=== PATIENT | female | born 1950 | race Caucasian/White ===

== ENCOUNTER → 2022-11-11 13:49 | Outpatient (BNVA) | payer MEDICARE, SELFPAY | PROVIDERS: PCP Internal Medicine; Visit Provider Neurological Surgery | DX: M54.9 Dorsalgia, unspecified (principal); Z98.1 Arthrodesis status; Z98.890 Other specified postprocedural states | CPT/HCPCS: 99202 ==

== ENCOUNTER 2023-03-09 13:20 | Outpatient (AMB) | payer MEDICARE, BC, SELFPAY ==
--- NOTE | 2023-03-09 13:52 | HO.SPINEOV ---
Intake Intake Visit Reasons: MRI follow up Intake Note: Mrs. Trang Heller is here today to discuss the results of her MRI done @ [facility]/brought disc. Engine Maintenance Mechanic Required: No Assessment & Plan Assessment & Plan (1) T12 compression fracture: Code(s): S22.080A - Wedge compression fracture of T11-T12 vertebra, initial encounter for closed fracture Qualifiers: Encounter type: subsequent encounter Fracture healing: with nonunion Qualified Code(s): S22.080K - Wedge compression fracture of T11-T12 vertebra, subsequent encounter for fracture with nonunion Plan: Dear colleague, On 03/09/2023, I saw for return visit Loree Heller. She continues to suffer from severe mid lumbar back pain that is aggravated with standing and walking. The pain started after an injury several months ago. An MRI of the lumbar spine was performed on 02/06/2023 at [facility], which shows a new T12 compression fracture with hyperintensity on the T2 stir images. A standing x-ray today shows a mild kyphotic deformity due to the T12 compression fracture. We discussed treatment options. The pain started after fall and therefore is most likely caused by the T12 fracture. The pain remains severe and therefore I offered a T12 kyphoplasty. I discussed the procedure and expected postoperative course. 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 She scheduled for May 04. I spent 25 minutes in this consult for preparation, ordering tests and discussing plan of care. 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
== END 2023-03-09 14:55 | disposition home or self-care (01) ==
PROVIDERS: PCP Internal Medicine; Visit Provider Neurological Surgery
DX: S22.080K Wedge compression fracture of T11-T12 vertebra, subsequent encounter for fracture with nonunion (principal)
CPT/HCPCS: 99214

== ENCOUNTER 2023-03-09 13:20 | Outpatient (REF) | payer MEDICARE, SELFPAY | END 2023-03-09 13:21 | disposition home or self-care (01) | LOC: HO.HOSX 13:20 | PROVIDERS: PCP Internal Medicine; Visit Provider Neurological Surgery | DX: S22.080K Wedge compression fracture of T11-T12 vertebra, subsequent encounter for fracture with nonunion (principal) | CPT/HCPCS: 72070; 72100; 99212 ==

== ENCOUNTER 2023-04-20 09:09 | Day surgery (SDC) | payer MEDICARE, BC, SELFPAY ==
[2023-03-30 12:23] VITALS: BP 153/69; PULSE 69; RESP 16; O2SAT 97; BMI 32.0
--- NOTE | 2023-03-30 12:56 | HO.ANESPROP2 ---
Documented by User: Martha Jane NP 04/19/23 11:59 HPI - Anesthesia Eval Consult details Narrative: 72yo F for T12 Kyphoplasty, 04/20/23 Allergy to midazolam - HIVES Sensitive gag reflex Pulmo optimized No recent illness No CP. Mild ARORA is baseline from asthma. Very limited activity d/t back pain Xopenex for rescue inhaler uses most days *Multiple Med Allergies* PMFSH Active Problems Active Problems: All Active Problems (Updated 03/30/23 @ 12:23 by Alexia Bruce RN) T12 compression fracture (Acute) Back pain with history of spinal surgery (Acute) Past Medical History Medical History Cough Hyponatremia GERD (gastroesophageal reflux disease) Back pain Asthma Elevated cholesterol HTN (hypertension) Family History Family history of problems with anesthesia: No Surgical History Surgical History Hx of colonoscopy Hx laparoscopic cholecystectomy Previous back surgery Hx of bilateral cataract extraction Hx of hammer toe correction History of bunionectomy of both great toes History of Problems with Anesthesia: No Social History Social History Are you a primary nurse care manager to a significant other at home: No Do you presently have visiting nurse or other home services: No Patient Tobacco Use Status: Former Tobacco user Quit Date: 1972 Tobacco use type: Cigarette Use of substances other than those prescribed or required for medical reasons: No Substance Use Type Other:: CBD lotion PRN Have you been hit, kicked, punched, or otherwise hurt by someone within the past year? If so, by whom?: No Are you DNR?: No Advance Directives: No Advance Directives Information Provided: Yes Advance Directives on File: No Recently lost weight without trying: No Eating poorly because of decreased appetite: No Nutrition Risks: No Nutritional Risk Patient : No Poor oral hygiene: No Meds Allergies Allergy/AdvReac Type Severity Reaction Status Date / Time amlodipine Allergy Severe Swelling Verified 03/30/23 12:06 codeine Allergy Severe Abdominal Verified 03/30/23 12:06 Pain hydralazine Allergy Severe Swelling Verified 03/30/23 12:06 hydrocodone [From Vicodin] Allergy Severe Abdominal Verified 03/30/23 12:06 Pain lisinopril Allergy Severe Hives Verified 03/30/23 12:06 midazolam Allergy Severe Hives Verified 03/30/23 12:06 morphine Allergy Severe Abdominal Verified 03/30/23 12:06 Pain Home Medications Medication Instructions Recorded Confirmed Last Taken Type acetaminophen 500 mg tablet 1,000 mg PO Q6H PRN Pain 03/30/23 03/30/23 Unknown History atorvastatin 20 mg tablet (Lipitor) 20 mg PO BEDTIME 03/30/23 03/30/23 Unknown History budesonide 180 mcg/actuation 2 inh inhalation BID 03/30/23 04/20/23 04/20/23 History breath activated powder inhaler carvedilol 25 mg tablet (Coreg) 25 mg PO BID 03/30/23 03/30/23 04/20/23 History famotidine 40 mg tablet (Pepcid) 40 mg PO BID 03/30/23 03/30/23 Unknown History levalbuterol tartrate 45 2 puff inhalation Q4-6H PRN 03/30/23 03/30/23 04/20/23 History mcg/actuation aerosol inhaler Shortness Of Breath Or Wheezing (Xopenex HFA) losartan 100 mg tablet 100 mg PO DAILY 03/30/23 03/30/23 Unknown History mometasone-formoterol HFA 200 2 puff inhalation BID 03/30/23 03/30/23 04/20/23 History mcg-5 mcg/actuation aerosol inhaler (Dulera) naproxen sodium 220 mg capsule 440 mg PO BID PRN Pain 03/30/23 03/30/23 Unknown History zafirlukast 20 mg tablet 20 mg PO BID 03/30/23 03/30/23 Unknown History Exam Exam Date and Time: March 30, 2023 1256 Height,Weight and Vital Signs: Height 5 ft 2 in Weight 79.4 kg Last Vital Signs Pulse 69 03/30/23 12:23 Resp 16 03/30/23 12:23 BP 153/69 H 03/30/23 12:23 Pulse Ox 97 03/30/23 12:23 O2 Del Method Room Air 03/30/23 12:23 Pertinent Lab Results Pertinent Lab Results: 12/2022 CMP - slight low Na (132) and slight high K (5.4), otherwise nml. CBC nml Narrative Narrative: EKG 12/2022 NSR with horizontal axis. No significant ST or T wave abnormalities Airway Mallampati Class: III TM Dist: >3cm Neck ROM: Full Loose/Missing/Broken Teeth: No (Multiple crowns, implants x 2) Heart: RRR Lungs: CTAB Assessment and Plan Assessment Anesthesia Assessment: Anesthesia Plan Discussed and PAT Visit Final Anesthetic Review Family History of Problems with Anesthesia: No History of Problems with Anesthesia: No Documented by User: Raghu Gutierrez MD 04/20/23 11:47 PMFSH Past Medical History Medical History Cough Hyponatremia GERD (gastroesophageal reflux disease) Back pain Asthma Elevated cholesterol HTN (hypertension) Surgical History Surgical History Hx of colonoscopy Hx laparoscopic cholecystectomy Previous back surgery Hx of bilateral cataract extraction Hx of hammer toe correction History of bunionectomy of both great toes Social History Social History Are you a primary nurse care manager to a significant other at home: No Do you presently have visiting nurse or other home services: No Patient Tobacco Use Status: Former Tobacco user Quit Date: 1972 Tobacco use type: Cigarette Use of substances other than those prescribed or required for medical reasons: No Substance Use Type Other:: CBD lotion PRN Have you been hit, kicked, punched, or otherwise hurt by someone within the past year? If so, by whom?: No Are you DNR?: No Advance Directives: No Advance Directives Information Provided: Yes Advance Directives on File: No Recently lost weight without trying: No Eating poorly because of decreased appetite: No Nutrition Risks: No Nutritional Risk Patient : No Poor oral hygiene: No Meds Allergies Allergy/AdvReac Type Severity Reaction Status Date / Time amlodipine Allergy Severe Swelling Verified 03/30/23 12:06 codeine Allergy Severe Abdominal Verified 03/30/23 12:06 Pain hydralazine Allergy Severe Swelling Verified 03/30/23 12:06 hydrocodone [From Vicodin] Allergy Severe Abdominal Verified 03/30/23 12:06 Pain lisinopril Allergy Severe Hives Verified 03/30/23 12:06 midazolam Allergy Severe Hives Verified 03/30/23 12:06 morphine Allergy Severe Abdominal Verified 03/30/23 12:06 Pain Home Medications Medication Instructions Recorded Confirmed Last Taken Type acetaminophen 500 mg tablet 1,000 mg PO Q6H PRN Pain 03/30/23 03/30/23 Unknown History atorvastatin 20 mg tablet (Lipitor) 20 mg PO BEDTIME 03/30/23 03/30/23 Unknown History budesonide 180 mcg/actuation 2 inh inhalation BID 03/30/23 04/20/23 04/20/23 History breath activated powder inhaler carvedilol 25 mg tablet (Coreg) 25 mg PO BID 03/30/23 03/30/23 04/20/23 History famotidine 40 mg tablet (Pepcid) 40 mg PO BID 03/30/23 03/30/23 Unknown History levalbuterol tartrate 45 2 puff inhalation Q4-6H PRN 03/30/23 03/30/23 04/20/23 History mcg/actuation aerosol inhaler Shortness Of Breath Or Wheezing (Xopenex HFA) losartan 100 mg tablet 100 mg PO DAILY 03/30/23 03/30/23 Unknown History mometasone-formoterol HFA 200 2 puff inhalation BID 03/30/23 03/30/23 04/20/23 History mcg-5 mcg/actuation aerosol inhaler (Dulera) naproxen sodium 220 mg capsule 440 mg PO BID PRN Pain 03/30/23 03/30/23 Unknown History zafirlukast 20 mg tablet 20 mg PO BID 03/30/23 03/30/23 Unknown History Assessment and Plan Final Anesthetic Review NPO: Yes ASA Class: III Final Preanesthetic Review: No Changes in Pt Med Stat, Meds/Allgs Chart Reviewed, Consent Obtained/Reviewed and Anes Risks/Benef Reviewed Patient Risk: Intermediate Procedure Risk: Low Anesthetic Plan Anesthetic Plan: GA Disposition: Standard PACU
[2023-04-20] VITALS (15 sets, daily range): BP systolic 147–182; BP diastolic 61–74; PULSE 68–74; RESP 14–18; TEMP 36.4–36.6; O2SAT 94–100
--- NOTE | ~2023-04-20 | FL_ITS ---
EXAMINATION: XR FLUOROSCOPY WITH IMAGES CLINICAL INFORMATION: T12 kyphoplasty. COMPARISON: Previous thoracic and lumbar spine x-ray March TECHNIQUE: Fluoroscopy Supervised By: Dr. Donato Wynn. Fluoroscopy Time: 0.9 minute. Cumulative Dose: 32.3 mGy. DAP: 3.7624 Gycm2. Images: 2. FINDINGS: Images demonstrate new cement in the T12 vertebral body. T12 vertebral body compression fracture otherwise unchanged from March 2023. Catheter or probe in the proximal stomach. FL/FL guidance in OR IMPRESSION: Fluoroscopy guidance for kyphoplasty
--- NOTE | 2023-04-20 07:04 | MHC.SHP ---
Pre-Procedural Eval Section A Date of Service: 04/20/23 Section B Chief Complaint: Wedge compression fracture of T11-T12 vertebra, Allergies: Allergies Allergy/AdvReac Type Severity Reaction Status Date / Time amlodipine Allergy Severe Swelling Verified 03/30/23 12:06 codeine Allergy Severe Abdominal Verified 03/30/23 12:06 Pain hydralazine Allergy Severe Swelling Verified 03/30/23 12:06 hydrocodone [From Vicodin] Allergy Severe Abdominal Verified 03/30/23 12:06 Pain lisinopril Allergy Severe Hives Verified 03/30/23 12:06 midazolam Allergy Severe Hives Verified 03/30/23 12:06 morphine Allergy Severe Abdominal Verified 03/30/23 12:06 Pain Review of Systems Sugical H&P ROS: Negative: Constitution, Cardiovascular, Respiratory, Neurological, Psychiatric, Hem-Onc, Allergic/Immunologic, Gastrointestinal, Genitourinary, Musculoskeletal, Integumentary, Endocrine and Eyes/Ears/Nose/Throat Exam Surgical H&P Exam: Not Evaluated: HEENT, Not Evaluated: Heart, Not Evaluated: Lungs, Not Evaluated: Extremities, Not Evaluated: Abdomen, Not Evaluated: Skin and Not Evaluated: Neurological Plan Diagnosis/Plan: Unchanged I have reviewed the history and physical and performed a pertinent physical examination on my patient. No changes have occurred unless specified. Plan remains the same, T12 kyphoplasty. Time Spent With Patient Time: Total time managing care of this patient today __10__ minutes.
[2023-04-20] MEDS: methocarbamoL 750 MG TABLET PO (09:35)
[2023-04-20] MEDS: Gabapentin 300 MG CAPSULE PO (09:36)
[2023-04-20] MEDS: Lactated Ringers 1,000 ML 100 ML IVCONT (10:06)
[2023-04-20] MEDS: Acetaminophen 1,000 MG/100 ML PIGGYBACK 400 MG IV (11:53)
--- NOTE | 2023-04-20 13:29 | P.DS_ITS ---
DS: Providers Provider Date of Service: 04/20/23 Primary care physician: Hodan Brewster MD DS: Summary Time Attestation Discharge coordination time: Less than 30 minutes Quality: Safe Use of Opioids Does Pt have an Active Cancer Diagnosis on the Problem List?: No Quality: Stroke Does the patient have a stroke diagnosis?: No Physical Exam Vital Signs: Vital Signs: Last Vital Signs Temp 97.8 F 04/20/23 09:47 Pulse 72 04/20/23 09:47 Resp 18 04/20/23 09:47 BP 151/66 H 04/20/23 09:47 Pulse Ox 96 04/20/23 09:47 O2 Del Method Room Air 04/20/23 09:47 BMI result Body Mass Index 32.0 Discharge Plan Discharge Patient Disposition: Home, Self-Care Referrals: Hodan Brewster MD [Primary Care Provider] - 1 Week Discharge Medications: New oxycodone 5 mg tablet 5 mg PO Q8H PRN (Reason: severe pain (scale score 7-10)) Qty: 21 0RF Rx Instructions: Partial Fill upon patient request. Continued carvedilol [Coreg] 25 mg Tablet 25 mg PO BID Rx Instructions: must administer with a meal/food atorvastatin [Lipitor] 20 mg Tablet 20 mg PO BEDTIME famotidine [Pepcid] 40 mg Tablet 40 mg PO BID zafirlukast 20 mg Tablet 20 mg PO BID Rx Instructions: must be taken on empty stomach, at least 1 hr before or 2 hrs after a m eal/food losartan 100 mg Tablet 100 mg PO DAILY levalbuterol tartrate [Xopenex HFA] 45 mcg/actuation Hfa Aerosol Inhaler 2 puff INHALATION Q4-6H PRN (Reason: Shortness Of Breath Or Wheezing) budesonide 180 mcg/actuation Aerosol Powdr Breath Activated 2 inh INHALATION BID Dulera 200-5 mcg/actuation Hfa Aerosol Inhaler 2 puff INHALATION BID acetaminophen 500 mg Tablet 1,000 mg PO Q6H PRN (Reason: Pain) naproxen sodium 220 mg Capsule 440 mg PO BID PRN (Reason: Pain) Discharge Orders: Discharge Order (Routine); Ordered 04/20/23 Ordered By: Chandan Elizabeth Diet: Advance to usual diet Activity on Discharge: As tolerated Activity Restrictions/Additional Instructions: After your spinal surgery we ask you to observe the following restrictions/guidelines: Activity: It is normal to feel some discomfort as you increase your activity, but that will improve with time. We ask you avoid heavy lifting or acitivities that cause pain. As a general rule, 8lbs is a safe limit for lifting right after surgery. Walk as much as you feel comfortable but not to exhaustion. You will feel extra tired the first few days after surgery. Stay well hydrated. It is OK to walk up and down stairs You may return to driving when you are off narcotics (such as vicodin, oxycodone, dilaudid, etc), and you are back to normal functional capacity. If you have any concerns please check with office before driving. Return to work is specific to each patient and each surgery, so please speak with your doctor/PA at first follow up. Please bring paperwork such as FMLA at that time if you need it filled out. Medications: We will give you a short supply of narcotics after surgery (usually one weeks worth). If you need more please call the office but do not use more than prescribed. You will need to give our office 48 hours notice if you need narcotics refilled and we do not fill narcotics on weekends or evenings. If you are on a narcotic, it is a good idea to take a stool softener such as colace or senna to avoid constipation If you take blood thinner such as aspirin, Plavix, Coumadin, Effient, Eliquis etc for conditions such as Afib, DVT, Pulmonary embolus, coronary disease, stents etc please speak with your surgeon about specific details as to when you can resume these medications. You can resume NSAIDs on post op day 1 (eg: Motrin, Naproxen, etc). Follow up: Please call the office, , after surgery to arrange a 3 week follow up for wound check. Wound Care: You may remove your dressing on the first day after surgery. You may leave open to air. Please do not remove the steri strips underneath. they will fall off on their own in one week. IT IS NORMAL FOR THE WOUND TO OOZE OR BE BLOODY FOR A FEW DAYS AFTER SURGERY. IF THIS HAPPENS JUST PLACE NEW DRESSING OVER IT TO AVOID STAINING CLOTHES. You may shower on post op day # 1 We ask that you do not let the water soak the wound. If it does get wet, just towel dry lightly. Please do not scrub your incision or place any type of chemical/ointment on the wound. No tub baths, pools or jacuzzis for one month. If you have any leaking or redness from your wound, or fevers, please call the office.
--- NOTE | 2023-04-20 13:36 | W.PM.OPN ---
Operative Note Operative Note Date of Service: 04/20/23 Narrative: Preop diagnosis: T12 compression fracture Postop diagnosis: Same Procedure: T12 kyphoplasty Surgeon: Donato Wynn MD Assist: None Description of procedure: 73-year-old female suffered from acute back pain. An MRI shows a T12 compression fracture. She was offered a kyphoplasty. The procedure complications were explained. She was consented. She was brought to the operating room and endotracheally intubated. She was turned in a prone position on the Eh spine table. Two C arms were installed for fluoroscopy. Prepping and draping were done followed by time-out. A stab incision was made lateral from the T12 pedicle after which a Jamshidi needle was inserted and advanced transpedicular into the vertebral body. This was done bilaterally. A drill was advanced towards the posterior 1/3 of the vertebral body through the canula bilaterally. Accordingly, dilating balloons were inserted bilaterally and inflated under AP and lateral fluoroscopic guidance. The balloons were deflated and the cavities were filled with cement under fluoroscopic guidance. No extra vertebral leakage occurred . The Jamshidineedles were removed. The stab incisions were approximated with Dermabond. All sponge needle counts were correct. Patient was extubated and transported in stable to recovery room. Anesthesia: General Estimated blood loss: Minimal Specimen: None Or time: 20 minutes Deposition: Discharged home
[2023-04-20] MEDS: fentaNYL citrate/PF 100 MCG/2 ML VIAL 50 MCG IVPUSH (13:55)
--- NOTE | 2023-04-20 15:00 | PM.DS ---
DS: Providers Provider Date of Service: 04/20/23 Primary care physician: Hodan Brewster MD DS: Summary Time Attestation Discharge coordination time: Less than 30 minutes Quality: Safe Use of Opioids Does Pt have an Active Cancer Diagnosis on the Problem List?: No Quality: Stroke Does the patient have a stroke diagnosis?: No Physical Exam Vital Signs: Vital Signs: Last Vital Signs Temp 97.8 F 04/20/23 13:40 Pulse 70 04/20/23 14:55 Resp 16 04/20/23 14:55 BP 153/69 H 04/20/23 14:55 Pulse Ox 100 04/20/23 14:55 O2 Del Method Room Air 04/20/23 14:55 O2 Flow Rate 2 04/20/23 14:25 BMI result Body Mass Index 32.0 Discharge Plan Discharge Patient Disposition: Home, Self-Care Referrals: Hodan Brewster MD [Primary Care Provider] - 1 Week Discharge Medications: New hydromorphone [Dilaudid] 2 mg tablet 2 mg PO Q6H Qty: 10 0RF Rx Instructions: Partial Fill upon patient request. Continued carvedilol [Coreg] 25 mg Tablet 25 mg PO BID Rx Instructions: must administer with a meal/food atorvastatin [Lipitor] 20 mg Tablet 20 mg PO BEDTIME famotidine [Pepcid] 40 mg Tablet 40 mg PO BID zafirlukast 20 mg Tablet 20 mg PO BID Rx Instructions: must be taken on empty stomach, at least 1 hr before or 2 hrs after a meal/food losartan 100 mg Tablet 100 mg PO DAILY levalbuterol tartrate [Xopenex HFA] 45 mcg/actuation Hfa Aerosol Inhaler 2 puff INHALATION Q4-6H PRN (Reason: Shortness Of Breath Or Wheezing) budesonide 180 mcg/actuation Aerosol Powdr Breath Activated 2 inh INHALATION BID Dulera 200-5 mcg/actuation Hfa Aerosol Inhaler 2 puff INHALATION BID acetaminophen 500 mg Tablet 1,000 mg PO Q6H PRN (Reason: Pain) naproxen sodium 220 mg Capsule 440 mg PO BID PRN (Reason: Pain) Discharge Orders: Discharge Order (Routine); Ordered 04/20/23 Ordered By: Chandan Elizabeth Diet: Advance to usual diet Activity on Discharge: As tolerated Activity Restrictions/Additional Instructions: After your spinal surgery we ask you to observe the following restrictions/guidelines: Activity: It is normal to feel some discomfort as you increase your activity, but that will improve with time. We ask you avoid heavy lifting or acitivities that cause pain. As a general rule, 8lbs is a safe limit for lifting right after surgery. Walk as much as you feel comfortable but not to exhaustion. You will feel extra tired the first few days after surgery. Stay well hydrated. It is OK to walk up and down stairs You may return to driving when you are off narcotics (such as vicodin, oxycodone, dilaudid, etc), and you are back to normal functional capacity. If you have any concerns please check with office before driving. Return to work is specific to each patient and each surgery, so please speak with your doctor/PA at first follow up. Please bring paperwork such as FMLA at that time if you need it filled out. Medications: We will give you a short supply of narcotics after surgery (usually one weeks worth). If you need more please call the office but do not use more than prescribed. You will need to give our office 48 hours notice if you need narcotics refilled and we do not fill narcotics on weekends or evenings. If you are on a narcotic, it is a good idea to take a stool softener such as colace or senna to avoid constipation If you take blood thinner such as aspirin, Plavix, Coumadin, Effient, Eliquis etc for conditions such as Afib, DVT, Pulmonary embolus, coronary disease, stents etc please speak with your surgeon about specific details as to when you can resume these medications. You can resume NSAIDs on post op day 1 (eg: Motrin, Naproxen, etc). Follow up: Please call the office, , after surgery to arrange a 3 week follow up for wound check. Wound Care: You may remove your dressing on the first day after surgery. You may leave open to air. Please do not remove the steri strips underneath. they will fall off on their own in one week. IT IS NORMAL FOR THE WOUND TO OOZE OR BE BLOODY FOR A FEW DAYS AFTER SURGERY. IF THIS HAPPENS JUST PLACE NEW DRESSING OVER IT TO AVOID STAINING CLOTHES. You may shower on post op day # 1 We ask that you do not let the water soak the wound. If it does get wet, just towel dry lightly. Please do not scrub your incision or place any type of chemical/ointment on the wound. No tub baths, pools or jacuzzis for one month. If you have any leaking or redness from your wound, or fevers, please call the office.
[2023-04-20] MEDS: HYDROmorphone HCl 0.5 MG/0.5 ML SYRINGE 0.25 MG IVPUSH (15:31)
== END 2023-04-20 16:15 | disposition home or self-care (01) ==
PROVIDERS: PCP Internal Medicine; Visit Provider Neurological Surgery
PROC: (CPT 22513; principal; 2023-04-20 11:10)
DX: S22.080A Wedge compression fracture of T11-T12 vertebra, initial encounter for closed fracture (principal); M54.50 Low back pain, unspecified; Z87.828 Personal history of other (healed) physical injury and trauma; Y99.8 Other external cause status; Z98.890 Other specified postprocedural states
CPT/HCPCS: 22513; C1713; J0131; J0690; J1170; J2371; J2405; J2704; J3010; Q9967

== ENCOUNTER 2023-05-11 15:28 | Outpatient (AMB) | payer MEDICARE, BC, SELFPAY ==
--- NOTE | 2023-05-11 15:30 | HO.SPINEOV ---
Intake Intake Visit Reasons: 1st post op Intake Note: Mrs. Blackburn is here today for her 1st post-op visit. 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: No Allergies amlodipine Allergy (Severe, Verified 03/30/23 12:06) Swelling codeine Allergy (Severe, Verified 03/30/23 12:06) Abdominal Pain hydralazine Allergy (Severe, Verified 03/30/23 12:06) Swelling hydrocodone [From Vicodin] Allergy (Severe, Verified 03/30/23 12:06) Abdominal Pain lisinopril Allergy (Severe, Verified 03/30/23 12:06) Hives midazolam Allergy (Severe, Verified 03/30/23 12:06) Hives morphine Allergy (Severe, Verified 03/30/23 12:06) Abdominal Pain Assessment & Plan Assessment & Plan (1) S/P spinal surgery: Code(s): Z98.890 - Other specified postprocedural states Plan Procedure: T12 Kyphoplasty Loree comes in today for her 1st postoperative visit. She reports that she feels ?the same as I did prior to surgery. She reports she has an extensive history of surgery in her low back including [address] Saab and other previous surgery by Dr. Wynn. She was enquiring about what the next surgical steps would be for further surgeries. I discussed that she is only 2-3 weeks out from her recent T12 surgery, and would need to make a follow-up appointment with Dr. Cristina to discuss the next surgical options that he may have for her to pursue. She was advised that she is still likely experiencing quite a deal of inflammation from her surgery and should give herself additional time to heal before considering an alternate source for her pain. No neurological deficits. Patient is able to ambulate well, rises from a seated position without difficulty. Surgical sites closed, well healed, with no signs of drainage. The patient requested to follow-up with Dr. Wynn in 2-3 weeks to discuss the next steps for surgery as she states they had previously discussed other interventions that he would pursue after her kyphoplasty. Of note her MRI was completed at [facility]. The patient reports that we have her MRI disc. Chandan Wynn MD,PhD [facility] Coding Level of Care Code Global (63526) Diagnoses S/P spinal surgery Z98.890
== END 2023-05-11 15:57 | disposition home or self-care (01) ==
PROVIDERS: PCP Internal Medicine; Visit Provider Physician Assistant
DX: Z98.890 Other specified postprocedural states (principal)
CPT/HCPCS: 99024

== ENCOUNTER → 2023-05-11 15:28 | Outpatient (BNVA) | payer MEDICARE, BC, SELFPAY | PROVIDERS: PCP Internal Medicine; Visit Provider Physician Assistant | DX: Z98.890 Other specified postprocedural states (principal) | CPT/HCPCS: 99212 ==

== ENCOUNTER 2023-05-26 15:18 | Outpatient (AMB) | payer MEDICARE, BC, SELFPAY ==
--- NOTE | 2023-05-26 15:50 | A.SPINEOV_ITS ---
Intake Intake Visit Reasons: discuss other surgery options Allergies amlodipine Allergy (Severe, Verified 03/30/23 12:06) Swelling codeine Allergy (Severe, Verified 03/30/23 12:06) Abdominal Pain hydralazine Allergy (Severe, Verified 03/30/23 12:06) Swelling hydrocodone [From Vicodin] Allergy (Severe, Verified 03/30/23 12:06) Abdominal Pain lisinopril Allergy (Severe, Verified 03/30/23 12:06) Hives midazolam Allergy (Severe, Verified 03/30/23 12:06) Hives morphine Allergy (Severe, Verified 03/30/23 12:06) Abdominal Pain Assessment & Plan Assessment & Plan (1) SI (sacroiliac) joint dysfunction: Code(s): M53.3 - Sacrococcygeal disorders, not elsewhere classified (2) S/P spinal surgery: Code(s): Z98.890 - Other specified postprocedural states (3) T12 compression fracture: Code(s): S22.080A - Wedge compression fracture of T11-T12 vertebra, initial encounter for closed fracture Qualifiers: Encounter type: subsequent encounter Fracture healing: with nonunion Qualified Code(s): S22.080K - Wedge compression fracture of T11-T12 vertebra, subsequent encounter for fracture with nonunion Plan Dear colleague,: On 05/26/2023, I saw for follow-up visit Loree Heller. She is already complex patient that is suffering from pain in the SI joint region on the right side that can cross over towards the left side with the pain in the upper lumbar region. The pain in the upper lumbar region increase after a fall. We established an MRI that was an acute T12 fracture for which underwent a kyphoplasty. She states that the procedure did not alleviate her symptoms. She can not walk or stand and notices a more flexed position. When she goes in and out of a car she was to lift her leg to prevent pain. She can only lay on her left side. She underwent trigger point injections on the right side I gave her relief. These were not SI joint injections. I obtained x-rays of the T12 area today which shows T12 kyphoplasty with stable deformity. Clinically, the patient could be suffering from an SI joint pain. Differential diagnosis is pain from other sources not responding to surgery, failed back syndrome, L5-S1 degenerative disc disease. I would like to refer to Dr. Ramirez for a right SI joint injection. She will return to my clinic to discuss further options depending on the response to the injection. I spent 45 minutes in his consult to review imaging and discussing plan of care. Donato Wynn MD, PhD Spine Fellowship Trained Neurosurgeon Director, [facility] Orders: Orders XR lumbar spine 2-3V Today S22.080A - Wedge compression fracture of T11-T12 vertebra, initial encounter for closed fracture XR thoracic spine 2V Today S22.080A - Wedge compression fracture of T11-T12 vertebra, initial encounter for closed fracture Referrals Physiatry Referral M53.3 - Sacrococcygeal disorders, not elsewhere classified Coding Level of Care Code Est Pt Level 4 (68797) Diagnoses SI (sacroiliac) joint dysfunction M53.3 S/P spinal surgery Z98.890 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
== END 2023-05-26 15:55 | disposition home or self-care (01) ==
PROVIDERS: PCP Internal Medicine; Visit Provider Neurological Surgery
DX: M53.3 Sacrococcygeal disorders, not elsewhere classified (principal); Z98.890 Other specified postprocedural states; S22.080K Wedge compression fracture of T11-T12 vertebra, subsequent encounter for fracture with nonunion
CPT/HCPCS: 99214

== ENCOUNTER 2023-05-26 15:18 | Outpatient (REF) | payer MEDICARE, BC, SELFPAY ==
--- NOTE | ~2023-05-26 | XR_ITS ---
EXAMINATION: XR THORACIC SPINE XR LUMBAR SPINE CLINICAL INFORMATION: Wedge compression fracture of T11 and T12 vertebrae. COMPARISON: 03/09/2023 TECHNIQUE: 2 views lumbosacral spine, 2 views thoracic spine. FINDINGS: Since the prior exam, the patient has undergone vertebroplasty with cement now seen in the T12 vertebral body. Mild compression fracture of the posterior aspect of the superior endplate of L1 is again seen and unchanged. No new acute fractures are seen. Again noted is posterior fixation with pedicular screws from L3 through L5 sparing the right side of L3. No acute fractures or bony destructive lesions are seen. Moderate degenerative change seen at L1-L2 and L5-S1, unchanged from prior. Surgical clips present in the gallbladder fossa. XR/XR lumbar spine 2-3V IMPRESSION: Interval vertebroplasty of T12. No other interval change. No new fractures are seen. Other findings as described above.
--- NOTE | ~2023-05-26 | XR_ITS ---
EXAMINATION: XR THORACIC SPINE XR LUMBAR SPINE CLINICAL INFORMATION: Wedge compression fracture of T11 and T12 vertebrae. COMPARISON: 03/09/2023 TECHNIQUE: 2 views lumbosacral spine, 2 views thoracic spine. FINDINGS: Since the prior exam, the patient has undergone vertebroplasty with cement now seen in the T12 vertebral body. Mild compression fracture of the posterior aspect of the superior endplate of L1 is again seen and unchanged. No new acute fractures are seen. Again noted is posterior fixation with pedicular screws from L3 through L5 sparing the right side of L3. No acute fractures or bony destructive lesions are seen. Moderate degenerative change seen at L1-L2 and L5-S1, unchanged from prior. Surgical clips present in the gallbladder fossa. XR/XR thoracic spine 2V IMPRESSION: Interval vertebroplasty of T12. No other interval change. No new fractures are seen. Other findings as described above.
== END 2023-05-26 15:19 | disposition home or self-care (01) ==
LOC: HO.HOSX 15:18
PROVIDERS: PCP Internal Medicine; Visit Provider Neurological Surgery
DX: S22.080A Wedge compression fracture of T11-T12 vertebra, initial encounter for closed fracture (principal); M53.3 Sacrococcygeal disorders, not elsewhere classified; Z98.890 Other specified postprocedural states
CPT/HCPCS: 72070; 72100; 99212

== ENCOUNTER 2023-07-15 14:14 | Outpatient (AMB) | payer MEDICARE, BC, SELFPAY ==
--- NOTE | 2023-07-15 14:47 | HO.SPINEOV ---
Intake Intake Visit Reasons: discuss surgery Intake Note: Mrs. Trang Heller is here today to discuss surgical options. Respiratory Care Technician Required: No Allergies amlodipine Allergy (Severe, Verified 03/30/23 12:06) Swelling codeine Allergy (Severe, Verified 03/30/23 12:06) Abdominal Pain hydralazine Allergy (Severe, Verified 03/30/23 12:06) Swelling hydrocodone [From Vicodin] Allergy (Severe, Verified 03/30/23 12:06) Abdominal Pain lisinopril Allergy (Severe, Verified 03/30/23 12:06) Hives midazolam Allergy (Severe, Verified 03/30/23 12:06) Hives morphine Allergy (Severe, Verified 03/30/23 12:06) Abdominal Pain Assessment & Plan Assessment & Plan (1) Back pain with history of spinal surgery: Code(s): M54.9 - Dorsalgia, unspecified; Z98.890 - Other specified postprocedural states (2) SI (sacroiliac) joint dysfunction: Code(s): M53.3 - Sacrococcygeal disorders, not elsewhere classified Plan Mrs Heller is back today to follow-up after her SI joint injection. She also underwent a caudal block by Dr. Ramirez as well. Unfortunately nothing helped her low back pain. She is very frustrated with her lack of progress since the fall last year an increase in the chronic pain that she was been having around her lower lumbar region. I went back and reviewed with her again exactly where the pain is located and it is very low in the lumbar spine almost to the sacral junction. It is slightly worse on the right than on the left but it is encompassing both sides. It does not radiate down her legs. She knows what nerve pain feels like and does not feel any of that. On my exam, she has full strength, she has negative provocative testing of SI joint with compression and negative UNIQUE testing. Her story seems to fit best with some kind of postural dynamic within the spine itself as she can be completely symptom-free when she has in a recumbent position in a chair but his soon as she gets a vertical in a chair or stands for more than a few minutes she has to sit back down her lay back down. She lives on [facility] which keeps her same throughout the day as it keeps the intensity level of the pain manageable. I think we should look again at the potential for adjacent segment disease. I can see on the standing x-rays done by Dr. Wynn that there is a slight lateral listhesis to the left of L2 on L3 which seems worse than the x-ray from last January. And there is also significant degenerative disc disease at L5-S1. I will order a noncontrast CT of the lumbar spine, and MRI of the lumbar spine to assess any changes since the last imaging. I would like to see her bone quality, and that is the reason for the CT scan. She would like these done at [facility]. We will see her back once they are completed. Total amount of time spent in this visit was 20 minutes in discussion of symptoms, x-ray imaging results and subsequent plan of care Omer Wynn MD,PhD [facility] Orders: Orders MR lumbar spine wo con Today M54.9 - Dorsalgia, unspecified, Z98.890 - Other specified postprocedural states CT lumbar spine wo IV con Today M54.9 - Dorsalgia, unspecified, Z98.890 - Other specified postprocedural states Coding Level of Care Code Est Pt Level 3 (33261) Diagnoses Back pain with history of spinal surgery M54.9; Z98.890 SI (sacroiliac) joint dysfunction M53.3
== END 2023-07-15 15:27 | disposition home or self-care (01) ==
PROVIDERS: PCP Internal Medicine; Visit Provider Physician Assistant
DX: M54.9 Dorsalgia, unspecified (principal); Z98.890 Other specified postprocedural states; M53.3 Sacrococcygeal disorders, not elsewhere classified
CPT/HCPCS: 99213

== ENCOUNTER → 2023-07-15 14:14 | Outpatient (BNVA) | payer MEDICARE, BC, SELFPAY | PROVIDERS: PCP Internal Medicine; Visit Provider Physician Assistant | DX: M54.9 Dorsalgia, unspecified (principal); M53.3 Sacrococcygeal disorders, not elsewhere classified; Z98.890 Other specified postprocedural states | CPT/HCPCS: 99212 ==

== ENCOUNTER → 2023-08-10 13:44 | Outpatient (BNVA) | payer MEDICARE, BC, SELFPAY | PROVIDERS: PCP Internal Medicine; Visit Provider Physician Assistant ==

== ENCOUNTER 2023-08-11 14:28 | Outpatient (AMB) | payer MEDICARE, BC, SELFPAY ==
--- NOTE | 2023-08-11 14:31 | A.SPINEOV_ITS ---
Intake Intake Visit Reasons: CT & MRI fu/ Intake Note: Ms. Costello is here today for f/u on CT & MRI. Colliery Clerk Required: No Allergies amlodipine Allergy (Severe, Verified 03/30/23 12:06) Swelling codeine Allergy (Severe, Verified 03/30/23 12:06) Abdominal Pain hydralazine Allergy (Severe, Verified 03/30/23 12:06) Swelling hydrocodone [From Vicodin] Allergy (Severe, Verified 03/30/23 12:06) Abdominal Pain lisinopril Allergy (Severe, Verified 03/30/23 12:06) Hives midazolam Allergy (Severe, Verified 03/30/23 12:06) Hives morphine Allergy (Severe, Verified 03/30/23 12:06) Abdominal Pain Assessment & Plan Assessment & Plan (1) Back pain with history of spinal surgery: Code(s): M54.9 - Dorsalgia, unspecified; Z98.890 - Other specified postprocedural states Plan Dear colleague, On 08/11/2023, I saw for follow-up Loree Heller for ongoing right-sided back pain. Initially this was associated with pain in the right groin area. The pain is debilitating and interferes with daily activities and ADLs. We are trying to find a cause of these symptoms. Differential diagnosis is adjacent degenerative disc disease, SI joint pathology or L5-S1 degenerative disc disease. She had an SI joint injection done but I do not think this was very successful. Most likely her symptoms are coming from adjacent degenerative disc disease with right L2 foraminal stenosis. Unfortunately, there is also stenosis at the L1 foramen. The foraminal stenosis is clearly visible on CT and MRI scan that was recently obtained. An extensive discussion with the patient and her about surgical intervention. My preference would be to get a right L2 nerve block to see if we can localize it to the L2-3 region. This would reduce the amount of surgery needed. I explained to her that if we incorporate the L1- L2 region that this would put tremendous stress on the previous T12 compression fracture increasing the risk of further fracture and deformity at this level. If we include the L1-L2 level we have to extend the fusion towards the lower thoracic level. I will refer to for the right L2 nerve block and we will see her after for further plan. I spent 40 minutes in his consult reviewing imaging and discussing plan of care. Thank you for letting me take care of this complex spine patient. Donato Wynn MD, PhD Spine Fellowship Trained Neurosurgeon Director, [facility] Orders: Referrals Physiatry Referral M54.9 - Dorsalgia, unspecified, Z98.890 - Other specified postprocedural states Coding Level of Care Code Est Pt Level 5 (60065) Diagnoses Back pain with history of spinal surgery M54.9; Z98.890
== END 2023-08-11 15:21 | disposition home or self-care (01) ==
PROVIDERS: PCP Internal Medicine; Visit Provider Neurological Surgery
DX: M54.9 Dorsalgia, unspecified (principal); Z98.890 Other specified postprocedural states
CPT/HCPCS: 99215

== ENCOUNTER → 2023-08-11 14:28 | Outpatient (BNVA) | payer MEDICARE, BC, SELFPAY | PROVIDERS: PCP Internal Medicine; Visit Provider Neurological Surgery | DX: M54.9 Dorsalgia, unspecified (principal); Z98.890 Other specified postprocedural states | CPT/HCPCS: 99212 ==

== ENCOUNTER 2023-12-06 10:10 | Outpatient (AMB) | payer MEDICARE, BC, SELFPAY ==
--- NOTE | 2023-12-06 10:23 | MHC.OFFVIS ---
Vital Signs 12/06/23 10:25 Height 5 ft 2 in Weight 165 lb BMI 30.2 BP 118/60 Blood Pressure Location Lt brachial Position Sitting Pulse 84 Pulse Source Pulse Oximeter Pulse Oximetry (%) 96 Oxygen Delivery Method Room Air Intake Visit Reasons: asthma Draw Frame Tender Required: No Allergies amlodipine Allergy (Severe, Verified 12/06/23 10:27) Swelling codeine Allergy (Severe, Verified 12/06/23 10:27) Abdominal Pain hydralazine Allergy (Severe, Verified 12/06/23 10:27) Swelling hydrocodone [From Vicodin] Allergy (Severe, Verified 12/06/23 10:27) Abdominal Pain lisinopril Allergy (Severe, Verified 12/06/23 10:27) Hives midazolam Allergy (Severe, Verified 12/06/23 10:27) Hives morphine Allergy (Severe, Verified 12/06/23 10:27) Abdominal Pain HPI Comments Details: The patient is here for pulmonary evaluation. The patient is a 73 year woman with a known history of asthma followed closely by Pulmonary in the [facility]. Now her pediatric physiatrist is retiring and she is looking for placement. Currently she is recovering after being diagnosed with pneumonia. She was developing worsening shortness of breath and she was evaluated at an urgent care. They she had a chest x-ray she was diagnosed with pneumonia she was told to follow-up elsewhere. She was given a course of doxycycline. I do not believe she was given prednisone. Her breathing has been improving although her voice is still hoarse. She continues Dulera for her maintenance inhaler and she is also taking Pulmicort. For maintenance she does use Xopenex. The patient does not have a nebulizer. She has been fully vaccinated specially for pneumonia. The patient understands that they increase inhaled cortical steroids can increase the risk of infection. Therefore be reasonable to try a simplify her respiratory maintenance regimen. I do believe that she will respond well to Breztri. Will go ahead and send to the pharmacy that be replacing both maintenance inhalers. In addition to the she is scheduled to have surgery for her back at [facility] sometime mid January. She is wondering if she is going to be strong enough to have surgery. Right now her respiratory exam is reassuring. I do have a copy of her old x-ray on going to have him get a repeat x-ray sometime next week. She is also going to undergo blood work. Will be able to assess to see if there is any persistent findings. The patient is no better or if she is developing worsening disease she may have to consider postponing her surgery. [facility] Medical History (Updated 12/06/23 @ 21:54 by Salo Kiser MD) Dyspnea Pneumonia Cough Hyponatremia GERD (gastroesophageal reflux disease) Back pain Asthma Elevated cholesterol HTN (hypertension) Surgical History (Updated 05/11/23 @ 15:53 by DIVYA Majano) Hx of colonoscopy Hx laparoscopic cholecystectomy Previous back surgery Hx of bilateral cataract extraction Hx of hammer toe correction History of bunionectomy of both great toes Social History Are you a primary hearing care practitioner to a significant other at home: No Do you presently have visiting nurse or other home services: No Comment: COUNTS CORRECT Patient Tobacco Use Status: Former Tobacco user Tobacco use type: Cigarette Review of Systems Const Denies fever(s) ENT Reports change in voice Card Denies chest pain and Reports dyspnea on exertion Resp Reports dyspnea on exertion and Denies wheezing GI Reports no additional complaints Musc Reports back pain and Reports myalgias Skin/Breast Denies rash Neuro Reports paresthesias Aller/Immun Denies wheezing Physical Exam Vital Signs: Last Vital Signs Pulse 84 12/06/23 10:25 BP 118/60 12/06/23 10:25 Pulse Ox 96 12/06/23 10:25 Oxygen Delivery Method Room Air 12/06/23 10:25 BMI result Body Mass Index 30.2 Const General: comfortable HEENT Head: Yes normocephalic Neck Neck: Yes supple Chest Chest palpation & inspection: normal inspection of the chest Resp Effort & Inspection: normal respiratory effort Auscultation: diminished lung sounds Cardio Heart sounds: S1 normal heart sound present and S2 normal heart sound present GI Palpation (GI): Soft to palpation Skin General skin exam: no rashes or lesions noted Extrem General: Yes no clubbing, cyanosis or edema Assessment & Plan Assessment & Plan (1) Pneumonia: Code(s): J18.9 - Pneumonia, unspecified organism Category: Medical Qualifiers: Pneumonia type: due to unspecified organism Laterality: unspecified laterality Lung location: unspecified part of lung Qualified Code(s): J18.9 - Pneumonia, unspecified organism (2) Asthma: Code(s): J45.909 - Unspecified asthma, uncomplicated Category: Medical Qualifiers: Asthma severity: moderate Asthma persistence: persistent Asthma complication type: uncomplicated Qualified Code(s): J45.40 - Moderate persistent asthma, uncomplicated (3) Dyspnea: Code(s): R06.00 - Dyspnea, unspecified Category: Medical Qualifiers: Dyspnea type: dyspnea on exertion Qualified Code(s): R06.09 - Other forms of dyspnea (4) Back pain with history of spinal surgery: Code(s): M54.9 - Dorsalgia, unspecified; Z98.890 - Other specified postprocedural states Category: Medical Plan stop Dulera and Pulmicort start Breztri BID HELEN as needed (xopenex) Bloodwork CXR F/U 2-3 months Orders: Orders Immunoglobulins,IgG IgA IgM Today J18.9 - Pneumonia, unspecified organism, J45.909 - Unspecified asthma, uncomplicated Complete Blood Count Auto Diff Today J18.9 - Pneumonia, unspecified organism, J45.909 - Unspecified asthma, uncomplicated XR chest 2V Today J18.9 - Pneumonia, unspecified organism, J45.909 - Unspecified asthma, uncomplicated Immunoglobulin E Today J18.9 - Pneumonia, unspecified organism, J45.909 - Unspecified asthma, uncomplicated Basic Metabolic Panel Today J18.9 - Pneumonia, unspecified organism, J45.909 - Unspecified asthma, uncomplicated Erythrocyte Sedimentation Rate Today J18.9 - Pneumonia, unspecified organism, J45.909 - Unspecified asthma, uncomplicated Medications: New zfisnzeeov-yxyhnluz-nlfsglccar 160-9-4.8 mcg/actuation (Breztri Aerosphere) 2 inhalations inhalation BID 10.7 grams 6RF 30 days Discontinued hydromorphone (Dilaudid) Partial Fill upon patient request. Discontinued Reason: Patient no longer taking 2 mg PO Q6H 10 tabs 0RF pain Coding Level of Care Code New Pt Level 4 (15696) Diagnoses Pneumonia due to infectious organism, unspecified laterality, unspecified part of lung J18.9 Pneumonia type: due to unspecified organism Laterality: unspecified laterality Lung location: unspecified part of lung Moderate persistent asthma without complication J45.40 Asthma severity: moderate Asthma persistence: persistent Asthma complication type: uncomplicated Dyspnea on exertion R06.09 Dyspnea type: dyspnea on exertion Back pain with history of spinal surgery M54.9; Z98.890 Time Spent (min) 40
[2023-12-06 10:25] VITALS: BP 118/60; PULSE 84; O2SAT 96; BMI 30.2
== END 2023-12-06 11:02 | disposition home or self-care (01) ==
PROVIDERS: PCP Internal Medicine; Visit Provider Hospitalist
DX: J18.9 Pneumonia, unspecified organism (principal); J45.40 Moderate persistent asthma, uncomplicated; R06.09 Other forms of dyspnea; M54.9 Dorsalgia, unspecified; Z98.890 Other specified postprocedural states
CPT/HCPCS: 99204

== ENCOUNTER → 2023-12-06 10:10 | Outpatient (BNVA) | payer MEDICARE, BC, SELFPAY | PROVIDERS: PCP Internal Medicine; Visit Provider Hospitalist | DX: J18.9 Pneumonia, unspecified organism (principal); J45.40 Moderate persistent asthma, uncomplicated; R06.09 Other forms of dyspnea; M54.9 Dorsalgia, unspecified; Z98.890 Other specified postprocedural states | CPT/HCPCS: 99202 ==

== ENCOUNTER 2023-12-20 10:27 | Outpatient (REF) | payer MEDICARE, BC, SELFPAY ==
--- NOTE | ~2023-12-20 | XR_ITS ---
EXAMINATION: XR CHEST CLINICAL INFORMATION: Pneumonia. Patient states pneumonia a month ago and just getting a doctor follow-up. COMPAR[facility] 05/26/2023. TECHNIQUE: 2 views of the chest were obtained. FINDINGS: Surgical clips right upper quadrant. Lumbar thoracic spine minimally included in the [id number]-whtj. Redemonstration of vertebroplasty cement at T12. Multilevel degenerative changes in the thoracic spine. Redemonstration of mild compression fracture along posterior aspect of superior endplate of L1. Lung volumes are low. Heart size within normal limits. There is no gross pneumothorax. Bilateral, predominantly bibasilar patchy opacities redemonstrated. No gross pleural effusion. XR/XR chest 2V IMPRESSION: 1. Bilateral, predominantly bibasilar patchy opacities redemonstrated, compatible with given history of pneumonia. 2. Redemonstration mild compression fracture along posterior aspect of superior endplate of L1.
[2023-12-20 10:47] LABS: MANUAL DIFF FLAG NO
[2023-12-20 11:41] LABS: Basophils Absolute Auto 0.1 X10*3/uL (0.0-0.2); Eosinophils Absolute Auto 0.3 X10*3/uL (0.0-0.4); Eosinophils Percent Auto 5.1 % (0-4); Hematocrit 30.2 % (37.0-47.0); Hemoglobin 10.2 g/dl (12.0-16.0); Imm Gran Abs Auto 0.02 X10*3/uL (0.00-0.03); Imm Gran Pct Auto 0.4 % (0.0-0.4); Lymphocytes Absolute Auto 0.9 X10*3/uL (1.2-4.9); Mean Corpuscular HGB Conc 33.8 g/dl (31.0-35.0); Mean Corpuscular Hemoglobin 31.8 pg (27.0-33.0); Mean Corpuscular Volume 94.1 fL (80.0-98.0); Mean Platelet Volume 8.5 fL (9.4-12.3); Monocytes Absolute Auto 0.6 X10*3/uL (0.1-1.2); Monocytes Percent Auto 11.2 % (2-11); Neutrophils Absolute Auto 3.1 x10*3/uL (2.0-8.3); Neutrophils Percent Auto 63.3 % (45-73); Platelet Count 287 X10*3/uL (160-400); Red Blood Count 3.21 X10*6/uL (4.20-5.50); Red Cell Distribution Width 13.5 % (11.0-16.0); White Blood Count 4.9 X10*3/uL (4.8-10.8)
[2023-12-20 12:17] LABS: Erythrocyte Sedimentation Rate 20 MM/HR (0-20)
[2023-12-20 12:19] LABS: Anion Gap 13 (12-20); Blood Urea Nitrogen 14 mg/dL (9-16); Calcium 10.3 mg/dL (8.4-10.2); Carbon Dioxide 25 mmol/L (22-29); Chloride 102 mmol/L (96-108); Estimated Glomerular Filt Rate > 60; Glucose Random 112 mg/dL (60-115); Potassium 4.3 mmol/L (3.3-5.1); Sodium 136 mmol/L (135-145)
[2023-12-21 09:52] LABS: IgA 58 mg/dL (70-320); IgG 501 mg/dL (600-1540); IgM 79 mg/dL (50-300)
[2023-12-21 13:34] LABS: Immunoglobulin E 27 kU/L (<OR=114)
== END 2023-12-20 10:28 | disposition home or self-care (01) ==
LOC: HO.LAB 10:27
PROVIDERS: PCP Internal Medicine; Visit Provider Hospitalist
DX: J18.9 Pneumonia, unspecified organism (principal); J45.909 Unspecified asthma, uncomplicated
CPT/HCPCS: 36415; 71046; 80048; 82784; 82785; 85025; 85652

== ENCOUNTER 2024-01-11 12:50 | Outpatient (REF) | payer MEDICARE, BC, SELFPAY ==
--- NOTE | ~2024-01-11 | CT_ITS ---
EXAMINATION: CT CHEST WITHOUT CONTRAST CLINICAL INFORMATION: Pneumonia, unspecified organism. COMPARISON: Chest x-ray dated 12/20/2023. TECHNIQUE: Multidetector volumetric CT imaging of the chest was obtained noncontrast. Sagittal and coronal reformations were obtained. This CT examination was performed using dose optimization techniques as appropriate, variously including the following: *Automated exposure control *Adjustment of mA and/or kV according to patient size (this includes techniques or standardized protocols for targeted exams where dose is matched to indication/reason for exam; i.e. extremities or head) *Use of iterative reconstruction technique DLP: 157 mGy-cm. FINDINGS: LUNGS: Moderate centrilobular emphysema. In the lung apices bilaterally, there are posterior pleural-based peribronchovascular masslike irregular parenchymal consolidation seen with surrounding retractile change and volume loss. Multiple surrounding tiny irregular nodular densities and patchy groundglass opacities are seen. Internal air bronchograms are noted. In the clinical setting provided, these findings are certainly consistent with multifocal pneumonia. There is in addition, patchy predominantly linear opacity seen in the right middle lobe and lingula and in both lower lobes, presumably representing scattered inflammatory changes and atelectasis/scarring. There are multiple scattered solid noncalcified pulmonary nodules seen, some examples of which include the following: -A 6 mm solid noncalcified nodule In the anterior basal right lower lobe (series 5, image 291). -A 4 mm solid noncalcified nodule in the lingula (series 5, image 279). Based on the right major fissure, several small nodules are seen, measuring up to 6 mm in size, consistent with perifissural lymph nodes. There is a 5 mm solid noncalcified pleural-based nodule in the lateral right lower lobe (series 5, image 215), also consistent with a pleural-based lymph node. No effusion or pneumothorax. There is a variant noted in the trachea at the thoracic inlet level. Central airways otherwise unremarkable in patent. LYMPHOVASCULAR STRUCTURES: Aortic and heart size normal. Trace pericardial fluid is seen, likely physiologic. Mild atherosclerotic calcifications of the great vessels and aorta noted. There are multiple calcified mediastinal and bilateral hilar lymph nodes, consistent with prior granulomatous disease. No suspicious mediastinal, hilar or axillary adenopathy. CORONARY ARTERY CALCIFICATION: None visualized on this study. THYROID GLAND: Unremarkable to the extent included. UPPER ABDOMEN: Postcholecystectomy andres are seen in the gallbladder fossa. There is a 0.6 cm low-attenuation mass in hepatic segment 2 (series 3, image 51), possibly volume averaging of fat in the fissure for ligamentum teres versus a tiny cyst. No suspicious liver mass noted. There is fullness at the GE junction, consistent with a small hiatal hernia. A few scattered colonic diverticula are partially included. Rounded structure at the pancreatic tail/splenic hilar region most likely represents the accessory splenule. Included portions of the solid organs in the upper abdomen otherwise unremarkable. BONES: Diffuse osteopenia. Compression deformity with vertebroplasty changes at the T12 level again seen. There is a mild convex right thoracolumbar scoliosis. No suspicious focal findings. CT/CT chest wo IV con IMPRESSION: 1. Moderate emphysema with bilateral upper lobe peribronchovascular irregular masslike consolidation with surrounding retractile change and volume loss. Findings are consistent with multifocal pneumonia. 2. Multiple additional scattered bilateral solid noncalcified pulmonary nodules are seen, measuring up to 6 mm in size, possibly inflammatory. Short interval follow-up CT scan of the chest post treatment in 1-3 months is recommended for reevaluation.. 3. Calcified mediastinal and bilateral hilar lymph nodes, consistent with prior granulomatous disease. 4. Small hiatal hernia. 5. Status post cholecystectomy. 6. Osteopenia with compression deformity and vertebroplasty changes at T12. 7. Small benign 0.6 cm low-attenuation mass in hepatic segment 2, possibly volume averaging of fat in the fissure for ligamentum teres versus a tiny cyst.
== END 2024-01-11 12:51 | disposition home or self-care (01) ==
LOC: HO.CT 12:50
PROVIDERS: PCP Internal Medicine; Visit Provider Hospitalist
DX: J18.9 Pneumonia, unspecified organism (principal); R93.89 Abnormal findings on diagnostic imaging of other specified body structures
CPT/HCPCS: 71250

== ENCOUNTER 2024-01-14 09:17 | Outpatient (AMB) | payer MEDICARE, BC, SELFPAY ==
--- NOTE | 2024-01-14 09:28 | A.OFFVIS_ITS ---
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 Allergies amlodipine Allergy (Severe, Verified 01/14/24 09:32) Swelling codeine Allergy (Severe, Verified 01/14/24 09:32) Abdominal Pain hydralazine Allergy (Severe, Verified 01/14/24 09:32) Swelling hydrocodone [From Vicodin] Allergy (Severe, Verified 01/14/24 09:32) Abdominal Pain lisinopril Allergy (Severe, Verified 01/14/24 09:32) Hives midazolam Allergy (Severe, Verified 01/14/24 09:32) Hives morphine Allergy (Severe, Verified 01/14/24 09:32) Abdominal Pain HPI Comments Details: The patient is a 73 year woman with a known history of asthma followed closely by Pulmonary in the [facility]. 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 Currently she is recovering after being diagnosed with pneumonia. She was developing worsening shortness of breath and she was evaluated at an urgent care. They she had a chest x-ray she was diagnosed with pneumonia she was told to follow-up elsewhere. She was given a course of doxycycline. I do not believe she was given prednisone. Her breathing has been improving although her voice is still hoarse. She continues Dulera for her maintenance inhaler and she is also taking Pulmicort. For maintenance she does use Xopenex. The patient does not have a nebulizer. She has been fully vaccinated specially for pneumonia. The patient understands that they increase inhaled cortical steroids can increase the risk of infection. Therefore be reasonable to try a simplify her respiratory maintenance regimen. I do believe that she will respond well to Breztri. Will go ahead and send to the pharmacy that be replacing both maintenance inhalers. In addition to the she is scheduled to have surgery for her back at [facility] sometime mid January. She is wondering if she is going to be strong enough to have surgery. Right now her respiratory exam is reassuring. I do have a copy of her old x-ray on going to have him get a repeat x-ray sometime next week. She is also going to undergo blood work. Will be able to assess to see if there is any persistent findings. The patient is no better or if she is developing worsening disease she may have to consider postponing her surgery. 01/14/2024 the patient is here for pulmonary follow-up visit. Overall the patient has been doing well from a respiratory status. She still having significant back pain. Denies any cough or shortness of breath or chest pain. She did complete a course of antibiotics and had a repeat chest x-ray 12/20/2023. I did personally reviewed the x-ray and compared to her previous x-ray demonstrating interval improvement of the right-sided pneumonia. Still though she has not residual changes there. Therefore, after give another course of antibiotics which is taking right now Augmentin and I did request a CT scan of the chest to better address the areas specially since she is going to need back surgery. I did review the CT scan with the patient. The appears that the CT scan demon strates some chronic changes including some nodular densities some calcified lymph nodes and some areas of inflammation and scarring. This area appears to be chronic. She has been seen previously by Pulmonary in the past in her states. She was told about some areas of scarring. As far as exposures he was exposed to both silica and also asbestos working a lot for about 3 years. 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 At this point it appears that the airspace disease that pneumonia that she had been treated for and is currently being treated for seems to be improving. Therefore based on the fact that she is feeling well from respiratory status and the infection is improved I do believe that she is able to proceed with elective and semi elective surgeries including her back surgery. I also did review the blood work with the patient. She seems to have a low IgG of 500. Will go ahead and repeat the IgG subclasses and also request titers for her pneumococcal vaccine to make sure she is having a good response to vaccines. If she is not then we can consider further diagnostic and therapeutic interventions. At this moment though she is able to proceed with surgery. The patient does have minimal risk for perioperative pulmonary complications which includes atelectasis pneumonia and hypoxia. [facility] Medical History (Updated 01/16/24 @ 22:18 by Salo Kiser MD) Hypogammaglobulinemia ILD (interstitial lung disease) Pulmonary nodules Abnormal chest x-ray Dyspnea Pneumonia Cough Hyponatremia GERD (gastroesophageal reflux disease) Back pain Asthma Elevated cholesterol HTN (hypertension) Surgical History (Updated 05/11/23 @ 15:53 by DIVYA Majano) Hx of colonoscopy Hx laparoscopic cholecystectomy Previous back surgery Hx of bilateral cataract extraction Hx of hammer toe correction History of bunionectomy of both great toes Social History Are you a primary professional healthcare representative to a significant other at home: No Do you presently have visiting nurse or other home services: No Comment: COUNTS CORRECT Patient Tobacco Use Status: Former Tobacco user Tobacco use type: Cigarette Review of Systems Const Denies fever(s) ENT Reports change in voice Card Denies chest pain and Reports dyspnea on exertion Resp Reports dyspnea on exertion and Denies wheezing GI Reports no additional complaints Musc Reports back pain and Reports myalgias Skin/Breast Denies rash Neuro Reports paresthesias Aller/Immun Denies wheezing Physical Exam Vital Signs: Last Vital Signs Pulse 78 01/14/24 09:31 Pulse Ox 94 01/14/24 09:31 Oxygen Delivery Method Room Air 01/14/24 09:31 BMI result Body Mass Index 31.1 Const General: comfortable HEENT Head: Yes normocephalic Neck Neck: Yes supple Chest Chest palpation & inspection: normal inspection of the chest Resp Effort & Inspection: normal respiratory effort Auscultation: no rales, no rhonchi, no wheezes and diminished lung sounds Cardio Heart sounds: S1 normal heart sound present and S2 normal heart sound present GI Palpation (GI): Soft to palpation Skin General skin exam: no rashes or lesions noted Extrem General: Yes no clubbing, cyanosis or edema Results Reviewed Results Reviewed: [address] [address] [address] Scan Report Signed Patient: Loree Heller MR#: [id number] : 1950 Acct:[id number] Age/Sex: 73 / F ADM Date: 01/11/24 Loc: HO.CT Attending Dr: Salo Kiser MD Ordering Physician: Salo Kiser MD Date of Service: 01/11/24 Procedure(s): CT chest wo IV con Accession Number(s): [id number] cc: Salo Kiser MD; KERA SANCHEZ MD~ EXAMINATION: CT CHEST WITHOUT CONTRAST CLINICAL INFORMATION: Pneumonia, unspecified organism. COMPARISON: Chest x-ray dated 12/20/2023. TECHNIQUE: Multidetector volumetric CT imaging of the chest was obtained noncontrast. Sagittal and coronal reformations were obtained. This CT examination was performed using dose optimization techniques as appropriate, variously including the following: *Automated exposure control *Adjustment of mA and/or kV according to patient size (this includes techniques or standardized protocols for targeted exams where dose is matched to indication/reason for exam; i.e. extremities or head) *Use of iterative reconstruction technique DLP: 157 mGy-cm. FINDINGS: LUNGS: Moderate centrilobular emphysema. In the lung apices bilaterally, there are posterior pleural-based peribronchovascular masslike irregular parenchymal consolidation seen with surrounding retractile change and volume loss. Multiple surrounding tiny irregular nodular densities and patchy groundglass opacities are seen. Internal air bronchograms are noted. In the clinical setting provided, these findings are certainly consistent with multifocal pneumonia. There is in addition, patchy predominantly linear opacity seen in the right middle lobe and lingula and in both lower lobes, presumably representing scattered inflammatory changes and atelectasis/scarring. There are multiple scattered solid noncalcified pulmonary nodules seen, some examples of which include the following: -A 6 mm solid noncalcified nodule In the anterior basal right lower lobe (series 5, image 291). -A 4 mm solid noncalcified nodule in the lingula (series 5, image 279). Based on the right major fissure, several small nodules are seen, measuring up to 6 mm in size, consistent with perifissural lymph nodes. There is a 5 mm solid noncalcified pleural-based nodule in the lateral right lower lobe (series 5, image 215), also consistent with a pleural-based lymph node. No effusion or pneumothorax. There is a variant noted in the trachea at the thoracic inlet level. Central airways otherwise unremarkable in patent. LYMPHOVASCULAR STRUCTURES: Aortic and heart size normal. Trace pericardial fluid is seen, likely physiologic. Mild atherosclerotic calcifications of the great vessels and aorta noted. There are multiple calcified mediastinal and bilateral hilar lymph nodes, consistent with prior granulomatous disease. No suspicious mediastinal, hilar or axillary adenopathy. CORONARY ARTERY CALCIFICATION: None visualized on this study. THYROID GLAND: Unremarkable to the extent included. UPPER ABDOMEN: Postcholecystectomy andres are seen in the gallbladder fossa. There is a 0.6 cm low-attenuation mass in hepatic segment 2 (series 3, image 51), possibly volume averaging of fat in the fissure for ligamentum teres versus a tiny cyst. No suspicious liver mass noted. There is fullness at the GE junction, consistent with a small hiatal hernia. A few scattered colonic diverticula are partially included. Rounded structure at the pancreatic tail/splenic hilar region most likely represents the accessory splenule. Included portions of the solid organs in the upper abdomen otherwise unremarkable. BONES: Diffuse osteopenia. Compression deformity with vertebroplasty changes at the T12 level again seen. There is a mild convex right thoracolumbar scoliosis. No suspicious focal findings. CT/CT chest wo IV con IMPRESSION: 1. Moderate emphysema with bilateral upper lobe peribronchovascular irregular masslike consolidation with surrounding retractile change and volume loss. Findings are consistent with multifocal pneumonia. 2. Multiple additional scattered bilateral solid noncalcified pulmonary nodules are seen, measuring up to 6 mm in size, possibly inflammatory. Short interval follow-up CT scan of the chest post treatment in 1-3 months is recommended for reevaluation.. 3. Calcified mediastinal and bilateral hilar lymph nodes, consistent with prior granulomatous disease. 4. Small hiatal hernia. 5. Status post cholecystectomy. 6. Osteopenia with compression deformity and vertebroplasty changes at T12. 7. Small benign 0.6 cm low-attenuation mass in hepatic segment 2, possibly volume averaging of fat in the fissure for ligamentum teres versus a tiny cyst. Dictated By: Yamilex Ferrari MD Signed By: <Electronically signed by Yamilex Ferrari MD in OV> 01/11/24 1501 DD/ 1322 TD/TT: Quantitative Analyst: PATTIE Assessment & Plan Assessment & Plan (1) Pre-op chest exam: Code(s): Z01.811 - Encounter for preprocedural respiratory examination Category: Medical (2) Pneumonia: Comment: better, completing second course of abx Code(s): J18.9 - Pneumonia, unspecified organism Category: Medical Qualifiers: Laterality: unspecified laterality Lung location: unspecified part of lung Pneumonia type: due to unspecified organism Qualified Code(s): J18.9 - Pneumonia, unspecified organism (3) Asthma: Code(s): J45.909 - Unspecified asthma, uncomplicated Category: Medical Qualifiers: Asthma severity: moderate Asthma persistence: persistent Asthma complication type: uncomplicated Qualified Code(s): J45.40 - Moderate persistent asthma, uncomplicated (4) Dyspnea: Code(s): R06.00 - Dyspnea, unspecified Category: Medical Qualifiers: Dyspnea type: dyspnea on exertion Qualified Code(s): R06.09 - Other forms of dyspnea (5) Back pain with history of spinal surgery: Code(s): M54.9 - Dorsalgia, unspecified; Z98.890 - Other specified postprocedural states Category: Medical (6) Pulmonary nodules: Code(s): R91.8 - Other nonspecific abnormal finding of lung field Category: Medical (7) ILD (interstitial lung disease): Comment: May have a component of sarcoid versus pneumoconiosis. Has had exposure to silicosis, but in a lab. Still has some egg shell calcifiactions. Code(s): J84.9 - Interstitial pulmonary disease, unspecified Category: Medical (8) Hypogammaglobulinemia: Code(s): D80.1 - Nonfamilial hypogammaglobulinemia Category: Medical Plan May proceed with anesthsia and surgery from a pulmonary standpoint. CT chest demonstrating significant improvement of the right sided airspace disease. She is medically optimized from a pulmonary standpoint and may proceed wu consenting for anesthesia and surgery.She does have increase risk for perioperative pulmonary complications, including; atelectasis, hypoxi, pneumonia bronchospasms and pronlonged mecanical ventilation. Bloodwork continue Breztri BID HELEN as needed (xopenex) will need to repeat CT chest 6-12 months F/U 3 months Orders: Orders Angiotensin Converting Enzyme 01/14/24 J18.9 - Pneumonia, unspecified organism, R91.8 - Other nonspecific abnormal finding of lung field Hypersensitive Pneumonitis Prf 01/14/24 J18.9 - Pneumonia, unspecified organism, R91.8 - Other nonspecific abnormal finding of lung field RUSTY Reflex Titer and Pattern 01/14/24 J18.9 - Pneumonia, unspecified organism, R91.8 - Other nonspecific abnormal finding of lung field Complete Blood Count Auto Diff 01/14/24 J18.9 - Pneumonia, unspecified organism, R91.8 - Other nonspecific abnormal finding of lung field Immunoglobulin G Subclasses 01/14/24 J18.9 - Pneumonia, unspecified organism, R91.8 - Other nonspecific abnormal finding of lung field Erythrocyte Sedimentation Rate 01/14/24 J18.9 - Pneumonia, unspecified organism, R91.8 - Other nonspecific abnormal finding of lung field Cyclic Citrullinated Peptide 01/14/24 J18.9 - Pneumonia, unspecified organism, R91.8 - Other nonspecific abnormal finding of lung field T Spot TB Today R91.8 - Other nonspecific abnormal finding of lung field Coding Level of Care Code Est Pt Level 5 (81624) Diagnoses Pre-op chest exam Z01.811 Pneumonia due to infectious organism, unspecified laterality, unspecified part of lung J18.9 Laterality: unspecified laterality Lung location: unspecified part of lung Pneumonia type: due to unspecified organism Moderate persistent asthma without complication J45.40 Asthma severity: moderate Asthma persistence: persistent Asthma complication type: uncomplicated Dyspnea on exertion R06.09 Dyspnea type: dyspnea on exertion Back pain with history of spinal surgery M54.9; Z98.890 Pulmonary nodules R91.8 ILD (interstitial lung disease) J84.9 Hypogammaglobulinemia D80.1 Time Spent (min) 60
[2024-01-14 09:31] VITALS: PULSE 78; O2SAT 94; BMI 31.1
== END 2024-01-14 10:04 | disposition home or self-care (01) ==
PROVIDERS: PCP Internal Medicine; Visit Provider Hospitalist
DX: J18.9 Pneumonia, unspecified organism (principal); J45.40 Moderate persistent asthma, uncomplicated; Z01.811 Encounter for preprocedural respiratory examination; R91.8 Other nonspecific abnormal finding of lung field; M54.9 Dorsalgia, unspecified; D80.1 Nonfamilial hypogammaglobulinemia
CPT/HCPCS: 99215

== ENCOUNTER → 2024-01-14 09:17 | Outpatient (BNVA) | payer MEDICARE, BC, SELFPAY | PROVIDERS: PCP Internal Medicine; Visit Provider Hospitalist | DX: Z01.811 Encounter for preprocedural respiratory examination (principal); J84.9 Interstitial pulmonary disease, unspecified; J45.40 Moderate persistent asthma, uncomplicated; R06.09 Other forms of dyspnea; M54.9 Dorsalgia, unspecified; R19.8 Other specified symptoms and signs involving the digestive system and abdomen; D80.1 Nonfamilial hypogammaglobulinemia; Z98.890 Other specified postprocedural states; Z77.090 Contact with and (suspected) exposure to asbestos; Z57.5 Occupational exposure to toxic agents in other industries | CPT/HCPCS: 99212 ==

== ENCOUNTER 2024-03-17 13:36 | Outpatient (REF) | payer MEDICARE, BC, SELFPAY ==
[2024-03-17 13:54] LABS: MANUAL DIFF FLAG NO
[2024-03-17 14:51] LABS: Basophils Absolute Auto 0.1 X10*3/uL (0.0-0.2); Basophils Percent Auto 0.8 % (0-2); Eosinophils Absolute Auto 0.1 X10*3/uL (0.0-0.4); Eosinophils Percent Auto 1.8 % (0-4); Hematocrit 28.8 % (37.0-47.0); Hemoglobin 9.6 g/dl (12.0-16.0); Imm Gran Abs Auto 0.02 X10*3/uL (0.00-0.03); Imm Gran Pct Auto 0.3 % (0.0-0.4); Lymphocytes Absolute Auto 0.7 X10*3/uL (1.2-4.9); Lymphocytes Percent Auto 10.3 % (20-40); Mean Corpuscular HGB Conc 33.3 g/dl (31.0-35.0); Mean Corpuscular Hemoglobin 29.7 pg (27.0-33.0); Mean Corpuscular Volume 89.2 fL (80.0-98.0); Mean Platelet Volume 8.3 fL (9.4-12.3); Monocytes Absolute Auto 0.6 X10*3/uL (0.1-1.2); Monocytes Percent Auto 8.8 % (2-11); Neutrophils Absolute Auto 5.2 x10*3/uL (2.0-8.3); Platelet Count 313 X10*3/uL (160-400); Red Blood Count 3.23 X10*6/uL (4.20-5.50); Red Cell Distribution Width 14.4 % (11.0-16.0); White Blood Count 6.6 X10*3/uL (4.8-10.8)
[2024-03-17 15:29] LABS: Erythrocyte Sedimentation Rate 23 MM/HR (0-20)
[2024-03-20 18:43] LABS: TS Negative Control Passed; TS Panel A 0; TS Panel B 3; TS Positive Control Passed; TSpotTB Negative (Negative)
[2024-03-22 11:49] LABS: Anti Nuclear Antibody Screen POSITIVE (NEGATIVE)
[2024-03-22 16:19] LABS: Immunoglobulin G Subclass 1 239 mg/dL (382-929); Immunoglobulin G Subclass 2 113 mg/dL (241-700); Immunoglobulin G Subclass 3 24 mg/dL (22-178); Immunoglobulin G Subclass 4 13.5 mg/dL (4-86); Immunoglobulin G Total 431 mg/dL (600-1540)
[2024-03-22 20:33] LABS: Angiotensin Converting Enzyme 18 U/L (9-67)
[2024-03-23 13:48] LABS: Cyclic Citrullinated Peptide <16 UNITS
[2024-03-30 12:44] LABS: Asperg fumigatus Precip Abs NEGATIVE (NEGATIVE); Micropoly faeni Abs NEGATIVE (NEGATIVE); Pigeon serum Abs NEGATIVE (NEGATIVE); Saccharo pora viridis Abs NEGATIVE (NEGATIVE); Thermo candidus Abs NEGATIVE (NEGATIVE); Thermoa vulgaris #1 NEGATIVE (NEGATIVE)
== END 2024-03-17 13:37 | disposition home or self-care (01) ==
LOC: HO.LAB 13:36
PROVIDERS: PCP Internal Medicine; Visit Provider Hospitalist
DX: R91.8 Other nonspecific abnormal finding of lung field (principal); J18.9 Pneumonia, unspecified organism
CPT/HCPCS: 36415; 82164; 82784; 85025; 85652; 86038; 86039; 86200; 86331; 86481; 86606; 86609

== ENCOUNTER 2024-03-24 12:54 | Outpatient (AMB) | payer MEDICARE, BC, SELFPAY ==
--- NOTE | 2024-03-24 13:00 | MHC.OFFVIS ---
Vital Signs 03/24/24 13:03 Height 5 ft 3 in Weight 165 lb BMI 29.2 BP 124/60 Blood Pressure Location Rt brachial Position Sitting Pulse 83 Pulse Source Pulse Oximeter Pulse Oximetry (%) 97 Oxygen Delivery Method Room Air Intake Visit Reasons: Asthma Furnace Process Supervisor Required: No Allergies amlodipine Allergy (Severe, Verified 03/24/24 13:00) Swelling codeine Allergy (Severe, Verified 03/24/24 13:00) Abdominal Pain hydralazine Allergy (Severe, Verified 03/24/24 13:00) Swelling hydrocodone [From Vicodin] Allergy (Severe, Verified 03/24/24 13:00) Abdominal Pain lisinopril Allergy (Severe, Verified 03/24/24 13:00) Hives midazolam Allergy (Severe, Verified 03/24/24 13:00) Hives morphine Allergy (Severe, Verified 03/24/24 13:00) Abdominal Pain HPI Comments Details: The patient is a 73 year woman with a known history of asthma followed closely by Pulmonary in the [facility]. 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 Currently she is recovering after being diagnosed with pneumonia. She was developing worsening shortness of breath and she was evaluated at an urgent care. They she had a chest x-ray she was diagnosed with pneumonia she was told to follow-up elsewhere. She was given a course of doxycycline. I do not believe she was given prednisone. Her breathing has been improving although her voice is still hoarse. She continues Dulera for her maintenance inhaler and she is also taking Pulmicort. For maintenance she does use Xopenex. The patient does not have a nebulizer. She has been fully vaccinated specially for pneumonia. The patient understands that they increase inhaled cortical steroids can increase the risk of infection. Therefore be reasonable to try a simplify her respiratory maintenance regimen. I do believe that she will respond well to Breztri. Will go ahead and send to the pharmacy that be replacing both maintenance inhalers. In addition to the she is scheduled to have surgery for her back at [facility] sometime mid January. She is wondering if she is going to be strong enough to have surgery. Right now her respiratory exam is reassuring. I do have a copy of her old x-ray on going to have him get a repeat x-ray sometime next week. She is also going to undergo blood work. Will be able to assess to see if there is any persistent findings. The patient is no better or if she is developing worsening disease she may have to consider postponing her surgery. 01/14/2024 the patient is here for pulmonary follow-up visit. Overall the patient has been doing well from a respiratory status. She still having significant back pain. Denies any cough or shortness of breath or chest pain. She did complete a course of antibiotics and had a repeat chest x-ray 12/20/2023. I did personally reviewed the x-ray and compared to her previous x-ray demonstrating interval improvement of the right-sided pneumonia. Still though she has not residual changes there. Therefore, after give another course of antibiotics which is taking right now Augmentin and I did request a CT scan of the chest to better address the areas specially since she is going to need back surgery. I did review the CT scan with the patient. The appears that the CT scan demonstrates some chronic changes including some nodular densities some calcified lymph nodes and some areas of inflammation and scarring. This area appears to be chronic. She has been seen previously by Pulmonary in the past in her states. She was told about some areas of scarring. As far as exposures he was exposed to both silica and also asbestos working a lot for about 3 years. 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 At this point it appears that the airspace disease that pneumonia that she had been treated for and is currently being treated for seems to be improving. Therefore based on the fact that she is feeling well from respiratory status and the infection is improved I do believe that she is able to proceed with elective and semi elective surgeries including her back surgery. I also did review the blood work with the patient. She seems to have a low IgG of 500. Will go ahead and repeat the IgG subclasses and also request titers for her pneumococcal vaccine to make sure she is having a good response to vaccines. If she is not then we can consider further diagnostic and therapeutic interventions. At this moment though she is able to proceed with surgery. The patient does have minimal risk for perioperative pulmonary complications which includes atelectasis pneumonia and hypoxia. 03/24/2024 the patient is here for a pulmonary follow-up visit. She is status post her back surgery. She did have an extensive surgery in [place]. She is still recovering. Her breathing is overall better. She is responding to the current respiratory therapy. She did undergo blood work and we are reviewing them. She does have worsening hypogammaglobulinemia. the levels are more concerning. Indeed it could be related to the fact that she recently had major surgery. Although her levels were low even before surgery. In addition to that she was found to be anemic. She did require blood after her surgery. Will go ahead and request additional blood work at this time in 3 months after she does have further recovery of her significant surgery. The patient did have a CT scan of the chest which we personally reviewed demonstrating multiple pulmonary nodules, largest nodule measuring 6 mm in size. She will benefit from getting a CT scan in 6 months to make sure there stability of the nodules. [facility] Medical History (Updated 01/16/24 @ 22:18 by Salo Kiser MD) Hypogammaglobulinemia ILD (interstitial lung disease) Pulmonary nodules Abnormal chest x-ray Dyspnea Pneumonia Cough Hyponatremia GERD (gastroesophageal reflux disease) Back pain Asthma Elevated cholesterol HTN (hypertension) Surgical History (Updated 05/11/23 @ 15:53 by DIVYA Majano) Hx of colonoscopy Hx laparoscopic cholecystectomy Previous back surgery Hx of bilateral cataract extraction Hx of hammer toe correction History of bunionectomy of both great toes Social History Are you a primary medical care administrator to a significant other at home: No Do you presently have visiting nurse or other home services: No Comment: COUNTS CORRECT Patient Tobacco Use Status: Former Tobacco user Tobacco use type: Cigarette Review of Systems Const Denies fever(s) ENT Reports change in voice Card Denies chest pain and Reports dyspnea on exertion Resp Reports dyspnea on exertion and Denies wheezing GI Reports no additional complaints Musc Reports back pain and Reports myalgias Skin/Breast Denies rash Neuro Reports paresthesias Aller/Immun Denies wheezing Physical Exam Vital Signs: Last Vital Signs Pulse 83 03/24/24 13:03 BP 124/60 03/24/24 13:03 Pulse Ox 97 03/24/24 13:03 Oxygen Delivery Method Room Air 03/24/24 13:03 BMI result Body Mass Index 29.2 Const General: comfortable HEENT Head: Yes normocephalic Neck Neck: Yes supple Chest Chest palpation & inspection: normal inspection of the chest Resp Effort & Inspection: normal respiratory effort Auscultation: no rales, no rhonchi, no wheezes and diminished lung sounds Cardio Heart sounds: S1 normal heart sound present and S2 normal heart sound present GI Palpation (GI): Soft to palpation Skin General skin exam: no rashes or lesions noted Extrem General: Yes no clubbing, cyanosis or edema Results Reviewed Results Reviewed: lazine, hydrocodone, lisinopril, midazolam, morphine (More??) Close Chest CT (Signed) Yamilex Ferrari - 01/11/24 Chest X-Ray (Signed) EyalamritAmairani - 12/20/23 Miscellaneous Image 12/03/23 Miscellaneous Image 11/25/23 Diagnostic Report, External Neuro Spine Omer Crowell - 07/21/23 Diagnostic Report, External 06/18/23 Thoracic Spine X-Ray (Signed) Donovan Lim - 05/26/23 Lumbar Spine X-Ray (Signed) Donovan Lim - 05/26/23 Guidance Fluoroscopy (Signed) Ruth Boo - 04/20/23 Thoracic Spine X-Ray (Signed) Donovan Lim - 03/09/23 Lumbar Spine X-Ray (Signed) Donovan Lim - 03/09/23 Diagnostic Report, External Neuro Spine Omer Crowell - 02/11/23 Diagnostic Report, External Neurosurgery Donato A Pennings Donato A Pennings - 10/13/22 Diagnostic Report, External Neurosurgery Donato A Pennings Donato A Pennings - 10/04/22 Diagnostic Report, External Neurosurgery Donato A Pennings Donato A Pennings - 09/23/22 Diagnostic Report, External Neurosurgery Donato A Pennings Donato A Pennings - 09/23/22 Launch?Image [place] [address] CT Scan Report Signed Patient: Loree Heller MR#: [id number] : 1950 Acct:[id number] Age/Sex: 73 / F ADM Date: 01/11/24 Loc: HO.CT Attending Dr: Salo Kiser MD Ordering Physician: Salo Kiser MD Date of Service: 01/11/24 Procedure(s): CT chest wo IV con Accession Number(s): [id number] cc: Salo Kiser MD; KERA SANCHEZ MD~ EXAMINATION: CT CHEST WITHOUT CONTRAST CLINICAL INFORMATION: Pneumonia, unspecified organism. COMPARISON: Chest x-ray dated 12/20/2023. TECHNIQUE: Multidetector volumetric CT imaging of the chest was obtained noncontrast. Sagittal and coronal reformations were obtained. This CT examination was performed using dose optimization techniques as appropriate, variously including the following: *Automated exposure control *Adjustment of mA and/or kV according to patient size (this includes techniques or standardized protocols for targeted exams where dose is matched to indication/reason for exam; i.e. extremities or head) *Use of iterative reconstruction technique DLP: 157 mGy-cm. FINDINGS: LUNGS: Moderate centrilobular emphysema. In the lung apices bilaterally, there are posterior pleural-based peribronchovascular masslike irregular parenchymal consolidation seen with surrounding retractile change and volume loss. Multiple surrounding tiny irregular nodular densities and patchy groundglass opacities are seen. Internal air bronchograms are noted. In the clinical setting provided, these findings are certainly consistent with multifocal pneumonia. There is in addition, patchy predominantly linear opacity seen in the right middle lobe and lingula and in both lower lobes, presumably representing scattered inflammatory changes and atelectasis/scarring. There are multiple scattered solid noncalcified pulmonary nodules seen, some examples of which include the following: -A 6 mm solid noncalcified nodule In the anterior basal right lower lobe (series 5, image 291). -A 4 mm solid noncalcified nodule in the lingula (series 5, image 279). Based on the right major fissure, several small nodules are seen, measuring up to 6 mm in size, consistent with perifissural lymph nodes. There is a 5 mm solid noncalcified pleural-based nodule in the lateral right lower lobe (series 5, image 215), also consistent with a pleural-based lymph node. No effusion or pneumothorax. There is a variant noted in the trachea at the thoracic inlet level. Central airways otherwise unremarkable in patent. LYMPHOVASCULAR STRUCTURES: Aortic and heart size normal. Trace pericardial fluid is seen, likely physiologic. Mild atherosclerotic calcifications of the great vessels and aorta noted. There are multiple calcified mediastinal and bilateral hilar lymph nodes, consistent with prior granulomatous disease. No suspicious mediastinal, hilar or axillary adenopathy. CORONARY ARTERY CALCIFICATION: None visualized on this study. THYROID GLAND: Unremarkable to the extent included. UPPER ABDOMEN: Postcholecystectomy andres are seen in the gallbladder fossa. There is a 0.6 cm low-attenuation mass in hepatic segment 2 (series 3, image 51), possibly volume averaging of fat in the fissure for ligamentum teres versus a tiny cyst. No suspicious liver mass noted. There is fullness at the GE junction, consistent with a small hiatal hernia. A few scattered colonic diverticula are partially included. Rounded structure at the pancreatic tail/splenic hilar region most likely represents the accessory splenule. Included portions of the solid organs in the upper abdomen otherwise unremarkable. BONES: Diffuse osteopenia. Compression deformity with vertebroplasty changes at the T12 level again seen. There is a mild convex right thoracolumbar scoliosis. No suspicious focal findings. CT/CT chest wo IV con IMPRESSION: 1. Moderate emphysema with bilateral upper lobe peribronchovascular irregular masslike consolidation with surrounding retractile change and volume loss. Findings are consistent with multifocal pneumonia. 2. Multiple additional scattered bilateral solid noncalcified pulmonary nodules are seen, measuring up to 6 mm in size, possibly inflammatory. Short interval follow-up CT scan of the chest post treatment in 1-3 months is recommended for reevaluation.. 3. Calcified mediastinal and bilateral hilar lymph nodes, consistent with prior granulomatous disease. 4. Small hiatal hernia. 5. Status post cholecystectomy. 6. Osteopenia with compression deformity and vertebroplasty changes at T12. 7. Small benign 0.6 cm low-attenuation mass in hepatic segment 2, possibly volume averaging of fat in the fissure for ligamentum teres versus a tiny cyst. Dictated By: Yamilex Ferrari MD Signed By: <Electronically signed by Yamilex Ferrari MD in OV> 01/11/24 1501 DD/ 1322 TD/TT: Legend Maker: PATTIE Assessment & Plan Assessment & Plan (1) Asthma: Code(s): J45.909 - Unspecified asthma, uncomplicated Category: Medical Qualifiers: Asthma complication type: uncomplicated Asthma persistence: persistent Asthma severity: moderate Qualified Code(s): J45.40 - Moderate persistent asthma, uncomplicated (2) Dyspnea: Code(s): R06.00 - Dyspnea, unspecified Category: Medical Qualifiers: Dyspnea type: dyspnea on exertion Qualified Code(s): R06.09 - Other forms of dyspnea (3) Back pain with history of spinal surgery: Code(s): M54.9 - Dorsalgia, unspecified; Z98.890 - Other specified postprocedural states Category: Medical (4) Pulmonary nodules: Code(s): R91.8 - Other nonspecific abnormal finding of lung field Category: Medical (5) ILD (interstitial lung disease): Comment: May have a component of sarcoid versus pneumoconiosis. Has had exposure to silicosis, but in a lab. Still has some egg shell calcifiactions. Code(s): J84.9 - Interstitial pulmonary disease, unspecified Category: Medical (6) Hypogammaglobulinemia: Code(s): D80.1 - Nonfamilial hypogammaglobulinemia Category: Medical Plan Bloodwork, repeating IgG levels ?IVIG therapy continue Breztri BID HELEN as needed (xopenex) will need to repeat CT chest 6-12 months F/U 3-4 months Orders: Orders Immunoglobulin G Subclasses 03/24/24 D80.1 - Nonfamilial hypogammaglobulinemia, J45.40 - Moderate persistent asthma, uncomplicated, J84.9 - Interstitial pulmonary disease, unspecified Ferritin 03/24/24 D80.1 - Nonfamilial hypogammaglobulinemia, J45.40 - Moderate persistent asthma, uncomplicated, J84.9 - Interstitial pulmonary disease, unspecified IRON PROFILE 03/24/24 D80.1 - Nonfamilial hypogammaglobulinemia, J45.40 - Moderate persistent asthma, uncomplicated, J84.9 - Interstitial pulmonary disease, unspecified SARS COV2 IgG 03/24/24 D80.1 - Nonfamilial hypogammaglobulinemia, J45.40 - Moderate persistent asthma, uncomplicated, J84.9 - Interstitial pulmonary disease, unspecified SARS-COV-2 IgG Jason, Semi-Qnt 03/24/24 D80.1 - Nonfamilial hypogammaglobulinemia, J45.40 - Moderate persistent asthma, uncomplicated, J84.9 - Interstitial pulmonary disease, unspecified S pneumoniae IgG Ab 23 03/24/24 D80.1 - Nonfamilial hypogammaglobulinemia, J45.40 - Moderate persistent asthma, uncomplicated, J84.9 - Interstitial pulmonary disease, unspecified Erythrocyte Sedimentation Rate 03/24/24 D80.1 - Nonfamilial hypogammaglobulinemia, J45.40 - Moderate persistent asthma, uncomplicated, J84.9 - Interstitial pulmonary disease, unspecified Complete Blood Count Auto Diff 03/24/24 D80.1 - Nonfamilial hypogammaglobulinemia, J45.40 - Moderate persistent asthma, uncomplicated, J84.9 - Interstitial pulmonary disease, unspecified CT chest wo IV con 6 Months R91.8 - Other nonspecific abnormal finding of lung field Medications: Refilled [id number]-wstcmqja-mcihgnrgks 160-9-4.8 mcg/actuation (Breztri Aerosphere) 2 inhalations inhalation BID 30 days 10.7 grams 6RF Coding Level of Care Code Est Pt Level 4 (17931) Complex EM visit Add On G2211 Diagnoses Moderate persistent asthma without complication J45.40 Asthma complication type: uncomplicated Asthma persistence: persistent Asthma severity: moderate Dyspnea on exertion R06.09 Dyspnea type: dyspnea on exertion Back pain with history of spinal surgery M54.9; Z98.890 Pulmonary nodules R91.8 ILD (interstitial lung disease) J84.9 Hypogammaglobulinemia D80.1 Time Spent (min) 18
[2024-03-24 13:03] VITALS: BP 124/60; PULSE 83; O2SAT 97; BMI 29.2
== END 2024-03-24 13:27 | disposition home or self-care (01) ==
PROVIDERS: PCP Internal Medicine; Visit Provider Hospitalist
DX: J45.40 Moderate persistent asthma, uncomplicated (principal); R06.09 Other forms of dyspnea; M54.9 Dorsalgia, unspecified; Z98.890 Other specified postprocedural states; R91.8 Other nonspecific abnormal finding of lung field; J84.9 Interstitial pulmonary disease, unspecified; D80.1 Nonfamilial hypogammaglobulinemia
CPT/HCPCS: 99214; G2211

== ENCOUNTER → 2024-03-24 12:54 | Outpatient (BNVA) | payer MEDICARE, BC, SELFPAY | PROVIDERS: PCP Internal Medicine; Visit Provider Hospitalist | DX: J45.40 Moderate persistent asthma, uncomplicated (principal); R06.09 Other forms of dyspnea; M54.9 Dorsalgia, unspecified; J84.9 Interstitial pulmonary disease, unspecified; R91.8 Other nonspecific abnormal finding of lung field; D80.1 Nonfamilial hypogammaglobulinemia; Z98.890 Other specified postprocedural states | CPT/HCPCS: 99212 ==

== ENCOUNTER 2024-06-21 08:49 | Outpatient (REF) | payer MEDICARE, BC, SELFPAY ==
--- NOTE | ~2024-06-21 | CT_ITS ---
EXAMINATION: CT CHEST WITHOUT IV CONTRAST INDICATION: R91.8 - Other nonspecific abnormal finding of lung field COMPARISON: Comparison is made with the prior examination dated 01/11/2024. TECHNIQUE: Helical CT scan of the chest was performed without intravenous contrast. Coronal and sagittal reformatted images were generated and reviewed. This CT exam was performed with one or more of the following dose reduction techniques: automated exposure control, adjustment of the mA and/or kV according to patient size, use of iterative reconstruction technique. DLP: 146 mGy-cm CHEST: THYROID: The thyroid is unremarkable. LUNGS:Again seen are conglomerate opacities at both lung apices which extend to the cesar. There is associated volume loss in both upper lobes. 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 Again seen are multiple pulmonary nodules including a 5 mm nodule in the right lower lobe (series 5, image 243) and a 6 mm nodule in the right lower lobe (series 5 image 306). On the left, there is a 6 mm nodule in the lower lobe (series 5, image 189) and a 5 mm nodule in the upper lobe (series 5, image 221). MEDIASTINUM: Again seen are numerous calcified paratracheal and AP window lymph nodes. CESAR: Evaluation of the hilar regions is limited by lack of intravenous contrast material. CARDIOVASCULATURE: The heart is enlarged. There is a small pericardial effusion versus pericardial thickening measuring up to 6 mm in thickness. The thoracic aorta is normal in caliber. DEGREE OF CORONARY CALCIFICATION: none PLEURA: There is no pleural effusion. No pneumothorax. MAIN AIRWAYS: The mainstem bronchi and proximal branches are patent. AXILLA: There is no axillary lymphadenopathy. BONES AND SOFT TISSUES: Unremarkable UPPER ABDOMEN: There is a 10 mm hypodensity in the left lobe of the liver without change. The visualized portions of the spleen and adrenals have an unremarkable appearance. There is a small hiatal hernia. The patient is status post posterior fusion of the lower thoracic spine with pedicle screws and spinal stabilization rods. A partially visualized vertebroplasty is noted. CT/CT chest wo IV con IMPRESSION: Again seen are conglomerate opacities at both lung apices extending to the cesar, with associated volume loss and calcified mediastinal lymph nodes. 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 Clinical correlation with respect to the patient's occupation is recommended. Multiple bilateral subcentimeter pulmonary nodules are stable. Continued follow-up is recommended. Electronically signed by: Hernan Gann MD 06/21/2024 02:10 PM YI
--- OUTSIDE RECORDS SUMMARY | 2024-06-21 09:00 | XMS_ITS ---
Author Name [facility] Organization Unknown History of Medication Use Medication Directions Dispensed Refills Start Date End Date [facility] cholecalciferol, vitamin D3, 25 mcg (1,000 unit) tablet Take 1,000 Units by mouth in the morning. 11/10/2023 active meloxicam (MOBIC) 15 mg tablet 11/10/2023 active levalbuterol (XOPENEX HFA) 45 mcg/actuation inhaler Inhale 2 puffs every 4 (four) hours as needed. 11/10/2023 active zafirlukast (ACCOLATE) tablet Take 1 tablet by mouth in the morning and 1 tablet before bedtime. 11/10/2023 active mometasone-formoterol (Dulera) 200-5 mcg/actuation inhaler USE 2 INHALATIONS ORALLY TWICE DAILY 11/10/2023 active Tymlos 80 mcg (3,120 mcg/1.56 mL) pen injector 11/10/2023 active famotidine (PEPCID) 40 mg tablet Take 1 tablet by mouth in the morning and 1 tablet before bedtime. 11/10/2023 active valsartan (DIOVAN) 80 mg tablet 11/10/2023 active carvediloL (COREG) 25 mg tablet Take 25 mg by mouth in the morning and 25 mg in the evening. 11/10/2023 active B-complex with vitamin C capsule Take 1 capsule by mouth in the morning. 11/10/2023 active atorvastatin (LIPITOR) 20 mg tablet Take 20 mg by mouth in the morning. 11/10/2023 active budesonide (Pulmicort Flexhaler) 180 mcg/actuation inhaler USE 2 INHALATIONS ORALLY TWICE DAILY 11/10/2023 active acetaminophen (TYLENOL) 500 mg tablet Take 1,000 mg by mouth 2 (two) times a week. 11/10/2023 active Problems Problem Status Onset Date Problem Type Date of Resolution Source Ataxia active EncounterDiagnosisAct [facility] Chronic midline low back pain without sciatica active EncounterDiagnosisAct [facility] Lumbar stenosis with neurogenic claudication active EncounterDiagnosisAct [facility] Hyperreflexia active EncounterDiagnosisAct [facility] Compression fracture of body of thoracic vertebra (HCC) active EncounterDiagnosisAct [facility] Fusion of lumbar spine active EncounterDiagnosisAct [facility]
--- OUTSIDE RECORDS SUMMARY | 2024-06-21 09:01 | XMS_ITS ---
Author Organization [facility], Address [address] [place] [address] Care Team Providers Care Labor Expediter Name Role Phone Omer Estrada [phone] ALLERGIES, ADVERSE REACTIONS, ALERTS Substance Code Code System Type Reaction Severity Status Start Date End Date hydralazine 5470 RxNorm Drug allergy () 0 hydrocodone 5489 RxNorm Drug allergy () 0 codeine 2670 RxNorm Drug allergy () 0 lisinopril 87862 RxNorm Drug allergy () 0 morphine 7052 RxNorm Drug allergy () 0 oxycodone 7804 RxNorm Drug allergy () moderate allergy 0 Penicillins RxNorm Drug allergy () 0 midazolam 6960 RxNorm Drug allergy () 0 MEDICATIONS Medication Code Code System Start Date Stop Date Route Dosage Directions Fill Instructions ATORVASTATIN 20MG TAB RxNorm CARVEDILOL 25MG TAB RxNorm DULERA 200-5MCG INH RxNorm LEVALBUTEROL HFA 200 INH RxNorm LOSARTAN 100MG TAB RxNorm PULMICRT FLX 180MCG INH RxNorm acolate RxNorm labetalol 0 RxNorm oral benzonatate 693996 RxNorm 06/27/19 24 oral 1 amoxicillin-po t clavulanate 523083 RxNorm 04/14/20 23 oral 1 Tymlos 0 RxNorm subcutaneous PROBLEMS Problem Name Code Code System Start Date End Date Stat us Essential (primary) hypertension 01341174 [facility] Active Other hyperlipidemia 67280755 [facility] Active Asthma 633198859 [facility] Active Acute maxillary sinusitis, unspecified 17333718 [facility] 2023 Resolved Shortness of breath 093008801 [facility] 06/27/2023 Inactive Other hypotension 98379692962407 [facility] 06/27/2023 Inactive Other malaise 716189477 [facility] 06/27/2023 Inacti ve Acute bronchitis, unspecified 92511128 [facility] 06/27/2023 Resolved Cardiac murmur, unspecified 69754272 [facility] 01/17/2024 Active 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 623446208 [facility] 06/08/2024 Active ENCOUNTERS Encounter Diagnosis Code Code System Date Stat us Cardiac murmur, unspecified 19837707 [facility] Active Acute pharyngitis, unspecified 228274412 [facility] 2023 Active Acute cough 51066248 [facility] 01/17/2024 Active Mild intermittent [facility], uncomplicated [facility]9548 [facility] Active COVID-19 860749043 [facility] 01/17/2024 Active IMMUNIZATIONS * None VITAL SIGNS Code Code System Vitals Name Date Value and Un its 8462-4 [facility] Blood Pressure-Diastolic 01/17/2024 55 mmHg 8480-6 [facility] Blood Pressure-Systolic 01/17/2024 1 13 mmHg 8867-4 [facility] Heart Rate 01/17/2024 80 /min 9279-1 inc Respiratory Rate 01/17/2024 18 /min 8310-5 [facility] Body Temperature 01/17/2024 98.4 F 33048-0 [facility] Oxygen Saturation 01/17/2024 98 % SOCIAL HISTORY * None PROCEDURES * None RESULTS Test Code Code System Description Result Value Date Ref erence Range Loinc Strep A Not Detected 01/17/2024 Not Det ected Loinc SARS-CoV-2 Detected 01/17/2024 Not Detec amrita Loinc Flu A Not Detected 01/17/2024 Not Det ected Loinc Flu B Not Detected 01/17/2024 Not Det ected MEDICAL EQUIPMENT * Patient has no history of implantable devices ASSESSMENT Assessment STOP your cholesterol medica tion for the next 2 weeksYou have [id number] isolate as discussed. The guidelines can also be found below. Take Tylenol and/or Motrin for the fever/muscle aches.Drink plenty of fluids.If you develop any worsening symptoms, trouble breathing, chest pain, or any other new, concerning symptoms please go to the ERYou should remain home until symptoms are improved and no fever for 24 hours. After you are feeling better and have no fever for 24 hours you may return to school/work, however, you should wear a mask for the following 5 daysRegarding your heart murmur:Please contact your cardiology office today. Inform them of our exam finding. Please have them review the results of your recent echocardiogram. As discussed I would suspect that there were findings on there that would explain the heart murmur. If not then I would advise to arrange follow-up with your ticket sales agent for further evaluation. TREATMENT PLAN Type Description Date MEDICATION Take 300 mg (150 mg x 2)-100 mg Tablet, Dose Pack 01/17/2024 APPOINTMENT If not feeling neena r in 3 day(s), please see your primary care physician. If you do not have a primary care physician, please return to this clinic. 01/17/2024 Labs Tests Test Name Code Code System Date Ambar/Cepheid Strep A, DNA, Amplified Probe PCR 81709 CPT 01/17/2024 Ambar/Cepheid SARS-CoV-2 & Fl u A/B Multiplex Assay, Amplified Probe Molecular RT-PCR / NAAT 49953 CPT 01/17/2024 GOALS * None HEALTH CONCERNS * No Health Concerns FUNCTIONAL AND COGNITIVE STATUS * None CONSULTATION NOTES * None DISCHARGE SUMMARY NOTES * None HISTORY AND PHYSICAL NOTES * None IMAGING NOTES * None LABORATORY REPORT NARRATIVE NOTES * None PATHOLOGY REPORT NARRATIVE NOTES * None PROGRESS NOTES * None
--- OUTSIDE RECORDS SUMMARY | 2024-06-21 09:01 | XMS_ITS ---
Author Organization [facility], Address [address] [facility] [place] [address] Care Team Providers Care Furniture Mover Helper Name Role Phone Omer Estrada [phone] ALLERGIES, ADVERSE REACTIONS, ALERTS Substance Code Code System Type Reaction Severity Status Start Date End Date Penicillins RxNorm Drug allergy () 0 midazolam 6960 RxNorm Drug allergy () 0 morphine 7052 RxNorm Drug allergy () 0 oxycodone 7804 RxNorm Drug allergy () moderate allergy 0 hydralazine 5470 RxNorm Drug allergy () 0 hydrocodone 5489 RxNorm Drug allergy () 0 codeine 2670 RxNorm Drug allergy () 0 lisinopril 79078 RxNorm Drug allergy () 0 MEDICATIONS Medication Code Code System Start Date Stop Date Route Dosage Directions Fill Instructions ATORVASTATIN 20MG TAB RxNorm CARVEDILOL 25MG TAB RxNorm DULERA 200-5MCG INH RxNorm LEVALBUTEROL HFA 200 INH RxNorm LOSARTAN 100MG TAB RxNorm PULMICRT FLX 180MCG INH RxNorm acolate RxNorm labetalol 0 RxNorm oral benzonatate 521538 RxNorm 06/27/19 24 oral 1 amoxicillin-po t clavulanate 700143 RxNorm 04/14/20 23 oral 1 Tymlos 0 RxNorm subcutaneous PROBLEMS Problem Name Code Code System Start Date End Date Stat us Essential (primary) hypertension 89296355 [facility] Active Other hyperlipidemia 78588889 [facility] Active Asthma 867084927 [facility] Active Acute maxillary sinusitis, unspecified 49833356 [facility] 2023 Resolved Shortness of breath 110938367 [facility] 06/27/2023 Inactive Other hypotension 62764653300125 [facility] 06/27/2023 Inactive Other malaise 605765020 [facility] 06/27/2023 Inacti ve Acute bronchitis, unspecified 73617081 [facility] 06/27/2023 Resolved Cardiac murmur, unspecified 87413887 [facility] 01/17/2024 Active 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 561967243 [facility] 06/08/2024 Active ENCOUNTERS Encounter Diagnosis Code Code System Date Stat us 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 926710220 [facility] 06/08/2024 Active IMMUNIZATIONS * None VITAL SIGNS Code Code System Vitals Name Date Value and Un its 8462-4 [facility] Blood Pressure-Diastolic 06/08/2024 74 mmHg 8480-6 [facility] Blood Pressure-Systolic 06/08/2024 1 24 mmHg 8867-4 [facility] Heart Rate 06/08/2024 88 /min 9279-1 [facility] Respiratory Rate 06/08/2024 18 /min 8310-5 [facility] Body Temperature 06/08/2024 97.5 F 02464-9 [facility] Oxygen Saturation 06/08/2024 95 % SOCIAL HISTORY * None PROCEDURES * None MEDICAL EQUIPMENT * Patient has no history of implantable devices ASSESSMENT * None TREATMENT PLAN Type Description Date ORDERS Swish and spit with magic mouthwash. Combine equal amounts of liquid Benadryl and liquid Maalox(plain without mint flavoring) for local comfort of the painful lesions.Return as needed for further evaluation if you develop any fever or are unable to swallow liquids. 06/08/2024 APPOINTMENT If not feeling neena r in 3 day(s), please see your primary care physician. If you do not have a primary care physician, please return to this clinic. 06/08/2024 Lab Tests None GOALS * None HEALTH CONCERNS * No Health Concerns FUNCTIONAL AND COGNITIVE STATUS * None CONSULTATION NOTES * None DISCHARGE SUMMARY NOTES * None HISTORY AND PHYSICAL NOTES * Patient: ADRIEN MALIN, Sex: F (ID# [id number]) Date of : 1950 (74 years) Visit on 06/08/2024 (Log# [id number]) Historian: Self History of Present Illness: Patient reports she was visiting grandchildren in [facility] and has had a 5 to 6-day history of painful oral lesions. She denies any difficulty swallowing. She has had no associated fever. She has no other symptoms. She has not noted any lesions on her hands or feet. Complaint: The patient presents with a chief complaint of lip/tongue/throat swelling of the mouth since 10 days ago. Review of Systems: The patient complains of the following recent symptoms: Allergy/Immun.: lip/tongue/throat swelling: See HPI The patient denies the following recent symptoms: Skin: denies itching Allergies: Penicillins: Drug allergy. codeine: Drug allergy. morphine: Drug allergy. hydralazine: Drug allergy. midazolam: Drug allergy. lisinopril: Drug allergy. oxycodone: Drug allergy. Moderate allergy. hydrocodone: Drug allergy. Medications: ATORVASTATIN 20MG TAB: ATORVASTATIN 20MG TAB 20.000 CARVEDILOL 25MG TAB: CARVEDILOL 25MG TAB 25.000 DULERA 200-5MCG INH: DULERA 200-5MCG INH 0.000 LEVALBUTEROL HFA 200 INH: LEVALBUTEROL HFA 200 INH 45.000 LOSARTAN 100MG TAB: LOSARTAN 100MG TAB 100.000 PULMICRT FLX 180MCG INH: PULMICRT FLX 180MCG INH 180.000 acolate: acolate. labetalol: labetalol; (oral) days; 0 refill(s); Tymlos: Tymlos; (subcutaneous) days; 0 refill(s); Problem List: Essential (primary) hypertension (status Active) Other hyperlipidemia (status Active) Asthma (status Active) Cardiac murmur, unspecified (status Active) Surgeries: Other surgery: Oral. feet: unspecified Spine surgery: unspecified Social History: Disability: unspecified Tobacco Use: denies Alcohol: denies Street / Unprescribed Drugs: denies Family History: patient specifies no conditions Preventive Measures: patient specifies all up-to-date Vitals: 01:13 PM (06/08/2024)Temperature: 97.5 ?F, Pulse: 88 BPM, BP: 124/74, Respirations: 18/min, O2 Saturation: 95%, O2 Delivery: RAFirst entered 06/08/2024 13:13 by Hortencia Rivas Physical Exam: The following exam elements were documented to be normal: General: well developed, well nourished, and in no apparent distress. Lymph: no cervical lymphadenopathy. Multiple vesicular lesions on the hard and soft palate, the posterior pharynx and buccal mucosa. Nolesions on the hands or feet. 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 If you do not have a primary care physician, please return to this clinic. Swish and spit with magic mouthwash. Combine equal amounts of liquid Benadryl and liquid Maalox(plain without mint flavoring) for local comfort of the painful lesions. Return as needed for further evaluation if you develop any fever or are unable to swallow liquids. Visit discharged at 06/08/2024 1:54:27 PM by Hunter Ambrosio PA-C Signed electronically by Hunter Ambrosio PA-C on 06/08/2024 1:54:27 PM IMAGING NOTES * None LABORATORY REPORT NARRATIVE NOTES * None PATHOLOGY REPORT NARRATIVE NOTES * None PROGRESS NOTES * None
--- OUTSIDE RECORDS SUMMARY | 2024-06-21 09:01 | XMS_ITS ---
Author Organization [facility], Address [address] [facility] [place] [address] Care Team Providers Care Manager Physical Name Role Phone Omer Estrada [phone] ALLERGIES, ADVERSE REACTIONS, ALERTS Substance Code Code System Type Reaction Severity Status Start Date End Date Penicillins RxNorm Drug allergy () 0 midazolam 6960 RxNorm Drug allergy () 0 morphine 7052 RxNorm Drug allergy () 0 oxycodone 7804 RxNorm Drug allergy () moderate allergy 0 codeine 2670 RxNorm Drug allergy () 0 lisinopril 33006 RxNorm Drug allergy () 0 hydralazine 5470 RxNorm Drug allergy () 0 hydrocodone 5489 RxNorm Drug allergy () 0 MEDICATIONS Medication Code Code System Start Date Stop Date Route Dosage Directions Fill Instructions ATORVASTATIN 20MG TAB RxNorm CARVEDILOL 25MG TAB RxNorm DULERA 200-5MCG INH RxNorm LEVALBUTEROL HFA 200 INH RxNorm LOSARTAN 100MG TAB RxNorm PULMICRT FLX 180MCG INH RxNorm acolate RxNorm labetalol 0 RxNorm oral benzonatate 562075 RxNorm 06/27/19 24 oral 1 amoxicillin-po t clavulanate 459385 RxNorm 04/14/20 23 oral 1 Tymlos 0 RxNorm subcutaneous PROBLEMS Problem Name Code Code System Start Date End Date Stat us Essential (primary) hypertension 28002474 [facility] Active Other hyperlipidemia 02409354 [facility] Active Asthma 407804295 [facility] Active Acute maxillary sinusitis, unspecified 81907025 [facility] 2023 Resolved Shortness of breath 495205172 [facility] 06/27/2023 Inactive Other hypotension 01980775430071 [facility] 06/27/2023 Inactive Other malaise 289075460 [facility] 06/27/2023 Inacti ve Acute bronchitis, unspecified 86875878 [facility] 06/27/2023 Resolved Cardiac murmur, unspecified 16436473 [facility] 01/17/2024 Active 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 [facility]2925069 [facility] Active ENCOUNTERS Encounter Diagnosis Code Code System Date Stat us Mild intermittent asthma, [facility]complicated [facility]8731244 [facility] Active Pneumonia, unspecified organism 895182949 [facility] 12/03 Active IMMUNIZATIONS * None VITAL SIGNS Code Code System Vitals Name Date Value and Un its 8462-4 [facility] Blood Pressure-Diastolic 12/03/2023 67 mmHg 8480-6 [facility] Blood Pressure-Systolic 12/03/2023 1 06 mmHg 8867-4 [facility] Heart Rate 12/03/2023 78 /min 9279-1 [facility] Respiratory Rate 12/03/2023 18 /min 8310-5 [facility] Body Temperature 12/03/2023 97.9 F 67268-6 [facility] Oxygen Saturation 12/03/2023 96 % SOCIAL HISTORY * None PROCEDURES * None MEDICAL EQUIPMENT * Patient has no history of implantable devices ASSESSMENT * None TREATMENT PLAN Type Description Date ORDERS Your chest x-ray tod ay shows some improvement in the process of pneumonia in your right lower lobe. Continue to take the doxycycline until you complete the course. Follow-up as scheduled on this Wednesday, December 05 with your new extruder operator vertical. In the interim if you develop any worsening symptoms with difficulty breathing, high fever, chest pain, shortness of breath c all 911 and go directly to the emergency department 12/03/2023 APPOINTMENT If not feeling neena r in 3 day(s), please see your primary care physician. If you do not have a primary care physician, please return to this clinic. 12/03/2023 Lab Tests None GOALS * None HEALTH CONCERNS * No Health Concerns FUNCTIONAL AND COGNITIVE STATUS * None CONSULTATION NOTES * None DISCHARGE SUMMARY NOTES * None HISTORY AND PHYSICAL NOTES * None IMAGING NOTES * /Eastern History: f/u pneumonia diagnosed 8 days ago. pt is still sobExaminationDescription: Chest xray, frontal and lateral viewsComparisons:DX - CHEST 2 VIEWS, FRONTAL/LATERAL - 11/25/2023 09:29 AM EDT DX -CHEST 2 VIEWS, FRONTAL/LATERAL - 06/27/2023 02:28 PM EST FindingsThe cardiomediastinal silhouette is within normal limits. Bronchial thickening can be seen with bronchitis or bronchitis. Patchy airspace opacity bilateral lower lung zones and right upper lung zone raising concern for pneumonia. Thisis partially improved compared to prior study of November 25, 2023. Underlying lung nodule not excluded. Recommend additional short-term follow-upNo pleural effusions are seen. No acute osseous abnormality or suspicuos soft tissue abnormality is identified. IMPRESSION:Bronchial thickening can be seen with bronchitis or bronchitis. Patchy airspace opacity bilateral lower lung zones and right upper lung zone raising concern for pneumonia. This is partially improved compared to prior study of November. Underlying lung nodule not excluded. Recommend additional short-term follow-up LABORATORY REPORT NARRATIVE NOTES * None PATHOLOGY REPORT NARRATIVE NOTES * None PROGRESS NOTES * None
--- OUTSIDE RECORDS SUMMARY | 2024-06-21 09:01 | XMS_ITS ---
Author Organization [facility], Address [address] [facility] [place] [address] Care Team Providers Care Molder Inflated Ball Name Role Phone Morenita Hernandez Unavailable [phone] ALLERGIES, ADVERSE REACTIONS, ALERTS Substance Code Code System Type Reaction Severity Status Start Date End Date morphine 7052 RxNorm Drug allergy () 0 oxycodone 7804 RxNorm Drug allergy () moderate allergy 0 codeine 2670 RxNorm Drug allergy () 0 lisinopril 92481 RxNorm Drug allergy () 0 Penicillins RxNorm Drug allergy () 0 midazolam 6960 RxNorm Drug allergy () 0 hydralazine 5470 [...] acolate RxNorm labetalol 0 RxNorm oral benzonatate 781662 RxNorm 06/27/19 24 oral 1 amoxicillin-po t clavulanate 139164 RxNorm 04/14/20 23 oral 1 Tymlos 0 RxNorm subcutaneous PROBLEMS Problem Name Code Code System Start Date End Date Stat us Essential (primary) hypertension 24459134 [facility] Active Other hyperlipidemia 61770105 [facility] Active Asthma 405821245 [facility] Active Acute maxillary sinusitis, unspecified 09452210 [facility] 2023 Resolved Shortness of breath 389164957 [facility] 06/27/2023 Inactive Other hypotension 59015689223915 [facility] 06/27/2023 Inactive Other malaise 578468016 [facility] 06/27/[facility]23 Inacti ve Acute bronchitis, unspecified 41138304 [facility] 06/27/2023 Resolved Cardiac murmur, unspecified 63853135 [facility] 01/17/2024 Active 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 278850675 [facility] 06/08/2024 Active ENCOUNTERS Encounter Diagnosis Code Code System Date Stat us Shortness of breath 728091358 [facility] 06/27/2023 Activ e Other hypotension 58055960646836 [facility] 06/27/2023 Act sundar Other malaise 443964213 [facility] 06/27/2023 Active Acute bronchitis, unspecified 07537858 [facility] 024 Active IMMUNIZATIONS * None VITAL SIGNS Code Code System Vitals Name Date Value and Un its 8462-4 [facility] Blood Pressure-Diastolic 06/27/2023 58 mmHg 8480-6 [facility] Blood Pressure-Systolic 06/27/2023 1 12 mmHg 8867-4 [facility] Heart Rate 06/27/2023 86 /min 8310-5 [facility] Body Temperature 06/27/2023 96.3 F 70869-4 [facility] O[facility] Saturation 06/27/2023 97 % SOCIAL HISTORY * None PROCEDURES Code Code System Procedure Date Status Notes 57344 Cpt4 Administer Nebul izer Treatment 06/27/2023 completed Morenita Czupryna - 06/27/2023 Therapeutic nebulizer therapy (treatment of airway obstruction).Nebulize r session 1: Medication: Albuterol and Ipratropium, 1 unit dose (3mL of 0.5mg and 3.0mg/3mL solution), expiration date: 11/04/2024, service provider lot #: [id number], brand name: Norma, [facility] #: [id number].Patient was observed for 10 minutes.Patient tolerated procedure well. Patient left room without difficulty.patient tolerated procedure well, patient left room ambulating without difficulty. J7620 Cpt4 Administer Nebul izer Treatment 06/27/2023 completed Morenita Czupryna - 06/27/2023 Therapeutic nebulizer therapy (treatment of airway obstruction).Nebulize r session 1: Medication: Albuterol and Ipratropium, 1 unit dose (3mL of 0.5mg and 3.0mg/3mL solution), expiration date: 11/04/2024, service provider lot #: [id number], brand name: Norma [facility] #: [id number].Patient was observed for 10 minutes.Patient tolerated procedure well. Patient left room without difficulty.patient tolerated procedure well, patient left room ambulating without difficulty. J7620 Cpt4 Albuterol/Ipratr opium (No Admin) 06/27/2023 completed [facility] - 06/27/2023 Supplied: 1 unit dose (3mL of 0.5mg and 3.0mg/3mL solution). Patient reports subjective improvement after updraft. Auscultation reveals persistent bibasilar crackles. 14353 Cpt4 Electrocardiogra m - 12 Lead 06/27/2023 completed [facility] - 06/27/2023 78 beats per minute, regular rate, left ventricular hypertrophy, Impression: Normal sinus rhythm with left atrial enlargement. RESULTS Test Code Code System Description Result Value Date Ref erence Range [facility] SARS-CoV-2 NEGATIVE 06/27/2023 [facility] Flu A NEGATIVE 06/27/2023 [facility] Flu B NEGATIVE 06/27/2023 [facility] RSV NEGATIVE 06/27/2023 MEDICAL EQUIPMENT * Patient has no history of implantable devices ASSESSMENT * None TREATMENT PLAN Type Description Date MEDICATION Take 250 mg tablet 06/27/2023 MEDICATION Take 100 mg capsule 06/27/2023 MEDICATION Take 50 mg tablet 06/27/2023 ORDERS If your symptoms wor sen in the next 12 to 24 hours you should call 911 and be transported to the emergency department. Your primary care provider should see you in follow-up in the next 24 to 48 hours. 06/27/2023 APPOINTMENT If not feeling neena r in 3 day(s), please see your primary care physician. If you do not have a primary care physician, please return to this clinic. 06/27/2023 Labs Tests Test Name Code Code System Date Cepheid SARS-CoV-2, Flu A/B, RSV Multiplex Assay, Amplified Probe Molecular RT-PCR / NAAT 58879 CPT 06/27/2023 GOALS * None HEALTH CONCERNS * No Health Concerns FUNCTIONAL AND COGNITIVE STATUS * None CONSULTATION NOTES * None DISCHARGE SUMMARY NOTES * None HISTORY AND PHYSICAL NOTES * None IMAGING NOTES * /Eastern History: Shortness of breath-Chest: The patient presents with a chief complaint of constant shortness of breath of the chest since approximately 1 week ago. It has the following quality: rapid breathing. The patient also reports nasal discharge and weakness as abnormal symptoms related to the complaint. Abnormal Exams: General: abnormality of general appearance noted., ill-appearing, appears stated age, in apparent distress, in moderate distress. Respiratory: respiratory distress noted., increased work of breathing noted, no use of accessory muscles, no retractions, normal chest expansion during breathing. Respiratory: abnormal breath sounds on auscultation., Lung sounds: normal volume of breath sounds, vesicular breath sounds, no rales, no rhonchi, no rubs, wheezing noted, moderate wheezing, diffusely over bilateral lung toussaint.Chest, PA and lateral views:The lungs are clear. No pneumonia or suspicious pulmonary nodule/mass.No pleural effusion or pneumothorax.Heart size and mediastinal contours are within normal limits. Atherosclerotic calcification within a mildly tortuous aorta.De generative changes of the spine. T12 vertebral body cementoplasty.Cholecystectomy clips.IMPRESSION:No acute cardiopulmonary disease. LABORATORY REPORT NARRATIVE NOTES * None PATHOLOGY REPORT NARRATIVE NOTES * None PROGRESS NOTES * None
--- OUTSIDE RECORDS SUMMARY | 2024-06-21 09:01 | XMS_ITS ---
Author Organization [facility], Address [address] [facility] [place] [address] Care Team Providers Care Manager Of Tires Sales Name Role Phone Morenita Hernandez Unavailable [phone] ALLERGIES, ADVERSE REACTIONS, ALERTS Substance Code Code System Type Reaction Severity Status Start Date End Date codeine 2670 RxNorm Drug allergy () 0 lisinopril 36825 RxNorm Drug allergy () 0 Penicillins RxNorm Drug allergy () 0 midazolam 6960 RxNorm Drug allergy () 0 hydralazine 5470 RxNorm Drug allergy () 0 hydrocodone 5489 RxNorm Drug allergy () 0 morphine 7052 RxNorm Drug allergy () 0 oxycodone 7804 RxNorm Drug allergy () moderate allergy 0 MEDICATIONS Medication Code Code System Start Date Stop Date Route Dosage Directions Fill Instructions ATORVASTATIN 20MG TAB RxNorm CARVEDILOL 25MG TAB RxNorm DULERA 200-5MCG INH RxNorm LEVALBUTEROL HFA 200 INH RxNorm LOSARTAN 100MG TAB RxNorm PULMICRT FLX 180MCG INH RxNorm acolate RxNorm labetalol 0 RxNorm oral benzonatate 092083 RxNorm 06/27/19 24 oral 1 amoxicillin-po t clavulanate 622472 RxNorm 04/14/20 23 oral 1 Tymlos 0 RxNorm subcutaneous PROBLEMS Problem Name Code Code System Start Date End Date Stat us Essential (primary) hypertension 44996754 [facility] Active Other hyperlipidemia 70884850 [facility] Active Asthma 796606760 [facility] Active Acute maxillary sinusitis, unspecified 36643503 [facility] 2023 Resolved Shortness of breath 554668714 [facility] 06/27/2023 Inactive Other hypotension 19712183034532 [facility] 06/27/2023 Inactive [facility]act[facility] ve Acute bronchitis, unspecified 18156736 [facility]23 Resolved Cardiac murmur, unspecified 94521227 [facility] 01/17/2024 Active 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 546875358 [facility] 06/08/2024 Active ENCOUNTERS Encounter Diagnosis Code Code System Date Stat us Dyspnea, [facility]35759 [facility] Acti ve Unspecified asthma, uncomplicated 045078922 [facility] Active Pneumonia, unspecified organism 890317700 [facility] 11/24 Active IMMUNIZATIONS * None VITAL SIGNS Code Code System Vitals Name Date Value and Un its 8462-4 [facility] Blood Pressure-Diastolic 11/25/2023 71 mmHg 8480-6 [facility] Blood Pressure-Systolic 11/25/2023 1 22 mmHg 8867-4 [facility] Heart Rate 11/25/2023 60 /min 9279-1 [facility] Respiratory Rate 11/25/2023 16 /min 8310-5 [facility] Body Temperature 11/25/2023 98.1 F 81311-7 [facility] Oxygen Saturation 11/25/2023 95 % SOCIAL HISTORY * None PROCEDURES * None MEDICAL EQUIPMENT * Patient has no history of implantable devices ASSESSMENT * None TREATMENT PLAN Type Description Date MEDICATION Take 50 mg tablet 11/25/2023 MEDICATION Take 250 mg tablet 11/25/2023 MEDICATION Take 100 mg capsule 11/25/2023 APPOINTMENT If not feeling neena r in 3 day(s), please see your primary care physician. If you do not have a primary care physician, please return to this clinic. 11/25/2023 Lab Tests None GOALS * None HEALTH CONCERNS * No Health Concerns FUNCTIONAL AND COGNITIVE STATUS * None CONSULTATION NOTES * None DISCHARGE SUMMARY NOTES * None HISTORY AND PHYSICAL NOTES * None IMAGING NOTES * /Lucan History: Shortness of breath-Chest: The patient presents with a chief complaint of shortness of breath of the chest since 2 weeks ago. The patient also reports cough as an abnormal symptom related tothe complaint.ExaminationDescription: Chest xray, frontal and lateral viewsComparisons: DX - CHEST 2 VIEWS, FRONTAL/LATERAL - 06/27/23 14:28 EST FindingsVascular calcifications in the aorta. Cardiac silhouette is normal in size. Right lower lobe opacity suggesting a pneumonic infiltrate. No pleural effusions are seen.There is no pneumothorax present. Multi level degenerative change in the spine. IMPRESSION:1. Right lower lobe opacity suggesting a pneumonic infiltrate. 2. Follow up imaging after t reatment is recommended to document resolution LABORATORY REPORT NARRATIVE NOTES * None PATHOLOGY REPORT NARRATIVE NOTES * None PROGRESS NOTES * None
--- OUTSIDE RECORDS SUMMARY | 2024-06-21 09:01 | XMS_ITS | Clinical Summary ---
Author Organization Unknown Care Team Providers Care Local Hazmat Driver Name Role Phone LAURA NELSON, KERA Unavailable Unavailable LETY OPEN HEARTH WORKER, OZ Unavailable Unavailable MYCHAL PT, LILY Unavailable Unavailable SPAFFORD OT, BELKIS Unavailable Unavailable CONDINO SHOLA/FUENTES, RACQUEL Unavailable Unav ailable Payers Payer Name Policy Type Policy Number Effective Date Expira tion Date MEDICARE.NGS.PDGM [id number] Problems Condition Name Condition Details Condition Category Status Onset Date Resolution Date Last Treatment Date Treating Clinician Comments ENCOUNTER FOR OTHER ORTHOPEDIC AFTERCARE Active 01-31 00:00: 00 SPINAL STENOSIS, LUMBAR REGION WITHOUT NEUROGENIC ANDRE Active 02-09 00:00: 00 SCOLIOSIS, UNSPECIFIED Active 06-07 00:00: 00 RADICULOPATH Y, LUMBAR REGION Active 06-07 00:00: 00 HYPO-OSMOLAL ITY AND HYPONATREMIA Active 06-07 00:00: 00 LACERATION WITHOUT FOREIGN BODY OF LEFT FOREARM, SUBS ENCNTR Active 06-07 00:00: 00 ESSENTIAL (PRIMARY) HYPERTENSION Active 06-07 00:00: 00 MIXED HYPERLIPIDEM IA Active 06-07 00:00: 00 ACUTE POSTHEMORRHA GIC ANEMIA Active 06-07 00:00: 00 GASTRO-ESOPH AGEAL REFLUX DISEASE WITHOUT ESOPHAGITIS Active 06-07 00:00: 00 UNSPECIFIED ASTHMA, UNCOMPLICATE D Active 06-07 00:00: 00 UNSPECIFIED AGE-RELATED CATARACT Active 06-07 00:00: 00 OTHER SPECIFIED ANXIETY DISORDERS Active 06-07 00:00: 00 ASYMPTOMATIC VARICOSE VEINS OF UNSPECIFIED LOWER EXTREMITY Active 06-07 00:00: 00 SACROILIITIS , NOT ELSEWHERE CLASSIFIED Active 06-07 00:00: 00 UNSPECIFIED HEARING LOSS, UNSPECIFIED EAR Active 06-07 00:00: 00 HALLUX VALGUS (ACQUIRED), UNSPECIFIED FOOT Active 06-07 00:00: 00 UNSPECIFIED VISUAL LOSS Active 06-07 00:00: 00 HALF-WAY (CURRENT) USE OF INHALED STEROIDS Active 06-07 00:00: 00 ARTHRODESIS STATUS Active 06-07 00:00: 00 PERSONAL HISTORY OF PNEUMONIA (RECURRENT) Active 06-07 00:00: 00 PERSONAL HISTORY OF NICOTINE DEPENDENCE Active 06-07 00:00: 00 Allergies, Adverse Reactions, Alerts Allergy Name Allergy Type Status Severity Reaction(s) Onset Date Inactive Date Treating Clinician Comments AMLODIPINE BEYLATE Propensity to adverse reactions Active 02-10 06:26: 52 CALCIUM CHANNEL BLOCKING AGENTS-BENZO THIAZEPINES Propensity to adverse reactions Active 02-10 06:26: 40 DEXTROMETHOR ALLEN Propensity to adverse reactions Active 02-10 06:27: 49 DILTIAZEM Propensity to adverse reactions Active 02-10 06:27: 23 HYDRALAZINE Propensity to adverse reactions Active 02-10 06:28: 07 LYRICA Propensity to adverse reactions Active 02-10 06:27: 02 HYDROCODONE Propensity to adverse reactions Active 02-10 06:28: 35 MORPHINE SULFATE (MS04) Propensity to adverse reactions Active 02-10 06:28: 46 OXYCODONE CAPSULE Propensity to adverse reactions Active 02-10 06:29: 00 SPIRIVA WITH HANDIHALER Propensity to adverse reactions Active 02-10 06:29: 13 CODEINE SULFATE.. Propensity to adverse reactions Active 02-10 06:29: 29 PENICILLIN ... Propensity to adverse reactions Active 02-10 06:29: 39 MIDAZOLAM Propensity to adverse reactions Active 02-10 06:30: 30 LISINOPRIL Propensity to adverse reactions Active 02-10 06:30: 46 Medications Ordered Medication Name Filled Medication Name Start Date Stop Date Current Medication? Ordering Clinician Indication Dosage Frequency Signature (SIG) Comments Components Breztri Aerosphere 160 mcg-9mcg-4. 8mcg/actuat ion HFA aerosol inhaler 01-31 00:00: 00 Yes [id number] ASTHMA 2 puff 2 TIMES DAILY 2 puff 2 TIMES DAILY (route: inhalation ) Med Classific ation: Respirato ry Therapy Agents atorvastati n 20 mg tablet 8-16 00:00: 00 Yes [id number] CHOLESTEROL 1 tablet BEDTIME 1 tablet BEDTIME (route: oral) Med Classific ation: Cardiovas cular Therapy Agents Tymlos 80 mcg/dose (3,120 mcg/1.56 mL) subcutaneou s pen injector - 00:00: 00 Yes [id number] OSTEOPOROSI S 80 mcg DAILY 80 mcg DAILY (route: subcutaneo us) Med Classific ation: Endocrine Paxlovid 300 mg (150 mg x 2)-100 mg tablets in a dose pack 01-16 00:00: 00 02-09 00:00 :00 No [id number] Per instruc tions Per instructio ns (route: oral) Med Classific ation: Anti-Infe ctive Agents meloxicam 15 mg tablet - 00:00: 00 02-09 00:00 :00 No [id number] Per instruc tions Per instructio ns (route: oral) Med Classific ation: Analgesic , Anti-infl ammatory or Antipyret ic labetalol 200 mg tablet - 00:00: 00 02-28 23:59 :00 No [id number] HTN 2 tablet 3 TIMES DAILY 2 tablet 3 TIMES DAILY (route: oral) Med Classific ation: Cardiovas cular Therapy Agents amoxicillin 875 mg-potassiu m clavulanate 125 mg tablet 01-10 00:00: 00 02-09 00:00 :00 No [id number] Per instruc tions Per instructio ns (route: oral) Med Classific ation: Anti-Infe ctive Agents terazosin 2 mg capsule 01-09 00:00: 00 Yes [id number] URINE FLOW 1 capsule BEDTIME 1 capsule BEDTIME (route: oral) Med Classific ation: Cardiovas cular Therapy Agents Accolate 20 mg tablet 01-31 00:00: 00 Yes [id number] ASTHMA 1 tablet 2 TIMES DAILY 1 tablet 2 TIMES DAILY (route: oral) Med Classific ation: Respirato ry Therapy Agents acetaminoph en 500 mg tablet 02-07 00:00: 00 Yes [id number] PAIN 2 tablet 3 TIMES DAILY 2 tablet 3 TIMES DAILY (route: oral) Med Classific ation: Analgesic , Anti-infl ammatory or Antipyret ic Adult Multivitami n (w-lutein) 200 mcg-137.5 mcg chewable tablet 02-07 00:00: 00 Yes [id number] SUPPLEMENT 1 tablet DAILY 1 tablet DAILY (route: oral) Med Classific ation: Electroly te Balance-N utritiona l Products B Complex Plus Vitamin C 15 mg-10 mg-50 mg-5 mg-300 mg capsule 02-07 00:00: 00 Yes [id number] SUPPLEMENT 1 capsule DAILY 1 capsule DAILY (route: oral) Med Classific ation: Electroly te Balance-N utritiona l Products famotidine 40 mg tablet 01-31 00:00: 00 Yes [id number] GERD 1 tablet 2 TIMES DAILY 1 tablet 2 TIMES DAILY (route: oral) Med Classific ation: Gastroint estinal Therapy Agents gabapentin 100 mg capsule 01-31 00:00: 00 Yes [id number] PAIN 1 capsule EVERY 8 HOURS 1 capsule EVERY 8 HOURS (route: oral) Med Classific ation: Central Nervous System Agents hydromorpho ne 2 mg tablet 01-31 00:00: 00 Yes [id number] PAIN 1-2 tablet EVERY 4 HOURS 1-2 tablet EVERY 4 HOURS (route: oral) Med Classific ation: Analgesic , Anti-infl ammatory or Antipyret ic Lidocaine Pain Relief 4 % topical patch 02-07 00:00: 00 Yes [id number] PAIN 1 adhesiv e patch, medicat ed DAILY 1 adhesive patch, medicated DAILY (route: topical) Med Classific ation: Dermatolo gical magnesium 400 mg (as magnesium oxide) tablet 02-07 00:00: 00 Yes [id number] SUPPLEMENT 1 tablet DAILY 1 tablet DAILY (route: oral) Med Classific ation: Electroly te Balance-N utritiona l Products Miralax 17 gram/dose oral powder 02-07 00:00: 00 Yes [id number] CONSTIPATIO N 17 gram DAILY 17 gram DAILY (route: oral) Med Classific ation: Gastroint estinal Therapy Agents pantoprazol e 40 mg tablet,dwight yed release 01-31 00:00: 00 Yes [id number] GERD 1 tablet DAILY 1 tablet DAILY (route: oral) Med Classific ation: Gastroint estinal Therapy Agents Senna Lax 8.6 mg tablet 02-07 00:00: 00 Yes [id number] CONSTIPATIO N 2 tablet 2 TIMES DAILY 2 tablet 2 TIMES DAILY (route: oral) Med Classific ation: Gastroint estinal Therapy Agents tizanidine 2 mg tablet 01-31 00:00: 00 02-26 23:59 :00 No [id number] MUSCLE SPASMS 1 tablet EVERY 8 HOURS 1 tablet EVERY 8 HOURS (route: oral) Med Classific ation: Locomotor System valsartan 160 mg tablet 02-07 00:00: 00 Yes [id number] HTN 1 tablet DAILY 1 tablet DAILY (route: oral) Med Classific ation: Cardiovas cular Therapy Agents Vitamin D3 25 mcg (1,000 unit) capsule 01-31 00:00: 00 Yes [id number] SUPPLEMENT 1 capsule DAILY 1 capsule DAILY (route: oral) Med Classific ation: Electroly te Balance-N utritiona l Products Xopenex HFA 45 mcg/actuati on aerosol inhaler 01-31 00:00: 00 Yes [id number] WHEEZING 2 puff EVERY 4 HOURS 2 puff EVERY 4 HOURS (route: inhalation ) Med Classific ation: Respirato ry Therapy Agents ondansetron HCl 4 mg tablet 03-06 00:00: 00 Yes [id number] NAUSEA 1 tablet EVERY 8 HOURS 1 tablet EVERY 8 HOURS (route: oral) Med Classific ation: Gastroint estinal Therapy Agents labetalol 200 mg tablet 02-27 00:00: 00 Yes [id number] HTN 1 tablet 3 TIMES DAILY 1 tablet 3 TIMES DAILY (route: oral) Med Classific ation: Cardiovas cular Therapy Agents Vital Signs Vital Name Observation Time Observation Value Commen ts Temperature 2024-05-02 10:42:00.000 97.7 [degF] Temperature 2024-05-01 08:23:00.000 97.5 [degF] Temperature 2024-04-28 10:10:00.000 97.2 [degF] Temperature 2024-04-13 17:12:00.000 97.2 [degF] Temperature 2024-04-11 14:10:00.000 98.4 [degF] Pulse 2024-05-02 10:42:00.000 79 /min Pulse 2024-05-01 08:23:00.000 74 /min Pulse 2024-04-28 10:10:00.000 68 /min Pulse 2024-04-13 17:12:00.000 80 /min Pulse 2024-04-11 14:10:00.000 81 /min O2 Saturation (%) 2024-05-02 10:42:00.000 97 % O2 Saturation (%) 2024-05-01 08:24:00.000 96 % O2 Saturation (%) 2024-04-28 10:11:00.000 94 % O2 Saturation (%) 2024-04-11 14:10:00.000 96 % Respirations 2024-05-02 10:42:00.000 18 /min Respirations 2024-05-01 08:23:00.000 16 /min Respirations 2024-04-28 10:10:00.000 18 /min Respirations 2024-04-13 17:12:00.000 18 /min Respirations 2024-04-11 14:10:00.000 18 /min Systolic Blood Pressure 2024-05-02 10:42:00.000 120 mm [Hg] Systolic Blood Pressure 2024-05-01 08:23:00.000 128 mm [Hg] Systolic Blood Pressure 2024-04-28 10:10:00.000 130 mm [Hg] Systolic Blood Pressure 2024-04-13 17:12:00.000 110 mm [Hg] Systolic Blood Pressure 2024-04-11 14:10:00.000 130 mm [Hg] Diastolic Blood Pressure 2024-05-02 10:42:00.000 60 mm [Hg] Diastolic Blood Pressure 2024-05-01 08:23:00.000 70 mm [Hg] Diastolic Blood Pressure 2024-04-28 10:10:00.000 70 mm [Hg] Diastolic Blood Pressure 2024-04-13 17:12:00.000 62 mm [Hg] Diastolic Blood Pressure 2024-04-11 14:10:00.000 62 mm [Hg] Plan of Treatment Planned Activity Planned Date Details Comments Future Scheduled Test PT/OPEN HEARTH WORKER TO PROVIDE GAIT TRAINING FOR IMPROVED MOBILITY AND /OR TO NORMALIZE GAIT PATTERN [code = PT/OPEN HEARTH WORKER TO PROVIDE GAIT TRAINING FOR IMPROVED MOBILITY AND /OR TO NORMALIZE GAIT PATTERN] Future Scheduled Test THERAPEUTI C EXERCISES AND ESTABLISHING A HOME EXERCISE PROGRAM (PT/OPEN HEARTH WORKER) [code = THERAPEUTIC EXERCISES AND ESTABLISHING A HOME EXERCISE PROGRAM (PT/OPEN HEARTH WORKER)] Future Scheduled Test PT/OPEN HEARTH WORKER TO IDENTIFY FALL RISK FACTORS; EDUCATE THE PATIENT/CAREGIVER ON WAYS TO REDUCE FALL RISK FACTORS AND ESTABLISH HOME EXERCISE PROGRAM TO MINIMIZE FALL RISK. MAY TEACH THE PATIENT FLOOR RECOVERY WHEN CLINICALLY APPROPRIATE [code = PT/OPEN HEARTH WORKER TO IDENTIFY FALL RISK FACTORS; EDUCATE THE PATIENT/CAREGIVER ON WAYS TO REDUCE FALL RISK FACTORS AND ESTABLISH HOME EXERCISE PROGRAM TO MINIMIZE FALL RISK. MAY TEACH THE PATIENT FLOOR RECOVERY WHEN CLINICALLY APPROPRIATE] Future Scheduled Test PT/OPEN HEARTH WORKER TO PROVIDE STAIR TRAINING [code = PT/OPEN HEARTH WORKER TO PROVIDE STAIR TRAINING] Future Scheduled Test SIT TO/FRO M STAND TRANSFERS (PT/OPEN HEARTH WORKER) [code = SIT TO/FROM STAND TRANSFERS (PT/OPEN HEARTH WORKER)] Future Scheduled Test PT / OPEN HEARTH WORKER T O MONITOR AND EDUCATE ON OXYGEN SATURATION DURING ADLS/IADLS, NOTIFY PHYSICIAN AND/OR THE RN CLINICAL BAG MAKING MACHINE OPERATOR FOR PHYSICIAN NOTIFICATION AND IF O2 SATS BELOW PHYSICIAN ORDERED PARAMETERS AFTER 10 MIN OF REST [code = PT / OPEN HEARTH WORKER TO MONITOR AND EDUCATE ON OXYGEN SATURATION DURING ADLS/IADLS, NOTIFY PHYSICIAN AND/OR THE RN CLINICAL BAG MAKING MACHINE OPERATOR FOR PHYSICIAN NOTIFICATION AND IF O2 SATS BELOW PHYSICIAN ORDERED PARAMETERS AFTER 10 MIN OF REST] Future Scheduled Test PT / OPEN HEARTH WORKER M AY EDUCATE ON PAIN MANAGEMENT CLINICALLY INDICATED, INCLUDING NON-PHARMACOLOGICAL PAIN REDUCTION TECHNIQUES [code = PT / OPEN HEARTH WORKER MAY EDUCATE ON PAIN MANAGEMENT CLINICALLY INDICATED, INCLUDING NON-PHARMACOLOGICAL PAIN REDUCTION TECHNIQUES ] Future Scheduled Test AGENCY MAY PERFORM A RESUMPTION OF CARE VISIT FOLLOWING ANY HOSPITAL ADMISSION. PT TO EVALUATE, OBSERVE / ASSESS, AND MONITOR, OPEN HEARTH WORKER TO OBSERVE AND MONITOR, PROVIDE SKILLED THERAPEUTIC INTERVENTION, ACTIVITY, EDUCATION, AND TRAINING TO ADDRESS; [code = AGENCY MAY PERFORM A RESUMPTION OF CARE VISIT FOLLOWING ANY HOSPITAL ADMISSION. PT TO EVALUATE, OBSERVE / ASSESS, AND MONITOR, OPEN HEARTH WORKER TO OBSERVE AND MONITOR, PROVIDE SKILLED THERAPEUTIC INTERVENTION, ACTIVITY, EDUCATION, AND TRAINING TO ADDRESS;] Future Scheduled Test NEUROMUSCU LAR RE-EDUCATION / BALANCE / POSTURAL CONTROL (PT) [code = NEUROMUSCULAR RE-EDUCATION / BALANCE / POSTURAL CONTROL (PT)] Future Scheduled Test AGENCY MAY PERFORM A RESUMPTION OF CARE VISIT FOLLOWING ANY HOSPITAL ADMISSION. OT TO EVALUATE, OBSERVE / ASSESS, AND MONITOR, PLAYER PIANO TECHNICIAN TO OBSERVE AND MONITOR, PROVIDE SKILLED THERAPEUTIC INTERVENTION, ACTIVITY, EDUCATION, AND TRAINING TO ADDRESS; WEAKNESS, IMPAIRED BALANCE, ORTHOPEDIC AFTERCARE, FALL PREVENTION, DECLINE IN IADLS. MEAL PREPARATION AND CLEANUP (OT/SHOLA) OT/SHOLA TO MONITOR AND EDUCATE ON OXYGEN SATURATION DURING ADLS/IADLS, NOTIFY PHYSICIAN AND/OR THE RN CLINICAL BAG MAKING MACHINE OPERATOR FOR PHYSICIAN NOTIFICATION AND IF O2 SATS BELOW 90% AFTER 10 MIN OF REST. OT / PLAYER PIANO TECHNICIAN TO IDENTIFY FALL RISK FACTORS; EDUCATE THE PATIENT/CAREGIVER ON WAYS TO REDUCE FALL RISK FACTORS AND ESTABLISH HOME EXERCISE PROGRAM TO MINIMIZE FALL RISK. MAY TEACH THE PATIENT FLOOR RECOVERY WHEN CLINICALLY APPROPRIATE. OT /PLAYER PIANO TECHNICIAN TO EDUCATE ON LUMBAR LAMINECTOMY/FUSION SELF-MANGEMENT [code = AGENCY MAY PERFORM A RESUMPTION OF CARE VISIT FOLLOWING ANY HOSPITAL ADMISSION. OT TO EVALUATE, OBSERVE / ASSESS, AND MONITOR, SHOLA TO OBSERVE AND MONITOR, PROVIDE SKILLED THERAPEUTIC INTERVENTION, ACTIVITY, EDUCATION, AND TRAINING TO ADDRESS; WEAKNESS, IMPAIRED BALANCE, ORTHOPEDIC AFTERCARE, FALL PREVENTION, DECLINE IN IADLS. MEAL PREPARATION AND CLEANUP (OT/PLAYER PIANO TECHNICIAN) OT/PLAYER PIANO TECHNICIAN TO MONITOR AND EDUCATE ON OXYGEN SATURATION DURING ADLS/IADLS, NOTIFY PHYSICIAN AND/OR THE RN CLINICAL BAG MAKING MACHINE OPERATOR FOR PHYSICIAN NOTIFICATION AND IF O2 SATS BELOW 90% AFTER 10 MIN OF REST. OT / SHOLA TO IDENTIFY FALL RISK FACTORS; EDUCATE THE PATIENT/CAREGIVER ON WAYS TO REDUCE FALL RISK FACTORS AND ESTABLISH HOME EXERCISE PROGRAM TO MINIMIZE FALL RISK. MAY TEACH THE PATIENT FLOOR RECOVERY WHEN CLINICALLY APPROPRIATE. OT /PLAYER PIANO TECHNICIAN TO EDUCATE ON LUMBAR LAMINECTOMY/FUSION SELF-MANGEMENT] Goal 2024-04-05 Patient Goal - NO PAIN, MOVE BETTER Goal 2024-05-02 Patient Goal - NO PAIN, MOVE BETTER Goal Provider Goal - PATIENT WILL IMPROVE HOUSEHOLD AMBULATION AND STAIRS FROM SBA AND MINIMAL ASSISTANCE TO INDEPENDENT WITH SPC USE IN 8 WEEKS TO ALLOW SAFE NAVIGATION WITH THIS AD THROUGHOUT HOME AND COMMUNITY. Goal Provider Goal - Goal Provider Goal - PT LTG: PATIENT/CAREGIVER WILL DEMONSTRATE ADHERENCE TO FALL REDUCTION SELF-MANAGEMENT AND REDUCING FALL RISK FACTORS TO MINIMIZE FALL RISK BY END OF EPISODE PT LTG: PATIENT WILL BE INDEPENDENT WITH IMPLEMENTATION OF HEP WITHIN 2 WEEKS Goal Provider Goal - Goal Provider Goal - PATIENT WILL IMPROVE HOUSEHOLD TRANSFERS FROM SBA TO INDEPENDENT WITH SPC USE IN 4 WEEKS TO ALLOW SAFE MOBILITY THROUGHOUT HOME ENVIRONMENT Goal Provider Goal - PT LTG: PATIENT WILL MAINTAIN OXYGEN SATURATION WITHIN PHYSICIAN ORDERED PARAMETERS THROUGHOUT EPISODE OF CARE. Goal Provider Goal - PT GOAL: PATIENT WILL DEMONSTRATE UNDERSTANDING OF PAIN MANAGEMENT TECHNIQUES EVIDENCED BY REDUCED PAIN Goal Provider Goal - Goal Provider Goal - PATIENT WILL IMPROVE AMBULATION SPEED FROM 0.8 M/S TO 0.9 M/S IN 6 WEEKS WITH SPC, PATIENT WILL IMPROVE TUG SCORE FROM 24 SECONDS TO 18 SECONDS IN 8 WEEKS WITH SPC TO PROMOTE BALANCE INPUT INTEGRATION. Goal Provider Goal - OT STG: PATIENT WILL DEMONSTRATE IMPROVED LIGHT MEAL PREP WITH MIN ASSIST WITHIN 2 WEEKS. OT LTG: PATIENT WILL DEMONSTRATE THE ABILITY TO COMPLETE MEAL PREPARATION AND CLEANUP TO REDUCE CAREGIVER BURDEN FROM MOD ASSIST TO INDEPENDENT WITHIN 5 WEEKS. OT LTG: PATIENT WILL MAINTAIN OXYGEN SATURATION WITHIN PHYSICIAN ORDERED PARAMETERS THROUGHOUT THE EPISODE OF CARE. OT LTG: PATIENT/CAREGIVER WILL BE ABLE TO IMPLEMENT RECOMMENDATIONS SPECIFIC TO FALL REDUCTION FOR IMPROVED ADL/IADL COMPLETION AND HOME SAFETY BY END OF EPISODE. OT LTG: PATIENT WILL BE INDEPENDENT WITH IMPLEMENTATION OF HEP WITHIN 5 WEEKS. OT GOAL: PATIENT WILL DEMONSTRATE OPTIMAL OUTCOMES INCLUDING DECREASED PAIN AND INCREASED STRENGTH TO IMPROVE INDEPENDENCE WITH ADLS AND WITH NO COMPLICATIONS FOLLOWING LUMBAR LAMINECTOMY/FUSION BY END OF EPISODE Reason for Visit MINIMUM ASSIST WITH TRANSFER/AMBULATION/ADLS Encounters Start Date/Time End Date/Time Encounter Type Admission Type Attending [facility] Care Department Encounter ID Discharge Date Discharge Status Discharge Condition Discharge Reason Percent Goals Met 2024-02-10 00:00:00 2024-05-02 00:00:00 Outpatient RECERTLILY [facility] [id number] 2024-05-02 00:00:00 DISCHARGE TO HOME OR SELF CARE MINIMUM ASSIST WITH TRANSFER/A MBULATION/ ADLS HH ONLY - OUT PATIENT 95.24
--- OUTSIDE RECORDS SUMMARY | 2024-06-21 09:01 | XMS_ITS ---
Author Organization [facility], Address [address] [facility] [place] [address] Care Team Providers Care Rn Renal Name Role Phone Kendra Marcos Unavailable [phone] ALLERGIES, ADVERSE REACTIONS, ALERTS Substance Code Code System Type Reaction Severity Status Start Date End Date codeine 2670 RxNorm Drug allergy () 0 lisinopril 25485 RxNorm Drug allergy () 0 hydralazine 5470 RxNorm Drug allergy () 0 hydrocodone 5489 RxNorm Drug allergy () 0 Penicillins RxNorm [...] acolate RxNorm labetalol 0 RxNorm oral benzonatate 459884 RxNorm 06/27/19 24 oral 1 amoxicillin-po t clavulanate 899514 RxNorm 04/14/20 23 oral 1 Tymlos 0 RxNorm subcutaneous PROBLEMS Problem Name Code Code System Start Date End Date Stat us Essential (primary) hypertension 71565090 [facility] Active Other hyperlipidemia 89539302 [facility] Active Asthma 754432456 [facility] Active Acute maxillary sinusitis, unspecified 23112002 [facility] 2023 Resolved Shortness of breath 396389090 [facility] 06/27/2023 Inactive Other hypotension 19089568652495 [facility] 06/27/2023 Inactive Other malaise 028079315 [facility] 06/27/2023 Inacti ve Acute bronchitis, unspecified 32848495 [facility] 06/27/2023 Resolved Cardiac murmur, unspecified 59830337 [facility] 01/17/2024 Active 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 011895099 [facility] 06/08/2024 Active ENCOUNTERS Encounter Diagnosis Code Code System Date Stat Chronic maxillary sinusitis 63016151403536682 [facility] 1 06/14/2022 Active Acute maxillary sinusitis, unspecified 88348205 [facility] 2023 Active IMMUNIZATIONS * None VITAL SIGNS Code Code System Vitals Name Date Value and Un its 8462-4 [facility] Blood Pressure-Diastolic 2023 82 mmHg 8480-6 [facility] Blood Pressure-Systolic 2023 1 49 mmHg 8867-4 [facility] Heart Rate 2023 71 /min 9279-1 [facility] Respiratory Rate 2023 16 /min 8310-5 [facility] Body Temperature 2023 98.3 F 57630-2 [facility] Oxygen Saturation 2023 96 % SOCIAL HISTORY * None PROCEDURES * None MEDICAL EQUIPMENT * Patient has no history of implantable devices ASSESSMENT * None TREATMENT PLAN Type Description Date MEDICATION Take 500-125 mg tablet 2023 APPOINTMENT Follow up with your primary care physician in 1 day(s). Call or return to this clinic if your condition worsens or if you have any concerns. 2023 Lab Tests None GOALS * None HEALTH CONCERNS * No Health Concerns FUNCTIONAL AND COGNITIVE STATUS Condition Type Condition Effective Dates Condition Status CONSULTATION NOTES * None DISCHARGE SUMMARY NOTES * None HISTORY AND PHYSICAL NOTES * None IMAGING NOTES * None LABORATORY REPORT NARRATIVE NOTES * None PATHOLOGY REPORT NARRATIVE NOTES * None PROGRESS NOTES * None
== END 2024-06-21 08:50 | disposition home or self-care (01) ==
LOC: HO.CT 08:49
PROVIDERS: PCP Internal Medicine; Visit Provider Hospitalist
DX: R91.8 Other nonspecific abnormal finding of lung field (principal)
CPT/HCPCS: 71250

== ENCOUNTER → 2024-06-21 08:51 | Outpatient (BNV) | payer MEDICARE, BC, SELFPAY | PROVIDERS: PCP Internal Medicine; Visit Provider Radiology Diagnostic Radiology | DX: R91.8 Other nonspecific abnormal finding of lung field (principal) | CPT/HCPCS: 71250 ==

== ENCOUNTER 2024-06-30 13:02 | Outpatient (AMB) | payer MEDICARE, BC, SELFPAY ==
[2024-06-30 13:06] VITALS: BP 152/68; PULSE 79; O2SAT 99; BMI 31.0
--- NOTE | 2024-06-30 13:06 | A.OFFVIS_ITS ---
Vital Signs 06/30/24 13:06 Height 5 ft 3 in Weight 175 lb 4.28 oz BMI 31.0 BP 152/68 H Blood Pressure Location Rt brachial Position Sitting Pulse 79 Pulse Source Pulse Oximeter Pulse Oximetry (%) 99 Oxygen Delivery Method Room Air Intake Visit Reasons: Asthma Allergies amlodipine Allergy (Severe, Verified 06/30/24 13:10) Swelling codeine Allergy (Severe, Verified 06/30/24 13:10) Abdominal Pain hydralazine Allergy (Severe, Verified 06/30/24 13:10) Swelling hydrocodone [From Vicodin] Allergy (Severe, Verified 06/30/24 13:10) Abdominal Pain lisinopril Allergy (Severe, Verified 06/30/24 13:10) Hives midazolam Allergy (Severe, Verified 06/30/24 13:10) Hives morphine Allergy (Severe, Verified 06/30/24 13:10) Abdominal Pain HPI Comments Details: The patient is a 74 year woman with a known history of asthma followed closely by Pulmonary in the [facility]. 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 Currently she is recovering after being diagnosed with pneumonia. She was developing worsening shortness of breath and she was evaluated at an urgent care. They she had a chest x-ray she was diagnosed with pneumonia she was told to follow-up elsewhere. She was given a course of doxycycline. I do not believe she was given prednisone. Her breathing has been improving although her voice is still hoarse. She continues Dulera for her maintenance inhaler and she is also taking Pulmicort. For maintenance she does use Xopenex. The patient does not have a nebulizer. She has been fully vaccinated specially for pneumonia. The patient understands that they increase inhaled cortical steroids can increase the risk of infection. Therefore be reasonable to try a simplify her respiratory maintenance regimen. I do believe that she will respond well to Breztri. Will go ahead and send to the pharmacy that be replacing both maintenance inhalers. In addition to the she is scheduled [place] [facility] [place]. She is wondering if she is going to be strong enough to have surgery. Right now her respiratory exam is reassuring. I do have a copy of her old x-ray on going to have him get a repeat x-ray sometime next week. She is also going to undergo blood work. Will be able to assess to see if there is any persistent findings. The patient is no better or if she is developing worsening disease she may have to consider postponing her surgery. 01/14/2024 the patient is here for pulmonary follow-up visit. Overall the patient has been doing well from a respiratory status. She still having significant back pain. Denies any cough or shortness of breath or chest pain. She did complete a course of antibiotics and had a repeat chest x-ray 12/20/2023. I did personally reviewed the x-ray and compared to her previous x-ray demonstrating interval improvement of the right-sided pneumonia. Still though she has not residual changes there. Therefore, after give another course of antibiotics which is taking right now Augmentin and I did request a CT scan of the chest to better address the areas specially since she is going to need back surgery. I did review the CT scan with the patient. The appears that the CT scan demonstrates some chronic changes including some nodular densities some calcified lymph nodes and some areas of inflammation and scarring. This area appears to be chronic. She has been seen previously by Pulmonary in the past in her states. She was told about some areas of scarring. As far as exposures he was exposed to both silica and also asbestos working a lot for about 3 years. In addition to that she did in the [facility] them was exposed to valley fever and other endemic fungal infections. At this point it appears that the airspace disease that pneumonia that she had been treated for and is currently being treated for seems to be improving. Therefore based on the fact that she is feeling well from respiratory status and the infection is improved I do believe that she is able to proceed with elective and semi elective surgeries including her back surgery. I also did review the blood work with the patient. She seems to have a low IgG of 500. Will go ahead and repeat the IgG subclasses and also request titers for her pneumococcal vaccine to make sure she is having a good response to vaccines. If she is not then we can consider further diagnostic and therapeutic interventions. At this moment though she is able to proceed with surgery. The patient does have minimal risk for perioperative pulmonary complications which includes atelectasis pneumonia and hypoxia. 03/24/2024 the patient is here for a pulmonary follow-up visit. She is status post her back surgery. She did have an extensive surgery in [place]. She is still recovering. Her breathing is overall better. She is responding to the current respiratory therapy. She did undergo blood work and we are reviewing t hem. She does have worsening hypogammaglobulinemia. the levels are more concerning. Indeed it could be related to the fact that she recently had major surgery. Although her levels were low even before surgery. In addition to that she was found to be anemic. She did require blood after her surgery. Will go ahead and request additional blood work at this time in 3 months after she does have further recovery of her significant surgery. The patient did have a CT scan of the chest which we personally reviewed demonstrating multiple pulmonary nodules, largest nodule measuring 6 mm in size. She will benefit from getting a CT scan in 6 months to make sure there stability of the nodules. 06/30/2024 the patient is here for a pulmonary follow-up visit. Overall the patient has been doing well. She is tolerating inhalers well. Has not had to use her rescue inhaler which is reassuring. She did have blood work back in March which we personally reviewed. Here hemoglobin decreased down to 9.6. The patient also has had worsening IgG levels. Will go ahead and request additional blood work. If her hemoglobin continues to be low in the IgG continues to be low hematology consultation will be warranted. In the meantime she also had a CT scan of the chest that we personally reviewed. Still was then parenchymal pulmonary densities in the upper lung zones with calcifications in l ymphadenopathy. Again, she was exposed to endemic fungal areas therefore need to consider fungal conditions resulting in those changes. 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 At least is reassuring that is not progressive. Exam the patient does have a murmur. 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 She will follow-up with clothing consultant and primary care. [facility] Medical History (Updated 06/30/24 @ 22:51 by Salo Kiser MD) Murmur Anemia Hypogammaglobulinemia ILD (interstitial lung disease) Pulmonary nodules Abnormal chest x-ray Dyspnea Pneumonia Cough Hyponatremia GERD (gastroesophageal reflux disease) Back pain Asthma Elevated cholesterol HTN (hypertension) Surgical History (Updated 05/11/23 @ 15:53 by DIVYA Majano) Hx of colonoscopy Hx laparoscopic cholecystectomy Previous back surgery Hx of bilateral cataract extraction Hx of hammer toe correction History of bunionectomy of both great toes Social History Are you a primary care professional to a significant other at home: No Do you presently have visiting nurse or other home services: No Comment: COUNTS CORRECT Patient Tobacco Use Status: Former Tobacco user Tobacco use type: Cigarette Review of Systems Const Denies fever(s) ENT Reports change in voice Card Denies chest pain and Reports dyspnea on exertion Resp Reports dyspnea on exertion and Denies wheezing GI Reports no additional complaints Musc Reports back pain and Reports myalgias Skin/Breast Denies rash Neuro Reports paresthesias Aller/Immun Denies wheezing Physical Exam Vital Signs: Last Vital Signs Pulse 79 06/30/24 13:06 BP 152/68 H 06/30/24 13:06 Pulse Ox 99 06/30/24 13:06 Oxygen Delivery Method Room Air 06/30/24 13:06 BMI result Body Mass Index 31.0 Const General: comfortable HEENT Head: Yes normocephalic Neck Neck: Yes supple Chest Chest palpation & inspection: normal inspection of the chest Resp Effort & Inspection: normal respiratory effort Auscultation: no rales, no rhonchi, no wheezes and diminished lung sounds Cardio Heart sounds: S1 normal heart sound present, S2 normal heart sound present and Murmur heart sound present systolic II/ GI Palpation (GI): Soft to palpation Skin General skin exam: no rashes or lesions noted Extrem General: Yes no clubbing, cyanosis or edema Results Reviewed Results Reviewed: personally reviewed CT chest 2024 with mass like densities and LN and calcifications Assessment & Plan Assessment & Plan (1) Asthma: Code(s): J45.909 - Unspecified asthma, uncomplicated Category: Medical Qualifiers: Asthma complication type: uncomplicated Asthma persistence: persistent Asthma severity: moderate Qualified Code(s): J45.40 - Moderate persistent asthma, uncomplicated (2) Dyspnea: Code(s): R06.00 - Dyspnea, unspecified Category: Medical Qualifiers: Dyspnea type: dyspnea on exertion Qualified Code(s): R06.09 - Other forms of dyspnea (3) Back pain with history of spinal surgery: Code(s): M54.9 - Dorsalgia, unspecified; Z98.890 - Other specified postprocedural states Category: Medical (4) Pulmonary nodules: Code(s): R91.8 - Other nonspecific abnormal finding of lung field Category: Medical (5) ILD (interstitial lung disease): Comment: May have a component of sarcoid versus pneumoconiosis. Has had exposure to silicosis, but in a lab. Still has some egg shell calcifiactions. Code(s): J84.9 - Interstitial pulmonary disease, unspecified Category: Medical (6) Hypogammaglobulinemia: Code(s): D80.1 - Nonfamilial hypogammaglobulinemia Category: Medical (7) Anemia: Code(s): D64.9 - Anemia, unspecified Category: Medical Qualifiers: Anemia type: other cause Other causes of anemia: other cause, not classified Qualified Code(s): D64.89 - Other specified anemias (8) Murmur: Code(s): R01.1 - Cardiac murmur, unspecified Category: Medical Plan Bloodwork, repeating IgG levels ?IVIG therapy Assess for Histoplasmosis and cocciodomycosis consider Hematology referral continue Breztri BID HELEN as needed (xopenex) will need to repeat CT chest 12 months f/u with cardiology: murmur F/U 3-4 months Orders: Orders Immunoglobulin G Subclasses Today D64.9 - Anemia, unspecified, D80.1 - Nonfamilial hypogammaglobulinemia Erythrocyte Sedimentation Rate Today D64.9 - Anemia, unspecified, D80.1 - Nonfamilial hypogammaglobulinemia Other Ref Test - Misc Today D64.9 - Anemia, unspecified, D80.1 - Nonfamilial hypogammaglobulinemia, R91.8 - Other nonspecific abnormal finding of lung field Vitamin B12 and Folate Today D64.9 - Anemia, unspecified, D80.1 - Nonfamilial hypogammaglobulinemia IRON PROFILE Today D64.9 - Anemia, unspecified, D80.1 - Nonfamilial hypogammaglobulinemia Ferritin Today D64.9 - Anemia, unspecified, D80.1 - Nonfamilial hypogammaglobulinemia Complete Blood Count Auto Diff Today D64.9 - Anemia, unspecified, D80.1 - Nonfamilial hypogammaglobulinemia Basic Metabolic Panel Today D64.9 - Anemia, unspecified, D80.1 - Nonfamilial hypogammaglobulinemia Other Ref Test - [facility] 07/01/24 D64.9 - Anemia, unspecified, D80.1 - Nonfamilial hypogammaglobulinemia, R91.8 - Other nonspecific abnormal finding of lung field Coding Level of Care Code Tele New Pt Level 5 (91549) Diagnoses Moderate persistent asthma without complication J45.40 Asthma complication type: uncomplicated Asthma persistence: persistent Asthma severity: moderate Dyspnea on exertion R06.09 Dyspnea type: dyspnea on exertion Back pain with history of spinal surgery M54.9; Z98.890 Pulmonary nodules R91.8 ILD (interstitial lung disease) J84.9 Hypogammaglobulinemia D80.1 Anemia due to other cause, not classified D64.89 Anemia type: other cause Other causes of anemia: other cause, not classified Murmur R01.1 Time Spent (min) 45
--- OUTSIDE RECORDS SUMMARY | 2024-06-30 14:45 | XMS_ITS | Encounter Summary ---
Author Organization [facility] Address [phone] [facility] [place] [address] Care Team Providers Care Mortar Worker Name Role Phone Eddie Nina MD Unavailable [phone] Hodan Brewster MD Unavailable [phone] Kacey George MD Unavailable [phone] Hodan Brewster MD Primary Care Provider Hodan Brewster MD Unavailable [phone] Encounter Details Date Type Department Care Team (Late st Contact Info) Description 12/23/2023 Procedure Pass [facility] Endoscopy Admitting Dept Virtual Department [address] [place] [id number] Social History Tobacco Use Types Packs/Day Years [...] with a working camera? Not on file Sex and Gender Information Value Date Recorded Sex Assigned at Female 08/13/2019 12:00 PM EDT Gender Identity Female 08/13/2019 12:00 PM EDT Sexual Orientation Straight 01/06/2024 11 :14 AM EDT documented as of this encounter Plan of Treatment Upcoming Encounters Date Type Department Care Team (Late st Contact Info) Description 09/13/2024 12:00 PM EDT Office [place] [facility] [address] [place] [address] Reymundo Patricio MD [address] [place] [address] [email or web address] 10/20/2024 10:00 AM EDT Office Visit [facility] [address] [place] [address] [address] [place] [address] Susana Stuart DNP [address] [facility], [address] [place] [address] documented as of this encounter Visit Diagnoses Not on filedocumented in this encounter Additional Health Concerns Assessment Noted Time PHQ-2 Depression Total Score: 1 12/04/19 22 4:12 PM EDT documented as of this encounter Care Teams Mortar Worker Relationship Specialty Start Date End Date Hodan Brewster MD [address] [place] [address] PCP - General Internal Medicine 07/30/17 Eddie Nina MD [email or web address] Historical LMR Provider 03/23/17 Hodan Brewster MD [address] [place] [address] Historical LMR Provider 03/23/17 Kacey George MD [address] [place] [address] Orth[facility] Medicine, [place] [address] Historical LMR Provider 03/23/17 Hodan Brewster MD [address] [place] [address] Insurance Assigned Provider 09/11/23 documented as of this encounter Additional Source Comments The information contained in this document represents components of the legal health record. It is not the complete legal health record.[facility]
--- OUTSIDE RECORDS SUMMARY | 2024-06-30 14:45 | XMS_ITS | Encounter Summary ---
Author Organization [facility] Address [phone] [facility] [place] [address] Care Team Providers Care Oil Field Pumper Name Role Phone Eddie Nina MD Unavailable Hodan Brewster MD Unavailable Kacey George MD Unavailable [phone] Hodan Brewster MD Primary Care Provider Hodan Brewster MD Unavailable [phone] Encounter Details Date Type Department Care Team (Late st Contact Info) Description 09/08/2023 Procedure Pass [facility] [address] [place] [address] Social History Tobacco Use Types Packs/Day Years [...] Answer Date Recorded Are you interested in help w ith more adult education (for example, completing high school, GED, job training, learning the [place] language, technical skills, or developing parenting skills)? No 12/03/2021 Food Answer Date Recorded Within the past [...] Description 09/13/2024 12:00 PM EDT Office Visit [facility] [place] [place] [facility] Spine [address] [facility] [address] [place] [address] Reymundo Patricio MD [address] [place] [address] [email or web address] 10/20/2024 10:00 AM EDT Office Visit [facility] [address] [facility] [address] [place] [address] Susana Stuart DNP 22 [facility] [address] [place], [place] [id number] documented as of this encounter Visit Diagnoses Not on filedocumented in this encounter Additional Health Concerns Assessment Noted Time PHQ-2 Depression Total Score: 1 12/04/19 22 4:12 PM EDT documented as of this encounter Care Teams Oil Field Pumper Relationship Specialty Start Date End Date Hodan Brewster MD [address] [place] [address] PCP - General Internal Medicine 07/30/17 Eddie Nina MD [email or web address] Historical LMR Provider 03/23/17 Hodan Brewster MD [address] [place] [address] Historical LMR Provider 03/23/17 Kacey George MD [address] [place] [address] Orth[facility] Medicine, [place] [address] Historical LMR Provider 03/23/17 Hodan Brewster MD [address] [place] [address] Insurance Assigned Provider 09/11/23 documented as of this encounter Additional Source Comments The information contained in this document represents components of the legal health record. It is not the complete legal health record.[facility]
--- OUTSIDE RECORDS SUMMARY | 2024-06-30 14:45 | XMS_ITS | Encounter Summary ---
Author Organization [facility] Address [phone] [facility] [place] [address] Care Team Providers Care Synthetic Soil Blocks Pulper Name Role Phone Eddie Nina MD Unavailable Hodan Brewster MD Unavailable [phone] Kacey George MD Unavailable [phone] Hodan Brewster MD Primary Care Provider Hodan Brewster MD Unavailable [phone] Encounter Details Date Type Department Care Team (Late st Contact Info) Description 02/01/2024 Procedure Pass [facility] [address] [place] [phone] Social History Tobacco Use Types Packs/Day Years [...] as food, clothing, or medical care? No 02/01/2024 In the past 12 months have y ou been in a relationship with a person who hurts, threatens, or tries to control you? No 02/01/2024 Are you denied basic needs s uch as food, clothing, or medical care? No 02/01/2024 In the past 12 months have y ou been in a relationship with a person who hurts, threatens, or tries to control you? No 02/01/2024 Sex and Gender Information Value Date Recorded [...] Spine [address] [place] [address] Reymundo Patricio MD [address] [place] [address] [email or web address] 10/20/2024 10:00 AM EDT Office Visit [facility] [address] [facility] [address] [place] [address] Susana Stuart DNP 22 [facility], [address] [place] [address] documented as of this encounter Visit Diagnoses Not on filedocumented in this encounter Additional Health Concerns Assessment Noted Time PHQ-2 Depression Total Score: 2 12/31/19 24 4:14 PM EDT documented as of this encounter Care Teams Synthetic Soil Blocks Pulper Relationship Specialty Start Date End Date Hodan Brewster MD [address] [place] [id number] PCP - General Internal Medicine 07/30/17 Eddie Nina MD [email or web address] Historical LMR Provider 03/23/17 Hodan Brewster MD [address] [place] [address] Historical LMR Provider 03/23/17 Kacey George MD [address] [place] [address] [facility], [place] [address] Historical LMR Provider 03/23/17 Hodan Brewster MD [address] [place] [address], [address] [place] [address] [email or web address] Insurance Assigned Provider 09/11/23 documented as of this encounter Additional Source Comments The information contained in this document represents components of the legal health record. It is not the complete legal health record.[facility]
--- OUTSIDE RECORDS SUMMARY | 2024-06-30 14:47 | XMS_ITS | Encounter Summary ---
Author Organization [facility] Address [phone] [facility] [place] [address] Care Team Providers Care Body Rolling Machine Tender Name Role Phone Franchesca Alexandra LEAD SECTION SUPERVISOR Unavailable Alexia Galloway FAMILY RESOURCE SPECIALIST Unavailable Eddie Nina MD Unavailable Kellie Candelario MD Unavailable [phone] Hodan Brewster MD Unavailable [phone] Marlena Cunningham SHAREPOINT MANAGER Unavailable Susana Olguin MD Unavailable Margie Stahl DPM Unavailable Unavaila ble Dre Novak MD Unavailable Kaushik Virgen MD Unavailable Zeeshan Ferrera MD Unavailable [phone] Kacey George MD Unavailable Tim White MD Unavailable Kaushik Virgen MD Primary Care Provider + Hodan Brewster MD Primary Care Provider [phone] Hodan Brewster MD Unavailable [phone] Hodan Brewster MD Unavailable Hodan Brewster MD Unavailable Encounter Details Date Type Department Care Team (Latest Contact Info) Description 06/24/2017 Transcribe Orders [facility] [address] [place] [address] Eddie Nina MD [address] [place] [address] [email or web address] Mixed hyperlipidemia Social History Tobacco Use Types Packs/Day Years Used Date Smoking Tobacco: Former Cigarettes Q uit: 04/07/1977 Smokeless Tobacco: Never Sex and Gender Information Value Date Recorded Sex Assigned at Female 08/13/2019 12:00 PM EDT Gender Identity Female 08/13/2019 12:00 PM EDT Sexual Orientation Straight 01/06/2024 11 :14 AM EDT documented as of this encounter Plan of Treatment Upcoming Encounters Date Type Department Care Team (Late st Contact Info) Description 09/13/2024 12:00 PM EDT Office Visit [facility] Orthopaedic Spine 55 [facility] [address] [place] [address] Reymundo Patricio MD 55 [place] [address] [email or web address] 10/20/2024 10:00 AM EDT Office Visit [facility] 22 [facility] 301 [place] [address] Susana Stuart DNP 22 [facility], [address] [place] [address] [email or web address] documented as of this encounter Procedures Procedure Name Priority Date/Time Associated Diagnosis Comments COMPREHENSIVE METABOLIC PANEL Routine 06/24/2017 1:00 PM EST Mixed hyperlipidemia CBC AND DIFFERENTIAL Routine 06/24/2017 1:00 PM EST Mixed hyperlipidemia LIPID PANEL Routine 06/24/2017 1:00 PM EST Mixed hyperlipidemia documented in this encounter Results * (ABNORMAL) Lipid panel (06/24/2017 1:00 PM EST) HDL 79 mg/dL [facility] Comment: Interpretation: Risk Level ? Females Decreased ?>55mg/dL Average ?50-55 mg/dL Increased ?<50 mg/dL CHOLESTEROL 160 0 - 240 mg/dL [facility] TRIGLYCERIDES 49 30 - 160 mg/dL [facility] LDL 71 50 - 129 mg/dL [facility] Comment: LDL levels in terms of risk for coronary heart disease: <100 mg/dL: Optimal 100-129 mg/dL: Near or above optimal 130-159 mg/dL: Borderline high 160-189 mg/dL: High >190 mg/dL: Very High CARDIAC RISK RATIO 2.0(L) 3.3 - 4.4 C [facility] Blood 06/24/2017 1:00 PM EST 06/24/2017 1:04 PM EST Eddie Nina MD LAB BLOOD ORDERAB LES Performing Organization Address City/State/[facility] Co de Phone Number [address] [address] * (ABNORMAL) Comprehensive metabolic panel (06/24/2017 1:00 PM EST) SODIUM 130(L) 133 - 146 mmol/L [facility] POTASSIUM 5.3(H) 3.3 - 5.1 mmol/L [facility] CHLORIDE 93(L) 96 - 108 mmol/L [facility] CO2 27 21 - 35 mmol/L [facility] BUN 10 6 - 19 mg/dL [facility] CREATININE 0.50 0.5 - 1.5 mg/dL [facility] GLUCOSE 103(H) 70 - 99 mg/dL [facility] ALBUMIN 4.5 3.9 - 4.8 g/dL [facility] TOTAL PROTEIN 6.9 6.5 - 8.0 g/dL [facility] CALCIUM 9.9 8.4 - 10.3 mg/dL [facility] ALKALINE PHOSPHATASE 43 39 - 117 U/L [facility] TOTAL BILIRUBIN 0.8 0 - 1.2 mg/dL [facility] AST 19 0 - 37 U/L [facility] ALT 18 0 - 40 U/L [facility] GLOBULIN 2.4 1 - 4.8 g/dL [facility] EGFR >60 60 - 1000 mL/min/1.7 3m2 [facility] Comment:Abnormal if <60. If patient is -Stateless, multiply the result by 1.21. ANION GAP 15 10 - 20 mmol/L [facility] Blood 06/24/2017 1:00 PM EST 06/24/2017 1:04 PM EST Eddie Nina MD LAB BLOOD ORDERAB LES [facility] [address] [place] [address] * (ABNORMAL) CBC and differential (06/24/2017 1:00 PM EST) WBC 4.63 3.40 - 11.20 K/uL [facility] RBC 3.75(L) 3.80 - 4.80 M/uL [facility] HGB 11.7(L) 12.0 - 15.0 g/dL [facility] HCT 34.7(L) 36.0 - 46.0 % [facility] PLT 316 130 - 400 K/uL [facility] MCV 92.5 79.0 - 98.0 fL [facility] MCH 31.2 27.0 - 34.8 pg [facility] MCHC 33.7 31.5 - 36.0 g/dL [facility] RDW 12.6 10.8 - 14.6 % [facility] MPV 8.8(L) 9.4 - 12.4 fl [facility] NRBC 0.00 /100 WBCs [facility] ABSOLUTE NRBC 0.00 K/uL [facility] DIFF METHOD Auto [facility] NEUTS 61.8 45.30 - 77.70 % [facility] LYMPHS 21.6 12.30 - 39.70 % [facility] MONOS 11.2 4.10 - 12.80 % [facility] EOS 4.1 0 - 7.2 % [facility] BASOS 0.9 0 - 2.80 % [facility] Granulocytes, immature (%) 0.4 0.0 - 0.9 % [facility] ABSOLUTE NEUTS 2.86 1.40 - 7.70 K/uL [facility] ABSOLUTE LYMPHS 1.00 0.60 - 3.20 K/uL [facility] ABSOLUTE MONOS 0.52 0.11 - 0.59 K/uL [facility] ABSOLUTE EOS 0.19 0.01 - 0.50 K/uL [facility] ABSOLUTE BASOS 0.04 0.00 - 0.08 K/uL [facility] Granulocytes, immature 0.02 0.00 - 0.05 K/uL [facility] Blood 06/24/2017 1:00 PM EST 06/24/2017 1:04 PM EST Eddie Nina MD LAB BLOOD ORDERAB LES Performing Organization Address City/State/[facility] Co de Phone Number [address] [address] documented in this encounter Visit Diagnoses Diagnosis Mixed hyperlipidemia documented in this encounter Care Teams Body Rolling Machine Tender Relationship Specialty Start Date End Date Kaushik Virgen MD [address] [place] [address] [email or web address] PCP - General Family Medicine 06/14/17 07/29/17 Hodan Brewster MD [address] [place] [address], [address] [place] [address] [email or web address] PCP - General Internal Medicine 07/30/17 Franchesca Alexandra, RICHIE [address] [place] [address] Historical LMR Provider 03/23/17 Alexia Galloway, FAMILY RESOURCE SPECIALIST [address], [address] [place] [address] [email or web address] Historical LMR Provider 03/23/17 06/14/21 Eddie Nina MD [address] [facility] [address], [address] [place] [address] [email or web address] Historical LMR Provider 03/23/17 Kellie Candelario MD [address] [place] [address] Historical LMR Provider 03/23/17 Hodan Brewster MD [address] [place] [address] [email or web address] Historical LMR Provider 03/23/17 Marlena Cunningham FNP 38 [facility] [address], [address] [place] [address] [email or web address] Historical LMR Provider 03/23/17 06/14/21 Susana Olguin MD 38 [facility], [address], [address] [place] [address] Historical LMR Provider 03/23/17 06/14/21 Margie Stahl DPM [address] [place] [address] Historical LMR Provider 03/23/17 Dre Weir MD 22 [facility], [address] [place] [address] Historical LMR Provider 03/23/17 06/14/21 Kaushik Virgen MD [address] [place] [address] [email or web address] Historical LMR Provider 03/23/17 06/14/21 Zeeshan Ferrera MD [address] [place] [address], [facility] [address] [place] [address] Historical LMR Provider 03/23/17 06/14/21 Kacey George MD [address] [place] [address] [facility], [place] [address] [email or web address] Historical LMR Provider 03/23/17 Tim White MD [address] [place] [address] [email or web address] Historical LMR Provider 03/23/17 06/14/21 Hodan Brewster MD [address] [place] [address] Insurance Assigned Provider 10/08/18 12/17/18 Hodan Brewster MD [address] [place] [address] Insurance Assigned Provider 09/13/19 06/13/22 Hodan Brewster MD [address] [place] [address] [email or web address] Insurance Assigned Provider 09/11/23 documented as of this encounter Additional Source Comments The information contained in this document represents components of the legal health record. It is not the complete legal health record.[facility]
--- OUTSIDE RECORDS SUMMARY | 2024-06-30 14:47 | XMS_ITS | Encounter Summary ---
Author Organization [facility] Address [phone] [facility] [place] [address] Care Team Providers Care Care Companion Name Role Phone Franchesca Alexandra SUPERVISOR SHEET MANUFACTURING Unavailable Alexia Galloway CANAL DRIVER Unavailable Eddie Nina MD Unavailable Kellie Candelario MD Unavailable [phone] Hodan Brewster MD Unavailable [phone] Marlena Cunningham MAIL PROCESSOR Unavailable Susana Olguin MD Unavailable Margie Stahl DPM Unavailable Unavaila ble Dre Novak MD Unavailable [phone] Kaushik Virgen MD Unavailable Zeeshan Ferrera MD Unavailable [phone] Kacey George MD Unavailable Tim White MD Unavailable Kaushik Virgen MD Primary Care Provider + Hodan Brewster MD Primary Care Provider [phone] Hodan Brewster MD Unavailable Hodan Brewster MD Unavailable Hodan Brewster MD Unavailable [phone] Encounter Details Date Type Department Care Team (Late st Contact Info) Description 06/17/2017 Ancillary Orders [facility] [address] [place] [address] [place] [address] Kaushik Virgen MD [address] [place] [address] 2[address] [place] [address] [email or web address] Breast screening Social History Tobacco Use Types Packs/Day Years Used Date Smoking Tobacco: Former Cigarettes Q uit: 04/07/1977 Sex and Gender Information Value Date Recorded Sex Assigned at Female 08/13/2019 12:00 PM EDT Gender Identity Female 08/13/2019 12:00 PM EDT Sexual Orientation Straight 01/06/2024 11 :14 AM EDT documented as of this encounter Plan of Treatment Upcoming Encounters Date Type Department Care Team (Late st Contact Info) Description 09/13/2024 12:00 PM EDT Office Visit [facility]edic Spine [facility] [address]A [place] [address] Reymundo Patricio MD 55 [place] [address] [email or web address] 10/20/2024 10:00 AM EDT Office Visit [facility] [address] [place] [address] 301 [place] [address] Susana Stuart DNP 22 [facility], [address] [place] [address] [email or web address] documented as of this encounter Results * BI MAMMOGRAM SCREENING WITH TOMOSYNTHESIS WITH CAD (BILATERAL) (07/07/2017 11:05 AM EST) Anatomical Region Laterality Modality Breast Left, Breast Right, Breast Bilateral Bila teral Mammography 07/07/2017 11:4 6 AM EST Impressions 07/07/2017 11:48 AM EST Stable appearance relative to prior imaging. ??No findings suggestive of malignancy are seen. BI-RADS CATEGORY: 2 - Benign finding. DENSITY: ??There are scattered fibroglandular densities. ?? POS - [id number] Narrative 07/07/2017 11:48 AM EST Full-field digital mammography is obtained with computer-aided detection. ??Comparison with prior imaging from 07/03/2016 is made with older imaging dating back as far as 05/12/2011 also reviewed. There is scattered fibroglandular density evident in the breasts. ??In addition to 2-D C view imaging, tomosynthesis images are obtained in two projections of each breast. Scattered bilateral breast calcifications are unchanged.. ??No dominant soft tissue mass of concern, suspicious cluster of calcifications, significant interval skin changes, or architectural distortion is identified. Procedure Note Ermias Patino MD - 07/07/2017 Full-field digital mammography is obtained with computer-aided detection.Comparison with prior imaging from 07/03/2016 is made with older imagingdating back as far as 05/12/2011 also reviewed. There is scattered fibroglandular density evident in the breasts. Inaddition to 2-D C view imaging, tomosynthesis images are obtained in twoprojections of each breast. Scattered bilateral breast calcifications are unchanged.. No dominantsoft tissue mass of concern, suspicious cluster of calcifications,significant interval skin changes, or architectural distortion isidentified. IMPRESSION: Stable appearance relative to prior imaging. No findings suggestive ofmalignancy are seen. BI-RADS CATEGORY: 2 - Benign finding. DENSITY: There are scattered fibroglandular densities. POS - [id number] Kaushik Virgen MD IMG MG EXAMS documented in this encounter Visit Diagnoses Diagnosis Breast screening Breast screening, unspecified documented in this encounter Care Teams Care Companion Relationship Specialty Start Date End Date Kaushik Virgen MD [address] [place] [address] [email or web address] PCP - General Family Medicine 06/14/17 07/29/17 Hodan Brewster MD [address] [place] [address] [email or web address] PCP - General Internal Medicine 07/30/17 Franchesca Alexandra, RICHIE [address] [place] [address] Historical LMR Provider 03/23/17 Alexia Galloway, TABATHA [address] [facility], [address] [place] [address] [email or web address] Historical LMR Provider 03/23/17 06/14/21 Eddie Nina MD 38 [facility], [address], [address] [place] [address] [email or web address] Historical LMR Provider 03/23/17 Kellie Candelario MD [address] [place] [address] Historical LMR Provider 03/23/17 Hodan Brewster MD [address] [place] [address] [email or web address] Historical LMR Provider 03/23/17 Marlena Cunningham FNP 38 [facility], [address], [address] [place] [address] [email or web address] Historical LMR Provider 03/23/17 06/14/21 Susana Olguin MD [address] [place] [address] 204, [address] [place] [address] [email or web address] Historical LMR Provider 03/23/17 06/14/21 Margie Stahl DPM [address] [place] [address] Historical LMR Provider 03/23/17 2 Dre Novak MD [address] [place] [address], 2[address] [place] [address] [email or web address] Historical LMR Provider 03/23/17 06/14/21 Kaushik Virgen MD [address] [place] [address] [email or web address] Historical LMR Provider 03/23/17 06/14/21 Zeeshan Ferrera MD 22 [facility], [address] [place] [address] [email or web address] Historical LMR Provider 03/23/17 06/14/21 Kacey George MD [address] [place] [address] [facility], [place] [address] Historical LMR Provider 03/23/17 Tim White MD [address] [place] [address] [email or web address] Historical LMR Provider 03/23/17 06/14/21 Hodan Brewster MD [address] [place] [address] [email or web address] Insurance Assigned Provider 10/08/18 12/17/18 Hodan Brewster MD [address] [place] [address] [email or web address] Insurance Assigned Provider 09/13/19 06/13/22 Hodan Brewster MD [address] [place] [address] [email or web address] Insurance Assigned Provider 09/11/23 documented as of this encounter Additional Source Comments The information contained in this document represents components of the legal health record. It is not the complete legal health record.[facility]
--- OUTSIDE RECORDS SUMMARY | 2024-06-30 14:47 | XMS_ITS | Encounter Summary ---
Author Organization [facility] Address [phone] [place] [address] Care Team Providers Care Gizzard Puller Name Role Phone Hodan Brewster MD Primary Care Provider [phone] Franchesca Alexandra SUPERVISOR SCRAP PREPARATION Unavailable Alexia Galloway FORK LIFT TECHNICIAN Unavailable [phone] Eddie Nina MD Unavailable Kellie Candelario MD Unavailable [phone] Hodan Brewster MD Unavailable [phone] Marlena Cunningham COSTUMER Unavailable Susana Olguin MD Unavailable Margie Stahl DPM Unavailable Unavaila Dre Calderon MD Unavailable [phone] Kaushik Virgen MD Unavailable [phone] Zeeshan Ferrera MD Unavailable [phone] Kacey George MD Unavailable Tim White MD Unavailable Kaushik Virgen MD Primary Care Provider + Hodan Brewster MD Primary Care Provider [phone] Hodan Brewster MD Unavailable [phone] Hodan Brewster MD Unavailable [phone] Hodan Brewster MD Unavailable Encounter Details Date Type Department Care Team (Late st Contact Info) Description 04/09/2017 Ancillary Orders [facility],Outside Imaging [address] [place] [address] System, Provider Not In, [facility] [address] [address] Social History Tobacco Use Types Packs/Day Years Used Date Smoking Tobacco: Former Cigarettes Q uit: 04/07/1977 Sex and Gender Information Value Date Recorded Sex Assigned at Female 08/13/2019 12:00 PM EDT Gender Identity Female 08/13/2019 12:00 PM EDT Sexual Orientation Straight 01/06/2024 11 :14 AM EDT documented as of this encounter Plan of Treatment Upcoming Encounters Date Type Department Care Team (Late Contact Info) Description 09/13/2024 12:00 PM EDT Office Visit [facility] Orthopaedic Spine 55 [facility] [address] [place] [address] Reymundo Patricio MD 55 [place] [address] [email or web address] 10/20/2024 10:00 AM EDT Office Visit [facility] [address] [place] [address] Susana Stuart DNP 22 [facility], [address] [place] [address] documented as of this encounter Results * XR SPINE OUTSIDE(NO INTERPRETATION) (09/08/2016 12:00 AM EDT) Narrative SYSTEMGENERATED, DOCUMENTATION - 04/09/2017 10:17 AM EDT This study is for PACS storage only and not for interpretation. Provider Not In System PhD IMG OUTSIDE I KANNAN W/OUT INTERPRETATION documented in this encounter Visit Diagnoses Not on filedocumented in this encounter Care Teams Gizzard Puller Relationship Specialty Start Date End Date Hodan Brewster MD [address] [place] [address], [address] [place] [address] [email or web address] PCP - General 08/14/16 06/13/17 Kaushik Virgen MD [address] [place] [address] [email or web address] PCP - General Family Medicine 06/14/17 07/29/17 Hodan Brewster MD [address] [place] [address], [address] [place] [address] [email or web address] PCP - General Internal Medicine 07/30/17 Franchesca Alexandra, RICHIE [address] [place] [address] Historical LMR Provider 03/23/17 Alexia Galloway CNP 38 [facility], [address], [address] [place] [address] [email or web address] Historical LMR Provider 03/23/17 06/14/21 Eddie Nina MD 38 [facility], [address], [address] [place] [address] [email or web address] Historical LMR Provider 03/23/17 Kellie Candelario MD [address] [place] [address] Historical LMR Provider 03/23/17 Hodan rBewster MD [address] [place] [address] Historical LMR Provider 03/23/17 Marisa Marlena ConnieROCIOP 38 [facility], [address], [address] [place] [address] Historical LMR Provider 03/23/17 06/14/21 Susana Olguin MD 38 [facility], [address], [address] [place] [address] [email or web address] Historical LMR Provider 03/23/17 06/14/21 Margie Stahl DPM [address] [place] [address] Historical LMR Provider 03/23/17 2 Dre Novak MD [address] [place] [address] [email or web address] Historical LMR Provider 03/23/17 06/14/21 Kaushik Virgen MD [address] [place] [address] [email or web address] Historical LMR Provider 03/23/17 06/14/21 Zeeshan Ferrera MD [address] [place] [address], [address] [place] [address] Historical LMR Provider 03/23/17 06/14/21 Kacey George MD [address] [place] [address] Orthopedics & Sports Medicine, [facility] [place] [place] [address] Historical LMR Provider 03/23/17 Tim White MD [address] [place] [address] [email or web address] Historical LMR Provider 03/23/17 06/14/21 Hodan Brewster MD [address] [place] [address] Insurance Assigned Provider 10/08/18 12/17/18 Hodan Brewster MD [address] [place] [address] Insurance Assigned Provider 09/13/19 06/13/22 Hodan Brewster MD [address] [place] [address] Insurance Assigned Provider 09/11/23 documented as of this encounter Additional Source Comments The information contained in this document represents components of the legal health record. It is not the complete legal health record.[facility]
--- OUTSIDE RECORDS SUMMARY | 2024-06-30 14:47 | XMS_ITS | Clinical Summary ---
Author Organization [facility] ity Address [address] [place] [address] Care Team Providers Care Strategic Solutions Consultant Name Role Phone Hodan Brewster MD Primary Care Provider Social History Tobacco Use Types Packs/Day Years Used Date Smoking Tobacco: Former Smokeless Tobacco: Never Sex and Gender Information Value Date Recorded Sex Assigned at Not on file Gender Identity Not on file Sexual Orientation Not on file Obstetrics History Plan of Treatment Health Maintenance Due Date Last Done Comments Breast Cancer Screening 1950 DTaP,Tdap,and Td Vaccines (1 - Tdap) 1970 Zoster Vaccines (1 of 2) 2001 Pneumococcal Vaccine: 65+ Ye ars (1 of 1 - PCV) 2016 COVID-19 Vaccine ( - 2023-2 5 season) 2024 Influenza Vaccine (#1) 2024 RSV Immunization Patients 60 + Years Old (1 - 1-dose 75+ series) 2026 HIB Vaccines Aged Out No longer eligi ble based on patient's age to complete this topic HPV Vaccines Aged Out No longer eligi ble based on patient's age to complete this topic Hepatitis A Vaccines Aged Out No long er eligible based on patient's age to complete this topic Hepatitis B Vaccines Aged Out No long er eligible based on patient's age to complete this topic IPV Vaccines Aged Out No longer eligi ble based on patient's age to complete this topic MMR Vaccines Aged Out No longer eligi ble based on patient's age to complete this topic Meningococcal ACWY Vaccine Aged Out N o longer eligible based on patient's age to complete this topic RSV Immunization Patients Un kathleen 20 months Aged Out No longer eligible b ased on patient's age to complete this topic Varicella Vaccines Aged Out No longer eligible based on patient's age to complete this topic Care Teams Strategic Solutions Consultant Relationship Specialty Start Date End Date Hodan Brewster MD [address] [address] PCP - General Internal Medicine 03/17/19
--- OUTSIDE RECORDS SUMMARY | 2024-06-30 14:47 | XMS_ITS | Encounter Summary ---
Author Organization [facility] Address [phone] [facility] [place] [address] Care Team Providers Care Gaggerman Name Role Phone Eddie Nina MD Unavailable [phone] Hodan Brewster MD Unavailable Kacey George MD Unavailable [phone] Hodan Brewster MD Primary Care Provider Hodan Brewster MD Unavailable [phone] Reason for Referral * MRI/CAT Scan - Authorized Specialty Diagnoses / Procedures Referred By Rebekah tierney Referred To Contact Radiology Diagnoses Other specified postprocedural states Dorsalgia, unspecified Procedures CT Lumbar Spine Omer Crowell PA 10 [facility] [address] [place] [address] Referral ID Status Reason Start Date Expiration Date V isits Requested Visits Authorized [id number] Authorized 07/16/2023 1 1 * MRI/CAT Scan - Authorized Specialty Diagnoses / Procedures Referred By Rebekah tierney Referred To Contact Radiology Diagnoses Other specified postprocedural states Dorsalgia, unspecified Procedures MRI Lumbar Spine Omer Crowell PA [address] [facility] [address] [place] [address] Referral ID Status Reason Start Date Expiration Date V isits Requested Visits Authorized [id number] Authorized 07/16/2023 1 1 Encounter Details Date Type Department Care Team (Latest Contact Info) Description 07/16/2023 Transcribe Orders Virtual Department [address] [place] [address] Omer Crowell PA [address] [place] [address] Other specified postprocedural states (Primary Dx); Dorsalgia, unspecified Social History Tobacco Use Types Packs/Day Years [...] high school, GED, job training, learning the Slovak language, technical skills, or developing parenting skills)? [...] is your housing situation today? I have krystamiriam lubin 12/03/2021 How many times have you [...] Description 09/13/2024 12:00 PM EDT Office Visit [facility] 55 [facility] [address] [place] [address] Reymundo Patricio MD [address] [place] [address] [email or web address] 10/20/2024 10:00 AM EDT Office Visit [facility] [address] [facility] [address] [place] [address] Susana Stuart DNP 22 [facility], [address] [place] [address] [email or web address] Scheduled Orders Name Type Priority Associated Diagnoses Orde r Schedule MRI Lumbar Spine Imaging Routine Other specified postprocedural states Dorsalgia, unspecified Expected: 07/16/2023, Expires: 07/16/2024 CT Lumbar Spine Imaging Routine Other specified postprocedural states Dorsalgia, unspecified Expected: 07/16/2023, Expires: 07/16/2024 documented as of this encounter Visit Diagnoses Diagnosis Other specified postprocedural states- Primary Dorsalgia, unspecified documented in this encounter Additional Health Concerns Assessment Noted Time PHQ-2 Depression Total Score: 1 12/04/19 22 4:12 PM EDT documented as of this encounter Care Teams Gaggerman Relationship Specialty Start Date End Date Hodan Brewster MD [address] [address] [email or web address] PCP - General Internal Medicine 07/30/17 Eddie Nina MD [email or web address] Historical LMR Provider 03/23/17 Hodan Brewster MD [address] [place] [address] Historical LMR Provider 03/23/17 Kacey George MD [address] [place] [address] Orthopedics & Sports Medicine, [place] [address] Historical LMR Provider 03/23/17 Hodan Brewster MD [address] [place] [address] Insurance Assigned Provider 09/11/23 documented as of this encounter Additional Source Comments The information contained in this document represents components of the legal health record. It is not the complete legal health record.[facility]
--- OUTSIDE RECORDS SUMMARY | 2024-06-30 14:48 | XMS_ITS | Clinical Summary ---
Author Organization [facility] Address [address] [place] [address] Care Team Providers Care Otolaryngology Surgeon Name Role Phone Hodan Brewster MD Primary Care Provider [phone] Allergies Active Allergy Reactions Criticality Noted Date Comments Amlodipine Swelling 04/20/2016 Other reaction(s): Peripheral edema Other reaction(s): swelling legs and feet Other reaction(s): swelling legs and feet Calcium Channel Blocking Agent Diltiazem Analogues Swelling 04/28/2019 Codeine Itching,Rash Low 04/20/2016 Other reaction(s): Gastritis Severe abd pain Other reaction(s): severe abd. pain Other reaction(s): severe abd. pain Dextromethorphan Polistirex 01/30/20 17 Other reaction(s): severe abd. pain Other reaction(s): severe abd. pain Hydralazine 05/03/2023 Swelling in extremities Hydrocodone 01/29/2017 Other reaction(s): Gastritis severe Other reaction(s): severe abd. pain Other reaction(s): severe abd. pain Lisinopril Itching,Rash Low 04/20/2016 Other reaction(s): Hives/Urticaria Midazolam Hives 01/29/2017 Other reaction(s): Hives/Urticaria Morphine Sulfate 01/29/2017 Other reaction(s): severe abd. pain Other reaction(s): severe abd. pain Oxycodone 09/24/2005 Other reaction(s): Gastritis Severe abd pain Penicillins Rash Low 09/24/2005 Other reaction(s): Hives/Urticaria Pregabalin 12/27/2018 Feet and leg swelling Tiotropium Voss 08/26/2021 Medications Tymlos 80 mcg (3,120 mcg/1.56 mL) pen injector 4 Active acetaminophen (TYLENOL) 500 mg tablet Take 1,000 mg by mouth 2 (two) times a week. Active atorvastatin (LIPITOR) 20 mg tablet Take 20 mg by mouth in the morning. 7 Active B-complex with vitamin C capsule Take 1 capsule by mouth in the morning. Active budesonide (Pulmicort Flexhaler) 180 mcg/actuation inhaler USE 2 INHALATIONS ORALLY TWICE DAILY 3 Active carvediloL (COREG) 25 mg tablet Take 25 mg by mouth in the morning and 25 mg in the evening. 3 Active cholecalciferol , vitamin D3, 25 mcg (1,000 unit) tablet Take 1,000 Units by mouth in the morning. Active famotidine (PEPCID) 40 mg tablet Take 1 tablet by mouth in the morning and 1 tablet before bedtime. 1 Active levalbuterol (XOPENEX HFA) 45 mcg/actuation inhaler Inhale 2 puffs every 4 (four) hours as needed. 3 Active meloxicam (MOBIC) 15 mg tablet 4 Active mometasone-form oterol (Dulera) 200-5 mcg/actuation inhaler USE 2 INHALATIONS ORALLY TWICE DAILY 3 Active valsartan (DIOVAN) 80 mg tablet 4 Active zafirlukast (ACCOLATE) tablet Take 1 tablet by mouth in the morning and 1 tablet before bedtime. 3 Active Social History Tobacco Use Types Packs/Day Years Used Date Smoking Tobacco: Never Smokeless Tobacco: Never Tobacco Cessation:Counseling Given: Not Answered Alcohol Use Standard Drinks/Week Comments Yes 0 (1 standard drink = 0.6 oz pur e alcohol) Comments Unknown Sex and Gender Information Value Date Recorded Sex Assigned at Not on file Legal Sex Female 12:43 AM EST Gender Identity Not on file Sexual Orientation Not on file Last Filed Vital Signs Vital Sign Reading Time Taken Comments Blood Pressure - - Pulse - - Temperature - - Respiratory Rate - - Oxygen Saturation - - Inhaled Oxygen Concentration - - Weight 77.1 kg (170 lb) 11/08/2023 2:35 PM EDT Height 157.5 cm (5' 2 ) 11/08/2023 2:35 PM EDT Body Mass Index 31.09 11/08/2023 2:35 PM EDT Plan of Treatment Health Maintenance Due Date Last Done Comments CT Colonography 1951 FIT-DNA (Cologuard) 1950 FIT 1950 FOBT 1950 Flex Sigmoidoscopy - 5y 1950 HIV Screening 1950 Hepatitis C Screening 1969 Medicare Annual Wellness (AWV) 12/04/2022 12/03/2021, 11/21/2019, 09/27/2018 Breast Cancer Screening 01/21/2024 01/21/20 22, 01/20/2022, 07/31/2019, Additional history exists COVID-19 Vaccine ( season) 2024 03/12/2023, 02/25/2021, 08/28/2020, Additional history exists Influenza Vaccine (#1) 2024 , 02/27/2021, 02/25/2021, Additional history exists Bone Density Screening 09/06/2025 09/07/2023 DTaP,Tdap,and Td Vaccines (3 - Td or Tdap) 05/09/2030 05/09/2020, 04/21/2011 Colonoscopy 03/25/2032 03/25/2022 Colorectal Cancer Screening 03/25/2032 Pneumococcal Vaccine, 65+ Years Completed 06/23/2019, 09/03/2016 Zoster Vaccines Completed 06/23/2019, 03/14/2019 HPV Vaccines Aged Out No longer eligi ble based on patient's age to complete this topic Hepatitis A Vaccines Aged Out No long er eligible based on patient's age to complete this topic Meningococcal Vaccine Aged Out No daysi sukumar eligible based on patient's age to complete this topic Insurance MEDICARE PART A & [facility] Care Teams Otolaryngology Surgeon Relationship Specialty Start Date End Date Hodan Brewster MD [facility] [address] [place] [address] [address] [place] [address] PCP - General Internal Medicine 10/04/23
--- OUTSIDE RECORDS SUMMARY | 2024-06-30 14:48 | XMS_ITS ---
Author Organization [facility] Address [address] [facility] [place] [address] Care Team Providers Care Software Development Coordinator Name Role Phone Omer Estrada [phone] ALLERGIES, ADVERSE REACTIONS, ALERTS Substance Code Code System Type Reaction Severity Status Start Date End Date morphine 7052 RxNorm Drug allergy () 0 oxycodone 7804 RxNorm Drug allergy () moderate allergy 0 codeine 2670 RxNorm Drug allergy () 0 lisinopril 34623 RxNorm Drug allergy () 0 hydralazine 5470 [...] acolate RxNorm labetalol 0 RxNorm oral benzonatate 448530 RxNorm 06/27/19 24 oral 1 amoxicillin-po t clavulanate 888598 RxNorm 04/14/20 23 oral 1 Tymlos 0 RxNorm subcutaneous PROBLEMS Problem Name Code Code System Start Date End Date Stat us Essential (primary) hypertension 97420844 [facility] Active Other hyperlipidemia 72523944 [facility] Active Asthma 301505979 [facility] Active Acute maxillary sinusitis, unspecified 59318359 [facility] 2023 Resolved Shortness of breath 633361353 [facility] 06/27/2023 Inactive Other hypotension 17030314904477 [facility] 06/27/2023 Inactive Other malaise 084786092 [facility] 06/27/2023 Inacti ve Acute bronchitis, unspecified 18248050 [facility] 06/27/2023 Resolved Cardiac murmur, unspecified 50840005 [facility] 01/17/2024 Active 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 608214493 [facility] 06/08/2024 Active ENCOUNTERS Encounter Diagnosis Code Code System Date Stat us 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 677211629 [facility] 06/08/2024 Active IMMUNIZATIONS * None VITAL SIGNS Code Code System Vitals Name Date Value and Un its 8462-4 [facility] Blood Pressure-Diastolic 06/08/2024 74 mmHg 8480-6 [facility] Blood Pressure-Systolic 06/08/2024 1 24 mmHg 8867-4 [facility] Heart Rate 06/08/2024 88 /min 9279-1 [facility] Respiratory Rate 06/08/2024 18 /min 8310-5 [facility] Body Temperature 06/08/2024 97.5 F 80473-0 [facility] Oxygen Saturation 06/08/2024 95 % SOCIAL [...] * Patient: ADRIEN MALIN, Sex: F (ID# [id number]) Date of : 1950 (74 years) Visit on 06/08/2024 (Log# [id number]) Historian: Self History of Present Illness: Patient reports she was visiting grandchildren in [facility] and has had a 5 to 6-day [...]
--- OUTSIDE RECORDS SUMMARY | 2024-06-30 14:49 | XMS_ITS | Encounter Summary ---
Author Organization [facility] Address [phone] [facility] [place] [address] Care Team Providers Care Stage Setting Painter Apprentice Name Role Phone Eddie Nina MD Unavailable [phone] Hodan Brewster MD Unavailable [phone] Kacey George MD Unavailable [phone] Hodan Brewster MD Primary Care Provider [phone] Hodan Brewster MD Unavailable [phone] Encounter Details Date Type Department Care Team (Late st Contact Info) Description 10/08/2022 Procedure Pass [address] [place] [address] Social History Tobacco Use Types Packs/Day Years [...] high school, GED, job training, learning the Mongolian language, technical skills, or developing parenting skills)? [...] basis, and looking for work? No 12/03/2021 Sex and Gender Information Value Date Recorded Sex Assigned at Female 08/13/2019 12:00 PM EDT Gender Identity Female 08/13/2019 12:00 PM EDT Sexual Orientation Straight 01/06/2024 11 :14 AM EDT documented as of this encounter Last Filed Vital Signs Vital Sign Reading Time Taken Comments Blood Pressure - - Pulse - - Temperature - - Respiratory Rate - - Oxygen Saturation - - Inhaled Oxygen Concentration - - Weight 77.1 kg (170 lb) 10/09/2022 1:14 PM EDT Height 157.5 cm (5' 2 ) 10/09/2022 1:14 PM EDT Body Mass Index 31.09 10/09/2022 1:14 PM EDT documented in this encounter Plan of Treatment Upcoming Encounters Date Type Department Care Team (Late st Contact Info) Description 09/13/2024 12:00 PM EDT Office [facility] [address] [address] Reymundo Patricio MD [address] [place] [address] [email or web address] 10/20/2024 10:00 AM EDT Office Visit [facility] 301 [place] [address] Susana Stuart DNP 22 [facility], [address] [place] [address] documented as of this encounter Visit Diagnoses Not on filedocumented in this encounter Additional Health Concerns Assessment Noted Time PHQ-2 Depression Total Score: 1 12/04/19 22 4:12 PM EDT documented as of this encounter Care Teams Stage Setting Painter Apprentice Relationship Specialty Start Date End Date Hodan Brewster MD [address] [place] [address] PCP - General Internal Medicine 07/30/17 Edide Nina MD [email or web address] Historical LMR Provider 03/23/17 Hodan Brewster MD [address] [place] [address] Historical LMR Provider 03/23/17 Kacey George MD [address] [place] [address] Orthopedics & Sports Medicine, [place] [address] Historical LMR Provider 03/23/17 Hodan Brewster MD [address] [place] [address] Insurance Assigned Provider 09/11/23 documented as of this encounter Additional Source Comments The information contained in this document represents components of the legal health record. It is not the complete legal health record.[facility]
--- OUTSIDE RECORDS SUMMARY | 2024-06-30 14:49 | XMS_ITS | Encounter Summary ---
Author Organization [facility] Address [phone] [facility] [place] [address] Care Team Providers Care Stave Mill Hand Name Role Phone Franchesca Alexandra ALUMINUM SHEET CUTTER Unavailable Alexia Galloway GROUND CREW CHIEF Unavailable Eddie Nina MD Unavailable Kellie Candelario MD Unavailable [phone] Hodan Brewster MD Unavailable Marlena Cunningham BUSINESS SOLUTIONS ANALYST Unavailable Susana Olguin MD Unavailable Margie Stahl DPM Unavailable Unavaila ble Dre Novak MD Unavailable Kaushik Virgen MD Unavailable Zeeshan Ferrera MD Unavailable [phone] Kacey George MD Unavailable Tim White MD Unavailable Hodan Brewster MD Primary Care Provider [phone] Hodan Brewster MD Unavailable Hodan Brewster MD Unavailable Encounter Details Date Type Department Care Team (Late st Contact Info) Description 04/26/2020 Transcribe Orders [facility] Specimen Processing [address] [place] [address] Hodan Brewster MD [address] [place] [address], [address] [place] [address] [email or web address] Social History Tobacco Use Types Packs/Day Years Used Date Smoking Tobacco: Former Cigarettes 1 2 1 06/07/1974 - 04/07/1977 Smokeless Tobacco: Never Alcohol Use Standard Drinks/Week Comments Yes 2 (1 standard drink = 0.6 oz pur e alcohol) Sex and Gender Information Value Date Recorded Sex Assigned at Female 08/13/2019 12:00 PM EDT Gender Identity Female 08/13/2019 12:00 PM EDT Sexual Orientation Straight 01/06/2024 11 :14 AM EDT documented as of this encounter Plan of Treatment Upcoming Encounters Date Type Department Care Team (Late Contact Info) Description 09/13/2024 12:00 PM EDT Office Visit [facility] Orthopaedic Spine 55 [facility] [address] [place] [address] Reymundo Patricio MD 55 [place] [address] [email or web address] 10/20/2024 10:00 AM EDT Office Visit [facility] 22 [facility] 301 [place] [address] Susana Stuart DNP 22 [facility], [address] [place] [address] [email or web address] documented as of this encounter Visit Diagnoses Not on filedocumented in this encounter Additional Health Concerns Assessment Noted Time PHQ-2 Depression Total Score: 0 11/21/19 20 8:33 AM EDT documented as of this encounter Care Teams Stave Mill Hand Relationship Specialty Start Date End Date Hodan Brewster MD [address] [place] [address], [address] [place] [address] [email or web address] PCP - General Internal Medicine 07/30/17 Franchesca Alexandra, RICHIE [address] [place] [address] Historical LMR Provider 03/23/17 Alexia Galloway, TABATHA [address] [place] [address] Historical LMR Provider 03/23/17 06/14/21 Eddie Nina MD [address], [address] [place] [address] [email or web address] Historical LMR Provider 03/23/17 Kellie Candelario MD [address] [place] [address] Historical LMR Provider 03/23/17 Hodan Brewster MD [address] [place] [address], [address] [place] [address] [email or web address] Historical LMR Provider 03/23/17 Marlena Cunningham FNP [address], [address] [place] [address] Historical LMR Provider 03/23/17 06/14/21 Susana Olguin MD [address], [address] [place] [address] Historical LMR Provider 03/23/17 06/14/21 Margie Stahl DPM [address] [place] [address] Historical LMR Provider 03/23/17 Dre Weir MD [address] [place] [address], [address] [place] [address] [email or web address] Historical LMR Provider 03/23/17 06/14/21 Kaushik Virgen MD [address] [place] [address] [email or web address] Historical LMR Provider 03/23/17 06/14/21 Zeeshan Ferrera MD [address] [place] [address], [facility] [address] [place] [address] [email or web address] Historical LMR Provider 03/23/17 06/14/21 Kacey George MD [address] [place] [address] Orthopedics [facility] Sports Medicine, [place] [address] [email or web address] Historical LMR Provider 03/23/17 Tim White MD [address] [place] [address] [email or web address] Historical LMR Provider 03/23/17 06/14/21 Hodan Brewster MD [address] [place] [address] [email or web address] Insurance Assigned Provider 09/13/19 06/13/22 Hodan Brewster MD [address] [place] [address], [address] [place] [address] [email or web address] Insurance Assigned Provider 09/11/23 documented as of this encounter Additional Source Comments The information contained in this document represents components of the legal health record. It is not the complete legal health record.[facility]
--- OUTSIDE RECORDS SUMMARY | 2024-06-30 14:49 | XMS_ITS | Encounter Summary ---
Author Organization [facility] Address [phone] [facility] [place] [address] Care Team Providers Care Crane Manager Name Role Phone Eddie Nina MD Unavailable [phone] Hodan Brewster MD Unavailable [phone] Kacey George MD Unavailable [phone] Hodan Brewster MD Primary Care Provider [phone] Hdoan Brewster MD Unavailable [phone] Encounter Details Date Type Department Care Team (Late st Contact Info) Description 10/04/2022 Procedure Pass [facility], Ct Scan - [address] [address] Social History Tobacco Use Types Packs/Day Years [...] high school, GED, job training, learning the Dutch language, technical skills, or developing parenting skills)? [...] Description 09/13/2024 12:00 PM EDT Office Visit [facility] Spine [address] [address] Reymundo Patricio MD 55 [place] [address] [email or web address] 10/20/2024 10:00 AM EDT Office Visit [facility] 22 [facility] 301 [place] [address] Susana Stuart DNP 22 [facility], [address] [place], [place] [phone] documented as of this encounter Visit Diagnoses Not on filedocumented in this encounter Additional Health Concerns Assessment Noted Time PHQ-2 Depression Total Score: 1 12/04/19 22 4:12 PM EDT documented as of this encounter Care Teams Crane Manager Relationship Specialty Start Date End Date Hodan Brewster MD [address] [place] [address] PCP - General Internal Medicine 07/30/17 Eddie Nina MD [email or web address] Historical LMR Provider 03/23/17 Hodan Brewster MD [address] [place] [address] Historical LMR Provider 03/23/17 Kacey George MD [address] [place] [address] Orth[facility] Sports Medicine, [place] [address] Historical LMR Provider 03/23/17 Hodan Brewster MD [address] [place] [address] Insurance Assigned Provider 09/11/23 documented as of this encounter Additional Source Comments The information contained in this document represents components of the legal health record. It is not the complete legal health record.[facility]
--- OUTSIDE RECORDS SUMMARY | 2024-06-30 14:49 | XMS_ITS | Encounter Summary ---
Author Organization [facility] Address [phone] [facility] [place] [address] Care Team Providers Care Writing Center Director Name Role Phone Franchesca Alexandra CONSTRUCTION EQUIPMENT TECHNICIAN Unavailable Alexia Galloway ALCOHOLISM WORKER Unavailable [phone] Eddie Nina MD Unavailable Kellie Candelario MD Unavailable [phone] Hodan Brewster MD Unavailable Marlena Cunningham OPERATING ROOM REGISTERED NURSE Unavailable Susana Olguin MD Unavailable Margie Stahl DPM Unavailable Unavaila ble Dre Novak MD Unavailable [phone] Kaushik Virgen MD Unavailable Zeeshan Ferrera MD Unavailable [phone] Kacey George MD Unavailable Tim White MD Unavailable Hodan Brewster MD Primary Care Provider [phone] Hodan Brewster MD Unavailable Hodan Brewster MD Unavailable Hodan Brewster MD Unavailable Encounter Details Date Type Department Care Team (Late st Contact Info) Description 05/27/2018 Ancillary Orders Virtual Department [address] [place] [address] Hodan Brewster MD 170 [facility], 2nd [place] [address] Breast screening Social History Tobacco Use Types [...] Description 09/13/2024 12:00 PM EDT Office Visit [facility] Orthopaedic Spine 55 [facility] [address] [place] [address] Reymundo Patricio MD 55 [place] [address] [email or web address] 10/20/2024 10:00 AM EDT Office Visit [facility] [address] [place] [address] 301 [place] [address] Susana Stuart DNP 22 [facility], [address] [place] [address] [email or web address] documented as of this encounter Results * BI MAMMOGRAM SCREENING WITH TOMOSYNTHESIS WITH CAD (BILATERAL) (07/28/2018 1:18 PM EST) Anatomical Region Laterality Modality Breast Left, Breast Right, Breast Bilateral Bila teral Mammography 07/28/2018 2:56 PM EST Impressions 07/28/2018 2:58 PM EST No mammographic evidence of malignancy. BI-RADS CATEGORY: 2 - Benign finding. DENSITY: ??There are scattered fibroglandular densities. ?? POS - CDHMAMA Narrative 07/28/2018 2:58 PM EST Standard digital full-field 2-D C view and two-plane tomographic imaging was performed and compared with multiple prior studies, most recently 07/07/2017, with utilization of computer-aided detection. The breasts are composed of scattered fibroglandular densities. The stromal markings are essentially unchanged in overall appearance and distribution. No dominant spiculated mass, suspicious clustered microcalcifications, or focal zone of pathologic skin thickening or retraction are noted to have arisen in the interim. Scattered benign-appearing microcalcifications and macrocalcifications are again noted demonstrated bilaterally. Procedure Note Lynda Mccauley MD - 07/28/2018 Standard digital full-field 2-D C view and two-plane tomographic imagingwas performed and compared with multiple prior studies, most jpcotibp30/31/2018, with utilization of computer-aided detection. The breasts are composed of scattered fibroglandular densities. Thestromal markings are essentially unchanged in overall appearance anddistribution. No dominant spiculated mass, suspicious clusteredmicrocalcifications, or focal zone of pathologic skin thickening orretraction are noted to have arisen in the interim. Scatteredbenign-appearing microcalcifications and macrocalcifications are againnoted demonstrated bilaterally. IMPRESSION: No mammographic evidence of malignancy. BI-RADS CATEGORY: 2 - Benign finding. DENSITY: There are scattered fibroglandular densities. POS - CDHMAMA Hodan Brewster MD IMG MG EXAMS documented in this encounter Visit Diagnoses Diagnosis Breast screening Breast screening, unspecified Breast screening Breast screening, unspecified documented in this encounter Care Teams Writing Center Director Relationship Specialty Start Date End Date Hodan Brewster MD [address] [place] [address], 2nd [place] [address] [email or web address] PCP - General Internal Medicine 07/30/17 Franchesca Alexandra, CONSTRUCTION EQUIPMENT TECHNICIAN [address] [place] [address] Historical LMR Provider 03/23/17 Alexia Galloway, ALCOHOLISM WORKER [address] [place] [address] [email or web address] Historical LMR Provider 03/23/17 06/14/21 Eddie Nina MD 38 [facility] [address], [address] [place] [address] [email or web address] Historical LMR Provider 03/23/17 Kellie Candelario MD [address] [place] [address] Historical LMR Provider 03/23/17 Hodan Brewster MD [address] [place] [address], 2nd [place] [address] [email or web address] Historical LMR Provider 03/23/17 Marlena Cunningham FNP [address], [address] [place] [address] [email or web address] Historical LMR Provider 03/23/17 06/14/21 Susana Olguin MD [address], [address] [place] [address] [email or web address] Historical LMR Provider 03/23/17 06/14/21 Margie Stahl DPM [address] [place] [address] Historical LMR Provider 03/23/17 2 Dre Novak MD [address] [place] [address], [address] [place] [address] [email or web address] Historical LMR Provider 03/23/17 06/14/21 Kaushik Virgen MD [address] [place] [address] [email or web address] Historical LMR Provider 03/23/17 06/14/21 Zeeshan Ferrera MD [address] [place] [address], [address] [place] [address] [email or web address] Historical LMR Provider 03/23/17 06/14/21 Kacey George MD [address] [place] [address] Orth[facility]ics [facility] Sports Medicine, [place] [address] [email or web address] Historical LMR Provider 03/23/17 Tim White MD [address] [place] [address] [email or web address] Historical LMR Provider 03/23/17 06/14/21 Hodan Brewster MD [address] [place] [address] [email or web address] Insurance Assigned Provider 10/08/18 12/17/18 Hodan Brewster MD [address] [place] [address] [place] [address] [email or web address] Insurance Assigned Provider 09/13/19 06/13/22 Hodan Brewster MD [address] [place] [address], [address] [place] [address] [email or web address] Insurance Assigned Provider 09/11/23 documented as of this encounter Additional Source Comments The information contained in this document represents components of the legal health record. It is not the complete legal health record.[facility]
--- OUTSIDE RECORDS SUMMARY | 2024-06-30 14:50 | XMS_ITS | Encounter Summary ---
Author Organization [facility] Address [phone] [facility] [place] [address] Care Team Providers Care Investment Specialist Name Role Phone Eddie Nina MD Unavailable Hodan Brewster MD Unavailable [phone] Kacey George MD Unavailable [phone] Hodan Brewster MD Primary Care Provider Hodan Brewster MD Unavailable [phone] Encounter Details Date Type Department Care Team (Late st Contact Info) Description 01/07/2024 Procedure Pass [facility] - [address] [place] [address] Social History Tobacco Use Types Packs/Day Years [...] you moved in the past 12 wed th? One time 12/03/2021 Paying for Meds Answer [...] Description 09/13/2024 12:00 PM EDT Office Visit [facility] Orthopaedic Spine [address] [place] [address] Reymundo Patricio MD [address] [place] [address] [email or web address] 10/20/2024 10:00 AM EDT Office Visit [facility] [address] [place] [address] Susana Stuart DNP [address] [place] [address], [address] [place] [address] documented as of this encounter Visit Diagnoses Not on filedocumented in this encounter Additional Health Concerns Assessment Noted Time PHQ-2 Depression Total Score: 2 12/31/19 24 4:14 PM EDT documented as of this encounter Care Teams Investment Specialist Relationship Specialty Start Date End Date Hodan Brewster MD [address] [place] [address] PCP - General Internal Medicine 07/30/17 Eddie Nina MD [email or web address] Historical LMR Provider 03/23/17 Hodan Brewster MD [address] [place] [address] Historical LMR Provider 03/23/17 Kacey George MD [address] [place] [address] [facility] Medicine, [place] [address] Historical LMR Provider 03/23/17 Hodan Brewster MD [address] [place] [address] Insurance Assigned Provider 09/11/23 documented as of this encounter Additional Source Comments The information contained in this document represents components of the legal health record. It is not the complete legal health record.[facility]
--- OUTSIDE RECORDS SUMMARY | 2024-06-30 14:50 | XMS_ITS | Encounter Summary ---
Author Organization [facility] Address [phone] [facility] [place] [address] Care Team Providers Care Carpentry Foreman Name Role Phone Eddie Nina MD Unavailable [phone] Hodan Brewster MD Unavailable [phone] Kacey George MD Unavailable [phone] Hodan Brewster MD Primary Care Provider [phone] Hodan Brewster MD Unavailable [phone] Reason for Referral * Physical Therapy (Within 2 weeks) - New Request Specialty Diagnoses / Procedures Referred By Rebekah tierney Referred To Contact Diagnoses Sagittal plane imbalance Reymundo Patricio MD [address] [place] [address] Email: [email or web address] Referral ID Status Reason Start Date Expiration Date V isits Requested Visits Authorized [id number] New Request 06/14/2024 06/14/2025 1 1 Encounter Details Date Type Department Care Team (Late st Contact Info) Description 06/14/2024 Orders Only [facility] Orthopaedic Spine [address] [address] Lisa Murray MA [address] [place] [address] Sagittal plane imbalance (Primary Dx) Social History Tobacco Use Types Packs/Day Years [...] your housing situation today? I have krysta sing 12/03/2021 How many times have you moved [...] Description 09/13/2024 12:00 PM EDT Office Visit [facility] Orthopaedic Spine [facility] [address] [place] [address] Reymundo Patricio MD 55 [place] [address] [email or web address] 10/20/2024 10:00 AM EDT Office Visit [facility] [address] [facility] [address] [place] [address] Susana Stuart DNP 22 [facility], [address] [place] [address] [email or web address] Scheduled Referrals Name Type Priority Associated Diagnoses Order Schedule Ambulatory referral to External Physical Therapy Outpatient Referral Routine Sagittal plane imbalance Ordered: 06/14/2024 documented as of this encounter Visit Diagnoses Diagnosis 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 documented in this encounter Additional Health Concerns Assessment Noted Time PHQ-2 Depression Total Score: 2 12/31/19 24 4:14 PM EDT documented as of this encounter Care Teams Carpentry Foreman Relationship Specialty Start Date End Date Hodan Brewster MD [address] [place] [address], 2nd [place] [address] PCP - General Internal Medicine 2/23/18 Eddie Nina MD [email or web address] Historical LMR Provider 03/23/17 Hodan Brewster MD [address] [place] [address] Historical LMR Provider 03/23/17 Kacey George MD [address] [place] [address] Orthopedics [facility] Sports Medicine, [place] [address] Historical LMR Provider 03/23/17 Hodan Brewster MD [address] [place] [address] Insurance Assigned Provider 09/11/23 documented as of this encounter Additional Source Comments The information contained in this document represents components of the legal health record. It is not the complete legal health record.[facility]
--- OUTSIDE RECORDS SUMMARY | 2024-06-30 14:50 | XMS_ITS | Continuity of Care Document ---
Author Organization [facility] Address [address] [place] [address] Phone Care Team Providers Care Hand Worker Name Role Phone No Information Unavailable Unavailable Advance Directives Directive Yes / No Effective Date File Name No Information Encounters Encounter Description Practice Location Reason(s) For Visit Diagnoses Date Provider Providers Copied on Encounter [facility] , [address] [employer], [place], [address], [place] tel:[phone] JAMARCUS Blount No Information No Information Family History Family Member Type Diagnosis Age At Onset No Information Payers Payer name Insurance type Covered alliance party ID Authoriza tion(s) No Information Social History Type Description Quantity Date Captured Comments Sex Female Smoking Status No Information Chief Complaint And Reason For Visit No Information Reason For Referral Reason For Referral No Information History Of Present Illness Encounter Date Complaint History Of Prese nt Illness No Information Functional Status Date Functional Assessmen t No Information Instructions Date Instruction Additional Infor mation No Information Assessments Type Assessment Date No Information Patient Care Teams Name Effective Dates (start - stop) Status Members No Information
--- OUTSIDE RECORDS SUMMARY | 2024-06-30 14:50 | XMS_ITS | Encounter Summary ---
Author Organization [facility] Address [phone] [facility] [place] [address] Care Team Providers Care Pocket Maker Name Role Phone Eddie Nina MD Unavailable [phone] Hodan Brewster MD Unavailable [phone] Kacey George MD Unavailable [phone] Hodan Brewster MD Primary Care Provider Hodan Brewster MD Unavailable [phone] Encounter Details Date Type Department Care Team (Late st Contact Info) Description 01/28/2023 Procedure Pass [address] [address] Social History Tobacco Use Types Packs/Day Years [...] high school, GED, job training, learning the Iraqi language, technical skills, or developing parenting skills)? [...] 12:00 PM EDT Office Visit [facility] [address] [place] [address] Reymundo Patricio MD [address] [place] [address] [email or web address] 10/20/2024 10:00 AM EDT Office Visit [facility] [address] [place] [address] [address] [place] [address] Susana Stuart DNP 22 [facility], [address] [place] [address] documented as of this encounter Visit Diagnoses Not on filedocumented in this encounter Additional Health Concerns Assessment Noted Time PHQ-2 Depression Total Score: 1 12/04/19 22 4:12 PM EDT documented as of this encounter Care Teams Pocket Maker Relationship Specialty Start Date End Date Hodan Brewster MD [address] [place] [address] PCP - General Internal Medicine 07/30/17 Eddie Nina MD [email or web address] Historical LMR Provider 03/23/17 Hodan Brewster MD [address] [place] [address] Historical LMR Provider 03/23/17 Kacey George MD [address] [place] [address] Orth[facility] Sports Medicine, [place] [address] Historical LMR Provider 03/23/17 Hodan Brewster MD [address] [place] [address] Insurance Assigned Provider 09/11/23 documented as of this encounter Additional Source Comments The information contained in this document represents components of the legal health record. It is not the complete legal health record.[facility]
--- OUTSIDE RECORDS SUMMARY | 2024-06-30 14:50 | XMS_ITS | Encounter Summary ---
Author Organization [facility] Address [phone] [place] [address] Care Team Providers Care Prison Classification Counselor Name Role Phone Hodan Brewster MD Primary Care Provider [phone] Franchesca Alexandra OXYGEN THERAPY TEACHER Unavailable Alexia Galloway AUTOMOTIVE WORKER Unavailable [phone] Eddie Nina MD Unavailable Kellie Candelario MD Unavailable [phone] Hodan Brewster MD Unavailable [phone] Marlena Cunningham SHALE PLANER OPERATOR HELPER Unavailable Susana Olguin MD Unavailable Margie Stahl DPM Unavailable Unavaila Dre Calderon MD Unavailable Kaushik Virgen MD Unavailable [phone] Zeeshan Ferrera MD Unavailable [phone] Kacey George MD Unavailable Tim White MD Unavailable Kaushik Virgen MD Primary Care Provider + Hodan Brewster MD Primary Care Provider [phone] Hodan Brewster MD Unavailable Hodan Brewster MD Unavailable [phone] Hodan Brewster MD Unavailable Encounter Details Date Type Department Care Team (Late st Contact Info) Description 08/27/2016 Procedure Pass [facility] [address] [place] [address] Social History Tobacco Use Types Packs/Day Years Used Date Smoking Tobacco: Former Cigarettes 1 2 1 06/07/1974 - 04/07/1977 Smokeless Tobacco: Never Alcohol Use Standard Drinks/Week Comments Yes 12 (1 standard drink = 0.6 oz pure alcohol) Usually a glass of wine with dinner ..often 2 on the weekend Sex and Gender Information Value Date Recorded Sex Assigned at Female 08/13/2019 12:00 PM EDT Gender Identity Female 08/13/2019 12:00 PM EDT Sexual Orientation Straight 01/06/2024 11 :14 AM EDT documented as of this encounter Plan of Treatment Upcoming Encounters Date Type Department Care Team (Late st Contact Info) Description 09/13/2024 12:00 PM EDT Office Visit [facility] Orthopaedic Spine 55 [facility] [address] [place] [address] Reymundo Patricio MD 55 [place] [address] [email or web address] 10/20/2024 10:00 AM EDT Office Visit [facility] [address] [place] [address] [address] [place] [address] Susana Stuart DNP 22 [facility], [address] [place] [address] documented as of this encounter Visit Diagnoses Not on filedocumented in this encounter Care Teams Prison Classification Counselor Relationship Specialty Start Date End Date Hodan Brewster MD [address] [place] [address], 2nd [place] [address] PCP - General 08/14/16 06/13/17 Kaushik Virgen MD [address] [place] [address] [email or web address] PCP - General Family Medicine 06/14/17 07/29/17 Hodan Brewster MD [address] [place] [address], [address] [place] [address] [email or web address] PCP - General Internal Medicine 07/30/17 Franchesca Alexandra, RICHIE [address] [place] [address] Historical LMR Provider 03/23/17 Alexia Galloway CNP [address] [facility], [address] [place] [address] [email or web address] Historical LMR Provider 03/23/17 06/14/21 Eddie Nina MD 38 [facility], [address] [place] [address] [email or web address] Historical LMR Provider 03/23/17 Kellie Candelario MD [address] [place] [address] Historical LMR Provider 03/23/17 Hodan Brewster MD [address] [place] [address], [address] [place] [address] [email or web address] Historical LMR Provider 03/23/17 Marlena Cunningham FNP 38 [facility], [address] [place] [address] Historical LMR Provider 03/23/17 06/14/21 Susana Olguin MD 38 [facility] [address], [address] [place] [address] [email or web address] Historical LMR Provider 03/23/17 06/14/21 Margie Stahl DPM [address] [place] [address] Historical LMR Provider 03/23/17 2 Dre Novak MD [address] [place] [address], [address] [place] [address] [email or web address] Historical LMR Provider 03/23/17 06/14/21 Kasuhik Virgen MD [address] [place] [address] [email or web address] Historical LMR Provider 03/23/17 06/14/21 Zeeshan Ferrera MD [address] [place] [address], [address] [place] [address] [email or web address] Historical LMR Provider 03/23/17 06/14/21 Kacey George MD [address] [place] [address] [facility], [place] [address] Historical LMR Provider 03/23/17 Tim White MD [address] [place] [address] [email or web address] Historical LMR Provider 03/23/17 06/14/21 Hodan Brewster MD [address] [place] [address] Insurance Assigned Provider 10/08/18 12/17/18 Hodan Brewster MD [address] [place] [address] Insurance Assigned Provider 09/13/19 06/13/22 Hodan Brewster MD [address] [place] [address] Insurance Assigned Provider 09/11/23 documented as of this encounter Additional Source Comments The information contained in this document represents components of the legal health record. It is not the complete legal health record.[facility]
--- OUTSIDE RECORDS SUMMARY | 2024-06-30 14:50 | XMS_ITS | Encounter Summary ---
Author Organization [facility] Address [phone] [place] [address] Care Team Providers Care Metal Fabricating Shop Helper Name Role Phone Hodan Brewster MD Primary Care Provider [phone] Franchesca Alexandra SEGREGATOR Unavailable Alexia Galloway POURED WALL FOREMAN Unavailable Eddie Nina MD Unavailable Kellie Candelario MD Unavailable [phone] Hodan Brewster MD Unavailable [phone] Marlena Cunningham THERAPY SITE COORDINATOR Unavailable Susana Olguin MD Unavailable Margie Stahl DPM Unavailable Unavaila Dre Caldreon MD Unavailable [phone] Kaushik Virgen MD Unavailable [phone] Zeeshan Ferrera MD Unavailable [phone] Kacey George MD Unavailable Tim White MD Unavailable Kaushik Virgen MD Primary Care Provider + Hodan Brewster MD Primary Care Provider [phone] Hodan Brewster MD Unavailable Hodan Brewster MD Unavailable [phone] Hodan Brewster MD Unavailable [phone] Encounter Details Date Type Department Care Team (Late st Contact Info) Description 08/27/2016 Procedure Pass [facility] [address] [place] [address] Social History Tobacco Use Types Packs/Day Years [...] Description 09/13/2024 12:00 PM EDT Office Visit [facility] Orthopaedic Spine 55 [facility] [address] [place] [address] Reymundo Patricio MD 55 [place] [address] [email or web address] 10/20/2024 10:00 AM EDT Office Visit [facility] [address] [place] [address] 301 [place] [address] Susana Stuart DNP 22 [facility], [address] [place] [address] documented as of this encounter Visit Diagnoses Not on filedocumented in this encounter Care Teams Metal Fabricating Shop Helper Relationship Specialty Start Date End Date Hodan Brewster MD [address] [place] [address], 2nd [place] [address] PCP - General 08/14/16 06/13/17 Kaushik Virgen MD [address] [place] [address] [email or web address] PCP - General Family Medicine 06/14/17 07/29/17 Hodan Brewster MD [address] [place] [address], [address] [place] [address] [email or web address] PCP - General Internal Medicine 07/30/17 Franchesca Alexandra, RICHIE [address] [place] [address] Historical LMR Provider 03/23/17 Alexia Galloway CNP 38 [facility]. 204, [address] [place] [address] [email or web address] Historical LMR Provider 03/23/17 06/14/21 Eddie Nina MD 38 [facility]. 204, [address] [place] [address] [email or web address] Historical LMR Provider 03/23/17 Kellie Candelario MD [address] [place] [address] Historical LMR Provider 03/23/17 Hodan Brewster MD [address] [place] [address], [address] [place] [address] [email or web address] Historical LMR Provider 03/23/17 Marlena Cunningham FNP [address] [address]. [address], [address] [place] [address] Historical LMR Provider 03/23/17 06/14/21 Susana Olguin MD 38 [facility] [address]. 204, [address] [place] [address] [email or web address] Historical LMR Provider 03/23/17 06/14/21 Margie Stahl DPM [address] [place] [address] Historical LMR Provider 03/23/17 2 Dre Novak MD [address] [place] [address], [address] [place] [address] [email or web address] Historical LMR Provider 03/23/17 06/14/21 Kaushik Virgen MD [address] [place] [address] [email or web address] Historical LMR Provider 03/23/17 06/14/21 Zeeshan Ferrera MD [address] [place] [address], [address] [place] [address] [email or web address] Historical LMR Provider 03/23/17 06/14/21 Kacey George MD [address] [place] [address] Orthopedics & Sports Medicine, [place] [address] Historical LMR Provider 03/23/17 Tim White MD [address] [place] [address] [email or web address] Historical LMR Provider 03/23/17 06/14/21 Hodan Brewster MD [address] [place] [address] Insurance Assigned Provider 10/08/18 12/17/18 Hodan Brewster MD [address] [place] [address] Insurance Assigned Provider 09/13/19 06/13/22 Hodan Brewster MD [address] [place] [phone] Insurance Assigned Provider 09/11/23 documented as of this encounter Additional Source Comments The information contained in this document represents components of the legal health record. It is not the complete legal health record.[facility]
--- OUTSIDE RECORDS SUMMARY | 2024-06-30 14:50 | XMS_ITS | Encounter Summary ---
Author Organization [facility] Address [phone] [facility] [place] [address] Care Team Providers Care Lineman Apprentice Name Role Phone Unavailable Primary Care Provider Unavailabl e Encounter Details Date Type Department Care Team ([facility] st Contact Info) Description 05/04/2016 Hospital Encounter [facility] Imaging 55 [place] [address] Michael Guerra MD [address] [place] [address] [email or web address] Social History Tobacco Use Types Packs/Day Years [...] Description 09/13/2024 12:00 PM EDT Office Visit [facility] Orthopaedic Spine 55 [facility] [address] [place] [address] Reymundo Patricio MD [address] [place] [address] [email or web address] 10/20/2024 10:00 AM EDT Office Visit [facility] 22 [facility] 301 [place] [address] Susana Stuart DNP 22 [facility], [address] [place] [address] documented as of this encounter Procedures Procedure Name Priority Date/Time Associated Diagnosis Comments XR SPINE OUTSIDE (NO INTERPRETATION) Routine 05/04/2016 12:00 AM EST documented in this encounter Results * XR SPINE OUTSIDE(NO INTERPRETATION) (05/04/2016 12:00 AM EST) Narrative [facility] IMG INTERFACES - 08/27/2016 3:08 PM EDT This study is for PACS storage only and not for interpretation. Michael Guerra MD IMG OUTSIDE I KANNAN W/OUT INTERPRETATION [facility] IMG INTERFACES documented in this encounter Visit Diagnoses Not on filedocumented in this encounter Additional Source Comments The information contained in this document represents components of the legal health record. It is not the complete legal health record.[facility]
--- OUTSIDE RECORDS SUMMARY | 2024-06-30 14:50 | XMS_ITS | Encounter Summary ---
Author Organization [facility] Address [phone] [facility] [place] [address] Care Team Providers Care Park Worker Name Role Phone Unavailable Primary Care Provider Unavailabl e Reason for Visit * MRI/CAT Scan - Closed Specialty Diagnoses / Procedures Referred By Contac t Referred To Contact Procedures MRI Spine (Neuro) Outside (No Interpretation) Michael Guerra MD [address] [place] [address] Email: [email or web address] Referral ID Status Reason Start Date Expiration Date Visits Re quested Visits Authorized [id number] Closed 08/27/2016 08/27/2017 1 1 Encounter Details Date Type Department Care Team ([facility] st Contact Info) Description 07/12/2016 12:15 AM EST Hospital Encounter [facility] General Imaging [address] [place] [address] Michael Guerra MD [address] [place] [address] [email or web address] Social History Tobacco Use Types Packs/Day Years [...] have you moved in the past 12 wed? One time 12/03/2021 Paying for Meds Answer [...] 09/13/2024 12:00 PM EDT Office Visit [facility] Orthopaedic Spine [address] [place] [address] Reymundo Patricio MD [address] [place] [address] [email or web address] 10/20/2024 10:00 AM EDT Office Visit [facility] 22 [facility] 301 [place] [address] Susana Stuart DNP 22 [facility], [address] [place] [address] [email or web address] documented as of this encounter Procedures Procedure Name Priority Date/Time Associated Diagnosis Comments MRI SPINE NEUROLOGIC FOCUS OUTSIDE (NO INTERPRETATION) Routine 07/12/2016 12:15 AM EST documented in this encounter Results * MRI Spine (Neuro) Outside (No Interpretation) (07/12/2016 12:15 AM EST) Narrative [facility] IMG INTERFACES - 08/27/2016 3:10 PM EDT This study is for PACS storage only and not for interpretation. Michael Guerra MD IMG OUTSIDE I KANNAN W/OUT INTERPRETATION [facility] IMG INTERFACES documented in this encounter Visit Diagnoses Not on filedocumented in this encounter Additional Source Comments The information contained in this document represents components of the legal health record. It is not the complete legal health record.[facility]
--- OUTSIDE RECORDS SUMMARY | 2024-06-30 14:50 | XMS_ITS | Encounter Summary ---
Author Organization [facility] Address [phone] [facility] [place] [address] Care Team Providers Care Hotbed Transfer Operator Name Role Phone Unavailable Primary Care Provider Unavailabl e Encounter Details Date Type Department Care Team ([facility] st Contact Info) Description 05/04/2016 12:15 AM EST Hospital Encounter [facility] Imaging [address] [place] [address] Michael Guerra MD [address] [place] [address] Social History Tobacco Use Types Packs/Day Years [...] Description 09/13/2024 12:00 PM EDT Office Visit [facility] Orthopaedic Spine [address] [place] [address] Reymundo Patricio MD [address] [place] [address] [email or web address] 10/20/2024 10:00 AM EDT Office Visit [facility] 22 [facility] 301 [place] [address] Susana Stuart, CHUCK [address] [facility], [address] [place] [address] [email or web address] documented as of this encounter Procedures Procedure Name Priority Date/Time Associated Diagnosis Comments XR SPINE OUTSIDE (NO INTERPRETATION) Routine 05/04/2016 12:15 AM EST documented in this encounter Results * XR SPINE OUTSIDE(NO INTERPRETATION) (05/04/2016 12:15 AM EST) Narrative [facility] IMG INTERFACES - 08/27/2016 3:09 PM EDT This study is for PACS storage only and not for interpretation. Michael Guerra MD IMG OUTSIDE I KANNAN W/OUT INTERPRETATION [facility] IMG INTERFACES documented in this encounter Visit Diagnoses Not on filedocumented in this encounter Additional Source Comments The information contained in this document represents components of the legal health record. It is not the complete legal health record.[facility]
--- OUTSIDE RECORDS SUMMARY | 2024-06-30 14:50 | XMS_ITS | Encounter Summary ---
Author Organization [facility] Address [phone] [facility] [place] [address] Care Team Providers Care Senior Administrative Support Name Role Phone Eddie Nina MD Unavailable Hodan Brewster MD Unavailable [phone] Kacey George MD Unavailable [phone] Hodan Brewster MD Primary Care Provider Hodan Brewster MD Unavailable [phone] Encounter Details Date Type Department Care Team (Late st Contact Info) Description 06/14/2024 12:30 PM EST Office Visit [facility] Orthopaedic Spine [address] [address] Reymundo Patricio MD 55 [place] [address] [email or web address] Sagittal plane imbalance (Primary Dx); Failed back syndrome of cervical spine Social History Tobacco Use Types Packs/Day Years [...] AM EDT documented as of this encounter Progress Notes * Reymundo Patricio MD - 06/14/2024 12:30 PM EST 06/14/2024 Re: Loree Heller [id number] Dear Hodan Santacruz MD, I had the pleasure of seeing Loree Heller today. Loree Heller is a 74 y.o. female who is 4 months status post revision posterior spinal fusion from T10 to the pelvis with pedicle subtraction osteotomy at L5. The patient has been doing fair since her surgery. She reports weakness in her lower extremities; specifically, in her gluteus medius on the right side. She has been using 2 canes to assist with ambulation and has been working with physical therapy. The patient denies constitutional symptoms, night pains or sweats, and problems controlling the bowels or bladder. Past Medical History: Diagnosis Date Acquired hallux valgus unspecified foot Anemia 1999 Asthma Bursitis shoulder bursitis/tendinitis Cough Fasting hyperglycemia Gastric ulcer Gastroesophageal reflux disease Hearing loss 2015 Wear hearing aids Hypercholesterolemia Hypertensive disorder Hyponatremia Mixed hyperlipidemia Oral contraceptive use OTHER DIAGNOSIS - PLEASE ANNOTATE. 09/03/2016 Fall risk assessment 09/03/16 OTHER DIAGNOSIS - PLEASE ANNOTATE. Fracture of unspecified phalanxc of unspecified finger, initial encounter for closed fracture. Pneumonia 11/20/23 Sacroiliitis, not elsewhere classified Screening for depression 12/17/2015 Spinal stenosis of lumbar region with radiculopathy;back pain. Visual impairment 1959 Glasses, lens replacement Past Surgical History: Procedure Laterality Date APPENDECTOMY 1961 BACK SURG[facility] 10/23[facility]2016 [facility] 1992 Cholecystectomy COLONOSCOPY N/A 12/23/2023 Performed by Eric Camara MD at [facility] ENDOSCOPY D & C after a miscarriage 1978 D & C after a miscarriage echo: Normal EF, mild LVH, mild MR 2011 echo: Normal EF, mild LVH, mild MR ESOPHAGOGASTRODUODENOSCOPY N/A 12/23/2023 Performed by Eric Camara MD at [facility] ENDOSCOPY EYE SURGERY 2022 Cataracts removed FRACTURE SURGERY 02/2022 T12 hallux nail removal 12/2011 hallux nail removal Revision [id number], L1-3 decompression, L5 PSO N/A 02/01/2024 Performed by Reymundo Patricio MD at [facility] OR TONSILLECTOMY AND ADENOIDECTOMY 1963 T&A Allergies Allergen Reactions Amlodipine Besylate Other reaction(s): swelling legs and feet Calcium Channel Blocking Agent Diltiazem Analogues Swelling Dextromethorphan Polistirex Other reaction(s): severe abd. pain Diltiazem Hcl Swelling Hydralazine Swelling in extremities Hydrocodone Other reaction(s): severe abd. pain Lyrica [Pregabalin] Feet and leg swelling Midazolam Hcl Hives Morphine Sulfate Other reaction(s): severe abd. pain Oxycodone Spiriva Respimat [Tiotropium [place]] Codeine Rash and Itching Other reaction(s): severe abd. pain Lisinopril Rash and Itching Penicillin Rash Tolerated anc 01/31 SOCIAL HISTORY: REVIEW OF SYSTEMS: Review of System was Reviewed with the patient today and can be found on Loree'sintake form. Current Outpatient Medications: abaloparatide (TYMLOS) 80 mcg (3,120 mcg/1.56 mL) subcutaneous pen, Inject 80 mcg under the skin daily., Disp: 1.56 mL, Rfl: 11, Last Dispense: Unknown (outside pharmacy) acetaminophen (TYLENOL) 500 MG tablet, Take 1,000 mg by mouth 2 (two) times a week. And occasionally prn. Not more than 3g daily., Disp: , Rfl: , Last Dispense: Unknown (patient-reported) AEROCHAMBER PLUS FLOW-VU Spcr, , Disp: , Rfl: , Last Dispense: Unknown (patient-reported) atorvastatin (LIPITOR) 20 MG tablet, take 1 tablet daily, Disp: 90 tablet, Rfl: 3, Last Dispense: Unknown (outside pharmacy) B-complex with vitamin C Cap, Take 1 capsule by mouth daily., Disp: , Rfl: , Last Dispense: Unknown(patient-reported) njlcuksqhu-vgbovhvc-dfxlrfjsnk (BREZTRI AEROSPHERE) 160-9-4.8 mcg/actuation inhaler, Inhale 2 puffsinto the lungs 2 (two) times a day., Disp: , Rfl: , Last Dispense: Unknown (patient-reported) cholecalciferol (VITAMIN D3) 25 MCG (1,000 unit) tablet, Take 1,000 Units by mouth daily., Disp: , Rfl: , Last Dispense: Unknown (patient-reported) famotidine (PEPCID) 40 MG tablet, TAKE 1 TABLET TWICE A DAY, Disp: 180 tablet, Rfl: 3, Last Dispense: Unknown (outside pharmacy) foam bandage (OPTIFOAM) 4 X 4 Bndg, Apply 1 Units topically daily., Disp: 10 each, Rfl: 5, Last Dispense: Unknown (outside pharmacy) gabapentin (NEURONTIN) 300 MG capsule, Take 2 capsules (600 mg total) by mouth 3 (three) times a day., Disp: 540 capsule, Rfl: 3, Last Dispense: Unknown (outside pharmacy) HYDROmorphone (DILAUDID) 2 MG tablet, Take 1 tablet (2 mg total) by mouth daily as needed. Partial fill ok, Disp: 14 tablet, Rfl: 0, Last Dispense: Unknown (outside pharmacy) ID-BD 5mm x 31G Mini Pen Clark <[facility] 7024> ([id number]), Use as directed, Disp: 100 each, Rfl: 3, Last Dispense: Unknown (outside pharmacy) insulin pen needles, disposable, 31 gauge x 5/16 Ndle, 1 each by Miscellaneous route as needed., Disp: 100 each, Rfl: 3, Last Dispense: Unknown (outside pharmacy) labetaloL (TRANDATE) 200 MG tablet, Take 2 tablets (400 mg total) by mouth 3 (three) times a day. (Patient taking differently: Take 200 mg by mouth 3 (three) times a day.), Disp: 360 tablet, Rfl: 3, Last Dispense: Unknown (outside pharmacy) levalbuterol (XOPENEX HFA) 45 mcg/actuation inhaler, Inhale 2 puffs into the lungs every 4 (four) hours as needed for wheezing., Disp: 45 g, Rfl: 3, Last Dispense: Unknown (outside pharmacy) magnesium oxide (MAG-OX) 400 mg (241.3 mg elemental) tablet, Take 400 mg by mouth daily., Disp: , Rfl: , Last Dispense: Unknown (patient-reported) ohkuqgaordkr-kchbldvz-wazujv (CENTRUM SILVER) Tab, Take 1 tablet by mouth daily., Disp: , Rfl: , Last Dispense: Unknown (patient-reported) ondansetron (ZOFRAN) 4 MG tablet, Take 1 tablet (4 mg total) by mouth every 8 (eight) hours as needed for nausea., Disp: 30 tablet, Rfl: 0, Last Dispense: Unknown (outside pharmacy) pantoprazole (PROTONIX) 40 MG tablet, Take 40 mg by mouth daily., Disp: , Rfl: , Last Dispense: Unknown (patient-reported) senna (SENOKOT) 8.6 mg tablet, Take 2 tablets by mouth 2 (two) times a day., Disp: 30 tablet, Rfl: 0, Last Dispense: Unknown (outside pharmacy) terazosin (HYTRIN) 2 MG capsule, Take 1 capsule (2 mg total) by mouth nightly at bedtime., Disp: 30capsule, Rfl: 11, Last Dispense: Unknown (outside pharmacy) valsartan (DIOVAN) 80 MG tablet, Take 1 tablet by mouth every morning., Disp: , Rfl: , Last Dispense: Unknown (patient-reported) zafirlukast (ACCOLATE) 20 MG tablet, TAKE 1 TABLET TWICE A DAY, Disp: 180 tablet, Rfl: 3, Last Dispense: Unknown (outside pharmacy) PHYSICAL EXAMINATION: General: A&Ox3. Pleasant, cooperative, and in no apparent distress Neuro: CNII-XII grossly intact Gait and station: Patient is able to rise out of her seat with minimal difficulty. She is able to obtain an erect and lordotic posture. She walks with a Trendelenburg gait on the right side. Vascular exam: The patient has palpable pedal pulses bilaterally. There is no lower extremity edemadistally Spine exam: She has a well-healed incision on the back of the lumbar spine; there is no erythema ordrainage. There is no tenderness to palpation along the midline or paraspinal musculature of the lumbar spine. The patient has 5/5 strength in the bilateral hip flexors, quads, tib ant, EHL, and gastroc. Sensation is intact in the L2-S1 dermatomes bilaterally. RADIOGRAPH REVIEW: Standing EOS x-rays were performed. X-rays reveal well-placed, well-fixed instrumentation from T10 to the pelvis with an anatomic coronal and sagittal alignment. The patient is standing with pelvic retroversion and the x-ray. Assessment: 73 y.o. female 4 months status post revision posterior spinal fusion from T10 to the pelvis with pedicle subtraction osteotomy at L5, doing fair. Plan: 1. The patient is doing fair following her surgical procedure. She has a Trendelenburg gait on the right side; the left-sided gluteus medius has recovered. We would like her to continue doing single-leg stance exercises to improve the muscle strength of the gluteus medius bilaterally. We again instr ucted her on and how to do this and reinforced that it is more important to do it properly and to physically be able to just stand on 1 leg. We will have her work with physical therapy as well to address the Trendelenburg gait. We greatly encouraged practicing her posture in front of a mirror. I would like to see the patient back in 3 months. The patient's agenda was elicited and addressed during this visit. Thank you for this referral. Please feel free to contact me with any questions or concerns. This note was generated with a voice recognition program. Please excuse any errors which may have been overlooked during my review of this note. Sometimes, these errors may affect the content or meaning of a given sentence. documented in this encounter Plan of Treatment Upcoming Encounters Date Type Department Care Team (Late st Contact Info) Description 09/13/2024 12:00 PM EDT Office Visit [facility] Orthopaedic Spine 55 [facility] [place] [address] [address] Reymundo Patricio MD [address] [place] [address] [email or web address] 10/20/2024 10:00 AM EDT Office Visit [facility] 22 [facility] 301 [place] [address] Susana Stuart, CHUCK 22 [facility], [address] [place] [address] documented as of this encounter Visit Diagnoses Diagnosis 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 Failed back syndrome of cervical spine documented in this encounter Additional Health Concerns Assessment Noted Time PHQ-2 Depression Total Score: 2 12/31/19 24 4:14 PM EDT documented as of this encounter Care Teams Senior Administrative Support Relationship Specialty Start Date End Date Hodan Brewster MD [address] [place] [address] PCP - General Internal Medicine 07/30/17 Eddie Nina MD [email or web address] Historical LMR Provider 03/23/17 Hodan Brewster MD [address] [place] [address] Historical LMR Provider 03/23/17 Kacey George MD [address] [place] [address] Orth[facility] Sports Medicine, [place] [address] Historical LMR Provider 03/23/17 Hodan Brewster MD [address] [place] [address] Insurance Assigned Provider 09/11/23 documented as of this encounter Additional Source Comments The information contained in this document represents components of the legal health record. It is not the complete legal health record.[facility]
--- OUTSIDE RECORDS SUMMARY | 2024-06-30 14:50 | XMS_ITS | Encounter Summary ---
Author Organization [facility] Address [phone] [facility] [place] [address] Care Team Providers Care Cna Ltc Name Role Phone Eddie Nina MD Unavailable Hodan Brewster MD Unavailable [phone] Kacey George MD Unavailable [phone] Hodan Brewster MD Primary Care Provider Hodan Brewster MD Unavailable [phone] Hodan Brewster MD Unavailable [phone] Encounter Details Date Type Department Care Team (Late st Contact Info) Description 12/03/2021 Procedure Pass [facility] - [address] [place] [address] Social History Tobacco Use Types Packs/Day Years [...] high school, GED, job training, learning the Kyrgyz language, technical skills, or developing parenting skills)? [...] Description 09/13/2024 12:00 PM EDT Office [place] [facility] [place] [place] [address] [facility] [address] [place] [address] Reymundo Patricio MD [address] [place] [address] [email or web address] 10/20/2024 10:00 AM EDT Office Visit [facility] [address] [facility] [address] [place] [address] Susana Stuart DNP [address] [facility], [address] [place] [address] documented as of this encounter Visit Diagnoses Not on filedocumented in this encounter Additional Health Concerns Assessment Noted Time PHQ-2 Depression Total Score: 1 12/04/19 22 4:12 PM EDT documented as of this encounter Care Teams Cna Ltc Relationship Specialty Start Date End Date Hodan Brewster MD [address] [place] [address] [email or web address] PCP - General Internal Medicine 07/30/17 Eddie Nina MD [email or web address] Historical LMR Provider 03/23/17 Hodan Brewster MD [address] [place] [address] Historical LMR Provider 03/23/17 Kacey George MD [address] [place] [address] Orthopedics & Sports Medicine, [place] [address] Historical LMR Provider 03/23/17 Hodan Brewster MD [address] [place] [address] Insurance Assigned Provider 09/13/19 06/13/22 Hodan Brewster MD [address] [place] [phone] Insurance Assigned Provider 09/11/23 documented as of this encounter Additional Source Comments The information contained in this document represents components of the legal health record. It is not the complete legal health record.[facility]
--- OUTSIDE RECORDS SUMMARY | 2024-06-30 14:50 | XMS_ITS | Encounter Summary ---
Author Organization [facility] Address [phone] [facility] [place] [address] Care Team Providers Care Abseiling Instructor Name Role Phone Unavailable Primary Care Provider Unavailabl e Reason for Visit * MRI/CAT Scan - Closed Specialty Diagnoses / Procedures Referred By Contac t Referred To Contact Procedures MRI Spine (Neuro) Outside (No Interpretation) Michael Guerra MD [address] [place] [address] Email: [email or web address] Referral ID Status Reason Start Date Expiration Date Visits Re quested Visits Authorized [id number] Closed 08/27/2016 08/27/2017 1 1 Encounter Details Date Type Department Care Team ([facility] st Contact Info) Description 07/12/2016 Hospital Encounter [facility] [address] [place] [phone] Michael Guerra MD [address] [place], [place] [address] Social History Tobacco Use Types Packs/Day Years [...] Description 09/13/2024 12:00 PM EDT Office [place] [facility] [place] [address] Yawkey Scott [address] [place] [address] Reymundo Patricio MD [address] [place] [address] [email or web address] 10/20/2024 10:00 AM EDT Office Visit [facility] [address] [facility] [address] [place] [address] Susana Stuart DNP [address] [facility], [address] [place] [address] [email or web address] documented as of this encounter Procedures Procedure Name Priority Date/Time Associated Diagnosis Comments MRI SPINE NEUROLOGIC FOCUS OUTSIDE (NO INTERPRETATION) Routine 07/12/2016 12:00 AM EST documented in this encounter Results * MRI Spine (Neuro) Outside (No Interpretation) (07/12/2016 12:00 AM EST) Narrative [facility] INTER[facility]AC[facility] - 08/27/2016 3:09 PM EDT This study is for PACS storage only and not for interpretation. Michael Guerra MD IMG OUTSIDE I KANNAN W/OUT INTERPRETATION [facility] documented in this encounter Visit Diagnoses Not on filedocumented in this encounter Additional Source Comments The information contained in this document represents components of the legal health record. It is not the complete legal health record.[facility]
--- OUTSIDE RECORDS SUMMARY | 2024-06-30 14:50 | XMS_ITS | Clinical Summary ---
Author Organization [facility] Address [address] [place] [address] Care Team Providers Care Analytical Chemist Name Role Phone Hodan Brewster MD Primary Care Provider [phone] Allergies Active Allergy Reactions Criticality Noted Date Comments Amlodipine Besylate 01/29/2017 Other reaction(s): swelling legs and feet Codeine 01/29/2017 Other reaction(s): severe abd. pain Dextromethorphan Polistirex 01/30/20 17 Other reaction(s): severe abd. pain Hydrocodone 01/29/2017 Other reaction(s): severe abd. pain Lisinopril Rash Low 01/29/2017 Midazolam Hcl Hives 01/29/2017 Morphine Sulfate 01/29/2017 Other reaction(s): severe abd. pain Penicillin Rash Low 01/29/2017 Medications aspirin 81 MG tablet 1 tablet Active carvedilol (COREG) 25 MG tablet TAKE 1 TABLET TWICE A DAY WITH FOOD Active budesonide (PULMICORT) 1 mg/2 mL nebulizer solution Active cholecalciferol , vitamin D3, 2,000 unit cap as directed Act sundar gabapentin (NEURONTIN) 600 MG tablet 1 cap 09/28/2016 Active ibuprofen (ADVIL,MOTRIN) 200 MG tablet Active levalbuterol (XOPENEX HFA) 45 mcg/actuation inhaler 4 puffs as needed Active losartan (COZAAR) 100 MG tablet 1 tablet Active mometasone-form oterol 200-5 mcg/actuation HFAA Active pantoprazole (PROTONIX) 40 MG tablet 1 tab(s) Active ranitidine (ZANTAC) 300 MG capsule 03/24/2017 Active atorvastatin (LIPITOR) 20 MG tablet 03/24/2017 Active zafirlukast (ACCOLATE) 20 MG tablet 1 tablet Active umeclidinium 62.5 mcg/actuation dsdv 1 puff Active Immunizations Name Administration Dates Next Due Fluarix Quadrivalent Prefilled Syringe 7 Fluzone Trivalent High Dose (65+ years) 03/29/20 18 Social History Tobacco Use Types Packs/Day Years Used Date Smoking Tobacco: Former Cigarettes Q uit: 06/1976 Comments No Sex and Gender Information Value Date Recorded Sex Assigned at Not on file Legal Sex Female 10:05 AM EDT Gender Identity Not on file Sexual Orientation Not on file Last Filed Vital Signs Vital Sign Reading Time Taken Comments Blood Pressure 122/76 06/05/2017 10:22 AM EST Pulse 68 06/05/2017 10:22 AM EST Temperature 36.5 ??C (97.7 ??F) 06/05/2017 10:[address] Respiratory Rate 16 06/05/2017 10:22 AM EST Oxygen Saturation 96% 06/05/2017 10:22 AM EST Inhaled Oxygen Concentration - - Weight - - Height - - Body Mass Index - - Plan of Treatment Health Maintenance Due Date Last Done Comments Colorectal Cancer: COLONOSCO PY Screening every 10 yrs (or Modifier) 1950 Depression: Screening Annual ly using PHQ-2/9 in Adults 18 yrs or above (or HM Modifier)([facility]) 1969 Hepatitis C Virus Infection in Adolescents and Adults: Screening (or Modifier) ([facility]) 1969 LAQUITA Screening: Once using ST OP-BANG Questionnaire for Adults with Conditions or high BMI([facility]) 1969 SDOH Screening Reminder: Angelita adair for all adults ([facility]) 1969 Tobacco Smoking Cessation: i n Adults excluding Women: Behavioral and Pharmacotherapy Interventions ([facility]) 1969 Colorectal Cancer Screening 45 -75 Yrs (or HM Modifier) 1996 Colorectal Cancer: FLEXIBLE SIGMOIDOSCOPY Screening every 5 yrs 1996 Colorectal Cancer: Fecal Immunochemical Test (FIT) Annually [place] 1996 Colorectal Cancer: High-sens itivity gFOBT Screening Annually [facility] 1996 Colorectal Cancer: Stool Col oguard Screening every 3 yrs 1996 Colorectal Cancer:CT Colonog nia Screening every 5 yrs 1996 Lipid Screening: Every 5 yrs for Women aged 45+ (or HM Modifier) ([facility]) 1997 Breast Cancer: Screening Angelita ually age 50-74 yrs (or HM Modifier)([facility]) 2001 RSV Vaccines (1 - 1-dose 60+ series) 2011 Osteoporosis Screening to Pr event Fractures: Women aged 65 years+ ([facility]) 2016 Pneumococcal Vaccination Scr eening: Patients 65+ yrs of age ([facility]) (2 of 2 - PCV) 06/23/2020 06/23/2019 Flu Vaccination: Ages 65+: Y early High Dose Recommended (or Modifier)([facility]) 01/06/2024 03/27/2022, 03/29/2018, 03/19/2017, Additional history exists COVID-19 Vaccine Screening: Initial Series and Booster Status ([facility]) ( - 2023- season) 2024 02/25/2021, 08/28/2020, 07/31/2020 DTaP/Tdap/Td Vaccines ([facility]) (3 - Td or Tdap) 05/09/2030 05/09/2020, 04/21/2011 Zoster/Shingles Vaccine Seri es Screening: Adults aged 18+ yrs (or HM Modifiers)([facility]) Completed 06/23/2019, 03/14/2019 Medical Devices Not on file Insurance [facility] MEDICARE Care Teams Analytical Chemist Relationship Specialty Start Date End Date Hodan Brewster MD [address] [place] [phone] PCP - Transit Planning Manager 03/29/18
--- OUTSIDE RECORDS SUMMARY | 2024-06-30 14:50 | XMS_ITS | Encounter Summary ---
Author Organization [facility] Address [phone] [place] [id number] Care Team Providers Care Professor Of Counseling Name Role Phone Eddie Nina MD Unavailable [phone] Hodan Brewster MD Unavailable [phone] Kacey George MD Unavailable [phone] Hodan Brewster MD Primary Care Provider Hodan Brewster MD Unavailable [phone] Reason for Referral * MRI/CAT Scan - Closed Specialty Diagnoses / Procedures Referred By Rebekah t Referred To Contact Radiology Diagnoses Dorsalgia, unspecified Other specified postprocedural states Procedures MRI Lumbar Spine Donato Wynn MD [address] [place] [address] Referral ID Status Reason Start Date Expiration Date Visits Re quested Visits Authorized [id number] Closed 01/28/2023 1 1 Encounter Details Date Type Department Care Team (Latest Contact Info) Description 01/28/2023 Transcribe Orders Virtual Department [address] [place] [address] Donato Wynn MD [address] [place] [address] Dorsalgia, unspecified (Primary Dx); Other specified postprocedural states Social History Tobacco Use Types Packs/Day Years [...] high school, GED, job training, learning the Swedish language, technical skills, or developing parenting skills)? [...] Description 09/13/2024 12:00 PM EDT Office Visit [facility] [place] [address] [place] [address] Reymundo Patricio MD [address] [place] [address] [email or web address] 10/20/2024 10:00 AM EDT Office Visit [facility] [address] [facility] [address] [place] [address] Susana Stuart DNP 22 [facility], [address] [place] [address] [email or web address] documented as of this encounter Results * MRI LUMBAR SPINE (NEURO) WITHOUT CONTRAST (02/06/2023 3:39 PM EDT) Anatomical Region Laterality Modality L-spine Magnetic Resonan ce 02/08/2023 10:2 9 PM EDT Impressions 02/10/2023 10:12 PM EDT Surgical changes from L3-4 and L4-5 hemilaminectomy, discectomy, and L3-L5 posterior fusion. 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 without severe spinal canal and moderate neuroforaminal stenosis. L5-S1 adjacent segment degeneration with worsening posterior disc bulge and worsening neuroforaminal stenoses, now severe right and mild left. Additional multilevel neuroforaminal stenoses, severe at L1-2 and moderate at T12-L1. Endplate marrow edema at L1-2, L2-3, and L5-S1, may reflect axial pain generators. Subacute appearing T12 inferior endplate compression fracture with 70% height loss anteriorly and no retropulsion. Narrative 02/10/2023 10:12 PM EDT MRI LUMBAR SPINE (NEURO) WITHOUT CONTRAST TECHNIQUE: MRI LUMBAR SPINE (NEURO) WITHOUT CONTRAST COMPARISON: MRI LUMBAR SPINE (NEURO) WITH AND WITHOUT CONTRAST FINDINGS: ALIGNMENT: Straightening of the lumbar lordosis. 3 mm L3 anterolisthesis. 6 mm L5-S1 retrolisthesis. MARROW: Post surgical changes from L3-L5 posterior fixation with angela and pedicle screw construct and interbody fusion devices at L3-4 and L4-5. Heterogeneous marrow signal without marrow replacing lesion. T12 inferior endplate compression fracture with minimal bone marrow edema along the fracture line, approximately 70% height loss, and no retropulsion. DISCS: Disc desiccation at all levels. Endplate marrow edema at L1-2, L2-3, and L5-S1. CONUS: Normal appearance and terminates at L1 to. PARASPINAL SOFT TISSUES: Moderate severe posterior paraspinal muscle atrophy. FINDINGS BY LEVEL: ?? 11-T12: Facet arthropathy and thickening of ligamentum flavum. No spinal canal or neuroforaminal stenosis. T12-L1:Diffuse disc bulge, facet arthropathy, and thickening of ligamentum flavum. No spinal canal stenosis. Moderate neuroforaminal stenosis. L1-2: Diffuse disc bulge with superimposed central disc protrusion (5:18), facet arthropathy, and thickening of ligamentum flavum. Moderate spinal canal stenosis. Severe neuroforaminal stenosis. L2-3: Diffuse disc bulge with superimposed disc protrusion, facet arthropathy, and thickening of ligamentum flavum. Severe spinal canal stenosis. Moderate neuroforaminal stenosis. L3-4: Left hemilaminectomy and discectomy. No spinal canal or neuroforaminal stenosis. L4-5: Left hemilaminectomy and discectomy. No spinal canal stenosis or neuroforaminal stenosis. L5-S1: Diffuse disc bulge, facet arthropathy, and thickening of ligamentum flavum. Posterior disc bulge contacts the transiting right S1 nerve root (5:50). Mild spinal canal stenosis. Severe right and mild left neuroforaminal stenosis. Procedure Note Jill Boles MD - 02/10/2023 MRI LUMBAR SPINE (NEURO) WITHOUT CONTRAST TECHNIQUE: MRI LUMBAR SPINE (NEURO) WITHOUT CONTRAST COMPARISON: MRI LUMBAR SPINE (NEURO) WITH AND WITHOUT [id number] FINDINGS: ALIGNMENT: Straightening of the lumbar lordosis. 3 mm L3 anterolisthesis.6 mm L5-S1 retrolisthesis. MARROW: Post surgical changes from L3-L5 posterior fixation with angela andpedicle screw construct and interbody fusion devices at L3-4 and L4-5.Heterogeneous marrow signal without marrow replacing lesion. T12 inferiorendplate compression fracture with minimal bone marrow edema along thefracture line, approximately 70% height loss, and no retropulsion. DISCS: Disc desiccation at all levels. Endplate marrow edema at L1-2,L2-3, and L5-S1. CONUS: Normal appearance and terminates at L1 to. PARASPINAL SOFT TISSUES: Moderate severe posterior paraspinal muscleatrophy. FINDINGS BY LEVEL: 11-T12: Facet arthropathy and thickening of ligamentum flavum. No spinalcanal or neuroforaminal stenosis. T12-L1:Diffuse disc bulge, facet arthropathy, and thickening of ligamentumflavum. No spinal canal stenosis. Moderate neuroforaminal stenosis. L1-2: Diffuse disc bulge with superimposed central disc protrusion (5:18),facet arthropathy, and thickening of ligamentum flavum. Moderate spinalcanal stenosis. Severe neuroforaminal stenosis. L2-3: Diffuse disc bulge with superimposed disc protrusion, facetarthropathy, and thickening of ligamentum flavum. Severe spinal canalstenosis. Moderate neuroforaminal stenosis. L3-4: Left hemilaminectomy and discectomy. No spinal canal orneuroforaminal stenosis. L4-5: Left hemilaminectomy and discectomy. No spinal canal stenosis orneuroforaminal stenosis. L5-S1: Diffuse disc bulge, facet arthropathy, and thickening of ligamentumflavum. Posterior disc bulge contacts the transiting right S1 nerve root(5:50). Mild spinal canal stenosis. Severe right and mild leftneuroforaminal stenosis. IMPRESSION: Surgical changes from L3-4 and L4-5 hemilaminectomy, discectomy, and L3- D1xloigozul fusion. 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 without severe spinal canal andmoderate neuroforaminal stenosis. L5-S1 adjacent segment degeneration with worsening posterior disc bulgeand worsening neuroforaminal stenoses, now severe right and mild left. Additional multilevel neuroforaminal stenoses, severe at L1-2 and moderateat T12-L1. Endplate marrow edema at L1-2, L2-3, and L5-S1, may reflect axial paingenerators. Subacute appearing T12 inferior endplate compression fracture with 70%height loss anteriorly and no retropulsion. Donato Wynn MD IMG MR XSPECIALTY documented in this encounter Visit Diagnoses Diagnosis Dorsalgia, unspecified- Primary Other specified postprocedural states Dorsalgia, unspecified Other specified postprocedural states documented in this encounter Additional Health Concerns Assessment Noted Time PHQ-2 Depression Total Score: 1 12/04/19 4:12 PM EDT documented as of this encounter Care Teams Professor Of Counseling Relationship Specialty Start Date End Date Hodan Brewster MD [address] [place] [id number] PCP - General Internal Medicine 07/30/17 Eddie Nina MD [email or web address] Historical LMR Provider 03/23/17 Hodan Brewster MD [address] [place] [address] Historical LMR Provider 03/23/17 Kacey George MD [address] [place] [address] Orthopedics & Sports Medicine, [place] [address] Historical LMR Provider 03/23/17 Hodan Brewster MD [address] [place] [phone] Insurance Assigned Provider 09/11/23 documented as of this encounter Additional Source Comments The information contained in this document represents components of the legal health record. It is not the complete legal health record.[facility]
--- OUTSIDE RECORDS SUMMARY | 2024-06-30 14:50 | XMS_ITS | Encounter Summary ---
Author Organization [facility] Address [phone] [facility] [place] [address] Care Team Providers Care Laborer Golf Course Name Role Phone Eddie Nina MD Unavailable Hodan Brewster MD Unavailable Kacey George MD Unavailable [phone] Hodan Brewster MD Primary Care Provider [phone] Hodan Brewster MD Unavailable [phone] Encounter Details Date Type Department Care Team (Latest Contact Info) Description 06/14/2024 11:19 AM EST - 06/14/2024 11:59 PM EST Hospital Encounter [facility] Imaging - Liza Khan [address] [place] [address] Reymundo Patricio MD [address] [place] [address] [email or web address] Discharge Disposition: Home or Self Care Social History Tobacco Use Types Packs/Day Years [...] AM EDT documented as of this encounter Medications at Time of Discharge Medication Sig Dispensed Refills Start Date End Date abaloparatide (TYMLOS) 80 mcg (3,120 mcg/1.56 mL) subcutaneous pen Inject 80 mcg under the skin daily. 1.56 mL 11 10/07/2023 acetaminophen (TYLENOL) 500 MG tablet Take 1,000 mg by mouth 2 (two) times a week. And occasionally prn. Not more than 3g daily. AEROCHAMBER PLUS FLOW-VU Spcr 12/28/2023 atorvastatin (LIPITOR) 20 MG tabletIndications:Mix ed hyperlipidemia take 1 tablet daily 90 tablet 3 01/21/2024 B-complex with vitamin C Cap Take 1 capsule by mouth daily. wceixhuhbz-zridaray-v ormoterol (BREZTRI AEROSPHERE) 160-9-4.8 mcg/actuation inhaler Inhale 2 puffs into the lungs 2 (two) times a day. cholecalciferol (VITAMIN D3) 25 MCG (1,000 unit) tablet Take 1,000 Units by mouth daily. famotidine (PEPCID) 40 MG tabletIndications:Gas troesophageal reflux disease TAKE 1 TABLET TWICE A DAY 180 tablet 3 12/27/2020 foam bandage (OPTIFOAM) 4 X 4 Bndg Apply 1 Units topically daily. 10 each 5 03/29/2024 gabapentin (NEURONTIN) 300 MG capsule Take 2 capsules (600 mg total) by mouth 3 (three) times a day. 540 capsule 3 04/19/2024 HYDROmorphone (DILAUDID) 2 MG tablet Take 1 tablet (2 mg total) by mouth daily as needed. Partial fill ok 14 tablet 05/03/2024 ID-BD 5mm x 31G Mini Pen [place] <[facility] 7024> ([id number])Indicati ons:Osteoporosis, unspecified osteoporosis type, unspecified pathological fracture presence Use as directed 100 each 3 04/19/2024 insulin pen needles, disposable, 31 gauge x 5/16 Ndle 1 each by Miscellaneous route as needed. 100 each 3 11/26/2023 labetaloL (TRANDATE) 200 MG tabletIndications:Ess ential hypertension Take 2 tablets (400 mg total) by mouth 3 (three) times a day. 360 tablet 3 01/10/2024 09/06/2024 magnesium oxide (MAG-OX) 400 mg (241.3 mg elemental) tablet Take 400 mg by mouth daily. multivitamin-minerals -lutein (CENTRUM SILVER) Tab Take 1 tablet by mouth daily. ondansetron (ZOFRAN) 4 MG tablet Take 1 tablet (4 mg total) by mouth every 8 (eight) hours as needed for nausea. 30 tablet 03/02/2024 pantoprazole (PROTONIX) 40 MG tablet Take 40 mg by mouth daily. senna (SENOKOT) 8.6 mg tablet Take 2 tablets by mouth 2 (two) times a day. 30 tablet 02/08/2024 terazosin (HYTRIN) 2 MG capsule Take 1 capsule (2 mg total) by mouth nightly at bedtime. 30 capsule 11 01/10/2024 valsartan (DIOVAN) 80 MG tablet Take 1 tablet by mouth every morning. 03/15/2024 zafirlukast (ACCOLATE) 20 MG tabletIndications:Ast hma TAKE 1 TABLET TWICE A DAY 180 tablet 3 05/09/2024 documented as of this encounter Plan of Treatment Upcoming Encounters Date Type Department Care Team (Late st Contact Info) Description 09/13/2024 12:00 PM EDT Office Visit [facility] Orthopaedic Spine [address] [facility] [address] [place] [address] Reymundo Patricio MD [address] [place] [address] [email or web address] 10/20/2024 10:00 AM EDT Office Visit [facility] [address] [place] [address] [facility] [address] [place] [address] Susana Stuart DNP [address] [facility], [address] [place] [address] [email or web address] documented as of this encounter Procedures Procedure Name Priority Date/Time Associated Diagnosis Comments XR FULL BODY SURVEY ADULT Routine 06/14/2024 11:46 AM EST Sagittal plane imbalance Gait abnormality documented in this encounter Results * XR FULL BODY SURVEY ADULT (06/14/2024 11:46 AM EST) Anatomical Region Laterality Modality Computed Radiogr aphy 06/14/2024 2:51 PM EST Impressions 06/14/2024 9:24 PM EST Thoracolumbar spine posterior fusion with bilateral pelvic extension, overall similar when compared to 03/29/2024. ATTESTATION: IDr. Mehul as teaching physician, have reviewed the images for this case and if necessary edited the report originally created by Mane Gomez. Narrative 06/14/2024 9:24 PM EST XR FULL BODY SURVEY ADULT Referring clinician's provided indication for this examination in [facility]: Pain COMPARISON: CT SPINE (BONE) OUTSIDE (NO INTERPRETATION) ; XR FULL BODY SURVEY ADULT ; XR SPINE ENTIRE SURVEY 4 OR 5 VIEWS FINDINGS: Thoracolumbar spine posterior fusion with bilateral pelvic extension. L5 compression deformity, similar when compared to the prior x-ray from 03/29/2024. T12 vertebral body compression fracture and cement augmentation. Sagittal alignment: Negative. Coronal alignment: Neutral. Procedure Note Mehul Limon MD - 06/14/2024 XR FULL BODY SURVEY ADULT Referring clinician's provided indication for this examination in [facility]:Pain COMPARISON: CT SPINE (BONE) OUTSIDE (NO INTERPRETATION) ; XRFULL BODY SURVEY ADULT ; XR SPINE ENTIRE SURVEY 4 OR 5 [id number] FINDINGS: Thoracolumbar spine posterior fusion with bilateral pelvic extension. [id number] deformity, similar when compared to the prior x-ray from03/29/2024. T12 vertebral body compression fracture and cementaugmentation. Sagittal alignment: Negative. Coronal alignment: Neutral. IMPRESSION: Thoracolumbar spine posterior fusion with bilateral pelvic extension,overall similar when compared to 03/29/2024. ATTESTATION: Dr. Mehul Jimenez as teaching physician, have reviewedthe images for this case and if necessary edited the report originallycreated by Mane Gomez. Reymundo Patricio MD IMG XR SKELETA L SURVEY documented in this encounter Visit Diagnoses Diagnosis Sagittal plane imbalance Other curvatures of spine associated with other conditions Gait abnormality Abnormality of gait documented in this encounter Additional Health Concerns Assessment Noted Time PHQ-2 Depression Total Score: 2 12/31/19 4:14 PM EDT documented as of this encounter Care Teams Laborer Golf Course Relationship Specialty Start Date End Date Hodan Brewster MD [address] [place] [address] [email or web address] PCP - General Internal Medicine 07/30/17 Eddie Nina MD [email or web address] Historical LMR Provider 03/23/17 Hodan Brewster MD [address] [place] [address] Historical LMR Provider 03/23/17 Kacey George MD [address] [place] [address] [facility], [place] [address] Historical LMR Provider 03/23/17 Hodan Brewster MD [address] [place] [address] Insurance Assigned Provider 09/11/23 documented as of this encounter Additional Source Comments The information contained in this document represents components of the legal health record. It is not the complete legal health record.[facility]
== END 2024-06-30 13:39 | disposition home or self-care (01) ==
PROVIDERS: PCP Internal Medicine; Visit Provider Hospitalist
DX: J45.40 Moderate persistent asthma, uncomplicated (principal); R91.8 Other nonspecific abnormal finding of lung field; J84.9 Interstitial pulmonary disease, unspecified; D80.1 Nonfamilial hypogammaglobulinemia; M54.9 Dorsalgia, unspecified; D64.89 Other specified anemias; R01.1 Cardiac murmur, unspecified
CPT/HCPCS: 99214

== ENCOUNTER → 2024-06-30 13:02 | Outpatient (BNVA) | payer MEDICARE, BC, SELFPAY | PROVIDERS: PCP Internal Medicine; Visit Provider Hospitalist | DX: J45.40 Moderate persistent asthma, uncomplicated (principal); D80.1 Nonfamilial hypogammaglobulinemia; J84.9 Interstitial pulmonary disease, unspecified; R91.8 Other nonspecific abnormal finding of lung field; R06.09 Other forms of dyspnea; M54.9 Dorsalgia, unspecified; D64.89 Other specified anemias; R01.1 Cardiac murmur, unspecified; Z98.890 Other specified postprocedural states | CPT/HCPCS: 99212 ==

== ENCOUNTER 2024-07-20 13:23 | Outpatient (REF) | payer MEDICARE, BC, SELFPAY ==
--- OUTSIDE RECORDS SUMMARY | 2024-07-20 13:30 | XMS_ITS | Clinical Summary ---
Author Organization [facility] Address [address] [place] [address] Care Team Providers Care Safe Deposit Attendant Name Role Phone Hodan Brewster MD Primary Care Provider Allergies Active Allergy Reactions Criticality Noted Date [...] Pregabalin 12/27/2018 Feet and leg swelling Tiotropium [place] 08/26/2021 Medications Tymlos 80 mcg (3,120 mcg/1.56 [...] topic Insurance MEDICARE PART A & B [facility] Care Teams Safe Deposit Attendant Relationship Specialty Start Date End Date Hodan Brewster MD [facility] [address] [place] [address] [address] [place] [address] PCP - General Internal Medicine 10/04/23
--- OUTSIDE RECORDS SUMMARY | 2024-07-20 13:30 | XMS_ITS | Clinical Summary ---
Author Organization [facility] it Address [address] [place] [address] Care Team Providers Care Belt Machine Operator Name Role Phone Hodan Brewster MD Primary Care Provider Social History Tobacco Use Types Packs/Day Years Used Date Smoking Tobacco: Former Smokeless Tobacco: Never Comments Unknown Sex and Gender Information Value Date Recorded Sex Assigned at Not on file Legal Sex Female 9:28 PM EST Gender Identity Not on file Sexual Orientation Not on file Obstetrics History Plan of Treatment Health Maintenance Due Date Last Done Comments Breast Cancer Screening 1950 DTaP,Tdap,and Td Vaccines (1 - Tdap) 1958 Pneumococcal Vaccine: 50+ Ye ars (1 of 1 - PCV) 2001 Zoster Vaccines (1 of 2) 2001 COVID-19 Vaccine ( - 2023-2 5 season) [...] patient's age to complete this topic Meningococcal B Vacine Aged Out No lo nger eligible based on patient's age to complete this topic RSV Immunization Patients Un kathleen 20 months Aged Out No longer eligible b ased on patient's age to complete this topic Varicella Vaccines Aged Out No longer eligible based on patient's age to complete this topic Care Teams Belt Machine Operator Relationship Specialty Start Date End Date Hodan Brewster MD [address] [place] [address] PCP - General Internal Medicine 03/17/19
--- OUTSIDE RECORDS SUMMARY | 2024-07-20 13:30 | XMS_ITS | Clinical Summary ---
Author Organization [facility] Address [address] [place] [address] Care Team Providers Care Spray Gun Striper Name Role Phone Hodan Brewster MD Primary Care Provider [phone] Allergies Active Allergy Reactions Criticality Noted Date [...] Fluzone Trivalent High Dose (65+ years) 03/29/20 Social History Tobacco Use Types Packs/Day Years [...] Adults 18 yrs or above (or HM Modifier)([facility]) 1969 Hepatitis C Virus Infection in Adolescents and Adults: Screening (or Modifier) ([facility]) 1969 LAQUITA Screening: Once using ST OP-BANG Questionnaire for Adults with Conditions or high BMI([facility]) 1969 SDOH Screening Reminder: Angelita borrero for all adults ([facility]) 1969 Tobacco Smoking Cessation: i n Adults excluding Women: Behavioral and Pharmacotherapy Interventions ([facility]) 1969 Colorectal Cancer Screening 45 -75 Yrs (or HM Modifier) 1996 Colorectal Cancer: FLEXIBLE SIGMOIDOSCOPY Screening every 5 yrs 1996 Colorectal Cancer: Fecal Immunochemical Test (FIT) Annually [facility] 1996 Colorectal Cancer: High-sens itivity gFOBT Screening Annually [facility] 1996 Colorectal Cancer: Stool Col oguard Screening every 3 yrs 1996 Colorectal Cancer:CT Colonog nia Screening every 5 yrs 1996 Lipid Screening: Every 5 yrs for Women aged 45+ (or HM Modifier) ([facility]) 1997 Breast Cancer: Screening Angelita ually age 50-74 yrs (or HM Modifier)([facility] ) 2001 Osteoporosis Screening to Pr event Fractures: Women aged 65 years+ ([facility] ) 2016 Pneumococcal Vaccination Scr eening: Patients 65+ yrs of age ([facility]) (2 of 2 - PCV) 06/23/2020 06/23/2019 Flu Vaccination: Ages 65+: Y early High Dose Recommended (or Modifier)([facility]) 01/06/2024 03/27/2022, 03/29/2018, 03/19/2017, Additional history exists COVID-19 Vaccine Screening: Initial Series and Booster Status ([facility]) (2023- season) 2024 02/25/2021, 08/28/2020, 07/31/2020 RSV Vaccines (1 - 1-dose 75+ series) 2026 DTaP/Tdap/Td Vaccines ([facility]) (3 - Td or Tdap) 05/09/2030 05/09/2020, 04/21/2011 Zoster/Shingles Vaccine Seri es Screening: Adults aged 18+ yrs (or HM Modifiers)([facility]) Completed 06/23/2019, 03/14/2019 Medical Devices Not on file Insurance [facility] MEDICARE Care Teams Spray Gun Striper Relationship Specialty Start Date End Date Hodan Brewster MD [facility] [address] [place] [address] [address] [place] [address] PCP - Shelver 03/29/18
[2024-07-20 13:59] LABS: MANUAL DIFF FLAG NO
[2024-07-20 15:15] LABS: Basophils Absolute Auto 0.1 X10*3/uL (0.0-0.2); Basophils Percent Auto 0.8 % (0-2); Eosinophils Absolute Auto 0.1 X10*3/uL (0.0-0.4); Eosinophils Percent Auto 1.9 % (0-4); Hematocrit 33.7 % (37.0-47.0); Hemoglobin 10.8 g/dl (12.0-16.0); Imm Gran Abs Auto 0.02 X10*3/uL (0.00-0.03); Imm Gran Pct Auto 0.3 % (0.0-0.4); Lymphocytes Absolute Auto 0.7 X10*3/uL (1.2-4.9); Lymphocytes Percent Auto 11.4 % (20-40); Mean Corpuscular Hemoglobin 29.9 pg (27.0-33.0); Mean Corpuscular Volume 93.4 fL (80.0-98.0); Monocytes Absolute Auto 0.8 X10*3/uL (0.1-1.2); Monocytes Percent Auto 12.5 % (2-11); Neutrophils Absolute Auto 4.6 x10*3/uL (2.0-8.3); Neutrophils Percent Auto 73.1 % (45-73); Platelet Count 289 X10*3/uL (160-400); Red Blood Count 3.61 X10*6/uL (4.20-5.50); Red Cell Distribution Width 13.7 % (11.0-16.0); White Blood Count 6.3 X10*3/uL (4.8-10.8)
[2024-07-20 15:53] LABS: Anion Gap 13 (12-20); Blood Urea Nitrogen 27 mg/dL (9-16); Calcium 10.3 mg/dL (8.4-10.2); Carbon Dioxide 25 mmol/L (22-29); Chloride 102 mmol/L (96-108); Estimated Glomerular Filt Rate > 60; Glucose Random 101 mg/dL (60-115); Iron 83 mcg/dL (30-160); Percent Iron Saturation 25 % (15-50); Potassium 4.5 mmol/L (3.3-5.1); Sodium 135 mmol/L (135-145); Total Iron Binding Capacity 328 mcg/dL (228-428); Unsaturated Iron Binding 245 ug/dL
[2024-07-20 16:01] LABS: Erythrocyte Sedimentation Rate 15 MM/HR (0-20)
[2024-07-20 16:08] LABS: Ferritin 53 ng/mL (10-250)
[2024-07-20 16:23] LABS: Folate 14.4 ng/mL (> or = 4.0); Vitamin B12 426 pg/mL (200-900)
[2024-07-22 12:03] LABS: Immunoglobulin G Subclass 1 313 mg/dL (382-929); Immunoglobulin G Subclass 2 111 mg/dL (241-700); Immunoglobulin G Subclass 3 27 mg/dL (22-178); Immunoglobulin G Subclass 4 19.1 mg/dL (4-86); Immunoglobulin G Total 512 mg/dL (600-1540)
[2024-07-24 18:38] LABS: SARS COV2 IgG Positive (Negative)
== END 2024-07-20 13:24 | disposition home or self-care (01) ==
LOC: HO.LAB 13:23
PROVIDERS: PCP Internal Medicine; Visit Provider Hospitalist
DX: D80.1 Nonfamilial hypogammaglobulinemia (principal); J84.9 Interstitial pulmonary disease, unspecified; J45.40 Moderate persistent asthma, uncomplicated; D64.9 Anemia, unspecified; R91.8 Other nonspecific abnormal finding of lung field; Z01.84 Encounter for antibody response examination
CPT/HCPCS: 36415; 80048; 82607; 82728; 82746; 82784; 83540; 85025; 85652; 86317; 86635; 86698; 86769

== ENCOUNTER → 2024-07-28 14:51 | Outpatient (BNV) | payer MEDICARE, BC, SELFPAY | PROVIDERS: PCP Internal Medicine; Referring Provider Hospitalist; Visit Provider Nurse Practitioner Family | DX: D64.9 Anemia, unspecified (principal) | CPT/HCPCS: 99214 ==

== ENCOUNTER 2024-08-07 13:42 | Outpatient (REF) | payer MEDICARE, BC, SELFPAY ==
[2024-08-07 15:03] LABS: Parathyroid Hormone Intact 51.4 pg/mL (8.7-77.1)
--- OUTSIDE RECORDS SUMMARY | 2024-08-07 16:11 | XMS_ITS | Clinical Summary ---
Author Organization [facility] it Address [address] [place] [address] Care Team Providers Care Procedure Manager Name Role Phone Hodan Brewster MD Primary [...] DTaP,Tdap,and Td Vaccines (1 - Tdap) 1970 Pneumococcal Vaccine: 50+ Ye ars (1 of [...] age to complete this topic Care Teams Procedure Manager Relationship Specialty Start Date End Date Hodan Brewster MD [address] [address] PCP - General Internal Medicine 03/17/19
--- OUTSIDE RECORDS SUMMARY | 2024-08-07 16:11 | XMS_ITS | Clinical Summary ---
Author Organization [facility] Address [address] [place] [address] Care Team Providers Care Towel Cabinet Repairer Name Role Phone Hodan Brewster MD Primary Care Provider [phone] Allergies Active Allergy Reactions Criticality Noted Date [...] Pregabalin 12/27/2018 Feet and leg swelling Tiotropium [place] 08/26/2021 Medications Tymlos 80 mcg (3,120 mcg/1.56 [...] topic Insurance MEDICARE PART A & B [facility] Care Teams Towel Cabinet Repairer Relationship Specialty Start Date End Date Hodan Brewster MD [facility] [address] [place] [address] [address] [place] [address] PCP - General Internal Medicine 10/04/23
--- OUTSIDE RECORDS SUMMARY | 2024-08-07 16:11 | XMS_ITS | Clinical Summary ---
Author Organization [facility] Address [address] [place] [address] Care Team Providers Care Seed Laboratory Assistant Name Role Phone Hodan Brewster MD Primary Care Provider [phone] Allergies Active Allergy Reactions Criticality Noted Date [...] Adults 18 yrs or above (or HM Modifier)([facility]) 1969 Hepatitis C Virus Infection in Adolescents and Adults: Screening (or Modifier) ([facility]) 1969 LAQUITA Screening: Once using ST OP-BANG Questionnaire for Adults with Conditions or high BMI([facility]) 1969 SDOH Screening Reminder: Angelita borrero for all adults ([facility]) 1969 Tobacco Smoking Cessation: i n Adults excluding Women: Behavioral and Pharmacotherapy Interventions ([facility]) 1969 Colorectal Cancer Screening 45 -75 Yrs (or HM Modifier) 1996 Colorectal Cancer: FLEXIBLE SIGMOIDOSCOPY Screening every 5 yrs 1996 Colorectal Cancer: Fecal Immunochemical Test (FIT) Annually [facility] 1996 Colorectal Cancer: High-sens itivity gFOBT Screening Annually [facility] 1996 Colorectal Cancer: Stool Col oguard Screening every 3 yrs 1996 Colorectal Cancer:CT Colonog nia Screening every 5 yrs 1996 Lipid Screening: Every 5 yrs for Women aged 45+ (or HM Modifier) ([facility]) 1997 Breast Cancer: Screening Angelita ually age 50-74 yrs (or HM Modifier)([facility] ) 2001 Osteoporosis Screening to Pr event Fractures: Women aged 65 years+ ([facility] ) 2016 Pneumococcal Vaccination Scr eening: Patients 65+ yrs of age ([facility]) (2 of 2 - PCV) 06/23/2020 06/23/2019 Flu Vaccination: Ages 65+: Y early High Dose Recommended (or Modifier)([facility]) 01/06/2024 03/27/2022, 03/29/2018, 03/19/2017, Additional history exists COVID-19 Vaccine Screening: Initial Series and Booster Status ([facility]) (2023- season) 2024 02/25/2021, 08/28/2020, 07/31/2020 RSV Vaccines (1 - 1-dose 75+ series) 2026 DTaP/Tdap/Td Vaccines ([facility]) (3 - Td or Tdap) 05/09/2030 05/09/2020, 04/21/2011 Zoster/Shingles Vaccine Seri es Screening: Adults aged 18+ yrs (or HM Modifiers)([facility]) Completed 06/23/2019, 03/14/2019 Medical Devices Not on file Insurance [facility] MEDICARE Care Teams Seed Laboratory Assistant Relationship Specialty Start Date End Date Hodan Brewster MD [facility] [address] [place] [address] [address] [place] [address] PCP - Turn Sewer 03/29/18
[2024-08-08 08:08] LABS: HIV AB/AG Nonreactive (Nonreactive); HIV Num 1 0.06 S/CO (0.00-0.99)
[2024-08-08 14:09] LABS: Anti DNA DS Antibody 3 IU/mL
[2024-08-11 00:58] LABS: VITAMIN D (1,25 OH) D3 70 pg/mL; Vit D (1,25-Dihydroxy) Total 70 pg/mL (18-72); Vitamin D (1,25 OH) D2 <8 pg/mL
== END 2024-08-07 13:43 | disposition home or self-care (01) ==
LOC: HO.LAB 13:42
PROVIDERS: PCP Internal Medicine; Visit Provider Nurse Practitioner Family
DX: E83.52 Hypercalcemia (principal); D64.9 Anemia, unspecified; D80.1 Nonfamilial hypogammaglobulinemia; R76.8 Other specified abnormal immunological findings in serum
CPT/HCPCS: 36415; 82652; 83970; 86225; 87389

== ENCOUNTER → 2024-08-17 13:17 | Outpatient (REF) | payer MEDICARE, BC, SELFPAY ==
--- NOTE | 2024-08-17 13:20 | CA_ITS ---
Transthoracic Echocardiogram Patient (Last, First, Middle): Loree Heller G Gender: Female Date of : 1950 Age: 74 Procedure Date: 08/17/2024 Procedure Type: Transthoracic Echocardiogram Location: OP Height: 160.02 cm Weight: 78.02 kg BSA: 1.81 m2 Heart Rate: 73 bpm BP: 126 / 58 mmHg Body Service Team Member: SB Referring MD: Kim Harden NP Symptoms: heart murmur Study Quality: Fair ECG Rhythm: Sinus Conclusions: - The left ventricular systolic function is normal. The calculated ejection fraction is 67% by biplane method. - There is severe septal asymmetric hypertrophy. - No obvious valvular pathology seen on this study. - Mild pulmonary hypertension is present. - There is a small loculated pericardial effusion overlying the left ventricle and right atrium. Findings Left Ventricle Normal left ventricular cavity size. The left ventricular systolic function is normal. The calculated ejection fraction is 67% by biplane method. There is no evidence of regional wall motion abnormalities. Evidence suggests grade I (mild) diastolic dysfunction. There is severe septal asymmetric hypertrophy. Right Ventricle Normal right ventricular cavity size and systolic function. Atria Both atria are normal in size. Aortic Valve There is a normal trileaflet aortic valve. There is no aortic valve stenosis. There is no aortic valve regurgitation. Mitral Valve The mitral valve appears normal. There is no mitral valve regurgitation. There is no mitral valve stenosis. Pulmonic Valve The pulmonic valve is likely normal. Tricuspid Valve Normal tricuspid valve structure. There is trace tricuspid valve regurgitation. Mild pulmonary hypertension is present. Great Vessels The asc aorta is normal in size. Venous The inferior vena cava is normal in size and collapses less than 50% with inspiration. Pericardium/Pleural There is a small loculated pericardial effusion overlying the left ventricle and right atrium. Prior Study Comparison No prior study available for comparison. Recommendations, Care & Conclusions No obvious valvular pathology seen on this study. Measurements 2D Linear Measurements IVSd: 1.65 0.6-0.9/0.6-1.0 cm LVIDd: 3.74 3.9-5.3/4.2-5.9 cm LVIDd Index: 2.07 2.4-3.2/2.2-3.1 cm/m2 LVIDs: 2.36 2.0-3.6 cm LVPWd: 0.89 0.7-1.1 cm LA Diam: 4.10 2.7-3.8/3.0-4.0 cm LAIDs Index: 2.27 1.5-2.3 cm/m2 LV Mass: 203.42 67-162/88-224 g LV Mass Index: 112.39 43-95/49-115 g/m2 LVOT Diam: 2.00 3.0+(-)1.3 cm 2D Systolic Function EF 4C: 66.00 >55% EF 2C: 69.20 >55% EF BiP: 66.90 >55% Mitral Valve MV Pk E: 0.96 MV PK A: 1.07 MV Decel Time: 221.00 E/A: 0.90 E'Lateral: 7.07 E'Medial: 4.35 E/E' Med: 22.00 E/E' Lat: 13.50 PHT: 65.00 MVA PHT: 3.38 Decel [place]: 4.33 Aortic Valve AoV Pk Arias: 1.92 AoV Mn Arias: 1.33 AoV VTI: 0.43 AoV Pk Grad: 15.00 Aov Mn Grad: 8.00 KIANNA Cont.VTI: 2.08 LVOT LVOT Pk Arias: 1.11 LVOT Mn Arias: 0.80 LVOT VTI: 0.28 LVOT Pk Grad: 5.00 LVOT Mn Grad: 3.00 LVOT Diam: 2.00 LVOT Area: 3.14 Diastolic Function MV Pk E: 0.96 MV Pk A: 1.07 E/A: 0.90 E'Medial: 4.35 E/E' Med: 22.00 E' Laterial: 7.07 E/E' Lat: 13.50 Right Ventricle TAPSE (mm): 22.00 TVS' Arias: 12.20 Tricuspid Valve TR Pk Arias: 3.02 TR Pk Grad: 37.00 RA Press: 8.00 RVSP: 45.00 Great Vessels Aorta Sinus of Valsalva: 2.90 2.0-3.5 cm Ao Asc: 3.30 2.1-3.4 cm Pulmonary Veins Pulm Vein S/D 1.20 Pulmonary Valve PV Pk Arias: 0.79 Peak PV Grad: 2.00 Updated in Other Vendor System with Status of Final Bakari Troncoso MD electronically signed on 08/19/2024 10:09:13 AM with status of Final
--- OUTSIDE RECORDS SUMMARY | 2024-08-17 16:48 | XMS_ITS | Encounter Summary ---
Author Organization [facility] Address [address] [place] [address] Phone Care Team Providers Care Printed Circuit Boards Contact Printer Name Role Phone Eddie Nina MD Unavailable Hodan Brewster MD Unavailable Kacey George MD Unavailable Hodan Brewster MD Primary Care Provider Hodan Brewster MD Unavailable [phone] Encounter Details Date Type Department Care Team (Late st Contact Info) Description 12/23/2023 Procedure Pass [facility] Endoscopy Admitting Dept Virtual Department [address] [place] [id number] Social History Tobacco Use Types Packs/Day Years [...] Description 09/13/2024 12:00 PM EDT Office [place] [facility] [address] [place] [address] Reymundo Patricio MD [address] [place] [address] [email or web address] 10/20/2024 10:00 AM EDT Office Visit [facility] [address] [place] [address] [facility] [address] [place] [address] Susana Stuart DNP [address] [place] [address], [address] [place] [address] documented as of this encounter Visit Diagnoses Not on filedocumented in this encounter Additional Health Concerns Assessment Noted Time PHQ-2 Depression Total Score: 1 12/04/19 22 4:12 PM EDT documented as of this encounter Care Teams Printed Circuit Boards Contact Printer Relationship Specialty Start Date End Date Hodan Brewster MD [address] [place] [address] PCP - General Internal Medicine 07/30/17 Eddie Nina MD [email or web address] Historical LMR Provider 03/23/17 Hodan Brewster MD [address] [place] [address] Historical LMR Provider 03/23/17 Kacey George MD [address] [place] [address] [facility], [place] [address] Historical LMR Provider 03/23/17 Hodan Brewster MD [address] [place] [address] Insurance Assigned Provider 09/11/23 documented as of this encounter Additional Source Comments The information contained in this document represents components of the legal health record. It is not the complete legal health record.[facility]
--- OUTSIDE RECORDS SUMMARY | 2024-08-17 16:48 | XMS_ITS | Encounter Summary ---
Author Organization [facility] Address [address] [place] [address] Phone Care Team Providers Care Lean Manufacturing Leader Name Role Phone Eddie Nina MD Unavailable Hodan Brewster MD Unavailable Kacey George MD Unavailable Hodan Brewster MD Primary Care Provider Hodan Brewster MD Unavailable [phone] Encounter Details Date Type Department Care Team (Late st Contact Info) Description 02/01/2024 Procedure Pass [facility] [address] [place] [id number] Social History Tobacco Use Types Packs/Day Years [...] 12:00 PM EDT Office Visit [facility] [address] [place] [address] Reymundo Patricio MD [address] [place] [address] [email or web address] 10/20/2024 10:00 AM EDT Office Visit [facility] [address] [facility] [address] [place] [address] Susana Stuart DNP [address] [facility], [address] [place] [address] documented as of this encounter Visit Diagnoses Not on filedocumented in this encounter Additional Health Concerns Assessment Noted Time PHQ-2 Depression Total Score: 2 12/31/19 24 4:14 PM EDT documented as of this encounter Care Teams Lean Manufacturing Leader Relationship Specialty Start Date End Date Hodan Brewster MD [address] [place] [address] PCP - General Internal Medicine 07/30/17 Eddie Nina MD [email or web address] Historical LMR Provider 03/23/17 Hodan Brewster MD [address] [place] [address] Historical LMR Provider 03/23/17 Kacey George MD [address] [place] [address] Orthopedics & Sports Medicine, [place] [address] Historical LMR Provider 03/23/17 Hodan Brewster MD [address] [place] [address], 2nd [place] [address] [email or web address] Insurance Assigned Provider 09/11/23 documented as of this encounter Additional Source Comments The information contained in this document represents components of the legal health record. It is not the complete legal health record.[facility]
--- OUTSIDE RECORDS SUMMARY | 2024-08-17 16:50 | XMS_ITS | Encounter Summary ---
Author Organization [facility] Address [address] [facility] [address] [place] [address] Phone Care Team Providers Care Clinical Care Manager Name Role Phone Franchesca Alexandra ROBOTICS ENGINEER Unavailable Alexia Galloway VICE PRESIDENT [employer] Unavailable [phone] Eddie Nnia MD Unavailable Kellie Candelario MD Unavailable [phone] Hodan Brewster MD Unavailable [phone] Marlena Cunningham FRENCH POLISHER Unavailable Susana Olguin MD Unavailable Margie Stahl DPM Unavailable Unavaila ble Dre Novak MD Unavailable Kaushik Virgen MD Unavailable Zeeshan Ferrera MD Unavailable Kacey George MD Unavailable Tim White MD Unavailable Kaushik Virgen MD Primary Care Provider + Hodan Brewster MD Primary Care Provider [phone] Hodan Brewster MD Unavailable Hodan Brewster MD Unavailable Hodan Brewster MD Unavailable Encounter Details Date Type Department Care Team (Late st Contact Info) Description 06/17/2017 [facility]illary [facility] [address] [place] [address] [place] [address] Kaushik Virgen MD [address] [place] [address] [address] [place] [address] [email or web address] Breast screening Social History Tobacco Use Types [...] Description 09/13/2024 12:00 PM EDT Office Visit [facility] [address] [facility] [address] [place] [address] Reymundo Patricio MD 55 [place] [address] [email or web address] 10/20/2024 10:00 AM EDT Office Visit [facility] [address] [place] [address] [facility] [address] [place] [address] Susana Stuart DNP [address] [facility], [address] [place] [address] [email or web address] documented as of this encounter Results * [...] are scattered fibroglandular densities. ?? POS - [id number] Narrative 07/07/2017 11:48 AM EST Full-field digital [...] There are scattered fibroglandular densities. POS - [id number] Kaushik Virgen MD IMG MG EXAMS documented in this encounter Visit Diagnoses Diagnosis Breast screening Breast screening, unspecified documented in this encounter Care Teams Clinical Care Manager Relationship Specialty Start Date End Date Kaushik Virgen MD [address] [place] [address] [email or web address] PCP - General Family Medicine 06/14/17 07/29/17 Hodan Brewster MD [address] [place] [address], 2[address] [place] [address] [email or web address] PCP - General Internal Medicine 07/30/17 Franchesca Alexandra, RICHIE [address] [place] [address] Historical LMR Provider 03/23/17 Alexia Galloway CNP [address] [place] [address] [email or web address] Historical LMR Provider 03/23/17 06/14/21 Eddie Nina MD [address], [address] [place] [address] [email or web address] Historical LMR Provider 03/23/17 Kellie Candelario MD [address] [place] [address] Historical LMR Provider 03/23/17 Hodan Brewster MD [address] [place] [address], [address] [place] [address] [email or web address] Historical LMR Provider 03/23/17 Marlena Cunningham FNP [address], [address] [place] [address] Historical LMR Provider 03/23/17 06/14/21 Susana Olguin MD [address] [place] [address] [address], [address] [place] [address] [email or web address] Historical LMR Provider 03/23/17 06/14/21 Margie Stahl DPM [address] [place] [address] Historical LMR Provider 03/23/17 2 Dre Novak MD [address] [facility], 2nd [place] [address] [email or web address] Historical LMR Provider 03/23/17 06/14/21 Kaushik Virgen MD [address] [place] [address] [email or web address] Historical LMR Provider 03/23/17 06/14/21 Zeeshan Ferrera MD [address] [facility], [address] [place] [address] [email or web address] Historical LMR Provider 03/23/17 06/14/21 Kacey George MD [address] [place] [address] Orth[facility] Medicine, [place] [address] [email or web address] Historical LMR Provider 03/23/17 Tim White MD [address] [place] [address] [email or web address] Historical LMR Provider 03/23/17 06/14/21 Hodan Brewster MD [address] [place] [address], [address] [place] [address] [email or web address] Insurance Assigned Provider 10/08/18 12/17/18 Hoadn Brewster MD [address] [place] [address] Insurance Assigned Provider 09/13/19 06/13/22 Hodan Brewster MD [address] [place] [address] Insurance Assigned Provider 09/11/23 documented as of this encounter Additional Source Comments The information contained in this document represents components of the legal health record. It is not the complete legal health record.[facility]
--- OUTSIDE RECORDS SUMMARY | 2024-08-17 16:50 | XMS_ITS | Clinical Summary ---
Author Organization [facility] it Address [address] [place] [address] Care Team Providers Care Finishing Room Operator Name Role Phone Hodan Brewster MD [...] age to complete this topic Care Teams Finishing Room Operator Relationship Specialty Start Date End Date Hodan Brewster MD [address], [place] [address] PCP - General Internal Medicine 03/17/19
--- OUTSIDE RECORDS SUMMARY | 2024-08-17 16:50 | XMS_ITS | Encounter Summary ---
Author Organization [facility] Address [address] [facility] [address] [place] [address] Phone Care Team Providers Care Manager General Name Role Phone Eddie Nina MD Unavailable Hodan Brewster MD Unavailable [phone] Kacey George MD Unavailable [phone] Hodan Brewster MD Primary Care Provider [phone] Hodan Brewster MD Unavailable [phone] Encounter Details Date Type Department Care Team (Latest Contact Info) Description 07/18/2024 11:00 AM EST Office Visit [facility] [address] [place] [address] Susana Stuart, CHUCK [address] [facility], [facility] [address] [place] [address] [email or web address] Other hammer toe(s) (acquired), unspecified foot (Primary Dx); Murmur; Essential hypertension Social History Tobacco Use Types Packs/Day Years [...] Sign Reading Time Taken Comments Blood Pressure 126/54 07/18/2024 11:08 AM EST Pulse 77 07/18/2024 11:08 AM EST Temperature - - Respiratory Rate - - Oxygen Saturation 99% 07/18/2024 11:08 AM EST Inhaled Oxygen Concentration - - Weight 72.6 kg (160 lb) 07/18/2024 11:08 AM EST Height 154 cm (5' 0.63 ) 07/18/2024 11:08 AM EST Body Mass Index 30.6 07/18/2024 11:08 AM EST documented in this encounter Progress Notes * Susana Stuart, CHUCK - 07/18/2024 11:00 AM EST Identification: Loree Heller is a 74 y.o. female; [id number] Reason for visit: Follow-up visit Ms. Heller is a 74-year-old female with medical history of hypertension, hyperlipidemia, shortnessof breath who is here today for follow-up regarding a heart murmur that was noted by the calculating machine mechanic on 2 subsequent visits. She was last seen in the office by myself in April 2024. We had difficult time improving her blood pressure despite multiple medications. She did undergo spinal surgery in January 2024 where she was noted to have orthostatic hypotension. 09/27/2023 pharmacological nuclear stress test was a normal study with no evidence of myocardial infarction or ischemia. 10/28/2023 echocardiogram showed ejection fraction 70%. There is no wall motion abnormalities. Normal RV size and function. Trileaflet aortic valve with no evidence of aortic stenosis. The ascending aortic root is normal. Trace to mild mitral and tricuspid insufficiency. The PA pressure is mildly elevated at 45 mmHg. 11/23/2023 renal artery duplex study shows no significant renal artery stenosis bilaterally. Generalizability she is doing well from a cardiovascular standpoint. She did see her calculating machine mechanic at [facility] on 06/30/2024. Based on observing heart murmur he felt it was best that she come to the commodities trader sooner than later. Today she reports she has been doing okay from a cardiovascular standpoint denying chest pain, palpitations, lightheadedness or syncopal episodes. She does continue to have shortness of breath with whom she is seeing a calculating machine mechanic over at [facility]. EKG today shows sinus rhythm, 76 bpm Past Medical History: Diagnosis Date Acquired hallux [...] Laterality Date APPENDECTOMY 1961 [facility]2016 [facility] Back surgery [facility] 07[facility]2018 [facility] 1992 Cholecystectomy COLONOSCOPY N/A 12/23/2023 Performed by Eric Camara MD at [facility] ENDOSCOPY D & C after a miscarriage 1978 D & C after a miscarriage echo: Normal EF, mild LVH, mild MR 2011 echo: Normal EF, mild LVH, mild MR ESOPHAGOGASTRODUODENOSCOPY N/A 12/23/2023 Performed by Eric Camara MD at [facility] ENDOSCOPY EYE SURGERY 2022 Cataracts removed FRACTURE SURGERY 02/2022 T12 hallux nail removal 12/2011 hallux nail removal Revision J46-nruria, L1-3 decompression, L5 PSO N/A 02/01/2024 Performed by Reymundo Patricio MD at [facility] OR TONSILLECTOMY AND ADENOIDECTOMY 1962 T&A Social History Tobacco Use Smoking status: Former Current packs/day: 0.00 Average packs/day: 1 pack/day for 2.0 years (2.0 ttl pk-yrs) Types: Cigarettes Start date: 04/07/1975 Quit date: 04/07/1977 Years since quittin.3 Smokeless tobacco: Never Vaping Use Vaping status: never used Substance Use Topics Alcohol use: Yes Alcohol/week: 12.0 standard drinks of alcohol Types: 10 Glasses of wine, 2 Standard drinks or equivalent per week Comment: Usually a glass of wine with dinner ..often 2 on the weekend Drug use: No Family History Problem Relation Age of Onset Breast cancer Maternal Aunt 78 Diabetes Mother Hypertension Mother Stroke Mother Heart attack Father Heart disease Father Diabetes Sister Hypertension Sister Hyperlipidemia Sister Endometrial cancer Sister Diabetes Brother Hypertension Brother Depression Brother Lymphoma Sibling Hypertension Sister Hyperlipidemia Sister Thyroid cancer Sister Diabetes Sister Current Outpatient Medications Medication Sig Dispense Refill Last Dispense abaloparatide (TYMLOS) 80 mcg (3,120 mcg/1.56 mL) subcutaneous pen Inject 80 mcg under the skin daily. 1.56 mL 11 Unknown (outside pharmacy) acetaminophen (TYLENOL) 500 MG tablet Take 1,000 mg by mouth 2 (two) times a week. And occasionallyprn. Not more than 3g daily. Unknown (patient-reported) AEROCHAMBER PLUS FLOW-VU Spcr Unknown (patient-reported) atorvastatin (LIPITOR) 20 MG tablet take 1 tablet daily 90 tablet 3 Unknown (outside pharmacy) B-complex with vitamin C Cap Take 1 capsule by mouth daily. Unknown (patient-reported) bazrglnzyi-whebfcec-azepeupcxb (BREZTRI AEROSPHERE) 160-9-4.8 mcg/actuation inhaler Inhale 2 puffs into the lungs 2 (two) times a day. Unknown (patient-reported) cholecalciferol (VITAMIN D3) 25 MCG (1,000 unit) tablet Take 1,000 Units by mouth daily. Unknown (patient-reported) famotidine (PEPCID) 40 MG tablet TAKE 1 TABLET TWICE A DAY 180 tablet 3 Unknown (outside pharmacy) gabapentin (NEURONTIN) 300 MG capsule Take 2 capsules (600 mg total) by mouth 3 (three) times a day. (Patient taking differently: Take 600 mg by mouth 2 (two) times a day.) 540 capsule 3 Unknown (outside pharmacy) ID-BD 5mm x 31G Mini Pen [place] <[facility] 7024> ([id number]) Use as directed 100 each 3 Unknown (outside pharmacy) insulin pen needles, disposable, 31 gauge x 5/16 Ndle 1 each by Miscellaneous route as needed. 100each 3 Unknown (outside pharmacy) levalbuterol (XOPENEX HFA) 45 mcg/actuation inhaler Inhale 2 puffs into the lungs every 4 (four) hours as needed for wheezing. 45 g 3 Unknown (outside pharmacy) magnesium oxide (MAG-OX) 400 mg (241.3 mg elemental) tablet Take 400 mg by mouth daily. Unknown (patient-reported) qyrxrwjwbsuz-kovhipys-aupbvs (CENTRUM SILVER) Tab Take 1 tablet by mouth daily. Unknown (patient-reported) ondansetron (ZOFRAN) 4 MG tablet Take 1 tablet (4 mg total) by mouth every 8 (eight) hours as needed for nausea. 30 tablet 0 Unknown (outside pharmacy) pantoprazole (PROTONIX) 40 MG tablet Take 40 mg by mouth daily. Unknown (patient-reported) valsartan (DIOVAN) 80 MG tablet Take 1 tablet by mouth every morning. Unknown (patient-reported) zafirlukast (ACCOLATE) 20 MG tablet TAKE 1 TABLET TWICE A DAY 180 tablet 3 Unknown (outside pharmacy) labetaloL (TRANDATE) 200 MG tablet Take 1 tablet (200 mg total) by mouth 2 (two) times a day. 180 tablet 2 Unknown (outside pharmacy) terazosin (HYTRIN) 2 MG capsule Take 1 capsule (2 mg total) by mouth nightly at bedtime. 90 capsule3 Unknown (outside pharmacy) No current facility-administered medications for this visit. GENERAL ROS: General Negative for:, fever, chills. HEENT Negative for: headache, sore throat, congestion. Cardiovascular Negative for:, chest pain. Respiratory Negative for:, cough, shortness of breath. GI/ Negative for:, abdominal pain, nausea, vomiting, diarrhea. Musculoskeletal Negative for:, joint pain, muscle pain. Extremities Negative for, edema. Skin Negative for:, rash, Negative. Neurological negative for headaches. Psychiatric Negative for:, anxiety, depression. Endocrinology negative for:, polyuria, polydipsia, polyphagia, weight loss. Examination BP 126/54 Pulse 77 Ht 154 cm (5' 0.63 ) Wt 72.6 kg (160 lb) SpO2 99% BMI 30.60 kg/m?? GENERAL APPEARANCE: NAD. Looks well. HEENT: NC/AT, conjunctiva pink and sclera clear. JVD: normal. HEART SOUNDS: normal S1, S2 LUNGS: clear to auscultation. ABDOMEN: no hepatomegaly; no hepato-jugular reflux. EXTREMITIES: no leg edema. PERIPHERAL PULSES: intact. NEUROLOGIC: grossly intact. Essential hypertension Blood pressure is well-controlled today 126/54. She continues to take terazosin 2 mg daily along with labetalol 200 mg twice daily. She will continue his medication without change. Murmur She does have a new heart murmur this seems to be a soft systolic murmur however she did have a nuclear stress test along with an echocardiogram that did not reveal any reason for this new heart murmur. I did offer her to have her echocardiogram repeated however her last echocardiogram was performed in October 2023 and is unlikely that anything has progressed to be causing this. Is more likely related to her anemia that has been chronic ongoing that she has developed this heart murmur. Going to send over these reports over to the calculating machine mechanic. Would be beneficial for her tosee hematology for further workup for her anemia. At this moment we will hold off on any further cardiac testing. She does have an appointment with me in October which I have encouraged her to keep or she can cancel this if she does not feel like she needs to be seen in 3 months she could push this out another 3 months and see me in a total of 6 months. I did speak with Dr. Nino regarding this new murmur and he feels this is more likely related to anemia versus having any valvular or cardiovascular blockage that would be contributing to this. Follow-up at previously scheduled appointment Susana Stuart NP * Eddie Nino DO - 07/18/2024 11:00 AM EST Subject Line: Provider Attestation I have reviewed the notes, assessments, and/or procedures performed by Susana, I concur with her/his documentation of Loree Heller. documented in this encounter Miscellaneous Notes * Assessment & Plan Note - Susana Stuart DNP - 07/18/2024 12:05 PM EST Associated Problem(s): Murmur She does have a new heart murmur this seems to be a soft systolic murmur however she did have a nuclear stress test along with an echocardiogram that did not reveal any reason for this new heart murmur. I did offer her to have her echocardiogram repeated however her last echocardiogram was performed in October 2023 and is unlikely that anything has progressed to be causing this. Is more likely related to her anemia that has been chronic ongoing that she has developed this heart murmur. Going to send over these reports over to the calculating machine mechanic. Would be beneficial for her tosee hematology for further workup for her anemia. At this moment we will hold off on any further cardiac testing. She does have an appointment with me in October which I have encouraged her to keep or she can cancel this if she does not feel like she needs to be seen in 3 months she could push this out another 3 months and see me in a total of 6 months. * Assessment & Plan Note - Susana Stuart DNP - 07/18/2024 12:04 PM EST Associated Problem(s): Essential hypertension Blood pressure is well-controlled today 126/54. She continues to take terazosin 2 mg daily along with labetalol 200 mg twice daily. She will continue his medication without change. documented in this encounter Plan of Treatment Upcoming Encounters Date Type Department Care Team (Late st Contact Info) Description 09/13/2024 12:00 PM EDT Office Visit [facility] Orthopaedic Spine [address] [facility] [address] [place] [address] Reymundo Patricio MD [address] [place] [address] [email or web address] 10/20/2024 10:00 AM EDT Office Visit [facility] [address] [place] [address] [address] [place] [address] Susana Stuart DNP [address] [place] [address], [address] [place] [address] [email or web address] Scheduled Orders Name Type Priority Associated Diagnoses Orde r Schedule ECG 12-LEAD ECG Routine Murmur Ordered: 07/18/2024 documented as of this encounter Visit Diagnoses Diagnosis Other hammer toe(s) (acquired), unspecified foot- Primary Murmur Undiagnosed cardiac murmurs Essential hypertension Unspecified essential hypertension documented in this encounter Additional Health Concerns Assessment Noted Time PHQ-2 Depression Total Score: 2 12/31/19 24 4:14 PM EDT documented as of this encounter Care Teams Manager General Relationship Specialty Start Date End Date Hodan Brewster MD [address] [place] [address] [email or web address] PCP - General Internal Medicine 07/30/17 Edide Nina MD [email or web address] Historical LMR Provider 03/23/17 Hodan Brewster MD [address] [place] [id number] Historical LMR Provider 03/23/17 Kacey George MD [address] [place] [address] Orthopedics & Sports Medicine, [place] [address] Historical LMR Provider 03/23/17 Hodan Brewster MD [address] [place] [id number] Insurance Assigned Provider 09/11/23 documented as of this encounter Additional Source Comments The information contained in this document represents components of the legal health record. It is not the complete legal health record.[facility]
--- OUTSIDE RECORDS SUMMARY | 2024-08-17 16:50 | XMS_ITS ---
Author Organization [facility], Address [address] [facility] [place] [address] Care Team Providers Care Batteryman Name Role Phone Sophie Steel Unavailable [phone] ALLERGIES, ADVERSE REACTIONS, ALERTS Substance Code Code [...] 2670 RxNorm Drug allergy () 0 lisinopril 25442 RxNorm Drug allergy () 0 MEDICATIONS Medication Code Code System Start Date Stop Date Route Dosage Directions Fill Instructions ATORVASTATIN 20MG TAB RxNorm CARVEDILOL 25MG TAB RxNorm DULERA 200-5MCG INH RxNorm LEVALBUTEROL HFA 200 INH RxNorm LOSARTAN 100MG TAB RxNorm PULMICRT FLX 180MCG INH RxNorm acolate RxNorm doxycycline hyclate 3900222 RxNorm 024 oral 1 doxycycline hyclate 4263169 RxNorm 08/10/19 25 oral 1 labetalol 0 RxNorm oral benzonatate 152437 RxNorm 024 oral 1 mupirocin 772817 RxNorm 08/10/19 25 topical 1 amoxicillin-po t clavulanate 350130 RxNorm 023 oral 1 Tymlos 0 RxNorm subcutaneous PROBLEMS Problem Name Code Code System Start Date End Date Stat us Essential (primary) hypertension 93815897 [facility] Active Other hyperlipidemia 32227873 [facility] Active Asthma 317386717 [facility], [id number] Inactive Other hypotension [id number] [facility] 06/27/2023 Inactive Other malaise [id number] [facility] 06/27/2023 Inacti ve Acute bronchitis, unspecified [id number] [facility] 06/27/2023 Resolved Cardiac murmur, unspecified [id number] [facility] 01/17/2024 Active 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 [id number] [facility] 06/08/2024 Inactive Cellulitis of left toe [id number] [facility] 08/09/2024 Active ENCOUNTERS Encounter Diagnosis Code Code System Date Stat us Cellulitis of left toe [id number] [facility] 08/09/2024 Active IMMUNIZATIONS * None VITAL SIGNS Code Code System Vitals Name Date Value and Un its 8462-4 [facility] Blood Pressure-Diastolic 08/09/2024 72 mmHg 8480-6 [facility] Blood Pressure-Systolic 08/09/2024 1 46 mmHg 8867-4 [facility] Heart Rate 08/09/2024 70 /min 9279-1 [facility] Respiratory Rate 08/09/2024 16 /min 8310-5 [facility] Body Temperature 08/09/2024 97.5 F 76538-4 [facility] Oxygen Saturation 08/09/2024 96 % SOCIAL HISTORY * None PROCEDURES Code Code System Procedure Date Status Notes A6260 Cpt4 Wound cleansers, any type, any size 08/09/2024 completed Sophie Johney - 08/09/2024 Left big toe abrasion was cleansed with Hibiclens covered with triple ointment on it and simple Band-Aid. MEDICAL EQUIPMENT * Patient has no history of implantable devices ASSESSMENT Assessment You have an infection of you r skin. Take the antibiotic as prescribed until finished. I have also sent you topical medicine to use if any time you have the ability not to wear shoe and can air this out I advised that otherwise just a loose Band-Aid before he put a sock on.To help this infection improve and heal quickly, you need to be persistent and aggressive with home care.Wound Care:Apply warm moist compresses (20 minutes on then off for at least 30 minutes) aggressively (at least 5-6 times a day). This will help open up the blood vessels and bring the antibiotic to the area to help it heal faster. The more you can ELEVATE the left foot ABOVE your heart, the more the swelling and pain will improve.This is important since it can take your body a long time to reabsorb the extra fluid outside the capillaries and vessels from the infection.If you develop any spreading redness, red streaking away from the area of infection, shaking chills, fever, or any other new, concerning symptoms either return to the clinic or go directly to the closest Emergency Department. TREATMENT PLAN Type Description Date MEDICATION Take 2 % ointment 08/09/2024 MEDICATION Take 100 mg capsule 08/09/2024 APPOINTMENT If not feeling neena r in 3 day(s), please see your primary care physician. If you do not have a primary care physician, please return to this clinic. 08/09/2024 Lab Tests None GOALS * None HEALTH CONCERNS * No Health Concerns FUNCTIONAL AND COGNITIVE STATUS * None CONSULTATION NOTES * None DISCHARGE SUMMARY NOTES * None HISTORY AND PHYSICAL NOTES * Patient: ADRIEN MALIN, Sex: F (ID# [id number]) Date of : 1950 (74 years) Visit on 08/09/2024 (Log# [id number]) Historian: Self Triage Notes: cut toe nails 10 days ago, cut her nail too short and now painful History of Present Illness: Patient comes to today over concern of cut on her toe. It takes a great deal of effort for patient to cut her toe nails due to limited flexibility to reach her toes. She used to have a nail salon due it and does every once in a while but since its winter time she is saving money for the spring time as its would cost too much to get done weekly. She did it herself 10 days ago and accidently cutone too short. It made it bleed and hurt a little bit, but eventually stopped. She has let water run on it with soap in the shower otherwise has not been able to scrub it directly. It it a little painful and red looking to her but also admits to not being able to tell the best if it is was infectedor not so came here to have it checked out. She denies any bony tenderness or painful ambulation. No parethesias. Her TD is UTD. Complaint: The patient presents with a chief complaint of pain of the left great toe since 10 days ago. Review of Systems: The patient complains of the following recent symptoms: Constitutional: pain: See HPI Skin: redness The patient denies the following recent symptoms: Constitutional: denies fever Allergies: Penicillins: Drug allergy. codeine: Drug allergy. [...] Preventive Measures: patient specifies all up-to-date Vitals: 03:10 PM (08/09/2024)Temperature: 97.5 ?F, Pulse: 70 BPM, BP: 146/72, Respirations: 16/min, O2 Saturation: 96%, O2 Delivery: RAFirst entered 08/09/2024 15:10 by Morenita Hernandez Physical Exam: The following exam elements were documented to be abnormal: Muscular (Left abnormal and Right normal): tenderness of distal lower extremity noted. Left big toe medial nail fold there is a slight abrasion noted with surrounding erythema no greaterthan 0.5 cm. Patient cut her toenails fairly short in this area no current bleeding but small scab noted cleansed. The following exam elements were documented to be normal: Cardiovascular (Right and Left): pedal pulses 2+ and equal bilaterally. General: well developed, well nourished, and in no apparent distress. Muscular (Right and Left): no atrophy or deformity of ankle, foot, or toes. Muscular (Right and Left): no swelling or mass of ankle, foot, or toes. Muscular: normal gait and posture. Muscular (Right and Left): normal knee and leg. Muscular (Right and Left): negative Osei test. Neurological (Right and Left): lower extremity sensation intact bilaterally. Neurological (Right and Left): lower extremity deep tendon reflexes 2+ and equal bilaterally. Skin (Right and Left): no ecchymosis or rash of ankle, foot, or toes. Skin (Right and Left): skin of ankle, foot, and toes dry and normal in temperature. Skin (Right and Left): no open wound of ankle, foot, or toes. Procedures and Supplies: Wound cleansers, any type, any sizeLeft big toe abrasion was cleansed with Hibiclens covered with triple ointment on it and simple Band-Aid. Code(s): A6260 Ordered 08/09/2024 15:42 by Sophie Steel Completed 08/09/2024 15:42 by Sophie Steel Diagnoses: Cellulitis of left toe (L03.032) Medication Orders: Prescribed: mupirocin 2 % ointment; Take 1 application (topical) 3 times per day for 7 Days; Total Qty: 21 (twenty-one) Gram; 0 refill(s); Substitutions allowed; Earliest Fill Date: 08/09/2024ePrescribed at 3:41 PM on 08/09/2024 by Cheko Del Riocription sent to [facility] # [id number] (P: [phone] F: [phone]) [address] [facility], [place], [address] Prescribed: doxycycline hyclate 100 mg capsule; Take 1 Capsule (oral) 2 times per day for 7 Days SUBS TABLETS IF INSURANCE DOES NOT COVER; Total Qty: 14 (fourteen) Capsule; 0 refill(s); Substitutionsallowed; Earliest Fill Date: 08/09/2024ePrescribed at 3:41 PM on 08/09/2024 by Aislinn Del Rio escription sent to [facility] # [id number] (P: [phone] F: [phone]) [address], [place], [address] Plan: If not feeling better in 3 day(s), please see your primary care physician. If you do not have a primary care physician, please return to this clinic. You have an infection of your skin. Take the antibiotic as prescribed until finished. I have also sent you topical medicine to use if any time you have the ability not to wear shoe and can air this out I advised that otherwise just a loose Band-Aid before he put a sock on. To help this infection improve and heal quickly, you need to be persistent and aggressive with homecare. Wound Care: Apply warm moist compresses (20 minutes on then off for at least 30 minutes) aggressively (at least5-6 times a day). This will help open up the blood vessels and bring the antibiotic to the area to help it heal faster. The more you can ELEVATE the left foot ABOVE your heart, the more the swelling and pain will improve. This is important since it can take your body a long time to reabsorb the extra fluid outside the capillaries and vessels from the infection. If you develop any spreading redness, red streaking away from the area of infection, shaking chills, fever, or any other new, concerning symptoms either return to the clinic or go directly to the closest Emergency Department. Medical Decision Making Notes: The presentation was most consistent with healing abrasion with mild soft tissue inflammation but does not appear overtly infection. Given the history, exam, and workup, I have low suspicion of necrotizing fasciitis, abscesses, osteomyelitis, DVT, or other emergent problems as the cause of this presentation. Rx: doxycycline 100 mg BID x 7 days with mupirocin. Allergies considered in this decision. Disposition: Discharge. There is no evidence of serious bacterial illness. Nontoxic appearing, VSS.Low risk for treatment failure based on history. Strict return precautions were discussed with the patient with full understanding. Advised patient to follow up promptly with their primary care provider or urgent care within the next 48 hours. Visit discharged at 08/09/2024 3:41:49 PM by Sophei Steel PA-C Signed electronically by Sophie Steel PA-C on 08/10/2024 7:37:56 PM IMAGING NOTES * None LABORATORY REPORT NARRATIVE NOTES * None PATHOLOGY REPORT NARRATIVE NOTES * None PROGRESS NOTES * None
--- OUTSIDE RECORDS SUMMARY | 2024-08-17 16:50 | XMS_ITS | Encounter Summary ---
Author Organization [facility] Address [address] [facility] [address] [place] [address] Phone Care Team Providers Care Upsetter Setter Up Name Role Phone Hodan Brewster MD Primary Care Provider [phone] Franchesca Alexandra GRIEVANCE MANAGER Unavailable Alexia Galloway SALESPERSON BOOKS Unavailable Eddie Nina MD Unavailable Kellie Candelario MD Unavailable [phone] Hodan Brewster MD Unavailable [phone] Marlena Cunningham OCEAN FORWARDER Unavailable Susana Olguin MD Unavailable Margie Stahl DPM Unavailable Unavaila ble Dre Novak MD Unavailable Kaushik Virgen MD Unavailable [phone] Zeeshan Ferrera MD Unavailable [phone] Kacey George MD Unavailable Tim White MD Unavailable [phone] Kaushik Virgen MD Primary Care Provider + Hodan Brewster MD Primary Care Provider [phone] Hodan Brewster MD Unavailable Hodan Brewster MD Unavailable [phone] Hodan Brewster MD Unavailable [phone] Encounter Details Date Type Department Care Team (Late st Contact Info) Description 04/09/2017 Ancillary Orders [facility],Outside Imaging [address] [place] [address] System, Provider Not In, [facility] [address] [address] Social History Tobacco Use Types Packs/Day Years [...] Description 09/13/2024 12:00 PM EDT Office Visit [facility] [address] [facility] [address] [place] [address] Reymundo Patricio MD [address] [place] [address] [email or web address] 10/20/2024 10:00 AM EDT Office Visit [facility] [address] [place] [address] [address] [place] [address] Susaan Stuart DNP [address] [facility], [address] [place] [address] [email or web address] documented as of this encounter Results * XR SPINE OUTSIDE(NO INTERPRETATION) (09/08/2016 12:00 AM EDT) Narrative SYSTEMGENERATED, DOCUMENTATION - 04/09/2017 10:17 AM EDT This study is for PACS storage only and not for interpretation. Provider Not In System PhD IMG OUTSIDE I MAGING W/OUT INTERPRETATION documented in this encounter Visit Diagnoses Not on filedocumented in this encounter Care Teams Upsetter Setter Up Relationship Specialty Start Date End Date Hodan Brewster MD [address] [place] [address], [address] [place] [address] [email or web address] PCP - General 08/14/16 06/13/17 Kaushik Virgen MD [address] [place] [phone] [email or web address] PCP - General Family Medicine 06/14/17 07/29/17 Hodan Brewster MD [address] [place] [address] [email or web address] PCP - General Internal Medicine 07/30/17 Franchesca Alexandra, RICHIE [address] [place] [address] Historical LMR Provider 03/23/17 Alexia Galloway CNP [address] [facility], [address] [place] [address] [email or web address] Historical LMR Provider 03/23/17 06/14/21 Eddie Nina MD [address] [facility], [address] [place] [address] [email or web address] Historical LMR Provider 03/23/17 Kellie Candelario MD [address] [place] [phone] Historical LMR Provider 03/23/17 Hodan Brewster MD [address] [place] [address] Historical LMR Provider 03/23/17 Marisa Marlena RosalesOXANA [address] [facility], [address] [place] [address] Historical LMR Provider 03/23/17 06/14/21 Susana Olguin MD [address] [facility], [address] [place] [address] [email or web address] Historical LMR Provider 03/23/17 06/14/21 Margie Stahl DPM [address] [place] [address] Historical LMR Provider 03/23/17 2 Dre Novak MD [address] [place] [phone] [email or web address] Historical LMR Provider 03/23/17 06/14/21 Kaushik Virgen MD [address] [place] [address] [email or web address] Historical LMR Provider 03/23/17 06/14/21 Zeeshan Ferrera MD [address] [place] [address], [address] [place] [address] Historical LMR Provider 03/23/17 06/14/21 Kacey George MD [address] [place] [address] [facility], [place] [address] Historical LMR Provider 03/23/17 Tim White MD [address] [place] [address] [email or web address] Historical LMR Provider 03/23/17 06/14/21 Hodan Brewster MD [address] [place] [phone] Insurance Assigned Provider 10/08/18 12/17/18 Hodan Brewster MD [address] [place] [phone] Insurance Assigned Provider 09/13/19 06/13/22 Hodan Brewster MD [address] [place] [id number] Insurance Assigned Provider 09/11/23 documented as of this encounter Additional Source Comments The information contained in this document represents components of the legal health record. It is not the complete legal health record.[facility]
--- OUTSIDE RECORDS SUMMARY | 2024-08-17 16:50 | XMS_ITS | Clinical Summary ---
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 pain Dextromethorphan Polistirex 01/30/20 17 Other reaction(s): severe abd. pain Diltiazem Hcl Swelling 06/23/2019 Hydralazine 05/03/2023 Swelling in extremities Hydrocodone 01/29/2017 Other reaction(s): severe abd. pain Lisinopril Rash,Itching Low 04/20/2016 Pregabalin 12/27/2018 Feet and leg swelling Midazolam Hcl Hives 01/29/2017 Morphine Sulfate 01/29/2017 Other reaction(s): severe abd. pain Oxycodone 09/24/2005 Penicillin Rash Low 01/29/2017 Tolerated ancef 01/31 Tiotropium [place] 08/26/2021 Medications Medication Sig Dispensed Refills Start Date End Date Status famotidine (PEPCID) 40 MG tabletIndications:G astroesophageal reflux disease TAKE 1 TABLET TWICE A DAY 180 tablet 3 1 Active levalbuterol (XOPENEX HFA) 45 mcg/actuation inhaler Inhale 2 puffs into the lungs every 4 (four) hours as needed for wheezing. 45 g 3 3 Active acetaminophen (TYLENOL) 500 MG tablet Take 1,000 mg by mouth 2 (two) times a week. And occasionally prn. Not more than 3g daily. Active abaloparatide (TYMLOS) 80 mcg (3,120 mcg/1.56 mL) subcutaneous pen Inject 80 mcg under the skin daily. 1.56 mL 11 4 Active cholecalciferol (VITAMIN D3) 25 MCG (1,000 unit) tablet Take 1,000 Units by mouth daily. Active multivitamin-minera ls-lutein (CENTRUM SILVER) Tab Take 1 tablet by mouth daily. Active B-complex with vitamin C Cap Take 1 capsule by mouth daily. Active magnesium oxide (MAG-OX) 400 mg (241.3 mg elemental) tablet Take 400 mg by mouth daily. Active budesonide-glycopyr -formoterol (BREZTRI AEROSPHERE) 160-9-4.8 mcg/actuation inhaler Inhale 2 puffs into the lungs 2 (two) times a day. Active pantoprazole (PROTONIX) 40 MG tablet Take 40 mg by mouth daily. Active AEROCHAMBER PLUS FLOW-VU Spcr 4 Active atorvastatin (LIPITOR) 20 MG tabletIndications:M ixed hyperlipidemia take 1 tablet daily 90 tablet 3 4 Active ondansetron (ZOFRAN) 4 MG tablet Take 1 tablet (4 mg total) by mouth every 8 (eight) hours as needed for nausea. 30 tablet 4 Active ID-BD 5mm x 31G Mini Pen [place] <[facility] 7024> ([id number])Indica tions:Osteoporosis, unspecified osteoporosis type, unspecified pathological fracture presence Use as directed 100 each 3 4 Active gabapentin (NEURONTIN) 300 MG capsule Take 2 capsules (600 mg total) by mouth 3 (three) times a day. 540 capsule 3 4 Active Additional Information Patient taking differently:600 mg Oral2 times daily, Reported on 07/18/2024 zafirlukast (ACCOLATE) 20 MG tabletIndications:A sthma TAKE 1 TABLET TWICE A DAY 180 tablet 3 4 Active insulin pen needles, disposable, 31 gauge x 5/16 Ndle 1 each by Miscellaneous route as needed. 100 each 3 5 Active terazosin (HYTRIN) 2 MG capsule Take 1 capsule (2 mg total) by mouth nightly at bedtime. 90 capsule 3 5 Active labetaloL (TRANDATE) 200 MG tabletIndications:E ssential hypertension Take 1 tablet (200 mg total) by mouth 2 (two) times a day. 180 tablet 2 5 03/15/20 25 Active valsartan (DIOVAN) 80 MG tablet Take 1 tablet (80 mg total) by mouth every morning. 90 tablet 3 5 Active valsartan (DIOVAN) 80 MG tablet Take 1 tablet by mouth every morning. 4 07/26/19 25 Discontinu ed(Reorder ) Active Problems Patient Care Coordination No te Formatting of this note is d ifferent from the original. Risk Assessment and Prediction Tool (RAPT) Value Score What is your age group? 50-65 years 66-75 years >75 years =1 Gender? Male Female =1 How far on average can you walk? (a block is 200 meters) Two blocks or more (+/- rest) 1-2 blocks (+/- rest) Housebound (most of time) =0 Which gait aid do you use? (more often than not) None Single-point stick Crutches/frame =1 Do you use community supports? (home help, meals on wheels, district nursing) None or one per week Two or more per week =1 Will you live with someone who can care for you after your operation? Yes No =3 Your score (out of 12) 7 Smith: Destination at discharge from acute care predicted by score. Scores <6 -- extended inpatient rehabilitation Score 6-9 -- additional intervention to discharge directly home (ie home care services) Score >9 -- directly home Problem Noted Date Diagnosed Date Murmur 07/18/2024 Assessment & Plan (07/18/2024 12:05 PM EST): She does have a new heart murmur [...] send over these reports over to the flask maker. Would be beneficial for her to see hematology for further workup for her anemia. [...] me in a total of 6 months. Postural imbalance 02/01/2024 Abnormal magnetic resonance imaging of lumbar sp ine 02/01/2024 Pre-operative cardiovascular examination 024 Assessment & Plan (01/09/2024 5:23 PM EDT): Her EKG is similar to one from a year ago with no acute changes. We discussed plans for her upcoming surgery. She is awaiting clearance from cardiology and pulmonology at this time. Will try and help schedule an appointment with cardiology. Shortness of breath 09/08/2023 Assessment & Plan (04/20/2024 1:19 PM EST): Denies any symptoms for shortness of breath at this time. Assessment & Plan (01/10/2024 2:50 PM EDT): Chronic and ongoing but there has been no cardiovascular reason for this. Assessment & Plan (09/08/2023 3:27 PM EDT): She reports an increase in shortness of breath particular with climbing stairs and a sensation of heaviness to her bilateral lower extremities. She is slightly anemic and she is potentially going to be undergoing an upper endoscopy and a colonoscopy to see if there is any source for her anemia. Given her new shortness of breath and heaviness to her legs which she states her reported prior to him having a heart attack and she is concerned about the symptoms we will order a nuclear stress test as she is unable to walk on the treadmill due to her chronic back pain. She has never had a stress test in the past. In addition to the stress test we will also order an echocardiogram as she has not had 1 in the last 5 years though her last one she states was good . Given the fact that she has uncontrolled hypertension I would like to assess her valves to make sure her valves are not playing a role in her shortness of breath. We will see her in follow-up after her testing has been completed. I have asked her to bring her blood pressure readings to the office when she comes so that we can review those and make medication changes as necessary. Situational anxiety 05/04/2023 Assessment & Plan (05/04/2023 9:28 PM EST): She is flying to [place] and would like diazepam for the flight. Rx sent. Age-related cataract of both eyes 12/10/2022 Assessment & Plan (12/10/2022 10:09 AM EDT): We discussed that complications from cataract surgery are rare. Will proceed as planned. Asthma 08/01/2017 Assessment & Plan (01/09/2024 5:08 PM EDT): She has an appointment coming up with pulmonary and will discuss preoperative clearance with them. Back pain 08/01/2017 Assessment & Plan (05/04/2023 8:59 PM EST): Will restart gabapentin to help with pain control. Cellulitis of toe 08/01/2017 Cough 08/01/2017 Difficulty in walking, not elsewhere classified 08/01/2017 Fasting hyperglycemia 08/01/2017 Closed fracture of one or more phalanges of hand 08/01/2017 GERD (gastroesophageal reflux disease) 8 Acquired hallux valgus 08/01/2017 Hyponatremia 08/01/2017 Acquired deformity of foot 08/01/2017 Other hammer toe(s) (acquired), unspecified foot 08/01/2017 Lumbar radiculopathy 08/01/2017 Spinal stenosis of lumbar region with radiculopa thy 08/01/2017 Assessment & Plan (02/02/2024 11:08 AM EDT): NEURO: # Pain Control/Sedation: - APAP IV ATC - Dilaudid ORDER RUNNER - Lidocaine patches #[id number] #[id number] - activity as tolerated - no HOB restrictions PULM: #NANI - NC, wean O2 as tolerated - Pulmonary toilet (IS, Mobilize OOB) CV: # HTN Hx of poorly controlled HTN being managed with cardiology. Patient took home Labetalol prior to surgery. Pre-Op cardiac work up completed. - Continue home Labetolol 400 TID - Will plan to Restart Home Valsartan 160 mg daily - Will plan to Restart Terozosin 2 mg nightly GI: #NANI - continue home meds # Nutrition: - Diet: Regular; advance diet as tolerated RENAL/: # NANI: - Creatinine stable 0.46 ENDO: # NANI: - monitor BG ID: # PostOpPPX: - Ancef 2g x 2 doses - vancomycin x 1 HEME: # PostOpAnemia - CTM - SCDs, No pharmacologic DVT ppx at this time ACCESS: PIV: 18g and 14g Constanza: R radial CVL: no Celeste: yes NGT: no Drains: yes PROPHYLAXIS: DVT: Mechanical - Pneumoboots Chemical - N/A GI: Pantoprazole DISPO: SICU -> Floor ?Code: Full Code Assessment & Plan (01/09/2024 5:14 PM EDT): She is planning on spinal fusion. She will be spending a week in the hospital before discharge to home. Mixed hyperlipidemia 06/23/2017 Assessment & Plan (04/20/2024 1:20 PM EST): Continue atorvastatin 20 mg daily. Assessment & Plan (01/09/2024 5:10 PM EDT): Continue atorvastatin. Assessment & Plan (09/08/2023 3:25 PM EDT): Continue atorvastatin 20 mg daily. Assessment & Plan (12/10/2022 10:05 AM EDT): Lipid panel ordered. Assessment & Plan (12/03/2021 11:03 PM EDT): It is well controlled on atorvastatin. Essential hypertension 06/16/2017 Assessment & Plan (07/18/2024 12:04 PM EST): Blood pressure is well-controlled today 126/54. She continues to take terazosin 2 mg daily along with labetalol 200 mg twice daily. She will continue his medication without change. Assessment & Plan (04/20/2024 1:20 PM EST): Blood pressure is very well-controlled today 126/60. She is on Hytrin 2 mg nightly, labetalol 200 mg 3 times daily, valsartan 80 mg daily which has been reduced from 160 mg which she will remain on without change. She is encouraged follow heart healthy diet including low-sodium and to continue exercising. SBP goal less than 130/80. Assessment & Plan (01/10/2024 2:51 PM EDT): Her blood pressure is elevated here in the office at 142/62. There was some confusion on her medications and at 1 point she was taking valsartan 160 in the morning and 240 mg at night in addition to labetalol 400 mg twice daily. She is had sensitivities to many medications and is unable to tolerate many of them. She now is on valsartan 160 mg daily and labetalol 400 mg 3 times daily with very little improvement to her blood pressure. She is checking her blood pressure several times a day. SBP goal less than 130/80. Is unclear whether her back pain is playing a role in her hypertension. We are going to add Hytrin 2 mg nightly before bed to see if this does not help with her blood pressures and I have asked her to cut back on the home any times a day she is checking her blood pressures. If blood pressures start trending downwards with systolics less than 100 we are going to have to cut back on the labetalol. She is strongly encouraged to follow a low-sodium diet as well. Assessment & Plan (01/09/2024 5:05 PM EDT): Her blood pressure is elevated. She has been working with cardiology to try and get this under control. She also needs preoperative clearance from them as well. Assessment & Plan (11/18/2023 12:49 PM EDT): Blood pressure is very elevated today at 180/98. Typically she has been taking valsartan 240 mg in the morning and 2 hours after this she is checking her blood pressures with good control with systolic BPs 128. She does report throughout the day and towards the evening her blood pressure will start to creep up to the 150s- 160s systolic. Her other medications include carvedilol 25 mg twice daily. She has tried multiple other medications which has not improved her blood pressure at all. Due to her having resistant control on blood pressure medications we are going to do a renal ultrasound to see if there is any renal stenosis that may be playing a role. We are going to increase her valsartan to 240 mg daily to taking 240 mg in the morning and adding an 120 mg in the evening. This will give her a total of 360 mg of valsartan daily with the hopes of achieving an SBP goal less than 130/80. She is very concerned that her blood pressure is going to be high where she has a stroke. I have asked her to give me a message through the portal in 1 to 2 weeks with blood pressure readings to see if we need to adjust her medications further. Will see her in follow-up after ultrasound has been completed Assessment & Plan (09/08/2023 3:25 PM EDT): Her blood pressure is quite elevated today initially 180/86. I did recheck her and got 160/98. She does have some significant back issues that are happening that is causing her a lot of pain and is unclear whether her blood pressure is artificially high due to being here versus pain playing a role. She is on losartan 100 mg daily and carvedilol 25 mg twice daily. During her last visit here in the office Dr. Hernandez did recommend hydralazine 25 mg 3 times a day however it appears she is not taking this medication and states she is very sensitive to medications, she has this listed as an allergy causing swelling to her extremities. SBP goal should be less than 130/80. I have asked her to recheck her blood pressures at home and she states she stopped doing this to not being as accurate as it is here. I would like to know what her blood pressures are running at home before we make any more medication changes to her. She states she has not tried clonidine but this will probably be the next medication that we try as she has been on multiple others with multiple side effects. Assessment & Plan (12/10/2022 10:04 AM EDT): Her blood pressure is a little elevated in the office today. Continue losartan. Will adjust medication if needed. Assessment & Plan (12/03/2021 11:02 PM EDT): Well controlled on losartan and carvedilol. Sacroiliitis, not elsewhere classified 7 Encounters Date Type Department Care Team Description 08/16/2024 Orders Only [facility] [address] [place] [address] Rupesh Calero MD 08/08/2024 Orders Only [facility] [address] [place] [address] Rupesh Calero MD 08/02/2024 Orders Only [facility] [address] [place] [address] ProviderRupesh MD 07/26/2024 Orders Only [facility] [address] [place] [address] Susana Stuart DNP 07/18/2024 11:00 AM EST Office Visit [facility] [address] [place] [address] Susana Stuart DNP Other hammer toe(s) (acquired), unspecified foot (Primary Dx); Murmur; Essential hypertension 07/14/2024 Orders Only [facility] [address] [place] [address] Maggie PickeringTABATHA osborne 06/14/2024 12:30 PM EST Office Visit [facility] [address] [place] [address] Reymundo Patricio MD Sagittal plane imbalance (Primary Dx); Failed back syndrome of cervical spine 06/14/2024 11:19 AM EST - 06/14/2024 11:59 PM EST Hospital Encounter [facility] Imaging - Xray, [address] [place] [address] Reymundo Patricio MD Discharge Disposition: Home or Self Care 06/14/2024 Orders Only [facility] [address] [place] [address] Lisa Murray MA Sagittal plane imbalance (Primary Dx) 06/12/2024 Orders Only [facility] [address] [place] [address] Lisa Murray [place] Sagittal plane imbalance (Primary Dx); Gait abnormality from Last 3 Months Immunizations Name Administration Dates Next Due COVID-19 (Pre-03/29) Moderna Vaccine, mRNA, PF 02/25/2021,08/28/2020,07/31/2020 Influenza High-Dose Quadriva lent Preservative Free IM 03/27/2022 Influenza High-Dose Trivalen t Preservative Free IM 01/26/2020,03/14/2019,03/29/2018 Influenza Quadrivalent Adjuv anted Preservative Free IM 02/25/2021 Influenza Quadrivalent Prese rvative Free IM 03/19/2017,03/20/2014 Influenza Quadrivalent w/ Pr eservative IM 03/19/2017 Influenza Trivalent w/ Preservative IM 2 Influenza, Unspecified Formulation 02/27,03/19/2017,03/02/2011,02/21,04/04/2008,04/13/2007,05/04/2006 Pneumococcal conjugate PCV13 09/03/2016 Pneumococcal polysaccharide PPSV23 06/23/2019 Td (adult) 5 Lf Tetanus Toxo id, PF, Adsorbed 05/09/2020 Tdap 04/21/2011 Zoster live 05/11/2012 Zoster recombinant 06/23/2019,03/14/2019 Family History Medical History Relation Comments Depression Brother Diabetes Brother Hypertension Brother Heart attack Father Heart disease Father Breast cancer Maternal Aunt Diabetes Mother Hypertension Mother Stroke Mother Lymphoma Sibling Diabetes Sister 1 Endometrial cancer Sister 1 Hyperlipidemia Sister 1 Hypertension Sister 1 Hyperlipidemia Sister 2 Hypertension Sister 2 Thyroid cancer Sister 3 Diabetes Sister 4 Relation Status Comments Brother Father (Age 74) Maternal Aunt Mother (Age 86) Sibling (Age 34) Sister 1 Sister 2 Sister 3 Sister 4 Social History Tobacco Use Types Packs/Day Years Used Date Smoking Tobacco: Former Cigarettes 1 2 1 06/07/1974 - 04/07/1977 Smokeless Tobacco: Never Tobacco Cessation:Counseling Given: Not Answered Alcohol Use Standard Drinks/Week Comments Yes 12 [...] Orientation Straight 01/06/2024 11 :14 AM EDT Last Filed Vital Signs Vital Sign Reading Time Taken Comments Blood Pressure 126/54 07/18/2024 11:08 AM EST Pulse 77 07/18/2024 11:08 AM EST Temperature 36.3 ??C (97.4 ??F) 02/08/2024 1:41 PM ED T Respiratory Rate 16 02/08/2024 1:41 PM EDT Oxygen Saturation 99% 07/18/2024 11:08 AM EST Inhaled Oxygen Concentration 21% 12/23/2023 9 :11 AM EDT Weight 72.6 kg (160 lb) 07/18/2024 11:08 AM EST Height 154 cm (5' 0.63 ) 07/18/2024 11:08 AM EST Body Mass Index 30.6 07/18/2024 11:08 AM EST Plan of Treatment Upcoming Encounters Date Type Department Care Team (Late st Contact Info) Description 09/13/2024 12:00 PM EDT Office Visit [facility] [address] [place] [address] Reymundo Patricio MD [address] [place] [address] [email or web address] 10/20/2024 10:00 AM EDT Office Visit [facility] [address] [place] [address] [address] [place] [address] Susana Stuart, DNP [address] [facility], [address] [place] [address] Health Maintenance Due Date Last Done Comments HEPATITIS C SCREENING 1969 COLOGUARD 1996 FOBT 1996 SIGMOIDOSCOPY 1996 VIRTUAL COLONOSCOPY 1996 FIT TEST 09/15/2024 09/16/2023 LIPID PANEL 12/26/2024 12/27/2023, 12/05, 12/01/2021, Additional history exists DEPRESSION SCREENING 12/30/2024 12/31/2023 BLOOD PRESSURE 01/15/2025 07/18/2024 CREATININE LEVEL 02/07/2025 02/08/2024, 07/2023, 02/07/2024, Additional history exists POTASSIUM LEVEL 02/07/2025 02/08/2024, 07/2023, 02/07/2024, Additional history exists MAMMOGRAM 04/26/2026 04/26/2024, 01/05, 01/20/2022, Additional history exists COLONOSCOPY 12/22/2026 12/23/2023, 03/07, 12/17/2016 COLORECTAL CANCER SCREENING 12/22/2026 Adult Td,Tdap Booster 05/09/2030 05/09/2020, 011 PNEUMOCOCCAL VACCINES (50+ years) Completed 06/23/2019, 09/03/2016 ZOSTER VACCINES Completed 06/23/2019, 01/2019, 05/11/2012 RSV VACCINE Completed 03/31/2023 OSTEOPOROSIS SCREENING INITIAL (ONE-TIME) Completed 09/07/2023, 12/02/2018 COVID-19 VACCINE Completed 04/10/2024, , 12/19/2021, Additional history exists INFLUENZA VACCINE Completed 04/10/2024, , 03/27/2022, Additional history exists SMOKING STATUS SCREENING (Once After 26 Yrs) Completed 04/26/2024 HEPATITIS A VACCINES Aged Out No long er eligible based on patient's age to complete this topic HIB VACCINES Aged Out No longer eligi ble based on patient's age to complete this topic MENINGOCOCCAL VACCINES (ACWY) Aged Out No longer eligible based on patient's age to complete this topic Medical Devices Implanted Type Area Parole Agent Device Identifier Shelf Expiration Date Model / Serial / Lot Kit Graft 2.5x5.0cm Lg Bone Infuse Allograft Protein Collagen Absorbable Water Syringe Sponge - [id number] Implanted:Qty: 1 on 02/01/2024 by Reymundo Patricio MD at [facility] BONETISSUE N/A: Back [employer] 12/05/2024 [id number] / / [id number] Spine Tevin 500mm 6.0 5.0 Reline [place] - [id number] Implanted:Qty: 1 on 02/01/2024 by Reymundo Patricio MD at [facility] N/A: Back [employer] [id number] / / Screw Spine 6mm Reline Locking - [id number] Implanted:Qty: 18 on 02/01/2024 by Reymundo Patricio MD at [facility] N/A: Back [employer] [id number] / / Ifuse [place] Implant 9.5mm X 80mm Implanted:Qty: 1 on 02/01/2024 by Reymundo Patricio MD at [facility] Left: Sacrum / [id number] / Description:Sacrum Ifuse [place] Implant 9.5mm X 80mm Implanted:Qty: 1 on 02/01/2024 by Reymundo Patricio MD at [facility] Right: Sacrum / [id number] / Description:Sacrum Screw Spine 8.5x80mm Reline Mas Traction Poly - [id number] Implanted:Qty: 2 on 02/01/2024 by Reymundo Patricio MD at [facility] N/A: Back [employer] [id number] / / Screw Spine 6.5x50mm Reline Mas Traction Poly - [id number] Implanted:Qty: 10 on 02/01/2024 by Reymundo Patricio MD at [facility] N/A: Back [employer] [id number] 50 / / Screw Spine 6.5x45mm Reline Mas Traction Poly - [id number] Implanted:Qty: 3 on 02/01/2024 by Reymundo Patricio MD at [facility] N/A: Back [employer] [id number] / / Screw Spine 6.5x40mm Reline Mas Traction Poly - [id number] Implanted:Qty: 1 on 02/01/2024 by Reymundo Patricio MD at [facility] N/A: Back [employer] [id number] / / Screw Spine 7.5x55mm Reline Mas Traction Poly - [id number] Implanted:Qty: 2 on 02/01/2024 by Reymundo Patricio MD at [facility] N/A: Back [employer] [id number] / / Spine Tevin 6 To [id number] Reline O Titanium Tapered - [id number] Implanted:Qty: 1 on 02/01/2024 by Reymundo Patricio MD at [facility] N/A: Back [employer] [id number] / / Procedures Procedure Name Priority Date/Time Associated Diagnosis Comments OUTSIDE LAB Routine 07/20/2024 3:46 PM EST OUTSIDE LAB Routine 07/20/2024 12:07 PM EST OUTSIDE LAB Routine 07/20/2024 11:42 AM EST OUTSIDE IMAGING Routine 06/21/2024 4:08 PM EST XR FULL BODY SURVEY ADULT Routine 06/14/2024 11:46 AM EST Sagittal plane imbalance Gait abnormality BI MAMMOGRAM SCREENING WITH TOMOSYNTHESIS WITH CAD (BILATERAL) Routine 04/26/2024 10:55 AM EST Breast cancer screening by mammogram BASIC METABOLIC PANEL Routine 02/08/2024 3:15 AM EDT LIPID PANEL Routine 12/27/2023 10:36 AM EDT Mixed hyperlipidemia Blood tests for routine general physical examination ENDOSCOPY, COLON 12/23/2023 8:44 AM EDT HC BLOOD OCCULT FECAL HGB DETER IA QUAL FECES 1-3 Routine 09/16/2023 8:30 AM EDT Anemia, unspecified type BD DXA SPINE AND HIP WITH FOREARM Routine 09/07/2023 11:17 AM EDT Estrogen deficiency from Last 3 Months or Most Recently Relevant to Health Maintenance Results * Outside Lab (07/20/2024 3:46 PM EST) Only the most recent of3 resultswithin the time period is included. Unknown Unknown MD LAB BLOOD ORDERABLES * Outside Imaging Report Only (06/21/2024 4:08 PM EST) Historical Provider IMG XR CHEST * XR FULL BODY SURVEY ADULT (06/14/2024 11:46 AM EST) Anatomical Region Laterality Modality Computed Radiogr aphy 06/14/2024 2:51 PM EST Impressions 06/14/2024 9:24 PM EST Thoracolumbar spine posterior fusion with bilateral pelvic extension, overall similar when compared to 03/29/2024. ATTESTATION: I, Dr. Mehul Limon as teaching physician, have reviewed the images for this case and if necessary edited the report originally created by Mane Gomez. Narrative 06/14/2024 9:24 PM EST XR FULL BODY SURVEY ADULT Referring clinician's provided indication for this examination in Epic: Pain COMPARISON: CT SPINE (BONE) OUTSIDE (NO INTERPRETATION) 2023-; XR FULL BODY SURVEY ADULT ; XR [...] clinician's provided indication for this examination in Epic:Pain COMPARISON: CT SPINE (BONE) OUTSIDE (NO INTERPRETATION) 2023-; XRFULL BODY SURVEY ADULT ; XR SPINE ENTIRE SURVEY 4 OR 5 [id number] FINDINGS: Thoracolumbar spine posterior fusion with bilateral pelvic extension. [id number] deformity, similar when compared to the prior x-ray from03/29/2024. T12 vertebral body compression fracture and cementaugmentation. Sagittal alignment: Negative. Coronal alignment: Neutral. IMPRESSION: Thoracolumbar spine posterior fusion with bilateral pelvic extension,overall similar when compared to 03/29/2024. ATTESTATION: I, Dr. Mehul Limon as teaching physician, have reviewedthe images for this case and if necessary edited the report originallycreated by Mane Gomez. Reymundo Patricio MD IMG XR SKELETA L SURVEY * BI MAMMOGRAM SCREENING WITH TOMOSYNTHESIS WITH CAD (BILATERAL) (04/26/2024 10:55 AM EST) Anatomical Region Laterality Modality Breast Left, Breast Right, Breast Bilateral Bila teral Mammography 04/26/2024 1:31 PM EST Impressions 04/26/2024 1:31 PM EST No mammographic evidence of malignancy in either breast. Annual screening mammography is recommended. BI-RADS 1 NEGATIVE The patient will be notified of the results and recommendations. Narrative 04/26/2024 1:31 PM EST BI MAMMOGRAM SCREENING WITH TOMOSYNTHESIS WITH CAD (BILATERAL) Additional patient information: Screening. COMPARISON: Comparison is made with relevant prior imaging. Breast composition: There are scattered areas of fibroglandular density. FINDINGS: No abnormal masses, suspicious calcifications, or other significant findings are identified mammographically in either breast. Hodan Brewster MD IMG MG EXAMS * (ABNORMAL) Basic metabolic panel (02/08/2024 3:15 AM EDT) SODIUM 129(L) 135 - 145 mmol/L [facility] POTASSIUM 4.0 3.4 - 5.0 mmol/L [facility] CHLORIDE 95(L) 98 - 108 mmol/L [facility] CO2 24 23 - 32 mmol/L [facility] BUN 10 8 - 25 mg/dL [facility] CREATININE 0.47(L) 0.60 - 1.50 mg/dL [facility] GLUCOSE 99 70 - 110 mg/dL [facility] CALCIUM 9.3 8.5 - 10.5 mg/dL [facility] EGFR 101 >59 mL/min/1. 73m2 [facility] Comment:Estimated glomerular filtration rate calculated using the CKD-EPI refit equation. ANION GAP 10 3 - 17 mmol/L [facility] Blood 02/08/2024 3:15 AM EDT 02/08/2024 3:27 AM EDT Robert Regan CNP LAB BLOOD ORDERABL ES [address] [address] * (ABNORMAL) Lipid panel (12/27/2023 10:36 AM EDT) HDL 78 mg/dL [facility] Comment: ? Interpretation <40 mg/dL: Low HDL cholesterol (major risk factor for CHD) Greater than or equal to 60 mg/dL: High HDL cholesterol ( negative risk factor for CHD) HDL - cholesterol is affected by a number of factors, e.g. smoking, excerise, hormones, sex and age. CHOLESTEROL 176 0 - 240 mg/dL [facility] TRIGLYCERIDES 63 30 - 160 mg/dL [facility] LDL 85 50 - 129 mg/dL [facility] Comment: LDL levels in terms of risk for coronary heart disease: <100 mg/dL: Optimal 100-129 mg/dL: Near or above optimal 130-159 mg/dL: Borderline high 160-189 mg/dL: High >190 mg/dL: Very High CARDIAC RISK RATIO 2.3(L) 3.3 - 4.4 C [facility] Blood 12/27/2023 10:3 6 AM EDT 12/27/2023 10:41 AM EDT Hodan Brewster MD LAB BLOOD ORDERABLE S [facility] [address] [place] [address] * ENDOSCOPY, COLON (12/23/2023 8:44 AM EDT) Narrative Transcriptions Eric Oliver MD - 12/23/2023 8:44 AM EDT [facility] Patient Name: Loree Heller Attending MD:: ERIC OLIVER MD, Procedure Date: 12/23/2023 8:44 AM Date of : 1950 Age: 73 Admit Type: Outpatient Gender: Female Room: [place] [address] Referring MD: Hodan Brewster MD Exam Type: Colonoscopy Indications: Chronic diarrhea Medications: Fentanyl 150 micrograms IV diazepam 10mg due to midazolam allergy Procedure: Informed consent was obtained from the patientafter discussion of the indications, limitations, alternatives, benefits, and risks of the procedure. Risks specifically discussed include but are not limited to medication reactions, missed lesions, bleeding, perforation, or the need for emergent surgery. Throughout the procedure, the patient's blood pressure, pulse, end-tidal CO2, and oxygensaturations were monitored continuously. The Olympus adult variable colonoscope [id number] #5 was introduced through the anus and advanced to the terminal ileum. The colonoscopy was performedwithout difficulty. The patient tolerated the procedurewell. The quality of the bowel preparation was good. Anatomical landmarks were photographed. Complications: No immediate complications. Estimated blood loss:None. Findings: The perianal and digital rectal examinations were normal. Multiple small-mouthed diverticula were found inthe sigmoid colon. The rectum, recto-sigmoid colon, sigmoid colon, descending colon, splenic flexure, transversecolon, hepatic flexure, ascending colon, cecum,appendiceal orifice, ileocecal valve, ileum, rectum (on retroflexion) and ascending colon (on retroflexion) appeared normal. Biopsies were taken with a cold forceps for histology. Impression: - Diverticulosis in the sigmoid colon. - The rectum (on retroflexion), ascending colon (on retroflexion), rectum, sigmoid colon, descending colon, splenic flexure, transverse colon, hepatic flexure, ascending colon, cecum, recto-sigmoidcolon, ileocecal valve, appendiceal orifice and terminal ileum are normal. Biopsied. Recommendation: - Discharge patient to home. - High fiber diet. - Continue present medications. - Await pathology results. - Repeat colonoscopy in 5 years for surveillance. - You have diverticulosis so please eat a highfiber diet. ERIC OLIVER MD 12/23/2023 9:08:19 AM This report has been signed electronically. Number of Addenda: 0 Note Initiated On: 12/23/2023 8:44 AM Procedure Code(s): --- Professional --- 07597, Colonoscopy, flexible; with biopsy, single or multiple --- Technical --- 66161, Colonoscopy, flexible; with biopsy, single or multiple Diagnosis Code(s): --- Professional --- K52.9, Noninfective gastroenteritis and colitis, unspecified K57.30, Diverticulosis of large intestine without perforation or abscess without bleeding --- Technical --- K52.9, Noninfective gastroenteritis and colitis, unspecified K57.30, Diverticulosis of large intestine without perforation or abscess without bleeding CPT copyright 2021 [employer]. All rights reserved. The codes documented in this report are preliminary and upon asset recovery specialist reviewmay be revised to meet current compliance requirements. Procedure Date: 12/23/2023 8:44:[address] [place], [place] [id number] Hodan Brewster MD GI PROCEDURE ORDERA BLES * Fecal immunochemical test x1 (FIT) (09/16/2023 8:30 AM EDT) Immuno Fecal Occult Negative Negative [facility] Stool (Stool) 09/16/2023 8:3 0 AM EDT 09/16/2023 11:32 AM EDT Sandhya Farr NP BODY FLUIDS AND STO OLS ORDERABLES [facility] [address] [place] [address] * BD DXA SPINE AND HIP WITH FOREARM (09/07/2023 11:17 AM EDT) Anatomical Region Laterality Modality Bone Density Bone Density 09/09/2023 6:18 PM EDT Impressions 09/13/2023 9:44 AM EDT Bone mineral density falls within the osteopenia range. Statistically significant bone mineral density loss in the right hip and left forearm compared with 11/24/2018. Statistically significant bone mineral density gain in the lumbar spine may be unreliable and related to sclerotic degenerative endplate change. Narrative 09/13/2023 9:44 AM EDT This is a 73-year-old female presenting for screening exam. Compared with prior study 12/02/2018. Evaluation of the lumbar spine, right hip and left forearm is obtained and appears technically adequate. The lumbar spine from L1 through L2 discloses a total bone mineral density of 1.316 g/cm2 with a T-score of 3.1. ??This is in the normal range. This is a statistically significant bone mineral density change of 11.2% compared with 12/02/2018. The right hip (total) ??has a total bone mineral density of 0.973 g/cm2 with a T-score of ??0.3. ??This is in the normal range. Statistically significant bone mineral density change of -6.2% compared with 11/24/2018. The right hip (neck) has a total bone mineral density of 0.824 g/cm2 with a T- score of ??-0.2. The left forearm has a total bone mineral density of 0.42 g/cm2 for a T-score of -1.6. Z score 0.7. ??This is in the osteopenia range. This is a statistically significant bone mineral density change of -10.1% compared with 11/24/2018. Procedure Note Eric Hines MD - 09/13/2023 This is a 73-year-old female presenting for screening exam. Compared with prior study 12/02/2018. Evaluation of the lumbar spine, right hip and left forearm is obtained andappears technically adequate. The lumbar spine from L1 through L2 discloses a total bone mineral densityof 1.316 g/cm2 with a T-score of 3.1. This is in the normal range. Thisis a statistically significant bone mineral density change of 11.2%compared with 12/02/2018. The right hip (total) has a total bone mineral density of 0.973 g/vg2ming a T- score of 0.3. This is in the normal range. Statisticallysignificant bone mineral density change of -6.2% compared with11/24/2018. The right hip (neck) has a total bone mineral density of 0.824 g/cm2 witha T- score of -0.2. The left forearm has a total bone mineral density of 0.42 g/cm2 for aT-score of -1.6. Z score 0.7. This is in the osteopenia range. This is astatistically significant bone mineral density change of -10.1% comparedwith 11/24/2018. IMPRESSION: Bone mineral density falls within the osteopenia range. Statisticallysignificant bone mineral density loss in the right hip and left forearmcompared with 11/24/2018. Statistically significant bone mineral densitygain in the lumbar spine may be unreliable and related to scleroticdegenerative endplate change. Hodan WATKINS BD BONE DENSITY DEXA from Last 3 Months or Most Recently Relevant to Health Maintenance Advance Directives For more information, please contact: [phone] (9AM - 5PM [place], Wednesday-Wednesday) * Full Code (Latest Code Status on File) Date Activated Date Inactivated Comments 02/01/2024 5:35 PM Question Answer Comments Code Status Confirmed With: Patient Care Teams Automobile Bumper Straightener Relationship Specialty Start Date End Date Hodan Brewster MD [address] [place] [id number] PCP - General Internal Medicine 07/30/17 Eddie Nina MD [email or web address] Historical LMR Provider 03/23/17 Hodan Brewster MD [address] [place] [address] Historical LMR Provider 03/23/17 Kacey George MD [address] [place] [address] [facility], [place] [address] Historical LMR Provider 03/23/17 Hdoan Brewster MD [address] [place] [address] Insurance Assigned Provider 09/11/23 Additional Source Comments The information contained in this document represents components of the legal health record. It is not the complete legal health record.[facility]
--- OUTSIDE RECORDS SUMMARY | 2024-08-17 16:50 | XMS_ITS | Encounter Summary ---
Author Organization [facility] Address [address] [place] [address] Phone Care Team Providers Care Paper Colorer Name Role Phone Eddie Nina MD Unavailable Hodan Brewster MD Unavailable Kacey George MD Unavailable Hodan Brewster MD Primary Care Provider [phone] Hodan Brewster MD Unavailable [phone] Encounter Details Date Type Department Care Team (Late st Contact Info) Description 08/08/2024 Orders Only [facility] [address] [place] [address] Provider, MD Rupesh [address] [place] [address] Social History Tobacco Use Types Packs/Day Years [...] [facility] Spine [address] [place] [address] Reymundo Patricio MD [address] [place] [address] [email or web address] 10/20/2024 10:00 AM EDT Office Visit [facility] 22 [facility] [address] [place] [address] Susana Stuart DNP [address] [facility], [address] [place] [address] [email or web address] documented as of this encounter Procedures Procedure Name Priority Date/Time Associated Diagnosis Comments OUTSIDE IMAGING Routine 06/21/2024 4:08 PM EST documented in this encounter Results * Outside Imaging Report Only (06/21/2024 4:08 PM EST) Historical Provider IMG XR CHEST documented in this encounter Visit Diagnoses Not on filedocumented in this encounter Additional Health Concerns Assessment Noted Time PHQ-2 Depression Total Score: 2 12/31/19 24 4:14 PM EDT documented as of this encounter Care Teams Paper Colorer Relationship Specialty Start Date End Date Hodan Brewster MD [address] [facility], [address] [place] [address] [email or web address] PCP - General Internal Medicine 07/30/17 Eddie Nina MD [email or web address] Historical LMR Provider 03/23/17 Hodan Brewster MD [address] [place] [address] Historical LMR Provider 03/23/17 Kacey George MD [address] [place] [address] [facility] Medicine, [place] [address] Historical LMR Provider 03/23/17 Hodan Brewster MD [address] [place] [address], [address] [place] [address] Insurance Assigned Provider 09/11/23 documented as of this encounter Additional Source Comments The information contained in this document represents components of the legal health record. It is not the complete legal health record.[facility]
--- OUTSIDE RECORDS SUMMARY | 2024-08-17 16:50 | XMS_ITS | Encounter Summary ---
Author Organization [facility] Address [address] [place] [address] Phone Care Team Providers Care Production Support Analyst Name Role Phone Eddie Nina MD Unavailable Hodan Brewster MD Unavailable [phone] Kacey George MD Unavailable Hodan Brewster MD Primary Care Provider [phone] Hodan Brewster MD Unavailable [phone] Encounter Details Date Type Department Care Team (Late st Contact Info) Description 09/08/2023 Procedure Pass [facility] [address] [place] [address] Social History Tobacco Use Types Packs/Day Years [...] high school, GED, job training, learning the [place] language, technical skills, or developing parenting skills)? [...] PM EDT Office Visit [facility] Orthopaedic Spine [address] [place] [address] Reymundo Patricio MD [address] [place] [address] [email or web address] 10/20/2024 10:00 AM EDT Office Visit [facility] [address] [place] [address] [address] [place] [address] Susana Stuart DNP [address] [facility], [address] [place] [address] documented as of this encounter Visit Diagnoses Not on filedocumented in this encounter Additional Health Concerns Assessment Noted Time PHQ-2 Depression Total Score: 1 12/04/19 22 4:12 PM EDT documented as of this encounter Care Teams Production Support Analyst Relationship Specialty Start Date End Date Hodan Brewster MD [address] [place] [address] PCP - General Internal Medicine 07/30/17 Eddie Nina MD [email or web address] Historical LMR Provider 03/23/17 Hodan Brewster MD [address] [place] [address] Historical LMR Provider 03/23/17 Kacey George MD [address] [place] [address] [facility], [place] [address] Historical LMR Provider 03/23/17 Hodan Brewster MD [address] [place] [address] Insurance Assigned Provider 09/11/23 documented as of this encounter Additional Source Comments The information contained in this document represents components of the legal health record. It is not the complete legal health record.[facility]
--- OUTSIDE RECORDS SUMMARY | 2024-08-17 16:50 | XMS_ITS | Encounter Summary ---
Author Organization [facility] Address [address] [place] [address] Phone Care Team Providers Care Assembler Latches And Springs Name Role Phone Eddie Nina MD Unavailable Hodan Brewster MD Unavailable [phone] Kacey George MD Unavailable Hodan Brewster MD Primary Care Provider [phone] Hodan Brewster MD Unavailable [phone] Encounter Details Date Type Department Care Team (Late st Contact Info) Description 08/16/2024 Orders Only [facility] [address] [place] [address] Provider, MD Rupesh [address] [place] [address] Social History Tobacco Use Types Packs/Day [...] Description 09/13/2024 12:00 PM EDT [facility] Spine [address] [place] [address] Reymundo Patricio MD [address] [place] [address] [email or web address] 10/20/2024 10:00 AM EDT Office Visit [facility] 22 [facility] [address] [place] [address] Susana Stuart DNP 22 [facility], [address] [place] [address] [email or web address] documented as of this encounter Procedures Procedure Name Priority Date/Time Associated Diagnosis Comments OUTSIDE LAB Routine 07/20/2024 11:42 AM EST documented in this encounter Results * Outside Lab (07/20/2024 11:42 AM EST) Historical Provider LAB BLOOD ORDERAB LES documented in this encounter Visit Diagnoses Not on filedocumented in this encounter Additional Health Concerns Assessment Noted Time PHQ-2 Depression Total Score: 2 12/31/19 24 4:14 PM EDT documented as of this encounter Care Teams Assembler Latches And Springs Relationship Specialty Start Date End Date Hodan Brewster MD [address] [place] [address] [email or web address] PCP - General Internal Medicine 07/30/17 Eddie Nina MD [email or web address] Historical LMR Provider 03/23/17 Hodan Brewster MD [address] [place] [address] Historical LMR Provider 03/23/17 Kacey George MD [address] [place] [address] [facility], [place] [address] Historical LMR Provider 03/23/17 Hodan Brewster MD [address] [place] [address], [address] [place] [address] Insurance Assigned Provider 09/11/23 documented as of this encounter Additional Source Comments The information contained in this document represents components of the legal health record. It is not the complete legal health record.[facility]
--- OUTSIDE RECORDS SUMMARY | 2024-08-17 16:50 | XMS_ITS | Encounter Summary ---
Author Organization [facility] Address [address] [place] [address] Phone Care Team Providers Care Sewing Machine Operator Semiautomatic Name Role Phone Eddie Nina MD Unavailable Hodan Brewster MD Unavailable Kacey George MD Unavailable Hodan Brewster MD Primary Care Provider Hodan Brewster MD Unavailable [phone] Encounter Details Date Type Department Care Team (Late st Contact Info) Description 08/02/2024 Orders Only [facility] [address] [place] [address] Provider, MD Rupesh [address] [place] [address] Social History Tobacco Use Types Packs/Day [...] Description 09/13/2024 12:00 PM EDT Office Visit [facility] Orthopaedic Spine [address] [place] [address] Reymundo Patricio MD [address] [place] [address] [email or web address] 10/20/2024 10:00 AM EDT Office Visit [facility] 22 [facility] [address] [place] [address] Susana tSuart DNP 22 [facility], [address] [place] [address] [email or web address] documented as of this encounter Procedures Procedure Name Priority Date/Time Associated Diagnosis Comments OUTSIDE LAB Routine 07/20/2024 12:07 PM EST documented in this encounter Results * Outside Lab (07/20/2024 12:07 PM EST) Historical Provider LAB BLOOD ORDERAB LES documented in this encounter Visit Diagnoses Not on filedocumented in this encounter Additional Health Concerns Assessment Noted Time PHQ-2 Depression Total Score: 2 12/31/19 24 4:14 PM EDT documented as of this encounter Care Teams Sewing Machine Operator Semiautomatic Relationship Specialty Start Date End Date Hodan Brewster MD [address] [place] [address] [email or web address] PCP - General Internal Medicine 07/30/17 Eddie Nina MD [email or web address] Historical LMR Provider 03/23/17 Hodan Brewster MD [address] [place] [address] Historical LMR Provider 03/23/17 Kacey George MD [address] [place] [address] [facility], [place] [address] Historical LMR Provider 03/23/17 Hodan Brewster MD [address] [place] [address], 2[address] [place] [address] Insurance Assigned Provider 09/11/23 documented as of this encounter Additional Source Comments The information contained in this document represents components of the legal health record. It is not the complete legal health record.[facility]
--- OUTSIDE RECORDS SUMMARY | 2024-08-17 16:51 | XMS_ITS | Encounter Summary ---
Author Organization [facility] Address [address] [facility] [address] [place] [address] Phone Care Team Providers Care Sound Effects Person Name Role Phone Hodan Brewster MD Primary Care Provider [phone] Franchesca Alexandra BUYER LIAISON Unavailable Alexia Galloway MARKETING FORECASTER Unavailable Eddie Nina MD Unavailable Kellie Candelario MD Unavailable [phone] Hodan Brewster MD Unavailable [phone] Marlena Cunningham HEAT SEAL OPERATOR Unavailable Susana Olguin MD Unavailable Margie Stahl DPM Unavailable Unavaila ble Dre Novak MD Unavailable Kaushik Virgen MD Unavailable [phone] Zeeshan Ferrera MD Unavailable [phone] Kacey George MD Unavailable Tim White MD Unavailable [phone] Kaushik Virgen MD Primary Care Provider + Hodan Brewster MD Primary Care Provider [phone] Hodan Brewster MD Unavailable [phone] Hodan Brewster MD Unavailable Hodan Brewster MD Unavailable Encounter Details Date Type Department Care Team (Late st Contact Info) Description 08/27/2016 Procedure Pass [facility] [address] [place] [address] Social History Tobacco Use Types Packs/Day Years [...] PM EDT Office Visit [facility]opa[facility] Spine [address] [facility] [address] [place] [address] Reymundo Patricio MD [address] [place] [address] [email or web address] 10/20/2024 10:00 AM EDT Office Visit [facility] [address] [facility] 301 [place] [address] Susana Stuart DNP [address] [facility], [address] [place] [address] [email or web address] documented as of this encounter Visit Diagnoses Not on filedocumented in this encounter Care Teams Sound Effects Person Relationship Specialty Start Date End Date Hodan Brewster MD [address] [place] [address], 2[address] [place] [address] [email or web address] PCP - General 08/14/16 06/13/17 Kaushik Virgen MD [address] [place] [address] [email or web address] PCP - General Family Medicine 06/14/17 07/29/17 Hodan Brewster MD [address] [place] [address], [address] [place] [address] [email or web address] PCP - General Internal Medicine 07/30/17 Franchesca Alexandra, RICHIE [address] [place] [address] Historical LMR Provider 03/23/17 Alexia Galloway CNP [address] [facility] [place] [address] [email or web address] Historical LMR Provider 03/23/17 06/14/21 Eddie Nina MD [address] [place] [address] [address] [place] [address] [email or web address] Historical LMR Provider 03/23/17 Kellie Candelario MD [address] [place] [address] Historical LMR Provider 03/23/17 Hodan Brewster MD [address] [place] [address], [address] [place] [address] [email or web address] Historical LMR Provider 03/23/17 Marlena CunninghamhOXANA [address] [facility], [address] [place] [address] Historical LMR Provider 03/23/17 06/14/21 Susana Olguin MD [address] [facility], [address] [place] [address] Historical LMR Provider 03/23/17 06/14/21 Margie Stahl DPM [address] [place] [address] Historical LMR Provider 03/23/17 2 Dre Novak MD [address] [place] [address], 2nd [place] [address] [email or web address] Historical LMR Provider 03/23/17 06/14/21 Kaushik Virgen MD [address] [place] [address] [email or web address] Historical LMR Provider 03/23/17 06/14/21 Zeeshan Ferrera MD [address] [place] [address], [address] [place] [address] Historical LMR Provider 03/23/17 06/14/21 Kacey George MD [address] [place] [address] [facility], [place] [address] Historical LMR Provider 03/23/17 Tim White MD [address] [place] [address] [email or web address] Historical LMR Provider 03/23/17 06/14/21 Hodan Brewster MD [address] [place] [address] Insurance Assigned Provider 10/08/18 12/17/18 Hodan Brewster MD [address] [place] [address] Insurance Assigned Provider 09/13/19 06/13/22 Hodan Brewster MD [address] [place] [address] Insurance Assigned Provider 09/11/23 documented as of this encounter Additional Source Comments The information contained in this document represents components of the legal health record. It is not the complete legal health record.[facility]
--- OUTSIDE RECORDS SUMMARY | 2024-08-17 16:51 | XMS_ITS | Clinical Summary ---
Author Organization [facility] Address [address] [place] [address] Care Team Providers Care Custom Motorcycle Painter Name Role Phone Hodan Brewster MD Primary Care Provider [phone] Allergies Active Allergy Reactions Criticality Noted Date [...] Pregabalin 12/27/2018 Feet and leg swelling Tiotropium [place] 08/26/2021 Medications Tymlos 80 mcg (3,120 mcg/1.56 [...] topic Insurance MEDICARE PART A & B [facility] Care Teams Custom Motorcycle Painter Relationship Specialty Start Date End Date Hodan Brewster MD [facility] [address] [place] [address] [address] [place] [address] PCP - General Internal Medicine 10/04/23
--- OUTSIDE RECORDS SUMMARY | 2024-08-17 16:51 | XMS_ITS | Encounter Summary ---
Author Organization [facility] Address [address] [place] [address] Phone Care Team Providers Care Veterinarian Epidemiologist Name Role Phone Eddie Nina MD Unavailable Hodan Brewster MD Unavailable [phone] Kacey George MD Unavailable Hodan Brewster MD Primary Care Provider [phone] Hodan Brewster MD Unavailable [phone] Encounter Details Date Type Department Care Team (Late st Contact Info) Description 01/28/2023 Procedure Pass [address] [address] Social History Tobacco Use Types Packs/Day Years [...] high school, GED, job training, learning the [place] language, technical skills, or developing parenting skills)? [...] [facility] Orthopaedic Spine [address] [place] [address] Reymundo Patricio MD [address] [place] [address] [email or web address] 10/20/2024 10:00 AM EDT Office Visit [facility] [address] [place] [address] [facility] [address] [place] [address] Susana Stuart DNP [address] [place] [address], [address] [place] [address] documented as of this encounter Visit Diagnoses Not on filedocumented in this encounter Additional Health Concerns Assessment Noted Time PHQ-2 Depression Total Score: 1 12/04/19 22 4:12 PM EDT documented as of this encounter Care Teams Veterinarian Epidemiologist Relationship Specialty Start Date End Date Hodan Brewster MD [address] [place] [address] PCP - General Internal Medicine 07/30/17 Eddie Nina MD [email or web address] Historical LMR Provider 03/23/17 Hodan Brewster MD [address] [place] [address] Historical LMR Provider 03/23/17 Kacey George MD [address] [place] [address] [facility] Sports Medicine, [place] [address] Historical LMR Provider 03/23/17 Hodan Brewster MD [address] [place] [address] Insurance Assigned Provider 09/11/23 documented as of this encounter Additional Source Comments The information contained in this document represents components of the legal health record. It is not the complete legal health record.[facility]
--- OUTSIDE RECORDS SUMMARY | 2024-08-17 16:51 | XMS_ITS | Encounter Summary ---
Author Organization [facility] Address [address] [place] [address] Phone Care Team Providers Care Hop Farmer Name Role Phone Unavailable Primary Care Provider Unavailabl e Encounter Details Date Type Department Care Team ([facility] st Contact Info) Description 05/04/2016 Hospital Encounter [facility] Imaging 55 [place] [address] Michael Guerra MD [address] [place] [address] Social History Tobacco Use Types Packs/Day Years [...] [facility] Orthopaedic Spine [address] [place] [address] Reymundo Patricio MD [address] [place] [address] [email or web address] 10/20/2024 10:00 AM EDT Office Visit [facility] [address] [place] [address] [address] [place] [address] Susana Stuart, CHUCK [address] [facility], [address] [place] [address] [email or web address] documented as of this encounter Procedures Procedure Name Priority Date/Time Associated Diagnosis Comments XR SPINE OUTSIDE (NO INTERPRETATION) Routine 05/04/2016 12:00 AM EST documented in this encounter Results * XR SPINE OUTSIDE(NO INTERPRETATION) (05/04/2016 12:00 AM EST) Narrative [facility] IMG INTERFACES - 08/27/2016 3:08 PM EDT This study is for PACS storage only and not for interpretation. Michael Guerra MD IMG OUTSIDE I KANNAN W/OUT INTERPRETATION [facility] IMG INTERFACES documented in this encounter Visit Diagnoses Not on filedocumented in this encounter Additional Source Comments The information contained in this document represents components of the legal health record. It is not the complete legal health record.[facility]
--- OUTSIDE RECORDS SUMMARY | 2024-08-17 16:51 | XMS_ITS | Encounter Summary ---
Author Organization [facility] Address [email or web address] [place] [address] Phone Care Team Providers Care Dna Sequencing Associate Name Role Phone Eddie Nina MD Unavailable Hodan Brewster MD Unavailable [phone] Kacey George MD Unavailable [phone] Hodan Brewster MD Primary Care Provider [phone] Hodan Brewster MD Unavailable [phone] Encounter Details Date Type Department Care Team (Late st Contact Info) Description 10/08/2022 Procedure Pass [address] [place] [address] Social History Tobacco Use Types Packs/Day Years [...] high school, GED, job training, learning the [place]er language, technical skills, or developing parenting skills)? [...] Description 09/13/2024 12:00 PM EDT Office Visit [facility] Orthopaedic Spine [address] [facility] [address] [place] [address] Reymundo Patricio MD [address] [place] [address] [email or web address] 10/20/2024 10:00 AM EDT Office Visit [facility] [address] [facility] 301 [place] [address] Susana Stuart DNP [address] [facility], [address] [place] [address] documented as of this encounter Visit Diagnoses Not on filedocumented in this encounter Additional Health Concerns Assessment Noted Time PHQ-2 Depression Total Score: 1 12/04/19 22 4:12 PM EDT documented as of this encounter Care Teams Dna Sequencing Associate Relationship Specialty Start Date End Date Hodan Brewster MD [address] [place] [address] PCP - General Internal Medicine 07/30/17 Eddie Nina MD [email or web address] Historical LMR Provider 03/23/17 Hodan Brewster MD [address] [place] [address] Historical LMR Provider 03/23/17 Kacey George MD [address] [place] [address] Orthopedics & Sports Medicine, [place] [address] Historical LMR Provider 03/23/17 Hodan Brewster MD [address] [place] [address] Insurance Assigned Provider 09/11/23 documented as of this encounter Additional Source Comments The information contained in this document represents components of the legal health record. It is not the complete legal health record.[facility]
--- OUTSIDE RECORDS SUMMARY | 2024-08-17 16:51 | XMS_ITS | Encounter Summary ---
Author Organization [facility] Address [address] [place] [address] Phone Care Team Providers Care Glass Glazier Name Role Phone Eddie Nina MD Unavailable Hodan Brewster MD Unavailable [phone] Kacey George MD Unavailable Hodan Brewster MD Primary Care Provider [phone] Hodan Brewster MD Unavailable [phone] Encounter Details Date Type Department Care Team (Late st Contact Info) Description 01/07/2024 Procedure Pass [facility] [address] [place] [address] Social History Tobacco Use Types Packs/Day Years [...] 09/13/2024 12:00 PM EDT Office Visit [facility] Orthopaedic Spine [address] [place] [address] Reymundo Patricio MD [address] [place] [address] [email or web address] 10/20/2024 10:00 AM EDT Office Visit [facility] [address] [place] [address] [facility] [address] [place] [address] Susana Stuart DNP [address] [place] [address], [address] [place] [address] documented as of this encounter Visit Diagnoses Not on filedocumented in this encounter Additional Health Concerns Assessment Noted Time PHQ-2 Depression Total Score: 2 12/31/19 24 4:14 PM EDT documented as of this encounter Care Teams Glass Glazier Relationship Specialty Start Date End Date Hodan Brewster MD [address] [place] [address] PCP - General Internal Medicine 07/30/17 Eddie Nina MD [email or web address] Historical LMR Provider 03/23/17 Hodan Brewster MD [address] [place] [address] Historical LMR Provider 03/23/17 Kacey George MD [address] [place] [address] [facility], [place] [address] Historical LMR Provider 03/23/17 Hodan Brewster MD [address] [place] [address] Insurance Assigned Provider 09/11/23 documented as of this encounter Additional Source Comments The information contained in this document represents components of the legal health record. It is not the complete legal health record.[facility]
--- OUTSIDE RECORDS SUMMARY | 2024-08-17 16:51 | XMS_ITS | Encounter Summary ---
Author Organization [facility] Address [address] [place] [address] Phone Care Team Providers Care Burglar Alarm Installer Name Role Phone Unavailable Primary Care Provider Unavailabl e Reason for Visit * MRI/CAT Scan - Closed Specialty Diagnoses / Procedures Referred By Contsj t Referred To Contact Procedures MRI Spine (Neuro) Outside (No Interpretation) Michael Guerra MD [address] [place] [address] Email: [email or web address] Referral ID Status Reason Start Date Expiration Date Visits Re quested Visits Authorized [id number] Closed 08/27/2016 08/27/2017 1 1 Encounter Details Date Type Department Care Team ([facility] st Contact Info) Description 07/12/2016 12:15 AM EST Hospital Encounter [facility] General Imaging 55 [place] [address] Michael Guerra MD [address] [place], [place] [id number] [email or web address] Social History Tobacco Use Types Packs/Day Years [...] Description 09/13/2024 12:00 PM EDT Office Visit [facility] Orthopaedic Spine [address] [place] [address] Reymundo Patricio MD [address] [place] [address] [email or web address] 10/20/2024 10:00 AM EDT Office Visit [facility] [address] [facility] 301 [place] [address] Susana Stuart DNP [address] [facility] [facility] [place] [address] [email or web address] documented as of this encounter Procedures Procedure Name Priority Date/Time Associated Diagnosis Comments MRI SPINE NEUROLOGIC FOCUS OUTSIDE (NO INTERPRETATION) Routine 07/12/2016 12:15 AM EST documented in this encounter Results * MRI Spine (Neuro) Outside (No Interpretation) (07/12/2016 12:15 AM EST) Narrative [facility] IMG INTERFACES - 08/27/2016 3:10 PM EDT This study is for PACS storage only and not for interpretation. Michael Guerra MD IMG OUTSIDE I KANNAN W/OUT INTERPRETATION [facility] IMG INTERFACES documented in this encounter Visit Diagnoses Not on filedocumented in this encounter Additional Source Comments The information contained in this document represents components of the legal health record. It is not the complete legal health record.[facility]
--- OUTSIDE RECORDS SUMMARY | 2024-08-17 16:51 | XMS_ITS | Encounter Summary ---
Author Organization [facility] Address [address] [place] [address] Phone Care Team Providers Care Welding Machine Operator Electro Gas Name Role Phone Eddie Nina MD Unavailable Hodan Brewster MD Unavailable [phone] Kacey George MD Unavailable [phone] Hodan Brewster MD Primary Care Provider Hodan Brewster MD Unavailable [phone] Hodan Brewster MD Unavailable [phone] Encounter Details Date Type Department Care Team (Late st Contact Info) Description 12/03/2021 Procedure Pass [facility] - [address] [place] [address] Social History Tobacco Use Types Packs/Day Years [...] high school, GED, job training, learning the Yemeni language, technical skills, or developing parenting skills)? [...] 09/13/2024 12:00 PM EDT Office Visit [facility] Orthopaedic Spine [address] [facility] [address] [place] [address] Reymundo Patricio MD [address] [place] [address] [email or web address] 10/20/2024 10:00 AM EDT Office Visit [facility] [address] [facility] 301 [place] [address] Susana Stuart DNP 22 [facility], [address] [place] [address] documented as of this encounter Visit Diagnoses Not on filedocumented in this encounter Additional Health Concerns Assessment Noted Time PHQ-2 Depression Total Score: 1 12/04/19 22 4:12 PM EDT documented as of this encounter Care Teams Welding Machine Operator Electro Gas Relationship Specialty Start Date End Date Hodan Brewster MD [address] [place] [address] [email or web address] PCP - General Internal Medicine 07/30/17 Eddie Nina MD [email or web address] Historical LMR Provider 03/23/17 Hodan Brewster MD [address] [place] [address] Historical LMR Provider 03/23/17 Kacey George MD [address] [place] [address] [facility] Medicine, [place] [address] Historical LMR Provider 03/23/17 Hodan Brewster MD [address] [place] [address] Insurance Assigned Provider 09/13/19 06/13/22 Hodan Brewster MD [address] [place] [address] Insurance Assigned Provider 09/11/23 documented as of this encounter Additional Source Comments The information contained in this document represents components of the legal health record. It is not the complete legal health record.[facility]
--- OUTSIDE RECORDS SUMMARY | 2024-08-17 16:51 | XMS_ITS | Encounter Summary ---
Author Organization [facility] Address [address] [place] [address] Phone Care Team Providers Care Radiology Supervisor Name Role Phone Franchesca Alexandra PHARMACY TEACHER Unavailable Alexia Galloway HEALTH ASSOCIATE Unavailable Eddie Nina MD Unavailable Kellie Candelario MD Unavailable [phone] Hodan Brewster MD Unavailable Marlena Cunningham CHIEF WELLNESS OFFICER Unavailable Susana Olguin MD Unavailable Margie Stahl DPM Unavailable Unavaila ble Dre Novak MD Unavailable Kaushik Virgen MD Unavailable Zeeshan Ferrera MD Unavailable [phone] Kacey George MD Unavailable Tim White MD Unavailable Hodan Brewster MD Primary Care Provider [phone] Hodan Brewster MD Unavailable Hodan Brewster MD Unavailable Hodan Brewster MD Unavailable [phone] Encounter Details Date Type Department Care Team (Late st Contact Info) Description 08/04/2017 Procedure Pass [facility] [address] [place] [address] Social History Tobacco Use Types Packs/Day Years [...] - - Weight 77.1 kg (170 lb) 08/06/2017 3:33 PM EST Height 154.9 cm (5' 1 ) 08/06/2017 3:33 PM EST Body Mass Index 32.12 08/06/2017 3:33 PM EST documented in this encounter Plan of Treatment Upcoming Encounters Date Type Department Care Team (Late st Contact Info) Description 09/13/2024 12:00 PM EDT Office Visit [facility] Orthopaedic Spine [address] [place] [address] Reymundo Patricio MD 55 [place] [address] [email or web address] 10/20/2024 10:00 AM EDT Office Visit [facility] [address] [facility] [address] [place] [address] Susana Stuart DNP [address] [facility], [address] [place], [place] [address] [email or web address] documented as of this encounter Visit Diagnoses Not on filedocumented in this encounter Care Teams Radiology Supervisor Relationship Specialty Start Date End Date Hodan Brewster MD [address] [place] [address], [address] [place] [address] [email or web address] PCP - General Internal Medicine 07/30/17 Franchesca Alexandra, PHARMACY TEACHER 1 [place] [address] Historical LMR Provider 03/23/17 Alexia Galloway, TABATHA [address] [place] [address] [email or web address] Historical LMR Provider 03/23/17 06/14/21 Eddie Nina MD [address], [address] [place] [address] [email or web address] Historical LMR Provider 03/23/17 Kellie Candelario MD [address] [place] [address] Historical LMR Provider 03/23/17 Hodan rBewster MD [address] [place] [address], [address] [place] [address] [email or web address] Historical LMR Provider 03/23/17 Marlena Cunningham FNP [address], [address] [place] [address] [email or web address] Historical LMR Provider 03/23/17 06/14/21 Susana Olguin MD [address], [address] [place] [address] [email or web address] Historical LMR Provider 03/23/17 06/14/21 Margie Stahl DPM [address] [place] [address] Historical LMR Provider 03/23/17 Dre Weir MD [address] [place] [address], [address] [place] [address] [email or web address] Historical LMR Provider 03/23/17 06/14/21 Kaushik Virgen MD [address] [place] [address] [email or web address] Historical LMR Provider 03/23/17 06/14/21 Zeeshan Ferrera MD [address] [facility], [address] [place] [address] [email or web address] Historical LMR Provider 03/23/17 06/14/21 Kacey George MD [address] [place] [address] [facility], [place] [address] [email or web address] Historical LMR Provider 03/23/17 Tim White MD [address] [place] [address] [email or web address] Historical LMR Provider 03/23/17 06/14/21 Hodan Brewster MD [address] [place] [address] [email or web address] Insurance Assigned Provider 10/08/18 12/17/18 Hodan Brewster MD [address] [place] [address] [email or web address] Insurance Assigned Provider 09/13/19 06/13/22 Hodan Brewster MD [address] [place] [address] [email or web address] Insurance Assigned Provider 09/11/23 documented as of this encounter Additional Source Comments The information contained in this document represents components of the legal health record. It is not the complete legal health record.[facility]
--- OUTSIDE RECORDS SUMMARY | 2024-08-17 16:51 | XMS_ITS | Encounter Summary ---
Author Organization [facility] Address [address] [place] [address] Phone Care Team Providers Care Shift Supervisor Film Processing Name Role Phone Eddie Nina MD Unavailable Hodan Brewster MD Unavailable Kacey George MD Unavailable [phone] Hodan Brewster MD Primary Care Provider Hodan Brewster MD Unavailable Reason for Referral * MRI/CAT Scan - Closed Specialty Diagnoses / Procedures Referred By Contac t Referred To Contact Radiology Diagnoses Dorsalgia, unspecified Other specified postprocedural states Procedures MRI Lumbar Spine Donato Wynn MD [address] [place] [address] Referral ID Status Reason Start Date Expiration Date Visits Re quested Visits Authorized [id number] Closed 01/28/2023 1 1 Encounter Details Date Type Department Care Team (Latest Contact Info) Description 01/28/2023 Transcribe Orders Virtual Department 30 [place] [address] Donato Wynn MD [address] [place] [address] Dorsalgia, unspecified (Primary Dx); Other specified postprocedural [...] high school, GED, job training, learning the [place] language, technical skills, or developing parenting skills)? [...] [place] [facility] [address] [place] [address] Reymundo Patricio MD [address] [place] [address] [email or web address] 10/20/2024 10:00 AM EDT Office Visit [facility] [address] [facility] 301 [place] [address] Susana Stuart DNP [address] [facility], [address] [place] [address] documented as of this encounter Results * [...] MRI LUMBAR SPINE (NEURO) WITH AND WITHOUT [id number] FINDINGS: ALIGNMENT: Straightening of the lumbar lordosis. [...] L3-4 and L4-5 hemilaminectomy, discectomy, and L3- [id number] fusion. 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 without severe [...] documented as of this encounter Care Teams Shift Supervisor Film Processing Relationship Specialty Start Date End Date Hodan Brewster MD [address] [place] [phone] PCP - General Internal Medicine 07/30/17 Eddie Nina MD [email or web address] Historical LMR Provider 03/23/17 Hodan Brewster MD [address] [place] [address] Historical LMR Provider 03/23/17 Kacey George MD [address] [place] [address] [facility], [place] [address] Historical LMR Provider 03/23/17 Hodan Brewstre MD [address] [place] [phone] Insurance Assigned Provider 09/11/23 documented as of this encounter Additional Source Comments The information contained in this document represents components of the legal health record. It is not the complete legal health record.[facility]
--- OUTSIDE RECORDS SUMMARY | 2024-08-17 16:51 | XMS_ITS | Encounter Summary ---
Author Organization [facility] Address [address] [place] [address] Phone Care Team Providers Care Tavern Keeper Name Role Phone Unavailable Primary Care Provider Unavailabl e Reason for Visit * MRI/CAT Scan - Closed Specialty Diagnoses / Procedures Referred By Rebekah t Referred To Contact Procedures MRI Spine (Neuro) Outside (No Interpretation) Michael Guerra MD [address] [place] [address] Email: [email or web address] Referral ID Status Reason Start Date Expiration Date Visits Re quested Visits Authorized [id number] Closed 08/27/2016 08/27/2017 1 1 Encounter Details Date Type Department Care Team (Late st Contact Info) Description 07/12/2016 Hospital Encounter [facility] [address] [place] [address] Michael Guerra MD [address] [place] [address] [email or web address] Social History Tobacco Use Types Packs/Day Years [...] 09/13/2024 12:00 PM EDT Office Visit [facility] Orthopaedic Spine [address] [place] [address] Reymundo Patricio MD [address] [place] [address] [email or web address] 10/20/2024 10:00 AM EDT Office Visit [facility] [address] [facility] [address] [place] [address] Susana Stuart DNP [address] [facility], [address] [place] [address] [email or web address] documented as of this encounter Procedures Procedure Name Priority Date/Time Associated Diagnosis Comments MRI SPINE NEUROLOGIC FOCUS OUTSIDE (NO INTERPRETATION) Routine 07/12/2016 12:00 AM EST documented in this encounter Results * MRI Spine (Neuro) Outside (No Interpretation) (07/12/2016 12:00 AM EST) Narrative [facility] IMG INTERFACES - 08/27/2016 3:09 PM EDT This study is for PACS storage only and not for interpretation. Michael Guerra MD IMG OUTSIDE I KANNAN W/OUT INTERPRETATION [facility] IMG INTERFACES documented in this encounter Visit Diagnoses Not on filedocumented in this encounter Additional Source Comments The information contained in this document represents components of the legal health record. It is not the complete legal health record.[facility]
--- OUTSIDE RECORDS SUMMARY | 2024-08-17 16:51 | XMS_ITS | Encounter Summary ---
Author Organization [facility] Address [address] [place] [address] Phone Care Team Providers Care Morgue Attendant Name Role Phone Hodan Brewster MD Primary Care Provider [phone] Franchesca Alexandra AIRWORTHINESS INSPECTOR Unavailable Alexia Galloway EMR ANALYST Unavailable Eddie Nina MD Unavailable Kellie Candelario MD Unavailable [phone] Hodan Brewster MD Unavailable [phone] Marlena Cunningham FOAM GUN OPERATOR Unavailable Susana Olguin MD Unavailable Margie Stahl DPM Unavailable Unavaila ble Dre Novak MD Unavailable Kaushik Virgen MD Unavailable [phone] Zeeshan Ferrera MD Unavailable [phone] Kacey George MD Unavailable Tim White MD Unavailable [phone] Kaushik Virgen MD Primary Care Provider + Hodan Brewster MD Primary Care Provider [phone] Hodan Brewster MD Unavailable Hodan Brewster MD Unavailable Hodan Brewster MD Unavailable Encounter Details Date Type Department Care Team (Late st Contact Info) Description 08/27/2016 Procedure Pass [facility] [address] [place] [address] Social History Tobacco Use Types Packs/Day Years [...] Description 09/13/2024 12:00 PM EDT Office Visit [facility] [address] [facility] [address] [place] [address] Reymundo Patricio MD 55 [place] [address] [email or web address] 10/20/2024 10:00 AM EDT Office Visit [facility] [address] [facility] [address] [place] [address] Susana Stuart DNP [address] [facility], [address] [place] [address] [email or web address] documented as of this encounter Visit Diagnoses Not on filedocumented in this encounter Care Teams Morgue Attendant Relationship Specialty Start Date End Date Hodan Brewster MD [address] [place] [address], 2nd [place] [address] [email or web address] PCP - General 08/14/16 06/13/17 Kaushik Virgen MD [address] [place] [address] [email or web address] PCP - General Family Medicine 06/14/17 07/29/17 Hodan Brewster MD [address] [place] [address], [address] [place] [address] [email or web address] PCP - General Internal Medicine 07/30/17 Frnachesca Alexandra, RICHIE [address] [place] [address] Historical LMR Provider 03/23/17 Alexia Galloway CNP [address] [facility], [address] [place] [address] [email or web address] Historical LMR Provider 03/23/17 06/14/21 Eddie Nina MD [address] [place] [address] [address] [place] [address] [email or web address] Historical LMR Provider 03/23/17 Kellie Candelario MD [address] [place] [address] Historical LMR Provider 03/23/17 Hodan Brewster MD [address] [place] [address], [address] [place] [address] [email or web address] Historical LMR Provider 03/23/17 Marlena CunninghamhOXANA [address] [facility], [address] [place] [address] Historical LMR Provider 03/23/17 06/14/21 Susana Olguin MD [address] [facility], [address] [place] [address] Historical LMR Provider 03/23/17 06/14/21 Margie Stahl DPM [address] [place] [address] Historical LMR Provider 03/23/17 2 Dre Novak MD [address] [place] [address], 2nd [place] [address] [email or web address] Historical LMR Provider 03/23/17 06/14/21 Kaushik Virgen MD [address] [place] [address] [email or web address] Historical LMR Provider 03/23/17 06/14/21 Zeeshan Ferrera MD [address] [place] [address], [address] [place] [address] Historical LMR Provider 03/23/17 06/14/21 Kacey George MD [address] [place] [address] [facility], [place] [address] Historical LMR Provider 03/23/17 Tim White MD [address] [place] [address] [email or web address] Historical LMR Provider 03/23/17 06/14/21 Hodan Brewster MD [address] [place] [phone] Insurance Assigned Provider 10/08/18 12/17/18 Hodan Brewster MD [address] [place] [id number] Insurance Assigned Provider 09/13/19 06/13/22 Hodan Brewster MD [address] [place] [id number] Insurance Assigned Provider 09/11/23 documented as of this encounter Additional Source Comments The information contained in this document represents components of the legal health record. It is not the complete legal health record.[facility]
--- OUTSIDE RECORDS SUMMARY | 2024-08-17 16:51 | XMS_ITS | Clinical Summary ---
Author Organization [employer] Address [address] [place] [address] Care Team Providers Care Chief Of Safety And Protection Name Role Phone Hodan Brewster MD Primary Care Provider [phone] Allergies Active Allergy Reactions Criticality Noted Date [...] Adults 18 yrs or above (or HM Modifier)([facility]) 1969 Hepatitis C Virus Infection in Adolescents and Adults: Screening (or Modifier) ([facility]) 1969 LAQUITA Screening: Once using ST [facility]-BANG Questionnaire for Adults with Conditions or high BMI([facility]) 1969 SDOH Screening Reminder: Angelita borrero for all adults ([facility]) 1969 Tobacco Smoking Cessation: i n Adults excluding Women: Behavioral and Pharmacotherapy Interventions ([facility]) 1969 Colorectal Cancer Screening 45 -75 Yrs (or HM Modifier) 1996 Colorectal Cancer: FLEXIBLE SIGMOIDOSCOPY Screening every 5 yrs 1996 Colorectal Cancer: Fecal Immunochemical Test (FIT) Annually [facility] 1996 Colorectal Cancer: High-sens itivity gFOBT Screening Annually [facility] 1996 Colorectal Cancer: Stool Col oguard Screening every 3 yrs 1996 Colorectal Cancer:CT Colonog nia Screening every 5 yrs 1996 Lipid Screening: Every 5 yrs for Women aged 45+ (or HM Modifier) ([facility]) 1997 Breast Cancer: Screening Angelita ually age 50-74 yrs (or HM Modifier)([facility] ) 2001 Osteoporosis Screening to Pr event Fractures: Women aged 65 years+ ([facility] ) 2016 Pneumococcal Vaccination Scr eening: Patients 65+ yrs of age ([facility]) (2 of 2 - PCV) 06/23/2020 06/23/2019 Flu Vaccination: Ages 65+: Y early High Dose Recommended (or Modifier)([facility]) 01/06/2024 03/27/2022, 03/29/2018, 03/19/2017, Additional history exists COVID-19 Vaccine Screening: Initial Series and Booster Status ([facility]) (2023- season) 2024 02/25/2021, 08/28/2020, 07/31/2020 RSV Vaccines (1 - 1-dose 75+ series) 2026 DTaP/Tdap/Td Vaccines ([facility]) (3 - Td or Tdap) 05/09/2030 05/09/2020, 04/21/2011 Zoster/Shingles Vaccine Seri es Screening: Adults aged 18+ yrs (or HM Modifiers)([facility]) Completed 06/23/2019, 03/14/2019 Medical Devices Not on file Insurance [facility] MEDICARE Care Teams Chief Of Safety And Protection Relationship Specialty Start Date End Date Hodan Brewster MD [facility] [address] [place] [address] [address] [place] [phone] PCP - Exhauster Engineer 03/29/18
--- OUTSIDE RECORDS SUMMARY | 2024-08-17 16:51 | XMS_ITS | Encounter Summary ---
Author Organization [facility] Address [address] [place] [address] Phone Care Team Providers Care Mold Filler And Drainer Name Role Phone Unavailable Primary Care Provider Unavailabl e Encounter Details Date Type Department Care Team ([facility] st Contact Info) Description 05/04/2016 12:15 AM EST Hospital Encounter [facility] Imaging [address] [place] [address] Michael Guerra MD [address] [place] [address] Social History Tobacco Use Types Packs/Day Years [...] Description 09/13/2024 12:00 PM EDT Office Visit [facility] Spine [address] [place] [address] Reymundo Patricio MD [address] [place] [address] [email or web address] 10/20/2024 10:00 AM EDT Office Visit [facility] [address] [facility] [address] [place] [address] Susana Stuart, CHUCK [address] [facility] [place] [address] [email or web address] documented as of this encounter Procedures Procedure Name Priority Date/Time Associated Diagnosis Comments XR SPINE OUTSIDE (NO INTERPRETATION) Routine 05/04/2016 12:15 AM EST documented in this encounter Results * XR SPINE OUTSIDE(NO INTERPRETATION) (05/04/2016 12:15 AM EST) Narrative [facility] IMG INTERFACES - 08/27/2016 3:09 PM EDT This study is for PACS storage only and not for interpretation. Michael Guerra MD IMG OUTSIDE I KANNAN W/OUT INTERPRETATION [facility] IMG INTERFACES documented in this encounter Visit Diagnoses Not on filedocumented in this encounter Additional Source Comments The information contained in this document represents components of the legal health record. It is not the complete legal health record.[facility]
--- OUTSIDE RECORDS SUMMARY | 2024-08-17 16:51 | XMS_ITS | Encounter Summary ---
Author Organization [facility]ly [facility] Address [address] [place] [address] Phone Care Team Providers Care Field Staff Name Role Phone Franchesca Alexandra CALL CENTER ASSOCIATE Unavailable Alexia Galloway BROWNELL OPERATOR Unavailable Eddie Nina MD Unavailable Kellie Candelario MD Unavailable [phone] Hodan Brewster MD Unavailable Marlena Cunningham MEDICAL IMAGING TECHNICIAN Unavailable Susana Olguin MD Unavailable Margie Stahl DPM Unavailable Unavaila ble Dre Novak MD Unavailable Kaushik Virgen MD Unavailable Zeeshan Ferrera MD Unavailable [phone] Kacey George MD Unavailable Tim White MD Unavailable Hodan Brewster MD Primary Care Provider [phone] Hodan Brewster MD Unavailable [phone] Hodan Brewster MD Unavailable Hodan Brewster MD Unavailable Encounter Details Date Type Department Care Team (Late st Contact Info) Description 05/27/2018 Ancillary Orders Virtual Department [address] [place] [address] Hodan Brewster MD [address] [facility], 2nd [place] [address] Breast screening Social History Tobacco Use Types [...] Description 09/13/2024 12:00 PM EDT Office [facility] [address] [facility] [address] [place] [address] Reymundo Patricio MD 55 [place] [address] [email or web address] 10/20/2024 10:00 AM EDT Office Visit [facility] [address] [facility] 301 [place] [address] Susana Stuart DNP [address] [facility], [address] [place] [address] [email or web address] documented as of this encounter Results * [...] and compared with multiple prior studies, most nsqzutrd96/31/2018, with utilization of computer-aided detection. The breasts [...] unspecified documented in this encounter Care Teams Field Staff Relationship Specialty Start Date End Date Hodan Brewster MD [address] [place] [address], 2nd [place] [address] [email or web address] PCP - General Internal Medicine 07/30/17 Franchesca Alexandra, RICHIE 1 [place] [address] Historical LMR Provider 03/23/17 Alexia Galloway, BROWNELL OPERATOR [address], [address] [place] [address] [email or web address] Historical LMR Provider 03/23/17 06/14/21 Eddie Nina MD [address] [facility] [address], [address] [place] [address] [email or web address] Historical LMR Provider 03/23/17 Kellie Candelario MD [address] [place] [address] Historical LMR Provider 03/23/17 Hodan Brewster MD [address] [place] [address], 2nd [place] [address] [email or web address] Historical LMR Provider 03/23/17 Marlena Cunningham FNP [address], [address] [place] [address] Historical LMR Provider 03/23/17 06/14/21 Susana Olguin MD [address], [address] [place] [address] Historical LMR Provider 03/23/17 06/14/21 Margie Stahl DPM 575 [place] [address] Historical LMR Provider 03/23/17 Dre Weir MD [address] [place] [address], [address] [place] [address] [email or web address] Historical LMR Provider 03/23/17 06/14/21 Kaushik Virgen MD [address] [place] [address] [email or web address] Historical LMR Provider 03/23/17 06/14/21 Zeeshan Ferrera MD [address] [place] [address], [address] [place] [address] Historical LMR Provider 03/23/17 06/14/21 Kacey George MD [address] [place] [address] Orth[facility] Medicine, [place] [address] Historical LMR Provider 03/23/17 Tim White MD [address] [place] [address] [email or web address] Historical LMR Provider 03/23/17 06/14/21 Hodan Brewster MD [address] [place] [address] Insurance Assigned Provider 10/08/18 12/17/18 Hodan Brewster MD [address] [place] [address], [address] [place] [address] Insurance Assigned Provider 09/13/19 06/13/22 Hodan Brewster MD [address] [place] [address], [address] [place] [phone] Insurance Assigned Provider 09/11/23 documented as of this encounter Additional Source Comments The information contained in this document represents components of the legal health record. It is not the complete legal health record.[facility]
--- OUTSIDE RECORDS SUMMARY | 2024-08-17 16:51 | XMS_ITS | Encounter Summary ---
Author Organization [facility] Address [address] [place] [address] Phone Care Team Providers Care Rod Puller Name Role Phone Franchesca Alexandra TEAM LEAD Unavailable Alexia Galloway BOATHOUSE KEEPER Unavailable [phone] Eddie Nina MD Unavailable Kellie Candelario MD Unavailable [phone] Hodan Brewster MD Unavailable [phone] Marlena Cunningham LABORATORY TECH Unavailable Susana Olguin MD Unavailable Margie Stahl DPM Unavailable Unavaila ble Dre Novak MD Unavailable Kaushik Virgen MD Unavailable [phone] Zeeshan Ferrera MD Unavailable [phone] Kacey George MD Unavailable Tim White MD Unavailable Hodan Brewster MD Primary Care Provider [phone] Hodan Brewster MD Unavailable Hodan Brewster MD Unavailable Encounter Details Date Type Department Care Team (Late st Contact Info) Description 04/26/2020 Transcribe Orders [facility] Specimen Processing [address] [place] [address] Hodan Brewster MD [address] [place] [address], [address] [place] [address] [email or web address] Social History Tobacco Use Types Packs/Day [...] Description 09/13/2024 12:00 PM EDT Office Visit [facility] [address] [facility] 3A [place] [address] Reymundo Patricio MD 55 [place] [address] [email or web address] [email or web address] 10/20/2024 10:00 AM EDT Office Visit [facility] [address] [facility] 301 [place] [address] Susana Stuart DNP [address] [facility] [place] [address] [email or web address] documented as of this encounter Visit Diagnoses Not on filedocumented in this encounter Additional Health Concerns Assessment Noted Time PHQ-2 Depression Total Score: 0 11/21/19 20 8:33 AM EDT documented as of this encounter Care Teams Rod Puller Relationship Specialty Start Date End Date Hodan Brewster MD [address] [place] [address], [address] [place] [address] [email or web address] PCP - General Internal Medicine 07/30/17 Franchesca Alexandra, RICHIE 1 [place] [address] Historical LMR Provider 03/23/17 Alexia Galloway, TABATHA [address], [address] [place] [address] [email or web address] Historical LMR Provider 03/23/17 06/14/21 Eddie Nina MD [address], [address] [place] [address] [email or web address] Historical LMR Provider 03/23/17 Kellie Candelario MD [address] [place] [address] Historical LMR Provider 03/23/17 Hodan Brewster MD [address] [place] [address], 2nd [place] [address] [email or web address] Historical LMR Provider 03/23/17 Marlena Cunningham FNP [address], [address] [place] [address] [email or web address] Historical LMR Provider 03/23/17 06/14/21 Susana Olguin MD [address], [address] [place] [address] Historical LMR Provider 03/23/17 06/14/21 Margie Stahl DPM 575 [place] [address] Historical LMR Provider 03/23/17 Dre Weir MD [address] [place] [address], [address] [place] [address] [email or web address] Historical LMR Provider 03/23/17 06/14/21 Kaushik Virgen MD [address] [place] [address] [email or web address] Historical LMR Provider 03/23/17 06/14/21 Zeeshan Ferrera MD [address] [place] [address], [address] [place] [address] [email or web address] Historical LMR Provider 03/23/17 06/14/21 Kacey George MD [address] [place] [address] Orth[facility] Medicine, [place] [address] [email or web address] Historical LMR Provider 03/23/17 Tim White MD [address] [place] [address] [email or web address] Historical LMR Provider 03/23/17 06/14/21 Hodan Brewster MD [address] [place] [address] [email or web address] Insurance Assigned Provider 09/13/19 06/13/22 Hodan Brewster MD [address] [place] [address], 2nd [place] [address] [email or web address] Insurance Assigned Provider 09/11/23 documented as of this encounter Additional Source Comments The information contained in this document represents components of the legal health record. It is not the complete legal health record.[facility]
--- OUTSIDE RECORDS SUMMARY | 2024-08-17 16:51 | XMS_ITS | Encounter Summary ---
Author Organization [facility] Address [address] [place] [address] Phone Care Team Providers Care Document Manager Name Role Phone Franchesca Aelxandra DIESEL POWER SHOVEL OPERATOR Unavailable Alexia Galloway CORN CROP SUPERVISOR Unavailable Eddie Nina MD Unavailable Kellie Candelario MD Unavailable [phone] Hodan Brewster MD Unavailable [phone] Marlena Cunningham KEY SANDER Unavailable Susana Olguin MD Unavailable Margie Stahl DPM Unavailable Unavaila ble Dre Novak MD Unavailable Kaushik Virgen MD Unavailable Zeeshan Ferrera MD Unavailable [phone] Kacey George MD Unavailable Tim White MD Unavailable Kaushik Virgen MD Primary Care Provider + Hodan Brewster MD Primary Care Provider [phone] Hodan Brewster MD Unavailable Hodan Brewster MD Unavailable Hodan Brewster MD Unavailable Encounter Details Date Type Department Care Team (Latest Contact Info) Description 06/24/2017 Transcribe Orders [facility] Laboratory [address] [place] [address] Eddie Nina MD 22 [place] [address] [email or web address] Mixed hyperlipidemia Social History Tobacco Use Types [...] Description 09/13/2024 12:00 PM EDT Office Visit [facility] Spine 55 [facility] 3A [place] [address] Reymundo Patricio MD 55 [place] [address] [email or web address] 10/20/2024 10:00 AM EDT Office Visit [facility] 22 [place] [facility] 301 [place] [address] Susana Stuart DNP [address] [facility], [address] [place] [address] [email or web address] documented as of this encounter Procedures Procedure Name Priority Date/Time Associated Diagnosis Comments COMPREHENSIVE METABOLIC PANEL Routine 06/24/2017 1:00 PM EST Mixed hyperlipidemia CBC AND DIFFERENTIAL Routine 06/24/2017 1:00 PM EST Mixed hyperlipidemia LIPID PANEL Routine 06/24/2017 1:00 PM EST Mixed hyperlipidemia documented in this encounter Results * (ABNORMAL) Lipid panel (06/24/2017 1:00 PM EST) HDL 79 mg/dL [facility] Comment: Interpretation: Risk Level ? Females Decreased ?>55mg/dL Average ?50-55 mg/dL Increased ?<50 mg/dL CHOLESTEROL 160 0 - 240 mg/dL [facility] TRIGLYCERIDES 49 30 - 160 mg/dL [facility] LDL 71 50 - 129 mg/dL [facility] Comment: LDL levels in terms of risk for coronary heart disease: <100 mg/dL: Optimal 100-129 mg/dL: Near or above optimal 130-159 mg/dL: Borderline high 160-189 mg/dL: High >190 mg/dL: Very High CARDIAC RISK RATIO 2.0(L) 3.3 - 4.4 C [facility] Blood 06/24/2017 1:00 PM EST 06/24/2017 1:04 PM EST Eddie Nina MD LAB BLOOD ORDERAB LES Performing Organization Address City/State/[facility] Co de Phone Number [address] [address] * (ABNORMAL) Comprehensive metabolic panel (06/24/2017 1:00 PM EST) Pathologist [facility] SODIUM 130(L) 133 - 146 mmol/L [facility] POTASSIUM 5.3(H) 3.3 - 5.1 mmol/L [facility] CHLORIDE 93(L) 96 - 108 mmol/L [facility] CO2 27 21 - 35 mmol/L [facility] BUN 10 6 - 19 mg/dL [facility] CREATININE 0.50 0.5 - 1.5 mg/dL [facility] GLUCOSE 103(H) 70 - 99 mg/dL [facility] ALBUMIN 4.5 3.9 - 4.8 g/dL [facility] TOTAL PROTEIN 6.9 6.5 - 8.0 g/dL [facility] CALCIUM 9.9 8.4 - 10.3 mg/dL [facility] ALKALINE PHOSPHATASE 43 39 - 117 U/L [facility] TOTAL BILIRUBIN 0.8 0 - 1.2 mg/dL [facility] AST 19 0 - 37 U/L [facility] ALT 18 0 - 40 U/L [facility] GLOBULIN 2.4 1 - 4.8 g/dL [facility] EGFR >60 60 - 1000 mL/min/1.7 3m2 [facility] Comment:Abnormal if <60. If patient is -Faroese, multiply the result by 1.21. ANION GAP 15 10 - 20 mmol/L [facility] Blood 06/24/2017 1:00 PM EST 06/24/2017 1:04 PM EST Eddie Nina MD LAB BLOOD ORDERAB LES Performing Organization Address City/State/[facility] Co de Phone Number [facility] [address] [place] [address] * (ABNORMAL) CBC and differential (06/24/2017 1:00 PM EST) WBC 4.63 3.40 - 11.20 K/uL [facility] RBC 3.75(L) 3.80 - 4.80 M/uL [facility] HGB 11.7(L) 12.0 - 15.0 g/dL [facility] HCT 34.7(L) 36.0 - 46.0 % [facility] PLT 316 130 - 400 K/uL [facility] MCV 92.5 79.0 - 98.0 fL [facility] MCH 31.2 27.0 - 34.8 pg [facility] MCHC 33.7 31.5 - 36.0 g/dL [facility] RDW 12.6 10.8 - 14.6 % [facility] MPV 8.8(L) 9.4 - 12.4 fl [facility] NRBC 0.00 /100 WBCs [facility] ABSOLUTE NRBC 0.00 K/uL [facility] DIFF METHOD Auto [facility] NEUTS 61.8 45.30 - 77.70 % [facility] LYMPHS 21.6 12.30 - 39.70 % [facility] MONOS 11.2 4.10 - 12.80 % [facility] EOS 4.1 0 - 7.2 % [facility] BASOS 0.9 0 - 2.80 % [facility] Granulocytes, immature (%) 0.4 0.0 - 0.9 % [facility] ABSOLUTE NEUTS 2.86 1.40 - 7.70 K/uL [facility] ABSOLUTE LYMPHS 1.00 0.60 - 3.20 K/uL [facility] ABSOLUTE MONOS 0.52 0.11 - 0.59 K/uL [facility] ABSOLUTE EOS 0.19 0.01 - 0.50 K/uL [facility] ABSOLUTE BASOS 0.04 0.00 - 0.08 K/uL [facility] Granulocytes, immature 0.02 0.00 - 0.05 K/uL [facility] Blood 06/24/2017 1:00 PM EST 06/24/2017 1:04 PM EST Eddie Nina MD LAB BLOOD ORDERAB LES Performing Organization Address City/State/[facility] Co de Phone Number [address] [address] documented in this encounter Visit Diagnoses Diagnosis Mixed hyperlipidemia documented in this encounter Care Teams Document Manager Relationship Specialty Start Date End Date Kaushik Virgen MD [address] [place] [address] [email or web address] PCP - General Family Medicine 06/14/17 07/29/17 Hodan Brewster MD [address] [place] [address], 2nd [place] [address] [email or web address] PCP - General Internal Medicine 07/30/17 Franchesca Alexandra NP [address] [place] [address] Historical LMR Provider 03/23/17 Alexia Galloway, CORN CROP SUPERVISOR [address], [address] [place] [address] [email or web address] Historical LMR Provider 03/23/17 06/14/21 Eddie Nina MD [address] [facility] [address], [address] [place] [address] [email or web address] Historical LMR Provider 03/23/17 Kellie Candelario MD [address] [place] [address] Historical LMR Provider 03/23/17 Hodan Brewster MD [address] [place] [address] [email or web address] Historical LMR Provider 03/23/17 Marlena Cunningham FNP [address] [facility], [address] [place] [address] [email or web address] Historical LMR Provider 03/23/17 06/14/21 Susana Olguin MD [address], [address] [place] [address] Historical LMR Provider 03/23/17 06/14/21 Margie Stahl DPM [address] [place] [address] Historical LMR Provider 03/23/17 Dre Weir MD [address] [place] [address] [email or web address] Historical LMR Provider 03/23/17 06/14/21 Kaushik Virgen MD [address] [place] [address] [email or web address] Historical LMR Provider 03/23/17 06/14/21 Zeeshan Ferrera MD [address] [place] [address], [address] [place] [address] [email or web address] Historical LMR Provider 03/23/17 06/14/21 Kacey George MD [address] [place] [address] [facility], [place] [address] [email or web address] Historical LMR Provider 03/23/17 Tim White MD [address] [place] [address] [email or web address] Historical LMR Provider 03/23/17 06/14/21 Hodan Brewster MD [address] [place] [address] Insurance Assigned Provider 10/08/18 12/17/18 Hodan Brewster MD [address] [place] [address] Insurance Assigned Provider 09/13/19 06/13/22 Hodan Brewster MD [address] [place] [address] [place] [address] [email or web address] Insurance Assigned Provider 09/11/23 documented as of this encounter Additional Source Comments The information contained in this document represents components of the legal health record. It is not the complete legal health record.[facility]
--- OUTSIDE RECORDS SUMMARY | 2024-08-17 16:51 | XMS_ITS | Encounter Summary ---
Author Organization [facility] Address [address] [facility] [address] [place] [address] Phone Care Team Providers Care Walking Dragline Operator Name Role Phone Franchesca Alexandra CERTIFIED SURGICAL TECHNICIAN Unavailable Alexia Galloway EDUCATION ADVISER Unavailable [phone] Eddie Nina MD Unavailable Kellie Candelario MD Unavailable [phone] Hodan Brewster MD Unavailable Marlena Cunningham BLANKING MACHINE OPERATOR Unavailable Susana Olguin MD Unavailable Margie Stahl DPM Unavailable Unavaila ble Dre Novak MD Unavailable Kaushik Virgen MD Unavailable Zeeshan Ferrera MD Unavailable [phone] Kacey George MD Unavailable Tim White MD Unavailable Hodan Brewster MD Primary Care Provider [phone] Hodan Brewster MD Unavailable Hodan Brewster MD Unavailable Hodan Brewster MD Unavailable [phone] Encounter Details Date Type Department Care Team (Late st Contact Info) Description 05/27/2018 Ancillary Orders [facility] [address] [place] [address] [place] [address] Hodan Brewster MD [address] [place] [address], 2nd [place] [address] Social History Tobacco Use Types Packs/Day Years [...] Description 09/13/2024 12:00 PM EDT Office [place] [facility] [address] [facility] 3[address] [place] [address] Reymundo Patricio MD 55 [place] [address] [email or web address] 10/20/2024 10:00 AM EDT Office Visit [facility] [address] [facility] 301 [place] [address] Susana Stuart DNP [address] [facility] [address] [place] [address] [email or web address] documented as of this encounter Visit Diagnoses Not on filedocumented in this encounter Care Teams Walking Dragline Operator Relationship Specialty Start Date End Date Hodan Brewster MD [address] [place] [address], 2nd [place] [email or web address] PCP - General Internal Medicine 07/30/17 Franchesca Alexandra, RICHIE 1 [place] [address] Historical LMR Provider 03/23/17 Alexia Galloway, TABATHA [address], [address] [place] [address] [email or web address] Historical LMR Provider 03/23/17 06/14/21 Eddie Nina MD [address], [address] [place] [address] [email or web address] Historical LMR Provider 03/23/17 Kellie Candelario MD [address] [place] [address] Historical LMR Provider 03/23/17 Hodan Brewster MD [address] [place] [address], 2nd [place] [address] [email or web address] Historical LMR Provider 03/23/17 Marlena Cunningham FNP [address], [address] [place] [address] Historical LMR Provider 03/23/17 06/14/21 Susana Olguin MD [address], [address] [place] [address] Historical LMR Provider 03/23/17 06/14/21 Margie Stahl DPM [address] [place] [address] Historical LMR Provider 03/23/17 Dre Weir MD [address] [place] [address], [address] [place] [address] [email or web address] Historical LMR Provider 03/23/17 06/14/21 Kaushik Virgen MD [address] [place] [address] [email or web address] Historical LMR Provider 03/23/17 06/14/21 Zeeshan Ferrera MD [address] [place] [address], [facility] [address] [place] [address] [email or web address] Historical LMR Provider 03/23/17 06/14/21 Kacey George MD [address] [place] [address] [facility], [place] [address] [email or web address] Historical LMR Provider 03/23/17 Tim White MD [address] [place] [address] [email or web address] Historical LMR Provider 03/23/17 06/14/21 Hodan Brewster MD [address] [place] [address] [email or web address] Insurance Assigned Provider 10/08/18 12/17/18 Hodan Brewster MD [address] [place] [address], [address] [place] [address] Insurance Assigned Provider 09/13/19 06/13/22 Hodan Brewster MD [address] [place] [address], [address] [place] [address] [email or web address] Insurance Assigned Provider 09/11/23 documented as of this encounter Additional Source Comments The information contained in this document represents components of the legal health record. It is not the complete legal health record.[facility]
--- OUTSIDE RECORDS SUMMARY | 2024-08-17 16:51 | XMS_ITS | Encounter Summary ---
Author Organization [facility] Address [address] [place] [address] Phone Care Team Providers Care Sap Ariba Consultant Name Role Phone Eddie Nina MD Unavailable Hodan Brewster MD Unavailable [phone] Kacey George MD Unavailable Hodan Brewster MD Primary Care Provider Hodan Brewster MD Unavailable [phone] Encounter Details Date Type Department Care Team (Late st Contact Info) Description 10/04/2022 Procedure Pass [facility], Ct Scan - [address] [address] Social History Tobacco Use Types Packs/Day Years [...] high school, GED, job training, learning the Ugandan language, technical skills, or developing parenting skills)? [...] Description 09/13/2024 12:00 PM EDT Office [place] [facility] 55 [facility] [address] [place] [address] Reymundo Patricio MD 55 [place] [address] [email or web address] 10/20/2024 10:00 AM EDT Office Visit [facility] [address] [facility] 301 [place] [address] Susana Stuart DNP [address] [facility], [address] [place] [address] documented as of this encounter Visit Diagnoses Not on filedocumented in this encounter Additional Health Concerns Assessment Noted Time PHQ-2 Depression Total Score: 1 12/04/19 22 4:12 PM EDT documented as of this encounter Care Teams Sap Ariba Consultant Relationship Specialty Start Date End Date Hodan Brewster MD [address] [place] [address] [email or web address] PCP - General Internal Medicine 07/30/17 Eddie Nina MD [email or web address] Historical LMR Provider 03/23/17 Hodan Brewster MD [address] [place] [address] Historical LMR Provider 03/23/17 Kacey George MD [address] [place] [address] [facility] Sports Medicine, [place] [address] Historical LMR Provider 03/23/17 Hodan Brewster MD [address] [place] [address] Insurance Assigned Provider 09/11/23 documented as of this encounter Additional Source Comments The information contained in this document represents components of the legal health record. It is not the complete legal health record.[facility]
== END ==
LOC: HO.CARD 13:17
PROVIDERS: PCP Internal Medicine; Visit Provider Nurse Practitioner Family
DX: R01.1 Cardiac murmur, unspecified (principal)
CPT/HCPCS: 93306

== ENCOUNTER → 2024-08-17 13:20 | Outpatient (BNV) | payer MEDICARE, BC, SELFPAY | PROVIDERS: PCP Internal Medicine; Visit Provider Internal Medicine | DX: I31.39 Other pericardial effusion (noninflammatory) (principal); I42.1 Obstructive hypertrophic cardiomyopathy; I27.20 Pulmonary hypertension, unspecified | CPT/HCPCS: 93306 ==

== ENCOUNTER 2024-09-26 10:15 | Outpatient (REF) | payer MEDICARE, BC, SELFPAY ==
[2024-09-26 10:25] LABS: MANUAL DIFF FLAG NO
[2024-09-26 11:19] LABS: Basophils Percent Auto 0.7 % (0-2); Eosinophils Absolute Auto 0.2 X10*3/uL (0.0-0.4); Eosinophils Percent Auto 3.6 % (0-4); Hematocrit 33.1 % (37.0-47.0); Hemoglobin 10.7 g/dl (12.0-16.0); Imm Gran Abs Auto 0.01 X10*3/uL (0.00-0.03); Imm Gran Pct Auto 0.2 % (0.0-0.4); Lymphocytes Absolute Auto 0.9 X10*3/uL (1.2-4.9); Lymphocytes Percent Auto 20.9 % (20-40); Mean Corpuscular HGB Conc 32.3 g/dl (31.0-35.0); Mean Corpuscular Hemoglobin 30.1 pg (27.0-33.0); Mean Corpuscular Volume 93.2 fL (80.0-98.0); Mean Platelet Volume 8.8 fL (9.4-12.3); Monocytes Absolute Auto 0.6 X10*3/uL (0.1-1.2); Monocytes Percent Auto 13.5 % (2-11); Neutrophils Absolute Auto 2.7 x10*3/uL (2.0-8.3); Neutrophils Percent Auto 61.1 % (45-73); Platelet Count 258 X10*3/uL (160-400); Red Blood Count 3.55 X10*6/uL (4.20-5.50); Red Cell Distribution Width 13.3 % (11.0-16.0); White Blood Count 4.5 X10*3/uL (4.8-10.8)
--- OUTSIDE RECORDS SUMMARY | 2024-09-26 11:49 | XMS_ITS | Encounter Summary ---
Author Organization [facility] Address [address] [place] [address] Phone Care Team Providers Care Machine Records Units Supervisor Name Role Phone Eddie Nina MD Unavailable Hodan Brewster MD Unavailable Kacey George MD Unavailable Hodan Brewster MD Primary Care Provider Hodan Brewster MD Unavailable [phone] Encounter Details Date Type Department Care Team (Late st Contact Info) Description 02/01/2024 Procedure Pass [facility] PERIOPERATIVE DEPT 55 [place] [id number] Social History Tobacco Use Types Packs/Day Years [...] Care Team (Late st Contact Info) Description 10/20/2024 10:00 AM EDT Office Visit [facility] 22 [facility] 301 [place] [address] Susana Stuart, CHUCK 22 [facility], [address] [place] [address] [email or web address] 01/31/2025 12:00 PM EDT Office Visit [facility] Orthopaedic Spine [address] [facility] [address] [place] [address] Reymundo Patricio MD [address] [place] [address] [email or web address] documented as of this encounter Visit Diagnoses Not on filedocumented in this encounter Additional Health Concerns Assessment Noted Time PHQ-2 Depression Total Score: 2 12/31/19 24 4:14 PM EDT documented as of this encounter Care Teams Machine Records Units Supervisor Relationship Specialty Start Date End Date Hodan Brewster MD [address] [place] [address] PCP - General Internal Medicine 07/30/17 Eddie Nina MD [email or web address] Historical LMR Provider 03/23/17 Hodan Brewster MD [address] [place] [address] Historical LMR Provider 03/23/17 Kacey George MD [address] [place] [address] Orthopedics [facility] Sports Medicine, [place] [address] Historical LMR Provider 03/23/17 Hodan Brewster MD [address] [place] [address], 2nd [place] [address] [email or web address] Insurance Assigned Provider 09/11/23 documented as of this encounter Additional Source Comments The information contained in this document represents components of the legal health record. It is not the complete legal health record.[facility]
--- OUTSIDE RECORDS SUMMARY | 2024-09-26 11:49 | XMS_ITS | Encounter Summary ---
Author Organization [facility] Address [address] [place] [address] Phone Care Team Providers Care Ux Architect Name Role Phone Eddie Nina MD Unavailable Hodan Brewster MD Unavailable [phone] Kacey George MD Unavailable Hodan Brewster MD Primary Care Provider Hodan Brewster MD Unavailable [phone] Encounter Details Date Type Department Care Team (Late st Contact Info) Description 09/08/2023 Procedure Pass [facility] 30 [place] [address] Social History Tobacco Use Types Packs/Day Years [...] high school, GED, job training, learning the Mozambican language, technical skills, or developing parenting skills)? [...] Description 10/20/2024 10:00 AM EDT Office Visit [facility] [address] [place] [address] 301 [place] [address] Susana Stuart, CHUCK 22 [facility], [address] [place] [address] 01/31/2025 12:00 PM EDT Office Visit [facility] Orthopaedic Spine [address] Liza Scott [address] [place] [address] Reymundo Patricio MD [address] [place] [address] [email or web address] documented as of this encounter Visit Diagnoses Not on filedocumented in this encounter Additional Health Concerns Assessment Noted Time PHQ-2 Depression Total Score: 1 12/04/19 22 4:12 PM EDT documented as of this encounter Care Teams Ux Architect Relationship Specialty Start Date End Date Hodan Brewster MD [address] [place] [address] PCP - General Internal Medicine 07/30/17 Eddie Nina MD [email or web address] Historical LMR Provider 03/23/17 Hodan Brewster MD [address] [place] [address] Historical LMR Provider 03/23/17 Kacey George MD [address] [place] [address] Orthopedics & Sports Medicine, [place] [address] Historical LMR Provider 03/23/17 Hodan Brewster MD [address] [place] [address] Insurance Assigned Provider 09/11/23 documented as of this encounter Additional Source Comments The information contained in this document represents components of the legal health record. It is not the complete legal health record.[facility]
--- OUTSIDE RECORDS SUMMARY | 2024-09-26 11:49 | XMS_ITS | Encounter Summary ---
Author Organization [facility] Address [address] [place] [address] Phone Care Team Providers Care Publicity Consultant Name Role Phone Eddie Nina MD Unavailable Hodan Brewster MD Unavailable [phone] Kacey George MD Unavailable Hodan Brewster MD Primary Care Provider [phone] Hodan Brewster MD Unavailable [phone] Encounter Details Date Type Department Care Team (Late st Contact Info) Description 12/23/2023 Procedure Pass [facility] Endoscopy Admitting Dept Virtual Department [address] [place] [address] Social History Tobacco Use Types Packs/Day Years [...] Description 10/20/2024 10:00 AM EDT Office Visit [facility] [address] [place] [address] [facility] 301 [place] [address] Susana Stuart, CHUCK 22 [facility], [address] [place] [address] 01/31/2025 12:00 PM EDT Office Visit [facility] Orthopaedic Spine [address] Liza Chavez [address] [place] [address] Reymundo Patricio MD 55 [place] [address] [email or web address] documented as of this encounter Visit Diagnoses Not on filedocumented in this encounter Additional Health Concerns Assessment Noted Time PHQ-2 Depression Total Score: 1 12/04/19 22 4:12 PM EDT documented as of this encounter Care Teams Publicity Consultant Relationship Specialty Start Date End Date Hodan Brewster MD [address] [place] [address] PCP - General Internal Medicine 07/30/17 Eddie Nina MD [email or web address] Historical LMR Provider 03/23/17 Hodan Brewster MD [address] [place] [address] Historical LMR Provider 03/23/17 Kacey George MD [address] [place] [address] Orth[facility] Sports Medicine, [place] [address] Historical LMR Provider 03/23/17 Hodan Brewster MD [address] [place] [address] Insurance Assigned Provider 09/11/23 documented as of this encounter Additional Source Comments The information contained in this document represents components of the legal health record. It is not the complete legal health record.[facility]
--- OUTSIDE RECORDS SUMMARY | 2024-09-26 11:49 | XMS_ITS | Encounter Summary ---
Author Organization [facility] Address [address] [place] [address] Phone Care Team Providers Care Costume Director Name Role Phone Eddie Nina MD Unavailable Hodan Brewster MD Unavailable [phone] Kacey George MD Unavailable Hodan Brewster MD Primary Care Provider Hodan Brewster MD Unavailable [phone] Encounter Details Date Type Department Care Team (Late st Contact Info) Description 08/28/2024 Orders Only [facility] [address] [place] [address] Provider, MD Rupesh [address] [place] [address] Social History Tobacco Use Types Packs/Day [...] Description 10/20/2024 10:00 AM EDT Office Visit [facility] 22 [facility] 301 [place] [address] Susana Stuart DNP 22 [facility], [address] [place] [address] [email or web address] 01/31/2025 12:00 PM EDT Office [place] [facility] [place] [place] [address] [place] [address] Reymundo Patricio MD [address] [place] [address] [email or web address] documented as of this encounter Procedures Procedure Name Priority Date/Time Associated Diagnosis Comments OUTSIDE LAB Routine 08/07/2024 5:13 PM EST documented in this encounter Results * Outside Lab (08/07/2024 5:13 PM EST) Historical Provider LAB BLOOD ORDERAB LES documented in this encounter Visit Diagnoses Not on filedocumented in this encounter Additional Health Concerns Assessment Noted Time PHQ-2 Depression Total Score: 2 12/31/19 24 4:14 PM EDT documented as of this encounter Care Teams Costume Director Relationship Specialty Start Date End Date Hodna Brewster MD [address] [place] [address], [address] [place] [place] [address] [email or web address] PCP - General Internal Medicine 07/30/17 Eddie Nina MD [email or web address] Historical LMR Provider 03/23/17 Hodan Brewster MD [address] [place] [address], [address] [place] [place] [address] Historical LMR Provider 03/23/17 Kacey George MD [address] [place] [address] Orthopedics [facility] Sports Medicine, [place] [address] Historical LMR Provider 03/23/17 Hodan Brewster MD [address] [place] [address], 2nd [place] [address] Insurance Assigned Provider 09/11/23 documented as of this encounter Additional Source Comments The information contained in this document represents components of the legal health record. It is not the complete legal health record.[facility]
--- OUTSIDE RECORDS SUMMARY | 2024-09-26 11:50 | XMS_ITS | Encounter Summary ---
Author Organization [facility] Address [address] [place] [address] Phone Care Team Providers Care Living Nurse Name Role Phone Franchesca Alexandra CLASSROOM TECHNOLOGY COACH Unavailable Alexia Galloway CLASSROOM TECHNOLOGY COACH Unavailable Eddie Nina MD Unavailable Kellie Candelario MD Unavailable [phone] Hodan Brewster MD Unavailable [phone] Marlena Cunningham PHOTOENGRAVING SKETCH MAKER Unavailable Susana Olguin MD Unavailable Margie Stahl DPM Unavailable Unavaila ble Dre Novak MD Unavailable [phone] Kaushik Virgen MD Unavailable Zeeshan Ferrera MD Unavailable [phone] Kacey George MD Unavailable Tim White MD Unavailable Hodan Brewster MD Primary Care Provider [phone] Hodan Brewster MD Unavailable [phone] Hodan Brewster MD Unavailable Hodan Brewster MD Unavailable Encounter Details Date Type Department Care Team (Late st Contact Info) Description 05/27/2018 Ancillary Orders [facility] [address] [place] [address] Dr [place], [place] [address] Hodan Brewster MD [address] [place] [address], 2nd [place] [address] [email or web address] Social History Tobacco Use Types Packs/Day Years [...] Description 10/20/2024 10:00 AM EDT Office Visit [facility] [address] [place] [address] Susana Stuart DNP 22 [facility] 301 [place] [address] 01/31/2025 12:00 PM EDT Office Visit [facility] Sp[facility] [address] [facility] [facility] [address] [place] [address] Reymundo Patricio MD [address] [place] [address] [email or web address] documented as of this encounter Visit Diagnoses Not on filedocumented in this encounter Care Teams Living Nurse Relationship Specialty Start Date End Date Hodan Brewster MD [address] [place] [address], 2[address] [place] [address] PCP - General Internal Medicine 07/30/17 Franchesca Alexandra, RICHIE 1 [place] [address] Historical LMR Provider 03/23/17 Alexia Galloway NP [address] [place] [address] [email or web address] Historical LMR Provider 03/23/17 Eddie Nina MD [address] [place] [address] [email or web address] Historical LMR Provider 03/23/17 Kellie Candelario MD [address] [place] [address] Historical LMR Provider 03/23/17 Hodan Brewster MD [address] [place] [address] 2nd [place] [address] [email or web address] Historical LMR Provider 03/23/17 Marlena Cunningham FNP 38 [facility], [address] [place] [address] Historical LMR Provider 03/23/17 06/14/21 Susana Olguin MD 38 [facility], [address] [place] [address] Historical LMR Provider 03/23/17 06/14/21 Margie Stahl DPM [address] [place] [address] Historical LMR Provider 03/23/17 2 Dre Novak MD [address] [place] [address], [address] [place] [address] [email or web address] Historical LMR Provider 03/23/17 06/14/21 Kaushik Virgen MD [address] [place] [address] [email or web address] Historical LMR Provider 03/23/17 06/14/21 Zeeshan Ferrera MD [address] [place] [address], [address] [place] [address] [email or web address] Historical LMR Provider 03/23/17 06/14/21 Kacey George MD [address] [place] [address] Orthopedics & Sports Medicine, [place] [address] [email or web address] Historical LMR Provider 03/23/17 Tim White MD [address] [place] [address] [email or web address] Historical LMR Provider 03/23/17 06/14/21 Hodan Brewster MD [address] [place] [address] [email or web address] Insurance Assigned Provider 10/08/18 12/17/18 Hodan Brewster MD [address] [place] [address] Insurance Assigned Provider 09/13/19 06/13/22 Hodan Brewster MD [address] [place] [address] Insurance Assigned Provider 09/11/23 documented as of this encounter Additional Source Comments The information contained in this document represents components of the legal health record. It is not the complete legal health record.[facility]
--- OUTSIDE RECORDS SUMMARY | 2024-09-26 11:50 | XMS_ITS | Encounter Summary ---
Author Organization [facility] Address [address] [place] [address] Phone Care Team Providers Care Shaft Repairer Name Role Phone Hodan Brewster MD Primary Care Provider [phone] Franchesca Alexandra WOOD HEEL CEMENTER Unavailable Alexia Galloway NP Unavailable Eddie Nina MD Unavailable Kellie Candelario MD Unavailable [phone] Hodan Brewster MD Unavailable [phone] Marlena Cunningham PRODUCT DEMONSTRATOR Unavailable Susana Olguin MD Unavailable Margie Stahl DPM Unavailable Unavaila ble Dre Novak MD Unavailable Kaushik Virgen MD Unavailable [phone] Zeeshan Ferrera MD Unavailable [phone] Kacey George MD Unavailable [phone] Tim White MD Unavailable [phone] Kaushik Virgen MD Primary Care Provider + Hodan Brewster MD Primary Care Provider [phone] Hodan Brewster MD Unavailable [phone] Hodan Brewster MD Unavailable Hodan Brewster MD Unavailable [phone] Encounter Details Date Type Department Care Team (Late st Contact Info) Description 04/09/2017 Ancillary Orders [facility],Outside Imaging [address] [place] [address] System, Provider Not In, PhD Partners [address] [address] Social History Tobacco Use Types Packs/Day Years [...] Description 10/20/2024 10:00 AM EDT Office Visit [facility] [address] [place] [address] Susana Stuart, CHUCK 22 [facility] 301 [place] [address] [email or web address] 01/31/2025 12:00 PM EDT Office Visit [facility] Orthopaedic Spine [address] [address] Reymundo Patricio MD 55 [place] [address] [email or web address] documented as of this encounter Results * XR SPINE OUTSIDE(NO INTERPRETATION) (09/08/2016 12:00 AM EDT) Narrative SYSTEMGENERATED, DOCUMENTATION - 04/09/2017 10:17 AM EDT This study is for PACS storage only and not for interpretation. Provider Not In System PhD IMG OUTSIDE I ING W/OUT INTERPRETATION documented in this encounter Visit Diagnoses Not on filedocumented in this encounter Care Teams Shaft Repairer Relationship Specialty Start Date End Date Hodan Brewster MD [address] [place] [address] [email or web address] PCP - General 08/14/16 06/13/17 Kaushik Virgen MD [address] [place] [address] [email or web address] PCP - General Family Medicine 06/14/17 07/29/17 Hodan Brewster MD [address] [place] [address] [email or web address] PCP - General Internal Medicine 07/30/17 Franchesca Alexandra NP [address] [place] [address] Historical LMR Provider 03/23/17 Alexia Galloway NP [address] [place] [address] [email or web address] Historical LMR Provider 03/23/17 Eddie Nina MD [address] [place] [address] [email or web address] Historical LMR Provider 03/23/17 Kellie Candelario MD [address] [place] [address] Historical LMR Provider 03/23/17 Hodan Brewster MD [address] [place] [address] [email or web address] Historical LMR Provider 03/23/17 Marisa Marlena RosalesOXANA [address], [address] [place] [address] Historical LMR Provider 03/23/17 06/14/21 Susana Olguin MD [address], [address] [place] [address] Historical LMR Provider 03/23/17 06/14/21 Margie Stahl DPM [address] [place] [address] Historical LMR Provider 03/23/17 2 Dre Novak MD [address] [place] [address] Historical LMR Provider 03/23/17 06/14/21 Kaushik Virgen MD [address] [place] [address] [email or web address] Historical LMR Provider 03/23/17 06/14/21 Zeeshan Ferrera MD 22 [facility] 301 [place] [address] Historical LMR Provider 03/23/17 06/14/21 Kacey George MD [address] [place] [address] Orthopedics & Sports Medicine, [place] [address] Historical LMR Provider 03/23/17 Tim White MD [address] [place] [address] [email or web address] Historical LMR Provider 03/23/17 06/14/21 Hodan Brewster MD [address] [place] [address] Insurance Assigned Provider 10/08/18 12/17/18 Hodan Brewster MD [address] [place] [address] Insurance Assigned Provider 09/13/19 06/13/22 Hodan Brewster MD [address] [place] [address] Insurance Assigned Provider 09/11/23 documented as of this encounter Additional Source Comments The information contained in this document represents components of the legal health record. It is not the complete legal health record.[facility]
--- OUTSIDE RECORDS SUMMARY | 2024-09-26 11:50 | XMS_ITS | Encounter Summary ---
Author Organization [facility] Address [address] [facility] [address] [place] [address] Phone Care Team Providers Care Efficiency Engineer Name Role Phone Franchesca Alexandra THREAD MILLING MACHINE SET UP OPERATOR Unavailable Alexia Galloway THREAD MILLING MACHINE SET UP OPERATOR Unavailable Eddie Nina MD Unavailable Kellie Candelario MD Unavailable Hodan Brewster MD Unavailable Marlena Cunningham TERRA COTTA ROOFER Unavailable Susana Olguni MD Unavailable Margie Stahl DPM Unavailable Unavaila ble Dre Novak MD Unavailable Kaushik Virgen MD Unavailable Zeeshan Ferrera MD Unavailable [phone] Kacey George MD Unavailable Tim White MD Unavailable Kaushik Virgen MD Primary Care Provider + Hodan Brewster MD Primary Care Provider [phone] Hodan Brewster MD Unavailable Hodan Brewster MD Unavailable Hodan Brewster MD Unavailable Encounter Details Date Type Department Care Team (Latest Contact Info) Description 06/24/2017 Transcribe Orders [facility] Laboratory [address] [place] [address] Eddie Nina MD 22 [place] [address] [email or web address] Mixed hyperlipidemia Social History Tobacco Use Types [...] Description 10/20/2024 10:00 AM EDT Office Visit [facility] [address] [address] Susana Stuart, CHUCK 22 [facility], [address] [place] [address] 01/31/2025 12:00 PM EDT Office Visit [facility] Orthopaedic Spine [address] [address] Reymundo Patricio MD [address] [place] [address] [email or web address] documented as of this encounter Procedures Procedure Name Priority Date/Time Associated Diagnosis Comments COMPREHENSIVE METABOLIC PANEL Routine 06/24/2017 1:00 PM EST Mixed hyperlipidemia CBC AND DIFFERENTIAL Routine 06/24/2017 1:00 PM EST Mixed hyperlipidemia LIPID PANEL Routine 06/24/2017 1:00 PM EST Mixed hyperlipidemia documented in this encounter Results * (ABNORMAL) Lipid panel (06/24/2017 1:00 PM EST) HDL 79 mg/dL [facility] Comment: Interpretation: Risk Level ? Females Decreased ?>55mg/dL Average ?50-55 mg/dL Increased ?<50 mg/dL CHOLESTEROL 160 0 - 240 mg/dL [facility] TRIGLYCERIDES 49 30 - 160 mg/dL [facility] LDL 71 50 - 129 mg/dL [facility] Comment: LDL levels in terms of risk for coronary heart disease: <100 mg/dL: Optimal 100-129 mg/dL: Near or above optimal 130-159 mg/dL: Borderline high 160-189 mg/dL: High >190 mg/dL: Very High CARDIAC RISK RATIO 2.0(L) 3.3 - 4.4 C [facility] Blood 06/24/2017 1:00 PM EST 06/24/2017 1:04 PM EST Eddie Nina MD LAB BLOOD ORDERAB LES Performing Organization Address City/State/[facility] Co de Phone Number [address] [address] * (ABNORMAL) Comprehensive metabolic panel (06/24/2017 1:00 PM EST) SODIUM 130(L) 133 - 146 mmol/L [facility] POTASSIUM 5.3(H) 3.3 - 5.1 mmol/L [facility] CHLORIDE 93(L) 96 - 108 mmol/L [facility] CO2 27 21 - 35 mmol/L [facility] BUN 10 6 - 19 mg/dL [facility] CREATININE 0.50 0.5 - 1.5 mg/dL [facility] GLUCOSE 103(H) 70 - 99 mg/dL [facility] ALBUMIN 4.5 3.9 - 4.8 g/dL [facility] TOTAL PROTEIN 6.9 6.5 - 8.0 g/dL [facility] CALCIUM 9.9 8.4 - 10.3 mg/dL [facility] ALKALINE PHOSPHATASE 43 39 - 117 U/L [facility] TOTAL BILIRUBIN 0.8 0 - 1.2 mg/dL [facility] AST 19 0 - 37 U/L [facility] ALT 18 0 - 40 U/L [facility] GLOBULIN 2.4 1 - 4.8 g/dL [facility] EGFR >60 60 - 1000 mL/min/1.7 3m2 [facility] Comment:Abnormal if <60. If patient is -Pakistani, multiply the result by 1.21. ANION GAP 15 10 - 20 mmol/L [facility] Blood 06/24/2017 1:00 PM EST 06/24/2017 1:04 PM EST Eddie Nina MD LAB BLOOD ORDERAB LES Performing Organization Address City/State/[facility] Co de Phone Number [address] [address] * (ABNORMAL) CBC and differential (06/24/2017 1:00 PM EST) WBC 4.63 3.40 - 11.20 K/uL [facility] RBC 3.75(L) 3.80 - 4.80 M/uL [facility] HGB 11.7(L) 12.0 - 15.0 g/dL [facility] HCT 34.7(L) 36.0 - 46.0 % [facility] PLT 316 130 - 400 K/uL [facility] MCV 92.5 79.0 - 98.0 fL [facility] MCH 31.2 27.0 - 34.8 pg [facility] MCHC 33.7 31.5 - 36.0 g/dL [facility] RDW 12.6 10.8 - 14.6 % [facility] MPV 8.8(L) 9.4 - 12.4 fl [facility] NRBC 0.00 /100 WBCs [facility] ABSOLUTE NRBC 0.00 K/uL [facility] DIFF METHOD Auto [facility] NEUTS 61.8 45.30 - 77.70 % [facility] LYMPHS 21.6 12.30 - 39.70 % [facility] MONOS 11.2 4.10 - 12.80 % [facility] EOS 4.1 0 - 7.2 % [facility] BASOS 0.9 0 - 2.80 % [facility] Granulocytes, immature (%) 0.4 0.0 - 0.9 % [facility] ABSOLUTE NEUTS 2.86 1.40 - 7.70 K/uL [facility] ABSOLUTE LYMPHS 1.00 0.60 - 3.20 K/uL [facility] ABSOLUTE MONOS 0.52 0.11 - 0.59 K/uL [facility] ABSOLUTE EOS 0.19 0.01 - 0.50 K/uL [facility] ABSOLUTE BASOS 0.04 0.00 - 0.08 K/uL [facility] Granulocytes, immature 0.02 0.00 - 0.05 K/uL [facility] Blood 06/24/2017 1:00 PM EST 06/24/2017 1:04 PM EST Eddie Nina MD LAB BLOOD ORDERAB LES Performing Organization Address City/State/[facility] Co de Phone Number [address] [address] documented in this encounter Visit Diagnoses Diagnosis Mixed hyperlipidemia documented in this encounter Care Teams Efficiency Engineer Relationship Specialty Start Date End Date Kaushik Virgen MD [address] [place] [address] [email or web address] PCP - General Family Medicine 06/14/17 07/29/17 Hodan Brewster MD [address] [place] [address], 2nd [place] [address] [email or web address] PCP - General Internal Medicine 07/30/17 Franchesca Alexandra NP [address] [place] [address] Historical LMR Provider 03/23/17 Alexia Galloway THREAD MILLING MACHINE SET UP OPERATOR [address] [place] [phone] [email or web address] Historical LMR Provider 03/23/17 Eddie Nina MD [address] [place] [address] [email or web address] Historical LMR Provider 03/23/17 Kellie Candelario MD [address] [place] [address] Historical LMR Provider 03/23/17 Hodan Brewster MD [address] [place] [address] [email or web address] Historical LMR Provider 03/23/17 Marlena Cunningham FNP [address] [facility], [facility]. [address], [address] [place] [address] Historical LMR Provider 03/23/17 06/14/21 Susana Olguin MD [address] [facility], [place], [address] [place] [address] Historical LMR Provider 03/23/17 06/14/21 Margie Stahl DPM [address] [place] [address] Historical LMR Provider 03/23/17 Dre Weir MD 22 [facility] 2[address] [place] [address] [email or web address] Historical LMR Provider 03/23/17 06/14/21 Kaushik Virgen MD [address] [place] [address] [email or web address] Historical LMR Provider 03/23/17 06/14/21 Zeeshan Ferrera MD [address] [place] [address], [address] [place] [address] [email or web address] Historical LMR Provider 03/23/17 06/14/21 Kacey George MD [address] [place] [address] [facility], [place] [address] [email or web address] Historical LMR Provider 03/23/17 Tim White MD [address] [place] [address] [email or web address] Historical LMR Provider 03/23/17 06/14/21 Hodan Brewster MD [address] [place] [address] Insurance Assigned Provider 10/08/18 12/17/18 Hodan Brewster MD [address] [place] [address] Insurance Assigned Provider 09/13/19 06/13/22 Hodan Brewster MD [address] [place] [address] [email or web address] Insurance Assigned Provider 09/11/23 documented as of this encounter Additional Source Comments The information contained in this document represents components of the legal health record. It is not the complete legal health record.[facility]
--- OUTSIDE RECORDS SUMMARY | 2024-09-26 11:50 | XMS_ITS | Encounter Summary ---
Author Organization [facility] Address [address] [facility] [address] [place] [address] Phone Care Team Providers Care Client Support Consultant Name Role Phone Franchesca Alexandra MANAGER HEART FAILURE Unavailable Alexia Galloway MANAGER HEART FAILURE Unavailable Eddie Nina MD Unavailable Kellie Candelario MD Unavailable [phone] Hodan Brewster MD Unavailable [phone] Marlena Cunningham TIGHTENER Unavailable Susana Olguin MD Unavailable Margie Stahl DPM Unavailable Unavaila ble Dre Novak MD Unavailable Kaushik Virgen MD Unavailable Zeeshan Ferrera MD Unavailable [phone] Kacey George MD Unavailable Tim White MD Unavailable Hodan Brewster MD Primary Care Provider [phone] Hodan Brewster MD Unavailable Hodan Brewster MD Unavailable Hodan Brewster MD Unavailable Encounter Details Date Type Department Care Team (Late st Contact Info) Description 08/04/2017 Procedure [facility] - [facility] 30 [place] [address] Social History Tobacco Use Types Packs/Day Years [...] Description 10/20/2024 10:00 AM EDT Office Visit [facility] [address] [place] [address] [address] [place] [address] Susana Stuart, CHUCK 22 [facility], [address] [place] [address] 01/31/2025 12:00 PM EDT Office Visit [facility] Spine [address] [facility] [address] [place] [address] Reymundo Patricio MD [address] [place] [address] [email or web address] documented as of this encounter Visit Diagnoses Not on filedocumented in this encounter Care Teams Client Support Consultant Relationship Specialty Start Date End Date Hodan Brewster MD [address] [place] [address], 2nd [place] [address] PCP - General Internal Medicine 07/30/17 Franchesca Alexandra, RICHIE 1 [place] [address] Historical LMR Provider 03/23/17 Alexia Galloway NP [address] [place] [address] [email or web address] Historical LMR Provider 03/23/17 Eddie Nina MD [address] [place] [address] [email or web address] Historical LMR Provider 03/23/17 Kellie Candelario MD [address] [place] [address] Historical LMR Provider 03/23/17 Hodan Brewster MD [address] [place] [address], 2[address] [place] [address] [email or web address] Historical LMR Provider 03/23/17 Marlena Cunningham FNP [address] [facility] [place], [address] [place] [address] Historical LMR Provider 03/23/17 06/14/21 Susana Olguin MD [address] [place], [address] [place] [address] [email or web address] Historical LMR Provider 03/23/17 06/14/21 Margie Stahl DPM [address] [place] [address] Historical LMR Provider 03/23/17 Dre Weir MD [address] [place] [address], [address] [place] [address] [email or web address] Historical LMR Provider 03/23/17 06/14/21 Kaushik Virgen MD [address] [place] [address] [email or web address] Historical LMR Provider 03/23/17 06/14/21 Zeeshan Ferrera MD [address] [place] [address], [address] [place] [address] [email or web address] Historical LMR Provider 03/23/17 06/14/21 Kacey George MD [address] [place] [address] [facility], [place] [address] [email or web address] Historical LMR Provider 03/23/17 Tim White MD [address] [place] [address] [email or web address] Historical LMR Provider 03/23/17 06/14/21 Hodan Brewster MD [address] [place] [address] [email or web address] Insurance Assigned Provider 10/08/18 12/17/18 Hodan Brewster MD [address] [place] [address] [email or web address] Insurance Assigned Provider 09/13/19 06/13/22 Hodan Brewster MD [address] [place] [address] [email or web address] Insurance Assigned Provider 09/11/23 documented as of this encounter Additional Source Comments The information contained in this document represents components of the legal health record. It is not the complete legal health record.[facility]
--- OUTSIDE RECORDS SUMMARY | 2024-09-26 11:50 | XMS_ITS | Encounter Summary ---
Author Organization [facility] Address [address] [facility] [address] [place] [address] Phone Care Team Providers Care Video Game Technician Name Role Phone Eddie Nina MD Unavailable Hodan Brewster MD Unavailable Kacey George MD Unavailable Hodan Brewster MD Primary Care Provider Hodan Brewster MD Unavailable [phone] Encounter Details Date Type Department Care Team (Latest Contact Info) Description 07/16/2023 Transcribe Orders Virtual Department 30 [place] [address] Omer Crowell PA [address] [place] [address] Other specified postprocedural states (Primary Dx); Dorsalgia, [...] high school, GED, job training, learning the Surinamese language, technical skills, or developing parenting skills)? [...] Description 10/20/2024 10:00 AM EDT Office Visit [facility] [address] [place] [address] [facility] 301 [place] [address] Susana Stuart, CHUCK [address] [facility], [address] [place] [address] 01/31/2025 12:00 PM EDT Office Visit [facility] Orthopaedic Spine [address] [place] [place] [address] [place] [address] Reymundo Patricio MD [address] [place] [address] [email or web address] documented as of this encounter Visit Diagnoses Diagnosis Other specified postprocedural states- Primary Dorsalgia, unspecified documented in this encounter Additional Health Concerns Assessment Noted Time PHQ-2 Depression Total Score: 1 12/04/19 22 4:12 PM EDT documented as of this encounter Care Teams Video Game Technician Relationship Specialty Start Date End Date Hodan Brewster MD [address] [place] [address] PCP - General Internal Medicine 07/30/17 Eddie Nina MD [email or web address] Historical LMR Provider 03/23/17 Hodan Brewster MD [address] [place] [address] Historical LMR Provider 03/23/17 Kacey George MD [address] [place] [address] [facility], [place] [address] Historical LMR Provider 03/23/17 Hodan Brewster MD [address] [place] [address] Insurance Assigned Provider 09/11/23 documented as of this encounter Additional Source Comments The information contained in this document represents components of the legal health record. It is not the complete legal health record.[facility]
--- OUTSIDE RECORDS SUMMARY | 2024-09-26 11:50 | XMS_ITS | Clinical Summary ---
Author Organization [facility] it Address [address] [place] [address] Care Team Providers Care Director Telehealth Name Role Phone Hodan Brewster MD Primary Care Provider [phone] Social History Tobacco Use Types Packs/Day Years [...] - 2023-2 5 season) 2024 Influenza Vaccine (Season Ended) 2025 RSV Immunization Adult Patie nts (1 - 1-dose 75+ series) 2026 HIB [...] age to complete this topic Meningococcal B Vaccine Aged Out No l onger eligible based on patient's age to complete this topic RSV Immunization Patients Un kathleen 20 months Aged Out No longer eligible b ased on patient's age to complete this topic Varicella Vaccines Aged Out No longer eligible based on patient's age to complete this topic Care Teams Director Telehealth Relationship Specialty Start Date End Date Hodan Brewster MD [address], [place] [address] PCP - General Internal Medicine 03/17/19
--- OUTSIDE RECORDS SUMMARY | 2024-09-26 11:50 | XMS_ITS | Clinical Summary ---
Author Organization [facility] Address [address] [place] [address] Care Team Providers Care Director Of Curriculum Name Role Phone Hodan Brewster MD Primary Care Provider [phone] Allergies Active Allergy Reactions Criticality Noted Date [...] Pregabalin 12/27/2018 Feet and leg swelling Tiotropium [place] 08/26/2021 Medications Tymlos 80 mcg (3,120 mcg/1.56 [...] 12/03/2021, 11/21/2019, 09/27/2018 Breast Cancer Screening 01/21/2024 01/21/20, 01/20/2022, 07/31/2019, Additional history exists COVID-19 Vaccine ( season) 2024 03/12/2023, 02/25/2021, 08/28/2020, Additional history exists Influenza Vaccine (Season Ended) 2025 03/27/2022, 02/27/2021, 02/25/2021, Additional history exists Bone Density Screening 09/06/2025 09/07/2023 DTaP,Tdap,and Td Vaccines (3 - Td or Tdap) 05/09/2030 05/09/2020, 04/21/2011 Colonoscopy 03/25/2032 03/25/2022 Colorectal Cancer Screening 03/25/2032 Pneumococcal Vaccine, 50+ Years Completed 06/23/2019, 09/03/2016 Zoster Vaccines Completed [...] topic Insurance MEDICARE PART A & B [facility] Care Teams Director Of Curriculum Relationship Specialty Start Date End Date Hodan Brewster MD [facility] [address] [place] [address] [address] [place] [address] PCP - General Internal Medicine 10/04/23
--- OUTSIDE RECORDS SUMMARY | 2024-09-26 11:50 | XMS_ITS | Clinical Summary ---
Author Organization [facility] Address [email or web address] [facility] [address] [place] [address] Phone Care Team Providers Care Voice Professor Name Role Phone Eddie Nina MD Unavailable Hodan Brewster MD Unavailable Kacey George MD Unavailable Hodan Brewster MD Primary Care Provider Hodan Brewster MD Unavailable [phone] Allergies Active Allergy Reactions Criticality Noted Date [...] Rash Low 01/29/2017 Tolerated ancef 01/31 Tiotropium Frostproof 08/26/2021 Medications Medication Sig Dispensed Refills Start Date End Date Status famotidine (PEPCID) 40 MG tabletIndications: Gastroesophageal reflux disease TAKE 1 TABLET TWICE A DAY 180 tablet 3 12/28/19 21 Active levalbuterol (XOPENEX HFA) 45 mcg/actuation inhaler Inhale 2 puffs into the lungs every 4 (four) hours as needed for wheezing. 45 g 3 07/07/19 23 Active acetaminophen (TYLENOL) 500 MG tablet Take 1,000 mg by mouth 2 (two) times a week. And occasionally prn. Not more than 3g daily. Active cholecalciferol (VITAMIN D3) 25 MCG (1,000 unit) tablet Take 1,000 Units by mouth daily. Active multivitamin-mineralogy teacher als-lutein (CENTRUM SILVER) Tab Take 1 tablet by mouth daily. Active B-complex with vitamin C Cap Take 1 capsule by mouth daily. Active magnesium oxide (MAG-OX) 400 mg (241.3 mg elemental) tablet Take 400 mg by mouth daily. Active budesonide-glycopy r-formoterol (BREZTRI AEROSPHERE) 160-9-4.8 mcg/actuation inhaler Inhale 2 puffs into the lungs 2 (two) times a day. Active pantoprazole (PROTONIX) 40 MG tablet Take 40 mg by mouth daily. Active AEROCHAMBER PLUS FLOW-VU Spcr 12/28/19 24 Active atorvastatin (LIPITOR) 20 MG tabletIndications: Mixed hyperlipidemia take 1 tablet daily 90 tablet 3 01/21/20 24 Active ondansetron (ZOFRAN) 4 MG tablet Take 1 tablet (4 mg total) by mouth every 8 (eight) hours as needed for nausea. 30 tablet 03/02/20 24 Active gabapentin (NEURONTIN) 300 MG capsule Take 2 capsules (600 mg total) by mouth 3 (three) times a day. 540 capsule 3 04/19/20 24 Active Additional Information Patient taking differently:600 mg Oral2 times daily, Reported on 07/18/2024 zafirlukast (ACCOLATE) 20 MG tabletIndications: Asthma TAKE 1 TABLET TWICE A DAY 180 tablet 3 05/09/20 24 Active insulin pen needles, disposable, 31 gauge x 10/20 Ndle 1 each by Miscellaneous route as needed. 100 each 3 07/14/19 25 Active terazosin (HYTRIN) 2 MG capsule Take 1 capsule (2 mg total) by mouth nightly at bedtime. 90 capsule 3 07/18/19 25 Active labetaloL (TRANDATE) 200 MG tabletIndications: Essential hypertension Take 1 tablet (200 mg total) by mouth 2 (two) times a day. 180 tablet 2 07/18/19 25 025 Active valsartan (DIOVAN) 80 MG tablet Take 1 tablet (80 mg total) by mouth every morning. 90 tablet 3 07/26/19 25 Active ID-BD 5mm x 31G Mini Pen [place] <[facility] 7024> ([id number])Indic ations:Osteoporosi s, unspecified osteoporosis type, unspecified pathological fracture presence Use as directed 100 each 3 09/14/19 25 Active abaloparatide (TYMLOS) 80 mcg (3,120 mcg/1.56 mL) subcutaneous pen INJECT 80MCG UNDER THE SKIN 1 TIME A DAY 1.56 mL 09/19/19 25 Active abaloparatide (TYMLOS) 80 mcg (3,120 mcg/1.56 mL) subcutaneous pen Inject 80 mcg under the skin daily. 1.56 mL 10/07/19 24 025 Discontinued ID-BD 5mm x 31G Mini Pen [place] <[facility] 7024> ([id number])Indic ations:Osteoporosi s, unspecified osteoporosis type, unspecified pathological fracture presence Use as directed 100 each 3 04/19/20 24 025 Discontinued(Re order) Active Problems Patient Care Coordination No te [...] send over these reports over to the food equipment service technician. Would be beneficial for her to see [...] 9:28 PM EST): She is flying to [place] and would like diazepam for the flight. [...] Control/Sedation: - APAP IV ATC - Dilaudid SPRINKLER IRRIGATION EQUIPMENT MECHANIC - Lidocaine patches #[id number] #[id number] - activity as tolerated - no HOB [...] Encounters Date Type Department Care Team Description 09/18/2024 Telephone [facility] [address] [place] [address] Reymundo Patricio MD 09/15/2024 Refill [facility] [address] [place] [address] [address] Reymundo Patricio MD Medication Refill 09/13/2024 12:00 PM EDT Office Visit [facility] [address] [place] [facility] [address] [place] [address] Reymundo Patricio MD Sagittal plane imbalance (Primary Dx) 09/13/2024 11:15 AM EDT - 09/13/2024 11:59 PM EDT Hospital Encounter [facility] - Liza Khan [address] [place] [address] Reymundo Patricio MD Discharge Disposition: Home or Self Care 09/13/2024 Orders Only [facility] [address] [place] [address] Maggie Pickering CNP Osteoporosis, unspecified osteoporosis type, unspecified pathological fracture presence 09/13/2024 Orders Only [facility] [address] [place] [address] Lisa Murray MA Sagittal plane imbalance (Primary Dx) 09/12/2024 Orders Only [facility] [address] [place] [address] Lisa Murray MA Sagittal plane imbalance (Primary Dx) 08/28/2024 Orders Only [address] [address] Rupesh Calero MD 08/22/2024 Orders Only [address] [address] Rupesh Calero MD 08/18/2024 Orders Only [address] [address] Rupesh Calero MD 08/16/2024 Orders Only [address] [address] Rupesh Calero MD 08/08/2024 Orders Only [address] [address] Rupesh Calero MD 08/02/2024 Orders Only [address] [address] Rupesh Calero MD 07/26/2024 Orders Only [facility] [place] [address] [address] [place] [address] Susana Stuart DNP 07/18/2024 11:00 AM EST Office Visit [facility] Leon [address] [place] [address] Susana Stuart DNP Other hammer toe(s) (acquired), unspecified foot (Primary Dx); Murmur; Essential hypertension 07/14/2024 Orders Only [facility] [address] [place] [address] Maggie Pickering CNP from Last 3 Months Immunizations Name Administration [...] Description 10/20/2024 10:00 AM EDT Office Visit [facility] [address] [place] [address] [address] [place] [address] Susana Stuart, CHUCK [address] [facility], [address] [place] [address] 01/31/2025 12:00 PM EDT Office Visit [facility] [address] [place] [address] Reymundo Patricio MD [address] [place] [address] [email or web address] Health Maintenance Due Date Last Done Comments [...] Completed 04/10/2024, , 12/19/2021, Additional history exists SMOKING STATUS SCREENING (Once [...] this topic Medical Devices Implanted Type Area Hospice Home Care Coordinator Device Identifier Shelf Expiration Date Model / Serial / Lot Kit Graft 2.5x5.0cm Lg Bone Infuse Allograft Protein Collagen Absorbable Water Syringe Sponge - [id number] Implanted:Qty: 1 on 02/01/2024 by Reymundo Patricio MD at [facility] BON[employer]UE N/A: Back [employer] 12/05/2024 [id number] / / [id number] Spine Tevin 500mm 6.0 5.0 Reline [place] - [id number] Implanted:Qty: 1 on 02/01/2024 by Reymundo Patricio MD at [facility] N/A: Back [employer] [id number] / / Screw Spine 6mm Reline Locking - [id number] Implanted:Qty: 18 on 02/01/2024 by Reymundo Patricio MD at [facility] N/A: Back [employer] [id number] / / Ifuse [place] Implant 9.5mm X 80mm Implanted:Qty: 1 on 02/01/2024 by Reymundo Patricio MD at [facility] Left: Sacrum / [id number] / Description:Sacrum Ifuse Bedrock [place] Implant 9.5mm X 80mm Implanted:Qty: 1 on 02/01/2024 by Reymundo Patricio MD at [facility] Right: Sacrum / [id number] / Description:Sacrum Screw Spine 8.5x80mm Reline Mas Traction Poly - [id number] Implanted:Qty: 2 on 02/01/2024 by Reymundo Patricio MD at [facility] N/A: Back [employer] [id number] 80 / / Screw Spine 6.5x50mm Reline Mas Traction Poly - [id number] Implanted:Qty: 10 on 02/01/2024 by Reymundo Patricio MD at [facility] N/A: Back [employer] [id number] 50 / / Screw Spine 6.5x45mm Reline Mas Traction Poly - [id number] Implanted:Qty: 3 on 02/01/2024 by Reymundo Patricio MD at [facility] N/A: Back [employer] [id number] 45 / / Screw Spine 6.5x40mm Reline Mas Traction Poly - [id number] Implanted:Qty: 1 on 02/01/2024 by Reymundo Patricio MD at [facility] N/A: Back [employer] [id number] 40 / / Screw Spine 7.5x55mm Reline Mas Traction Poly - [id number] Implanted:Qty: 2 on 02/01/2024 by Reymundo Patricio MD at [facility] N/A: Back [employer] [id number] 55 / / Spine Tevin 6 To [id number] Reline O Titanium Tapered - [id number] Implanted:Qty: 1 on 02/01/2024 by Reymundo Patricio MD at [facility] N/A: Back [employer] [id number] / / Procedures Procedure Name Priority Date/Time Associated Diagnosis Comments XR FULL BODY SURVEY ADULT Routine 09/13/2024 12:00 PM EDT Sagittal plane imbalance OUTSIDE LAB Routine 08/07/2024 5:13 PM EST OUTSIDE LAB Routine 08/07/2024 8:29 AM EST OUTSIDE LAB Routine 07/20/2024 4:43 PM EST OUTSIDE LAB Routine 07/20/2024 4:36 PM EST OUTSIDE LAB Routine 07/20/2024 3:46 PM EST OUTSIDE LAB Routine 07/20/2024 12:07 PM EST OUTSIDE LAB Routine 07/20/2024 11:42 AM EST BI MAMMOGRAM SCREENING WITH TOMOSYNTHESIS WITH [...] Recently Relevant to Health Maintenance Results * XR FULL BODY SURVEY ADULT (09/13/2024 12:00 PM EDT) Anatomical Region Laterality Modality Computed Radiogr aphy 09/13/2024 2:32 PM EDT Impressions 09/13/2024 2:35 PM EDT Instrumented thoracolumbar sacral fusion. Narrative 09/13/2024 2:35 PM EDT XR FULL BODY SURVEY ADULT Referring clinician's provided indication for this examination in [facility]: Pain COMPARISON: FINDINGS: Standing, simultaneously obtained orthogonal views of the entire body again show instrumented fusion hardware from lower thoracic spine to sacrum including bilateral iliac screws. Multiple bilateral pedicle screws are present in combination with paraspinal rods. L3-4 and L4-5 show interbody spacers. Alignment appears unchanged. Multilevel disc degenerative changes involve cervical spine. No definite compression fracture. The sacrum is partially obscured by overlying stool and bowel gas. Degenerative changes involve the hips. Procedure Note Greg Rawls MD - 09/13/2024 XR FULL BODY SURVEY ADULT Referring clinician's provided indication for this examination in Epic:Pain COMPARISON: FINDINGS: Standing, simultaneously obtained orthogonal views of the entire bodyagain show instrumented fusion hardware from lower thoracic spine tosacrum including bilateral iliac screws. Multiple bilateral pedicle screwsare present in combination with paraspinal rods. L3-4 and L4-5 showinterbody spacers. Alignment appears unchanged. Multilevel discdegenerative changes involve cervical spine. No definite compressionfracture. The sacrum is partially obscured by overlying stool and bowelgas. Degenerative changes involve the hips. IMPRESSION: Instrumented thoracolumbar sacral fusion. Reymundo Patricio MD IMG XR SKELETA L SURVEY * Outside Lab (08/07/2024 5:13 PM EST) Only the most recent of7 resultswithin the time period is included. Historical Provider LAB BLOOD ORDERAB LES * BI MAMMOGRAM SCREENING WITH TOMOSYNTHESIS WITH [...] EDT) SODIUM 129(L) 135 - 145 mmol/L [facility] POTASSIUM 4.0 3.4 - 5.0 mmol/L [facility] CHLORIDE 95(L) 98 - 108 mmol/L [facility] CO2 24 23 - 32 mmol/L [facility] BUN 10 8 - 25 mg/dL [facility] CREATININE 0.47(L) 0.60 - 1.50 mg/dL [facility] GLUCOSE 99 70 - 110 mg/dL [facility] CALCIUM 9.3 8.5 - 10.5 mg/dL [facility] EGFR 101 >59 mL/min/1. 73m2 [facility] Comment:Estimated glomerular filtration rate calculated using the CKD-EPI refit equation. ANION GAP 10 3 - 17 mmol/L [facility] Blood 02/08/2024 3:15 AM EDT 02/08/2024 3:27 AM EDT Robert Regan [facility] LAB BLOOD ORDERABL ES [address] [address] * (ABNORMAL) Lipid panel (12/27/2023 10:36 AM EDT) HDL 78 mg/dL [facility] Comment: ? Interpretation <40 mg/dL: Low HDL cholesterol (major risk factor for CHD) Greater than or equal to 60 mg/dL: High HDL cholesterol ( negative risk factor for CHD) HDL - cholesterol is affected by a number of factors, e.g. smoking, excerise, hormones, sex and age. CHOLESTEROL 176 0 - 240 mg/dL [facility] TRIGLYCERIDES 63 30 - 160 mg/dL [facility] LDL 85 50 - 129 mg/dL [facility] Comment: LDL levels in terms of risk for coronary heart disease: <100 mg/dL: Optimal 100-129 mg/dL: Near or above optimal 130-159 mg/dL: Borderline high 160-189 mg/dL: High >190 mg/dL: Very High CARDIAC RISK RATIO 2.3(L) 3.3 - 4.4 C [facility] Blood 12/27/2023 10:3 6 AM EDT 12/27/2023 10:41 AM EDT Hodan Brewster MD LAB BLOOD ORDERABLE S [facility] [address] [place] [address] * ENDOSCOPY, COLON (12/23/2023 8:44 AM EDT) Narrative Transcriptions Eric Oliver MD - 12/23/2023 8:44 AM EDT [facility] Patient Name: Loree Heller Attending MD:: ERIC OLIVER MD, Procedure Date: 12/23/2023 8:44 AM Date of : 1950 Age: 73 Admit Type: Outpatient Gender: Female Room: [facility] Referring MD: Hodan Brewster MD Exam Type: [...] monitored continuously. The Olympus adult variable colonoscope [id number] #5 was introduced through the anus and [...] 8:44 AM Procedure Code(s): --- Professional --- 20962, Colonoscopy, flexible; with biopsy, single or multiple --- Technical --- 86620, Colonoscopy, flexible; with biopsy, single or multiple Diagnosis Code(s): --- Professional --- K52.9, Noninfective gastroenteritis and colitis, unspecified K57.30, Diverticulosis of large intestine without perforation or abscess without bleeding --- Technical --- K52.9, Noninfective gastroenteritis and colitis, unspecified K57.30, Diverticulosis of large intestine without perforation or abscess without bleeding CPT copyright 2021 [employer]. All rights reserved. The codes documented in this report are preliminary and upon forensic examiner reviewmay be revised to meet current compliance requirements. Procedure Date: 12/23/2023 8:44:[address] [place] [address] Hodan Brewster MD GI PROCEDURE ORDERA BLES * Fecal immunochemical test x1 (FIT) (09/16/2023 8:30 AM EDT) Immuno Fecal Occult Negative Negative [facility] Stool (Stool) 09/16/2023 8:3 0 AM EDT 09/16/2023 11:32 AM EDT Sandhya Farr AGRICULTURAL EXTENSION EDUCATOR BODY FLUIDS AND STO OLS ORDERABLES [facility] [address] [place] [address] * BD DXA SPINE AND HIP WITH [...] a total bone mineral density of 0.973 g/hv5vsrg a T- score of 0.3. This is [...] and related to scleroticdegenerative endplate change. Hodan IYERG BD BONE DENSITY DEXA from Last 3 Months or Most Recently Relevant to Health Maintenance Advance Directives For more information, please contact: [phone] (9AM - 5PM [facility], Wednesday-Wednesday) * Full Code (Latest Code Status on File) Date Activated Date Inactivated Comments 02/01/2024 5:35 PM Question Answer Comments Code Status Confirmed With: Patient Care Teams Voice Professor Relationship Specialty Start Date End Date Hodan Brewster MD [address] [place] [address], [address] [place] [address] [email or web address] PCP - General Internal Medicine 07/30/17 Eddie Nina MD [email or web address] Historical LMR Provider 03/23/17 Hodan Brewster MD [address] [place] [address], [address] [place] [address] [email or web address] Historical LMR Provider 03/23/17 Kacey George MD [address] [place] [address] Orthopedics [facility] Sports Medicine, [place] [address] Historical LMR Provider 03/23/17 Hodan Brewster MD [address] [place] [address], [address] [place] [id number] [email or web address] Insurance Assigned Provider 09/11/23 Additional Source Comments The information contained in this document represents components of the legal health record. It is not the complete legal health record.[facility]
--- OUTSIDE RECORDS SUMMARY | 2024-09-26 11:50 | XMS_ITS | Encounter Summary ---
Author Organization [facility] Address [address] [facility] [address] [place] [address] Phone Care Team Providers Care Press Set Up Person Name Role Phone Franchesca Alexandra FIT MODEL Unavailable Alexia Galloway FIT MODEL Unavailable Eddie Nina MD Unavailable Kellie Candelario MD Unavailable [phone] Hodan Brewster MD Unavailable [phone] Marlena Cunningham SHOCK ABSORPTION FLOOR LAYER Unavailable Susana Olguin MD Unavailable Margie Stahl DPM Unavailable Unavaila ble Dre Novak MD Unavailable Kaushik Virgen MD Unavailable Zeeshan Ferrera MD Unavailable [phone] Kacey George MD Unavailable Tim White MD Unavailable Kaushik Virgen MD Primary Care Provider + Hodan Brewster MD Primary Care Provider [phone] Hodan Brewster MD Unavailable Hodan Brewster MD Unavailable Hodan Brewster MD Unavailable [phone] Encounter Details Date Type Department Care Team (Late st Contact Info) Description 06/17/2017 Ancillary Orders [facility] [address] [place] [address] [place] [address] Kaushik Virgen MD [address] [place] [address] [address] [place] [address] [email or web address] Breast screening Social History Tobacco [...] Description 10/20/2024 10:00 AM EDT Office Visit [facility] [address] [place] [address] [address] Susana Stuart, CHUCK [address] [address] 01/31/2025 12:00 PM EDT Office Visit [facility] Spine [address] [address] Reymundo Patricio MD [address] [place] [address] [email or web address] documented as of this encounter Results * [...] are scattered fibroglandular densities. ?? POS - [id number] Narrative 07/07/2017 11:48 AM EST Full-field digital [...] There are scattered fibroglandular densities. POS - [id number] Kaushik Virgen MD IMG MG EXAMS documented in this encounter Visit Diagnoses Diagnosis Breast screening Breast screening, unspecified documented in this encounter Care Teams Press Set Up Person Relationship Specialty Start Date End Date Kaushik Virgen MD [address] [place] [address] [email or web address] PCP - General Family Medicine 06/14/17 07/29/17 Hodan Brewster MD [address] [place] [address] [email or web address] PCP - General Internal Medicine 07/30/17 Franchesca Alexandra, RICHIE [address] [place] [address] Historical LMR Provider 03/23/17 Alexia Galloway NP [address] [place] [phone] [email or web address] Historical LMR Provider 03/23/17 Eddie Nina MD [address] [place] [address] [email or web address] Historical LMR Provider 03/23/17 Kellie Candelario MD [address] [place] [address] Historical LMR Provider 03/23/17 Hodan Brewster MD [address] [place] [phone] [email or web address] Historical LMR Provider 03/23/17 Marlena Cunningham FNP [address] [place] [address] [address] [place] [address] Historical LMR Provider 03/23/17 06/14/21 Susana Olguin MD [address] [place] [address], [address] [place] [address] [email or web address] Historical LMR Provider 03/23/17 06/14/21 Margie Stahl DPM [address] [place] [address] Historical LMR Provider 03/23/17 2 Dre Novak MD [address] [place] [address], [address] [place] [address] [email or web address] Historical LMR Provider 03/23/17 06/14/21 Kaushik Virgen MD [address] [place] [address] [email or web address] Historical LMR Provider 03/23/17 06/14/21 Zeeshan Ferrera MD [address] [facility], [address] [place] [address] [email or web address] Historical LMR Provider 03/23/17 06/14/21 Kacey George MD [address] [place] [address] Orthopedics & Sports Medicine, [place] [address] Historical LMR Provider 03/23/17 Tim White MD [address] [place] [address] [email or web address] Historical LMR Provider 03/23/17 06/14/21 Hodan Brewster MD [address] [place] [address] [email or web address] Insurance Assigned Provider 10/08/18 12/17/18 Hodan Brewster MD [address] [place] [address] [email or web address] Insurance Assigned Provider 09/13/19 06/13/22 Hodan Brewster MD [address] [place] [address] [email or web address] Insurance Assigned Provider 09/11/23 documented as of this encounter Additional Source Comments The information contained in this document represents components of the legal health record. It is not the complete legal health record.[facility]
--- OUTSIDE RECORDS SUMMARY | 2024-09-26 11:50 | XMS_ITS | Encounter Summary ---
Author Organization [facility] Address [address] [facility] [address] [place] [address] Phone Care Team Providers Care Sawmill Relief Worker Name Role Phone Eddie Nina MD Unavailable Hodan Brewster MD Unavailable [phone] Kacey George MD Unavailable [phone] Hodan Brewster MD Primary Care Provider [phone] Hodan Brewster MD Unavailable [phone] Reason for Referral * Physical Therapy (Within 2 weeks) - New Request Specialty Diagnoses / Procedures Referred By Rebekah tierney Referred To Contact Diagnoses Sagittal plane imbalance Reymundo Patricio MD [address] [place] [address] Email: [email or web address] Referral ID Status Reason Start Date Expiration Date V isits Requested Visits Authorized [id number] New Request 09/13/2024 09/13/2025 1 1 Encounter Details Date Type Department Care Team (Late st Contact Info) Description 09/13/2024 Orders Only [facility] [address] [place] [address] Lisa Murray [place] [address] [place] [address] [phone] [email or web address] Sagittal plane imbalance (Primary Dx) Social History [...] Description 10/20/2024 10:00 AM EDT Office Visit [facility] [address] [facility] 301 [place] [address] Susana Stuart DNP 22 [facility], [address] [place] [address] [email or web address] 01/31/2025 12:00 PM EDT Office Visit [facility] [address] [facility] [address] [place] [address] Reymundo Patricio MD 55 [place] [address] [email or web address] Scheduled Referrals Name Type Priority Associated Diagnoses Order Schedule Ambulatory referral to External Physical Therapy Outpatient Referral Routine Sagittal plane imbalance Ordered: 09/13/2024 documented as of this encounter Visit Diagnoses Diagnosis 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 documented in this encounter Additional Health Concerns Assessment Noted Time PHQ-2 Depression Total Score: 2 12/31/19 24 4:14 PM EDT documented as of this encounter Care Teams Sawmill Relief Worker Relationship Specialty Start Date End Date Hodan Brewster MD [address] [place] [address], 2nd [place] [address] [email or web address] PCP - General Internal Medicine 07/30/17 Eddie Nina MD [email or web address] Historical LMR Provider 03/23/17 Hodan Brewster MD [address] [place] [address] Historical LMR Provider 03/23/17 Kacey George MD [address] [place] [address] [facility], [place] [address] Historical LMR Provider 03/23/17 Hodan Brewster MD [address] [place] [address] Insurance Assigned Provider 09/11/23 documented as of this encounter Additional Source Comments The information contained in this document represents components of the legal health record. It is not the complete legal health record.[facility]
--- OUTSIDE RECORDS SUMMARY | 2024-09-26 11:50 | XMS_ITS | Encounter Summary ---
Author Organization [facility] Address [address] [place] [address] Phone Care Team Providers Care Program Schedule Clerk Name Role Phone Eddie Nina MD Unavailable Hodan Brewster MD Unavailable [phone] Kacey George MD Unavailable Hodan Brewster MD Primary Care Provider Hodan Brewster MD Unavailable [phone] Encounter Details Date Type Department Care Team (Late st Contact Info) Description 08/22/2024 Orders Only [facility] [address] [place] [address] Provider, MD Rupesh [address] [place] [address] Social History Tobacco Use Types Packs/Day [...] Description 10/20/2024 10:00 AM EDT Office Visit [facility] [address] [facility] 301 [place] [address] Susana Stuart DNP [address] [place], [address] [place] [address] [email or web address] 01/31/2025 12:00 PM EDT Office [place] [facility] [place] [place] [address] [place] [address] Reymundo Patricio MD [address] [place] [address] [email or web address] documented as of this encounter Procedures Procedure Name Priority Date/Time Associated Diagnosis Comments OUTSIDE LAB Routine 08/07/2024 8:29 AM EST documented in this encounter Results * Outside Lab (08/07/2024 8:29 AM EST) Historical Provider LAB BLOOD ORDERAB LES documented in this encounter Visit Diagnoses Not on filedocumented in this encounter Additional Health Concerns Assessment Noted Time PHQ-2 Depression Total Score: 2 12/31/19 24 4:14 PM EDT documented as of this encounter Care Teams Program Schedule Clerk Relationship Specialty Start Date End Date Hodan Brewster MD [address] [place] [address], [address] [place] [address] [email or web address] PCP - General Internal Medicine 07/30/17 Eddie Nina MD [email or web address] Historical LMR Provider 03/23/17 Hodan Brewster MD [address] [place] [address], [address] [place] [address] Historical LMR Provider 03/23/17 Kacey George MD [address] [place] [address] Orth[facility] Medicine, [place] [address] Historical LMR Provider 03/23/17 Hodan Brewster MD [address] [place] [address], 2nd [place] [address] Insurance Assigned Provider 09/11/23 documented as of this encounter Additional Source Comments The information contained in this document represents components of the legal health record. It is not the complete legal health record.[facility]
--- OUTSIDE RECORDS SUMMARY | 2024-09-26 11:51 | XMS_ITS | Encounter Summary ---
Author Organization [facility] Address [address] [place] [address] Phone Care Team Providers Care Control Panel Tester Name Role Phone Unavailable Primary Care Provider Unavailabl e Reason for Visit * MRI/CAT Scan - Closed Specialty Diagnoses / Procedures Referred By Rebekah t Referred To Contact Procedures MRI Spine (Neuro) Outside (No Interpretation) Michael Guerra MD [address] [place] [address] Email: [email or web address] Referral ID Status Reason Start Date Expiration Date Visits Re quested Visits Authorized [id number] Closed 08/27/2016 08/27/2017 1 1 Encounter Details Date Type Department Care Team (Late st Contact Info) Description 07/12/2016 Hospital Encounter [facility] [address] [place] [address] Michael Guerra MD [address] [place] [address] Social History Tobacco Use Types Packs/Day Years [...] Description 10/20/2024 10:00 AM EDT Office Visit [facility] [address] [facility] 301 [place] [address] Susana Stuart DNP [address] [facility], [address] [place] [address] 01/31/2025 12:00 PM EDT Office Visit [facility] Orth[facility] Spine [address] [facility] [address] [place] [address] Reymundo Patricio MD [address] [place] [address] [email or web address] documented as of this encounter Procedures Procedure Name Priority Date/Time Associated Diagnosis Comments MRI SPINE NEUROLOGIC FOCUS OUTSIDE (NO INTERPRETATION) Routine 07/12/2016 12:00 AM EST documented in this encounter Results * MRI Spine (Neuro) Outside (No Interpretation) (07/12/2016 12:00 AM EST) Narrative [facility] IMG INTERFACES - 08/27/2016 3:09 PM EDT This study is for PACS storage only and not for interpretation. Michael Guerra MD IMG OUTSIDE I KANNAN W/OUT INTERPRETATION [facility] IMG INTERFACES documented in this encounter Visit Diagnoses Not on filedocumented in this encounter Additional Source Comments The information contained in this document represents components of the legal health record. It is not the complete legal health record.[facility]
--- OUTSIDE RECORDS SUMMARY | 2024-09-26 11:51 | XMS_ITS | Clinical Summary ---
Author Organization [facility] Address [address] [place] [address] Care Team Providers Care Farm Management Adviser Name Role Phone Hodan Brewster MD Primary Care Provider [phone] Allergies Active Allergy Reactions Criticality Noted Date [...] Adults 18 yrs or above (or HM Modifier)([facility]) 1951 Hepatitis C Virus Infection in Adolescents and Adults: Screening (or Modifier) ([facility]) 1969 LAQUITA Screening: Once using ST OP-BANG Questionnaire for Adults with Conditions or high BMI([facility]) 1969 SDOH Screening Reminder: Angelita adair for all adults ([facility]) 1969 Tobacco Smoking Cessation: i n Adults excluding Women: Behavioral and Pharmacotherapy Interventions ([facility]) 1969 Colorectal Cancer Screening 45 -75 Yrs (or HM Modifier) 1996 Colorectal Cancer: FLEXIBLE SIGMOIDOSCOPY Screening every 5 yrs 1996 Colorectal Cancer: Fecal Immunochemical Test (FIT) Annually [facility] 1996 Colorectal Cancer: High-sens itivity gFOBT Screening Annually [facility] 1996 Colorectal Cancer: Stool Col oguard Screening every 3 yrs 1996 Colorectal Cancer:CT Colonog nia Screening every 5 yrs 1996 Lipid Screening: Every 5 yrs for Women aged 45+ (or HM Modifier) ([facility]) 1997 Breast Cancer: Screening Angelita ually age 50-74 yrs (or HM Modifier)([facility] ) 2001 Osteoporosis Screening to Pr event Fractures: Women aged 65 years+ ([facility] ) 2016 Pneumococcal Vaccination Scr eening: Patients 50+ yrs of age ([facility]) (2 of 2 - PCV) 06/23/2020 06/23/2019 COVID-19 Vaccine Screening: Initial Series and Booster Status ([facility]) ( - 2023- season) 2024 02/25/2021, 08/28/2020, 07/31/2020 Flu Vaccination: Ages 65+: Y early High Dose Recommended (or Modifier)([facility]) 01/05/2025 03/27/2022, 03/29/2018, 03/19/2017, Additional history exists RSV Vaccines (1 - 1-dose 75+ series) 2026 DTaP/Tdap/Td Vaccines ([facility]) (3 - Td or Tdap) 05/09/2030 05/09/2020, 04/21/2011 Zoster/Shingles Vaccine Seri es Screening: Adults aged 18+ yrs (or HM Modifiers)([facility]) Completed 06/23/2019, 03/14/2019 Medical Devices Not on file Insurance [facility] MEDICARE Care Teams Farm Management Adviser Relationship Specialty Start Date End Date Hodan Brewster MD [address] [place] [phone] PCP - Motor Winder 03/29/18
--- OUTSIDE RECORDS SUMMARY | 2024-09-26 11:51 | XMS_ITS | Encounter Summary ---
Author Organization [facility] Address [address] [place] [address] Phone Care Team Providers Care Dog And Cat Food Cook Name Role Phone Unavailable Primary Care Provider Unavailabl e Encounter Details Date Type Department Care Team ([facility] st Contact Info) Description 05/04/2016 Hospital Encounter [facility] General Imaging 55 [place] [address] Michael Guerra MD [address] [place] [address] Social History Tobacco Use Types Packs/Day Years [...] Description 10/20/2024 10:00 AM EDT Office Visit [facility] [address] [place] [address] [facility] [address] [place] [address] Susana Stuart, CHUCK [address] [place] [address], [facility] [address] [place] [address] [email or web address] 01/31/2025 12:00 PM EDT Office Visit [facility] [address] [place] [address] Reymundo Patricio MD [address] [place] [address] [email or web address] documented as of this encounter Procedures Procedure Name Priority Date/Time Associated Diagnosis Comments XR SPINE OUTSIDE (NO INTERPRETATION) Routine 05/04/2016 12:00 AM EST documented in this encounter Results * XR SPINE OUTSIDE(NO INTERPRETATION) (05/04/2016 12:00 AM EST) Narrative [facility] IMG INTERFACES - 08/27/2016 3:08 PM EDT This study is for PACS storage only and not for interpretation. Michael Guerra MD IMG OUTSIDE I KANNAN W/OUT INTERPRETATION [facility] IMG INTERFACES documented in this encounter Visit Diagnoses Not on filedocumented in this encounter Additional Source Comments The information contained in this document represents components of the legal health record. It is not the complete legal health record.[facility]
--- OUTSIDE RECORDS SUMMARY | 2024-09-26 11:51 | XMS_ITS | Encounter Summary ---
Author Organization [facility] Address [address] [facility] [address] [place] [address] Phone Care Team Providers Care Fowl Blood Tester Name Role Phone Hodan Brewster MD Primary Care Provider [phone] Franchesca Alexandra KNOWLEDGE ANALYST Unavailable Alexia Galloway NP Unavailable Eddie Nina MD Unavailable Kellie Candelario MD Unavailable [phone] Hodan Brewster MD Unavailable [phone] Marlena Cunningham SPOOL MAKER Unavailable Susana Olguin MD Unavailable Margie Stahl DPM Unavailable Unavaila ble Dre Novak MD Unavailable Kaushik Virgen MD Unavailable [phone] Zeeshan Ferrera MD Unavailable [phone] Kacey George MD Unavailable [phone] Tim White MD Unavailable [phone] Kaushik Virgen MD Primary Care Provider + Hodan Brewster MD Primary Care Provider [phone] Hodan Brewster MD Unavailable [phone] Hodan Brewster MD Unavailable Hodan Brewster MD Unavailable Encounter Details Date Type Department Care Team (Late st Contact Info) Description 08/27/2016 Procedure [facility] 55 [place] [address] Social History Tobacco Use Types Packs/Day Years [...] Description 10/20/2024 10:00 AM EDT Office Visit [facility] [address] [place] [address] 301 [place] [address] Susana Stuart DNP 22 [facility] 301 [place] [address] [email or web address] 01/31/2025 12:00 PM EDT Office Visit [facility] [place] [facility] Spine 55 [facility] 3[address] [place] [address] Reymundo Patricio MD 55 [place] [address] [email or web address] documented as of this encounter Visit Diagnoses Not on filedocumented in this encounter Care Teams Fowl Blood Tester Relationship Specialty Start Date End Date Hodan Brewster MD [address] [place] [address], 2nd [place] [address] PCP - General 08/14/16 06/13/17 Kaushik Virgen MD [address] [place] [address] [email or web address] PCP - General Family Medicine 06/14/17 07/29/17 Hodan Brewster MD [address] [place] [address] [email or web address] PCP - General Internal Medicine 07/30/17 Franchesca Alexandra NP [address] [place] [address] Historical LMR Provider 03/23/17 Alexia Galloway NP [address] [place] [address] [email or web address] Historical LMR Provider 03/23/17 Eddie Nina MD [address] [place] [address] [email or web address] Historical LMR Provider 03/23/17 Kellie Candelario MD [address] [place] [address] Historical LMR Provider 03/23/17 Hodan Brewster MD [address] [place] [address] [email or web address] Historical LMR Provider 03/23/17 Marlena Cunningham FNP [address] [place] [address] [address] [place] [address] Historical LMR Provider 03/23/17 06/14/21 Susana Olguin MD [address] [facility] [address] [place] [address] Historical LMR Provider 03/23/17 06/14/21 Margie Stahl DPM [address] [place] [address] Historical LMR Provider 03/23/17 Dre Weir MD [address] [place] [address], 2nd [place] [address] [email or web address] Historical LMR Provider 03/23/17 06/14/21 Kaushik Virgen MD [address] [place] [address] [email or web address] Historical LMR Provider 03/23/17 06/14/21 Zeeshan Ferrera MD [address] [place] [address], [address] [place] [address] [email or web address] Historical LMR Provider 03/23/17 06/14/21 Kacey George MD [address] [place] [address] [facility] Medicine, [place] [address] Historical LMR Provider 03/23/17 Tmi White MD [address] [place] [address] Historical LMR Provider 03/23/17 06/14/21 Hodan Brewster MD [address] [place] [address] Insurance Assigned Provider 10/08/18 12/17/18 Hodan Brewster MD [address] [place] [address] Insurance Assigned Provider 09/13/19 06/13/22 Hodan Brewster MD [address] [place] [address] Insurance Assigned Provider 09/11/23 documented as of this encounter Additional Source Comments The information contained in this document represents components of the legal health record. It is not the complete legal health record.[facility]
--- OUTSIDE RECORDS SUMMARY | 2024-09-26 11:51 | XMS_ITS | Encounter Summary ---
Author Organization [facility] Address [address] [facility] [address] [place] [address] Phone Care Team Providers Care Electronics Detail Draftsperson Name Role Phone Hodan Brewster MD Primary Care Provider [phone] Franchesca Alexandra COURSEWARE DEVELOPER Unavailable Alexia Galloway NP Unavailable Eddie Nina MD Unavailable Kellie Candelario MD Unavailable [phone] Hodan Brewster MD Unavailable [phone] Marlena Cunningham INTENSIVE CARE SPECIALIST Unavailable Susana Olguin MD Unavailable Margie Stahl DPM Unavailable Unavaila ble Dre Novak MD Unavailable Kaushik Virgen MD Unavailable [phone] Zeeshan Ferrera MD Unavailable [phone] Kacey George MD Unavailable [phone] Tim White MD Unavailable [phone] Kaushik Virgen MD Primary Care Provider + Hodan Brewster MD Primary Care Provider [phone] Hodan Brewster MD Unavailable [phone] Hodan Brewster MD Unavailable [phone] Hodan Brewster MD Unavailable Encounter Details Date Type Department Care Team (Late st Contact Info) Description 08/27/2016 Procedure Pass [facility] 55 [place] [address] Social History Tobacco Use Types Packs/Day Years [...] Description 10/20/2024 10:00 AM EDT Office Visit [facility] [address] [place] [address] 301 [place] [address] Susana Stuart DNP 22 [facility] 301 [place] [address] [email or web address] 01/31/2025 12:00 PM EDT Office Visit [facility] Sp[facility] 55 [facility] [address] [place] [address] Reymundo Patricio MD 55 [place] [address] [email or web address] documented as of this encounter Visit Diagnoses Not on filedocumented in this encounter Care Teams Electronics Detail Draftsperson Relationship Specialty Start Date End Date Hodan Brewster MD [address] [place] [address], 2nd [place] [address] PCP - General 08/14/16 06/13/17 Kaushik Virgen MD [address] [place] [address] [email or web address] PCP - General Family Medicine 06/14/17 07/29/17 Hodan Brewster MD [address] [place] [address] [email or web address] PCP - General Internal Medicine 07/30/17 Franchesca Alexandra NP [address] [place] [address] Historical LMR Provider 03/23/17 Alexia Galloway NP [address] [place] [address] [email or web address] Historical LMR Provider 03/23/17 Eddie Nina MD [address] [place] [address] [email or web address] Historical LMR Provider 03/23/17 Kellie Candelario MD [address] [place] [address] Historical LMR Provider 03/23/17 Hodan Brewster MD [address] [place] [address] [email or web address] Historical LMR Provider 03/23/17 Marlena Cunningham FNP [address] [place] [address] [address] [place] [address] Historical LMR Provider 03/23/17 06/14/21 Susana Olguin MD [address] [facility] [address] [place] [address] Historical LMR Provider 03/23/17 06/14/21 Margie Stahl DPM [address] [place] [address] Historical LMR Provider 03/23/17 Dre Weir MD [address] [place] [address], 2[address] [place] [address] [email or web address] Historical LMR Provider 03/23/17 06/14/21 Kaushik Virgen MD [address] [place] [address] [email or web address] Historical LMR Provider 03/23/17 06/14/21 Zeeshan Ferrera MD [address] [place] [address], [address] [place] [address] [email or web address] Historical LMR Provider 03/23/17 06/14/21 Kacey George MD [address] [place] [address] [facility], [place] [address] Historical LMR Provider 03/23/17 Tim White MD [address] [place] [address] [email or web address] Historical LMR Provider 03/23/17 06/14/21 Hodan Brewster MD [address] [place] [address] Insurance Assigned Provider 10/08/18 12/17/18 Hodan Brewster MD [address] [place] [address] Insurance Assigned Provider 09/13/19 06/13/22 Hodan Brewster MD [address] [place] [address] Insurance Assigned Provider 09/11/23 documented as of this encounter Additional Source Comments The information contained in this document represents components of the legal health record. It is not the complete legal health record.[facility]
--- OUTSIDE RECORDS SUMMARY | 2024-09-26 11:51 | XMS_ITS | Encounter Summary ---
Author Organization [facility] Address [address] [place] [address] Phone Care Team Providers Care Drill Press Tender Name Role Phone Unavailable Primary Care Provider Unavailabl e Reason for Visit * MRI/CAT Scan - Closed Specialty Diagnoses / Procedures Referred By Contsj t Referred To Contact Procedures MRI Spine (Neuro) Outside (No Interpretation) Michael Guerra MD [address] [place] [address] Email: [email or web address] Referral ID Status Reason Start Date Expiration Date Visits Re quested Visits Authorized [id number] Closed 08/27/2016 08/27/2017 1 1 Encounter Details Date Type Department Care Team ([facility] st Contact Info) Description 07/12/2016 12:15 AM EST Hospital Encounter [facility] General Imaging [address] [place] [address] Michael Guerra MD [address] [place], [place] [address] Social History Tobacco Use Types Packs/Day Years [...] Description 10/20/2024 10:00 AM EDT Office Visit [facility] [address] [facility] 301 [place] [address] Susana Stuart DNP 22 [facility], [address] [place] [address] 01/31/2025 12:00 PM EDT Office Visit [facility] Orthopaedic Spine [address]key Scott [address] [place] [address] Reymundo Patricio MD [address] [place] [address] [email or web address] documented as of this encounter Procedures Procedure Name Priority Date/Time Associated Diagnosis Comments MRI SPINE NEUROLOGIC FOCUS OUTSIDE (NO INTERPRETATION) Routine 07/12/2016 12:15 AM EST documented in this encounter Results * MRI Spine (Neuro) Outside (No Interpretation) (07/12/2016 12:15 AM EST) Narrative [facility] IMG INTERFACES - 08/27/2016 3:10 PM EDT [...] It is not the complete legal health record.[facility]
--- OUTSIDE RECORDS SUMMARY | 2024-09-26 11:51 | XMS_ITS | Encounter Summary ---
Author Organization [facility] Address [address] [place] [address] Phone Care Team Providers Care Emergency Room Nurse Name Role Phone Unavailable Primary Care Provider Unavailabl e Encounter Details Date Type Department Care Team ([facility] st Contact Info) Description 05/04/2016 12:15 AM EST Hospital Encounter [facility] Imaging 55 [place] [address] Michael Guerra MD [address] [place] [address] Social History Tobacco Use Types Packs/Day Years [...] Description 10/20/2024 10:00 AM EDT Office Visit [facility] [address] [place] [address] [facility] 301 [place] [address] Susana Stuart, CHUCK [address] [place] [address], [address] [address] [email or web address] 01/31/2025 12:00 PM EDT Office Visit [facility] Spine [address] Scott [address] [place] [address] Reymundo Patricio MD [address] [place] [address] [email or web address] documented as of this encounter Procedures Procedure Name Priority Date/Time Associated Diagnosis Comments XR SPINE OUTSIDE (NO INTERPRETATION) Routine 05/04/2016 12:15 AM EST documented in this encounter Results * XR SPINE OUTSIDE(NO INTERPRETATION) (05/04/2016 12:15 AM EST) Narrative [facility] IMG INTERFACES - 08/27/2016 3:09 PM EDT This study is for PACS storage only and not for interpretation. Michael Guerra MD IMG OUTSIDE I KANNAN W/OUT INTERPRETATION [facility] IMG INTERFACES documented in this encounter Visit Diagnoses Not on filedocumented in this encounter Additional Source Comments The information contained in this document represents components of the legal health record. It is not the complete legal health record.[facility]
--- OUTSIDE RECORDS SUMMARY | 2024-09-26 11:51 | XMS_ITS | Encounter Summary ---
Author Organization [facility] Address [address] [facility] [address] [place] [address] Phone Care Team Providers Care Manager Inpatient Name Role Phone Franchesca Alexandra DRIER ATTENDANT Unavailable Alexia Galloway DRIER ATTENDANT Unavailable Eddie Nina MD Unavailable Kellie Candelario MD Unavailable [phone] Hodan [place] MD Unavailable Marlena Cunningham MANAGER INVESTIGATIONS Unavailable Susana Olguin MD Unavailable Margie Stahl DPM Unavailable Unavaila ble Dre Novak MD Unavailable Kaushik Virgen MD Unavailable Zeeshan Ferrera MD Unavailable [phone] Kacey George MD Unavailable Tim White MD Unavailable Hodan [place] MD Primary Care Provider [phone] Hodan [place] MD Unavailable Hodan [place] MD Unavailable [phone] Hodan [place] MD Unavailable Encounter Details Date Type Department Care Team (Late st Contact Info) Description 05/27/2018 Ancillary Orders Virtual Department [address] [place] [address] Hodan [place] MD [address] [facility], 2nd [place] [address] [email or web address] Breast screening Social History Tobacco Use Types [...] Description 10/20/2024 10:00 AM EDT Office Visit [facility] 22 [facility] 301 [place] [address] Susana Stuart, CHUCK [address] [facility] [place] [address] 01/31/2025 12:00 PM EDT Office Visit [facility] Orthopaedic Spine [address] [facility] [address] [place] [address] Reymundo Patricio MD [address] [place] [address] [email or web address] documented as of this encounter Results [...] and compared with multiple prior studies, most mqwjhoyl52/31/2018, with utilization of computer-aided detection. The breasts [...] unspecified documented in this encounter Care Teams Manager Inpatient Relationship Specialty Start Date End Date Hodan [place] MD [address] [place] [address], 2nd [place] [address] PCP - General Internal Medicine 07/30/17 Franchesca Alexandra, RICHIE 1 [place] [address] Historical LMR Provider 03/23/17 Alexia Galloway DRIER ATTENDANT [address] [place] [address] [email or web address] Historical LMR Provider 03/23/17 Eddie Nina MD [address] [place] [address] [email or web address] Historical LMR Provider 03/23/17 Kellie Candelario MD [address] [place] [address] Historical LMR Provider 03/23/17 Hodan [place] MD [address] [place] [address], 2nd [place] [address] [email or web address] Historical LMR Provider 03/23/17 Marlena Cunningham FNP 38 [facility] [address], [address] [place] [address] [email or web address] Historical LMR Provider 03/23/17 06/14/21 Susana Olguin MD [address] [facility] [address], [address] [place] [address] Historical LMR Provider 03/23/17 06/14/21 Margie Stahl DPM [address] [place] [address] Historical LMR Provider 03/23/17 Dre Weir MD [address] [place] [address] [email or web address] Historical LMR Provider 03/23/17 06/14/21 Kaushik Virgen MD [address] [place] [address] [email or web address] Historical LMR Provider 03/23/17 06/14/21 Zeeshan Ferrera MD [address] [place] [address], [address] [place] [address] [email or web address] Historical LMR Provider 03/23/17 06/14/21 Kacey George MD [address] [place] [address] [facility], [place] [address] [email or web address] Historical LMR Provider 03/23/17 Tim White MD [address] [place] [address] [email or web address] Historical LMR Provider 03/23/17 06/14/21 Hodan [place] MD [address] [place] [address] [email or web address] Insurance Assigned Provider 10/08/18 12/17/18 Hodan [place] MD [address] [place] [address] Insurance Assigned Provider 09/13/19 06/13/22 Hodan [place] MD [address] [place] [address], 2nd [place] [address] Insurance Assigned Provider 09/11/23 documented as of this encounter Additional Source Comments The information contained in this document represents components of the legal health record. It is not the complete legal health record.[facility]
--- OUTSIDE RECORDS SUMMARY | 2024-09-26 11:51 | XMS_ITS | Encounter Summary ---
Author Organization [facility] Address [address] [address] [place] [address] Phone Care Team Providers Care Computer Applications Developer Name Role Phone Eddie Nina MD Unavailable Hodan [place] MD Unavailable [phone] Kacey George MD Unavailable [phone] Hodan [place] MD Primary Care Provider [phone] Hodan [place] MD Unavailable [phone] Encounter Details Date Type Department Care Team (Late st Contact Info) Description 10/08/2022 Procedure Pass [address] [place] [address] Social History Tobacco Use Types Packs/Day Years [...] high school, GED, job training, learning the Croatian language, technical skills, or developing parenting skills)? [...] Description 10/20/2024 10:00 AM EDT Office Visit [facility] [address] [place] [address] [address] [place] [address] Susana Stuart, CHUCK [address] [facility], [address] [place] [address] 01/31/2025 12:00 PM EDT Office Visit [facility] Orthopaedic Spine [address] [place] [address] Reymundo Patricio MD [address] [place] [address] [email or web address] documented as of this encounter Visit Diagnoses Not on filedocumented in this encounter Additional Health Concerns Assessment Noted Time PHQ-2 Depression Total Score: 1 12/04/19 22 4:12 PM EDT documented as of this encounter Care Teams Computer Applications Developer Relationship Specialty Start Date End Date Hodan [place] MD [address] [place] [address] PCP - General Internal Medicine 07/30/17 Eddie Nina MD [email or web address] Historical LMR Provider 03/23/17 Hodan [place] MD [address] [place] [address] Historical LMR Provider 03/23/17 Kacey George MD [address] [place] [address] [facility], [place] [address] Historical LMR Provider 03/23/17 Hodan [place] MD [address] [place] [address] Insurance Assigned Provider 09/11/23 documented as of this encounter Additional Source Comments The information contained in this document represents components of the legal health record. It is not the complete legal health record.[facility]
--- OUTSIDE RECORDS SUMMARY | 2024-09-26 11:51 | XMS_ITS | Encounter Summary ---
Author Organization [facility] Address [email or web address] [place] [address] Phone Care Team Providers Care Mc Kay Machine Operator Name Role Phone Eddie Nina MD Unavailable Hodan [place] MD Unavailable [phone] Kacey George MD Unavailable [phone] Hodan [place] MD Primary Care Provider Hodan [place] MD Unavailable [phone] Hodan [place] MD Unavailable [phone] Encounter Details Date Type Department Care Team (Late st Contact Info) Description 12/03/2021 Procedure Pass [facility] - [address] [place] [address] Social History Tobacco Use Types Packs/Day Years [...] high school, GED, job training, learning the Japanese language, technical skills, or developing parenting skills)? [...] Description 10/20/2024 10:00 AM EDT Office Visit [facility] [address] [place] [address] Susana Stuart DNP [address] [address] 01/31/2025 12:00 PM EDT Office Visit [facility] Orthopaedic Spine [address] [place] [address] Reymundo Patricio MD [address] [place] [address] [email or web address] documented as of this encounter Visit Diagnoses Not on filedocumented in this encounter Additional Health Concerns Assessment Noted Time PHQ-2 Depression Total Score: 1 12/04/19 22 4:12 PM EDT documented as of this encounter Care Teams Mc Kay Machine Operator Relationship Specialty Start Date End Date Hodan [place] MD [address] [place] [address] PCP - General Internal Medicine 07/30/17 Eddie Nina MD [email or web address] Historical LMR Provider 03/23/17 Hodan [place] MD [address] [place] [address] Historical LMR Provider 03/23/17 Kacey George MD [address] [place] [address] [facility], [place] [address] Historical LMR Provider 03/23/17 Hodan [place] MD [address] [place] [address] Insurance Assigned Provider 09/13/19 06/13/22 Hodan [place] MD [address] [place] [address] Insurance Assigned Provider 09/11/23 documented as of this encounter Additional Source Comments The information contained in this document represents components of the legal health record. It is not the complete legal health record.[facility]
--- OUTSIDE RECORDS SUMMARY | 2024-09-26 11:51 | XMS_ITS | Encounter Summary ---
Author Organization [facility] Address [address] [facility] [address] [place] [address] Phone Care Team Providers Care Certified Pesticide Applicator Name Role Phone Eddie Nina MD Unavailable Hodan [place] MD Unavailable [phone] Kacey George MD Unavailable [phone] Hodan [place] MD Primary Care Provider Hodan [place] MD Unavailable Reason for Referral * MRI/CAT Scan - Closed Specialty Diagnoses / Procedures Referred By Contac t Referred To Contact Radiology Diagnoses Dorsalgia, unspecified Other specified postprocedural states Procedures MRI Lumbar Spine Donaot Wynn MD [address] [place] [address] Referral ID Status Reason Start Date Expiration Date Visits Re quested Visits Authorized [id number] Closed 01/28/2023 1 1 Encounter Details Date Type Department Care Team (Latest Contact Info) Description 01/28/2023 Transcribe Orders Virtual Department 30 [place] [address] Donato Wynn MD [address] [place] [address] Dorsalgia, unspecified (Primary Dx); Other specified postprocedural [...] high school, GED, job training, learning the Puerto Rican language, technical skills, or developing parenting skills)? [...] Description 10/20/2024 10:00 AM EDT Office Visit [facility] 22 [facility] 301 [place] [address] Susana Stuart DNP 22 [facility], [address] [place] [address] 01/31/2025 12:00 PM EDT Office Visit [facility] Orthopaedic Spine [address] [place] [address] Reymundo Patricio MD [address] [place] [address] [email or web address] documented as of this encounter Results * [...] MRI LUMBAR SPINE (NEURO) WITH AND WITHOUT [id number] FINDINGS: ALIGNMENT: Straightening of the lumbar lordosis. [...] L3-4 and L4-5 hemilaminectomy, discectomy, and L3- [id number] fusion. 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 without severe [...] documented as of this encounter Care Teams Certified Pesticide Applicator Relationship Specialty Start Date End Date Hodan [place] MD [address] [place] [address] PCP - General Internal Medicine 07/30/17 Eddie Nina MD [email or web address] Historical LMR Provider 03/23/17 Hodan [place] MD [address] [place] [address] Historical LMR Provider 03/23/17 Kacey George MD [address] [place] [address] Orthoped[facility] Sports Medicine, [place] [address] Historical LMR Provider 03/23/17 Hodan [place] MD [address] [place] [phone] Insurance Assigned Provider 09/11/23 documented as of this encounter Additional Source Comments The information contained in this document represents components of the legal health record. It is not the complete legal health record.[facility]
--- OUTSIDE RECORDS SUMMARY | 2024-09-26 11:51 | XMS_ITS | Encounter Summary ---
Author Organization [facility] Address [address] [facility] [address] [place] [address] Phone Care Team Providers Care Warehouse Operations Associate Name Role Phone Franchesca Alexandra HOSPICE CLINICAL SUPERVISOR Unavailable Alexia Galloway HOSPICE CLINICAL SUPERVISOR Unavailable Eddie Nina MD Unavailable Kellie Candelario MD Unavailable [phone] Hodan [place] MD Unavailable Marlena Cunningham FRONT END SOFTWARE DEVELOPER Unavailable Susana Olguin MD Unavailable Margie Stahl DPM Unavailable Unavaila ble Dre Novak MD Unavailable [phone] Kaushik Virgen MD Unavailable Zeeshan Ferrera MD Unavailable [phone] Kacey George MD Unavailable Tim White MD Unavailable Hodan [place] MD Primary Care Provider [phone] Hodan [place] MD Unavailable Hodan [place] MD Unavailable Encounter Details Date Type Department Care Team (Late st Contact Info) Description 04/26/2020 Transcribe Orders [facility] Specimen Processing [address] [place] [address] Hodan [place] MD [address] [place] [address], [address] [place] [address] [email or web address] Social History Tobacco Use Types Packs/Day Years [...] Department Care Team (Late Contact Info) Description 10/20/2024 10:00 AM EDT Office Visit [facility] 22 [facility] 301 [place] [address] Susana Stuart DNP 22 [facility], [address] [place] [address] [email or web address] 01/31/2025 12:00 PM EDT Office Visit [facility] Orthopaedic Spine 55 [facility] [address] [place] [address] Reymundo Patricio MD [address] [place] [address] [email or web address] documented as of this encounter Visit Diagnoses Not on filedocumented in this encounter Additional Health Concerns Assessment Noted Time PHQ-2 Depression Total Score: 0 11/21/19 20 8:33 AM EDT documented as of this encounter Care Teams Warehouse Operations Associate Relationship Specialty Start Date End Date Hodan [place] MD [address] [place] [address], [address] [place] [address] [email or web address] PCP - General Internal Medicine 07/30/17 Franchesca Alexandra, RICHIE 1 [place] [address] Historical LMR Provider 03/23/17 Alexia Galloway NP [address] [place] [address] [email or web address] Historical LMR Provider 03/23/17 Eddie Nina MD [address] [place] [address] [email or web address] Historical LMR Provider 03/23/17 Kellie Candelario MD [address] [place] [address] Historical LMR Provider 03/23/17 Hodan [place] MD [address] [place] [address], 2nd [place] [address] [email or web address] Historical LMR Provider 03/23/17 Marlena Cunningham FNP 38 [facility] [address], [address] [place] [address] Historical LMR Provider 03/23/17 06/14/21 Susana Olguin MD 38 [facility] [address], [address] [place] [address] Historical LMR Provider 03/23/17 06/14/21 Margie Stahl DPM [address] [place] [address] Historical LMR Provider 03/23/17 2 Dre Novak MD [address] [place] [address], 2[address] [place] [address] [email or web address] Historical LMR Provider 03/23/17 06/14/21 Kaushik Virgen MD [address] [place] [address] [email or web address] Historical LMR Provider 03/23/17 06/14/21 Zeeshan Ferrera MD [address] [place] [address], [address] [place] [address] [email or web address] Historical LMR Provider 03/23/17 06/14/21 Kacey George MD [address] [place] [address] [facility], [place] [address] [email or web address] Historical LMR Provider 03/23/17 Tim White MD [address] [place] [address] [email or web address] Historical LMR Provider 03/23/17 06/14/21 oHdan [place] MD [address] [place] [address] [email or web address] Insurance Assigned Provider 09/13/19 06/13/22 Hodan [place] MD [address] [place] [address] [place] [address] [email or web address] Insurance Assigned Provider 09/11/23 documented as of this encounter Additional Source Comments The information contained in this document represents components of the legal health record. It is not the complete legal health record.[facility]
--- OUTSIDE RECORDS SUMMARY | 2024-09-26 11:51 | XMS_ITS | Encounter Summary ---
Author Organization [facility] Address [address] [place] [address] Phone Care Team Providers Care Diagrammer Name Role Phone Eddie Nina MD Unavailable Hodan [place] MD Unavailable Kacey George MD Unavailable Hodan [place] MD Primary Care Provider [phone] Hodan [place] MD Unavailable [phone] Encounter Details Date Type Department Care Team (Late st Contact Info) Description 01/07/2024 Procedure Pass [facility] - [address] [place] [address] Social History Tobacco Use Types Packs/Day Years [...] Description 10/20/2024 10:00 AM EDT Office Visit [facility] [address] [place] [address] [facility] 301 [place] [address] Susana Stuart, CHUCK 22 [facility], [address] [place] [address] 01/31/2025 12:00 PM EDT Office Visit [facility] Orthopaedic Spine [address] Liza Ch[address] [place] [address] Reymundo Patricio MD 55 [place] [address] [email or web address] documented as of this encounter Visit Diagnoses Not on filedocumented in this encounter Additional Health Concerns Assessment Noted Time PHQ-2 Depression Total Score: 2 12/31/19 24 4:14 PM EDT documented as of this encounter Care Teams Diagrammer Relationship Specialty Start Date End Date Hodan [place] MD [address] [place] [address] PCP - General Internal Medicine 07/30/17 Eddie Nina MD [email or web address] Historical LMR Provider 03/23/17 Hodan [place] MD [address] [place] [address] Historical LMR Provider 03/23/17 Kacey George MD [address] [place] [address] Orth[facility] Sports Medicine, [place] [address] Historical LMR Provider 03/23/17 Hodan [place] MD [address] [place] [address] Insurance Assigned Provider 09/11/23 documented as of this encounter Additional Source Comments The information contained in this document represents components of the legal health record. It is not the complete legal health record.[facility]
--- OUTSIDE RECORDS SUMMARY | 2024-09-26 11:51 | XMS_ITS | Encounter Summary ---
Author Organization [facility] Address [address] [place] [address] Phone Care Team Providers Care Senior Director Name Role Phone Eddie Nina MD Unavailable [phone] Hodan Brewster MD Unavailable [phone] Kacey George MD Unavailable Hodan Brewster MD Primary Care Provider Hodan Brewster MD Unavailable [phone] Encounter Details Date Type Department Care Team (Late st Contact Info) Description 10/04/2022 Procedure Pass [facility], Ct Scan - [address] [address] Social History Tobacco Use Types Packs/Day Years [...] high school, GED, job training, learning the [place]i language, technical skills, or developing parenting skills)? [...] Description 10/20/2024 10:00 AM EDT Office Visit [facility] [address] [place] [address] Susana Stuart DNP [address] [place] [address] 01/31/2025 12:00 PM EDT Office Visit [facility] [address] [facility] Liza [facility] [address] [place] [address] Reymundo Patricio MD [address] [place] [address] [email or web address] documented as of this encounter Visit Diagnoses Not on filedocumented in this encounter Additional Health Concerns Assessment Noted Time PHQ-2 Depression Total Score: 1 12/04/19 22 4:12 PM EDT documented as of this encounter Care Teams Senior Director Relationship Specialty Start Date End Date Hodan Brewster MD [address] [place] [address] [email or web address] PCP - General Internal Medicine 07/30/17 Eddie Nina MD [email or web address] Historical LMR Provider 03/23/17 Hodan Brewster MD [address] [place] [address] Historical LMR Provider 03/23/17 Kacey George MD [address] [place] [address] [facility] Medicine, [place] [address] Historical LMR Provider 03/23/17 Hodan Brewster MD [address] [place] [address] Insurance Assigned Provider 09/11/23 documented as of this encounter Additional Source Comments The information contained in this document represents components of the legal health record. It is not the complete legal health record.[facility]
--- OUTSIDE RECORDS SUMMARY | 2024-09-26 11:51 | XMS_ITS | Encounter Summary ---
Author Organization [facility] Address [address] [place] [address] Phone Care Team Providers Care Vp Ad Products And Planning Name Role Phone Eddie Nina MD Unavailable Hodan Brewster MD Unavailable [phone] Kacey George MD Unavailable Hodan Brewster MD Primary Care Provider Hodan Brewster MD Unavailable [phone] Encounter Details Date Type Department Care Team (Late st Contact Info) Description 01/28/2023 Procedure Pass [address] [address] Social History Tobacco Use Types Packs/Day Years [...] high school, GED, job training, learning the [place] language, technical skills, or developing parenting skills)? [...] Description 10/20/2024 10:00 AM EDT Office Visit [facility] [address] [place] [address] [facility] [address] [place] [address] Susana Stuart, CHUCK [address] [facility], [address] [place] [address] 01/31/2025 12:00 PM EDT Office Visit [facility] Orthopaedic Spine [address] Liza Chavez [address] [place] [address] Reymundo Patricio MD [address] [place] [address] [email or web address] documented as of this encounter Visit Diagnoses Not on filedocumented in this encounter Additional Health Concerns Assessment Noted Time PHQ-2 Depression Total Score: 1 12/04/19 22 4:12 PM EDT documented as of this encounter Care Teams Vp Ad Products And Planning Relationship Specialty Start Date End Date Hodan Brewster MD [address] [place] [phone] PCP - General Internal Medicine 07/30/17 Eddie Nina MD [email or web address] Historical LMR Provider 03/23/17 Hodan Brewster MD [address] [place] [address] Historical LMR Provider 03/23/17 Kacey George MD [address] [place] [address] Orth[facility] Sports Medicine, [place] [address] Historical LMR Provider 03/23/17 Hodan Brewster MD [address] [place] [phone] Insurance Assigned Provider 09/11/23 documented as of this encounter Additional Source Comments The information contained in this document represents components of the legal health record. It is not the complete legal health record.[facility]
[2024-09-26 12:14] LABS: Alanine Aminotransferase 26 U/L (0-31); Albumin Level 4.2 g/dL (3.5-5.0); Alkaline Phosphatase 86 U/L (39-117); Anion Gap 11 (12-20); Aspartate Amino Transferase 27 U/L (5-31); Bilirubin Total 0.6 mg/dL (0.0-1.0); Blood Urea Nitrogen 17 mg/dL (9-16); Calcium 9.2 mg/dL (8.4-10.2); Carbon Dioxide 26 mmol/L (22-29); Chloride 104 mmol/L (96-108); Estimated Glomerular Filt Rate > 60; Glucose Random 93 mg/dL (60-115); Potassium 4.7 mmol/L (3.3-5.1); Sodium 136 mmol/L (135-145); Total Protein 6.3 g/dL (6.5-8.0)
[2024-09-27 14:39] LABS: IgA 34 mg/dL (70-320); IgG 721 mg/dL (600-1540); IgM 40 mg/dL (50-300)
[2024-09-28 14:03] LABS: Immunoglobulin G Subclass 1 394 mg/dL (382-929); Immunoglobulin G Subclass 2 207 mg/dL (241-700); Immunoglobulin G Subclass 3 30 mg/dL (22-178); Immunoglobulin G Subclass 4 16.9 mg/dL (4-86); Immunoglobulin G Total 670 mg/dL (600-1540)
== END 2024-09-26 10:16 | disposition home or self-care (01) ==
LOC: HO.LAB 10:15
PROVIDERS: Absent Provider Hospitalist; PCP Internal Medicine; Visit Provider Nurse Practitioner Family
DX: D80.1 Nonfamilial hypogammaglobulinemia (principal)
CPT/HCPCS: 36415; 80053; 82784; 85025; 86334

== ENCOUNTER 2024-10-19 11:03 | Outpatient (AMB) | payer MEDICARE, BC, SELFPAY ==
--- NOTE | 2024-10-19 11:06 | A.OFFVIS_ITS ---
Vital Signs 10/19/24 11:07 Height 5 ft 3 in Weight 178 lb 9.191 oz BMI 31.6 BP 132/56 L Blood Pressure Location Lt brachial Position Sitting Pulse 71 Pulse Source Pulse Oximeter Pulse Oximetry (%) 98 Oxygen Delivery Method Room Air Intake Visit Reasons: Asthma Allergies amlodipine Allergy (Severe, Verified 10/19/24 11:10) Swelling codeine Allergy (Severe, Verified 10/19/24 11:10) Abdominal Pain hydralazine Allergy (Severe, Verified 10/19/24 11:10) Swelling hydrocodone [From Vicodin] Allergy (Severe, Verified 10/19/24 11:10) Abdominal Pain lisinopril Allergy (Severe, Verified 10/19/24 11:10) Hives midazolam Allergy (Severe, Verified 10/19/24 11:10) Hives morphine Allergy (Severe, Verified 10/19/24 11:10) Abdominal Pain HPI Comments Details: The patient is a 74 year woman with a known history of asthma followed closely by Pulmonary in the [facility]. 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 Currently she is recovering after being diagnosed with pneumonia. She was developing worsening shortness of breath and she was evaluated at an urgent care. They she had a chest x-ray she was diagnosed with pneumonia she was told to follow-up elsewhere. She was given a course of doxycycline. I do not believe she was given prednisone. Her breathing has been improving although her voice is still hoarse. She continues Dulera for her maintenance inhaler and she is also taking Pulmicort. For maintenance she does use Xopenex. The patient does not have a nebulizer. She has been fully vaccinated specially for pneumonia. The patient understands that they increase inhaled cortical steroids can increase the risk of infection. Therefore be reasonable to try a simplify her respiratory maintenance regimen. I do believe that she will respond well to Breztri. Will go ahead and send to the pharmacy that be replacing both maintenance inhalers. In addition to the she is scheduled to have surgery for her back at [facility] sometime mid January. She is wondering if she is going to be strong enough to have surgery. Right now her respiratory exam is reassuring. I do have a copy of her old x-ray on going to have him get a repeat x-ray sometime next week. She is also going to undergo blood work. Will be able to assess to see if there is any persistent findings. The patient is no better or if she is developing worsening disease she may have to consider postponing her surgery. 01/14/2024 the patient is here for pulmonary follow-up visit. Overall the patient has been doing well from a respiratory status. She still having significant back pain. Denies any cough or shortness of breath or chest pain. She did complete a course of antibiotics and had a repeat chest x-ray 12/20/2023. I did personally reviewed the x-ray and compared to her previous x-ray demonstrating interval improvement of the right-sided pneumonia. Still though she has not residual changes there. Therefore, after give another course of antibiotics which is taking right now Augmentin and I did request a CT scan of the chest to better address the areas specially since she is going to need back surgery. I did review the CT scan with the patient. The appears that the CT scan demonstrates some chronic changes including some nodular densities some calcified lymph nodes and some areas of inflammation and scarring. This area appears to be chronic. She has been seen previously by Pulmonary in the past in her states. She was told about some areas of scarring. As far as exposures he was exposed to both silica and also asbestos working a lot for about 3 years. 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 At this point it appears that the airspace disease that pneumonia that she had been treated for and is currently being treated for seems to be improving. Therefore based on the fact that she is feeling well from respiratory status and the infection is improved I do believe that she is able to proceed with elective and semi elective surgeries including her back surgery. I also did review the blood work with the patient. She seems to have a low IgG of 500. Will go ahead and repeat the IgG subclasses and also request titers for her pneumococcal vaccine to make sure she is having a good response to vaccines. If she is not then we can consider further diagnostic and therapeutic interventions. At this moment though she is able to proceed with surgery. The patient does have minimal risk for perioperative pulmonary complications which includes atelectasis pneumonia and hypoxia. 03/24/2024 the patient is here for a pulmonary follow-up visit. She is status post her back surgery. She did have an extensive surgery in [place]. She is still recovering. Her breathing is overall better. She is responding to the current respiratory therapy. She did undergo blood work and we are reviewing them. She does have worsening hypogammaglobulinemia. the levels are more concerning. Indeed it could be related to the fact that she recently had major surgery. Although her levels were low even before surgery. In addition to that she was found to be anemic. She did require blood after her surgery. Will go ahead and request additional blood work at this time in 3 months after she does have further recovery of her significant surgery. The patient did have a CT scan of the chest which we personally reviewed demonstrating multiple pulmonary nodules, largest nodule measuring 6 mm in size. She will benefit from getting a CT scan in 6 months to make sure there stability of the nodules. 06/30/2024 the patient is here for a pulmonary follow-up visit. Overall the patient has been doing well. She is tolerating inhalers well. Has not had to use her rescue inhaler which is reassuring. She did have blood work back in March which we personally reviewed. Here hemoglobin decreased down to 9.6. The patient also has had worsening IgG levels. Will go ahead and request additional blood work. If her hemoglobin continues to be low in the IgG continues to be low hematology consultation will be warranted. In the meantime she also had a CT scan of the chest that we personally reviewed. Still was then parenchymal pulmonary densities in the upper lung zones with calcifications in lymphadenopathy. Again, she was exposed to endemic fungal areas therefore need to consider fungal conditions resulting in those changes. 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 At least is reassuring that is not progressive. Exam the patient does have a murmur. 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 She will follow-up with shredder/granulator operator and primary care. 10/19/2024 the patient is here for pulmonary follow-up visit. Overall she is doing well. The patient did get her IgG infusion since she is tolerating them well. Her throughout came back better. Although still low normal. Will check it again in the next 3-4 months to see if her levels are improving. In the meantime she is following closely with Hematology. She has yet to see the shredder/granulator operator for the murmur. I did give her a copy of the echocardiogram so kelsy guadalupe can speak about it. From a respiratory status the patient seems to be doing okay. Will continue with current therapy and will follow-up in 4-6 months. [facility] Medical History Murmur Anemia Hypogammaglobulinemia ILD (interstitial lung disease) Pulmonary nodules Abnormal chest x-ray Dyspnea Pneumonia Cough Hyponatremia GERD (gastroesophageal reflux disease) Back pain Asthma Elevated cholesterol HTN (hypertension) Surgical History Hx of colonoscopy Hx laparoscopic cholecystectomy Previous back surgery Hx of bilateral cataract extraction Hx of hammer toe correction History of bunionectomy of both great toes Social History Household Members: [facility] Are you a primary home health care social worker to a significant other at home: No Do you presently have visiting nurse or other home services: Yes Comment: COUNTS CORRECT Patient Tobacco Use Status: Former Tobacco user Tobacco use type: Cigarette service: No Current occupational status: retired Review of Systems Const Denies chills, Denies fatigue, Denies fever(s), Denies weight gain and Denies weight loss ENT Denies dizziness Card Denies chest pain, Denies leg edema, Denies lightheadedness, Denies palpitations, Denies dyspnea on exertion, Denies orthopnea and Denies other Resp Denies cough, Denies dyspnea on exertion and Denies wheezing GI Denies hematochezia and Denies change in stool character Musc Reports abnormal gait, Denies muscle weakness, Denies numbness, Denies radiating pain into limb and Denies tingling Skin/Breast Denies rash Neuro Reports abnormal gait, Denies dizziness, Denies numbness and Denies tingling Endo Denies fatigue and Denies palpitations Aller/Immun Denies wheezing Physical Exam Vital Signs: Last Vital Signs Pulse 71 10/19/24 11:07 BP 132/56 L 10/19/24 11:07 Pulse Ox 98 10/19/24 11:07 Oxygen Delivery Method Room Air 10/19/24 11:07 BMI result Body Mass Index 31.6 Const General: comfortable HEENT Head: Yes normocephalic Neck Neck: Yes supple Chest Chest palpation & inspection: normal inspection of the chest Resp Effort & Inspection: normal respiratory effort Auscultation: no rales, no rhonchi, no wheezes and diminished lung sounds Cardio Heart sounds: S1 normal heart sound present, S2 normal heart sound present and Murmur heart sound present systolic II/ GI Palpation (GI): Soft to palpation Skin General skin exam: no rashes or lesions noted Extrem General: Yes no clubbing, cyanosis or edema Assessment & Plan Assessment & Plan (1) Asthma: Code(s): J45.909 - Unspecified asthma, uncomplicated Category: Medical Qualifiers: Asthma complication type: uncomplicated Asthma persistence: persistent Asthma severity: moderate Qualified Code(s): J45.40 - Moderate persistent asthma, uncomplicated (2) Dyspnea: Code(s): R06.00 - Dyspnea, unspecified Category: Medical Qualifiers: Dyspnea type: dyspnea on exertion Qualified Code(s): R06.09 - Other forms of dyspnea (3) Back pain with history of spinal surgery: Code(s): M54.9 - Dorsalgia, unspecified; Z98.890 - Other specified postprocedural states Category: Medical (4) Pulmonary nodules: Code(s): R91.8 - Other nonspecific abnormal finding of lung field Category: Medical (5) ILD (interstitial lung disease): Comment: May have a component of sarcoid versus pneumoconiosis. Has had exposure to silicosis, but in a lab. Still has some egg shell calcifiactions. Code(s): J84.9 - Interstitial pulmonary disease, unspecified Category: Medical (6) Hypogammaglobulinemia: Code(s): D80.1 - Nonfamilial hypogammaglobulinemia Category: Medical (7) Anemia: Code(s): D64.9 - Anemia, unspecified Category: Medical Qualifiers: Anemia type: other cause Other causes of anemia: other cause, not classified Qualified Code(s): D64.89 - Other specified anemias (8) Murmur: Code(s): R01.1 - Cardiac murmur, unspecified Category: Medical Plan continue IVIG therapy, through in 3-4 months Hematology f/u continue Breztri BID HELEN as needed (xopenex) will need to repeat CT chest 12 months f/u with cardiology: murmur F/U 3-4 months Orders: Orders Erythrocyte Sedimentation Rate Today D80.1 - Nonfamilial hypogammaglobulinemia Complete Blood Count Auto Diff Today D80.1 - Nonfamilial hypogammaglobulinemia Immunoglobulins,IgG IgA IgM Today D80.1 - Nonfamilial hypogammaglobulinemia Basic Metabolic Panel Today D80.1 - Nonfamilial hypogammaglobulinemia Coding Level of Care Code Est Pt Level 4 (64907) Complex EM visit Add On G2211 Diagnoses Moderate persistent asthma without complication J45.40 Asthma complication type: uncomplicated Asthma persistence: persistent Asthma severity: moderate Dyspnea on exertion R06.09 Dyspnea type: dyspnea on exertion Back pain with history of spinal surgery M54.9; Z98.890 Pulmonary nodules R91.8 ILD (interstitial lung disease) J84.9 Hypogammaglobulinemia D80.1 Anemia due to other cause, not classified D64.89 Anemia type: other cause Other causes of anemia: other cause, not classified Murmur R01.1 Time Spent (min) 18
[2024-10-19 11:07] VITALS: BP 132/56; PULSE 71; O2SAT 98; BMI 31.6
--- OUTSIDE RECORDS SUMMARY | 2024-10-19 12:16 | XMS_ITS | Encounter Summary ---
Author Organization [facility] Address [address] [place] [address] Phone Care Team Providers Care Technology Education Instructor Name Role Phone Hodan Brewster MD Primary Care Provider [phone] Franchesca Alexandra RETANNER Unavailable Alexia Galloway RETANNER Unavailable Eddie Nina MD Unavailable Kellie Candelario MD Unavailable [phone] Hodan Brewster MD Unavailable [phone] Marlena Cunningham B[employer] HANDLER Unavailable [phone] Susana Olguin MD Unavailable Margie Stahl DPM Unavailable Unavaila ble Dre Novak MD Unavailable Kaushik Virgen MD Unavailable [phone] Zeeshan Ferrera MD Unavailable [phone] Kacey George MD Unavailable Tim White MD Unavailable [phone] Kaushik Virgen MD Primary Care Provider + Hodan Brewster MD Primary Care Provider [phone] Hodan Brewster MD Unavailable Hodan Brewster MD Unavailable Hodan Brewster MD Unavailable Encounter Details Date Type Department Care Team (Late st Contact Info) Description 04/09/2017 Ancillary Orders [facility],Outside Imaging [address] [place] [address] System, Provider Not In, PhD Partners [address] [address] Social History Tobacco Use Types Packs/Day Years Used Date Smoking Tobacco: Former Cigarettes Q uit: 04/07/1977 Comments Unknown Sex and Gender Information Value Date Recorded Sex Assigned at Female 08/13/2019 12:00 PM EDT Legal Sex Female 8:57 AM EST Gender Identity Female 08/13/2019 12:00 PM EDT Sexual Orientation Straight 01/06/2024 11 :14 AM EDT documented as of this encounter Plan of Treatment Upcoming Encounters Date Type Department Care Team (Late st Contact Info) Description 11/28/2024 2:00 PM EDT Office Visit [facility] [address] [place] [address] [address], [address] [place] [address] Susana Stuart, CHUCK [address] [facility], [address] [place] [address] 01/31/2025 12:00 PM EDT Office Visit [facility] Orthopaedic Spine [address] [facility], 3rd Floor, [address] [place] [address] Reymundo Patricio MD [address] [place] [address] [email or web address] documented as of this encounter Results * XR SPINE OUTSIDE(NO INTERPRETATION) (09/08/2016 12:00 AM EDT) Narrative SYSTEMGENERATED, DOCUMENTATION - 04/09/2017 10:17 AM EDT This study is for PACS storage only and not for interpretation. us Provider Not In System PhD IMG OUTSIDE IMAGING W /OUT INTERPRETATION Final Result documented in this encounter Visit Diagnoses Not on filedocumented in this encounter Care Teams Technology Education Instructor Relationship Specialty Start Date End Date Hodan Brewster MD [address] [place] [address], [address] [place] [address] [email or web address] PCP - General 08/14/16 06/13/17 Kaushik Virgen MD [address] [place] [phone] [email or web address] PCP - General Family Medicine 06/14/17 07/29/17 Hodan Brewster MD [address] [place] [phone] PCP - General Internal Medicine 07/30/17 Franchesca Alexandra NP [address] [place] [address] Historical LMR Provider 03/23/17 Alexia Galloway NP [address] [place] [address] [email or web address] Historical LMR Provider 03/23/17 Eddie Nina MD [address] [place] [phone] [email or web address] Historical LMR Provider 03/23/17 Kellie Candelario MD [address] [place] [address] Historical LMR Provider 03/23/17 Hodan Brewster MD [address] [place] [address] Historical LMR Provider 03/23/17 Marlena Cunningham FNP [address] [facility] [place] [address] Historical LMR Provider 03/23/17 06/14/21 Susana Olguin MD [address] [facility] [place] [address] Historical LMR Provider 03/23/17 06/14/21 Margie Stahl DPM [address] [place] [address] Historical LMR Provider 03/23/17 Dre Weir MD [address] [place] [address] Historical LMR Provider 03/23/17 06/14/21 Kaushik Virgen MD [address] [place] [address] [email or web address] Historical LMR Provider 03/23/17 06/14/21 Zeeshan Ferrera MD [address] [facility], [address] [place] [address] Historical LMR Provider 03/23/17 06/14/21 Kacey George MD [address] [place] [address] Orth[facility] Medicine, [place] [address] Historical LMR Provider 03/23/17 Tim White MD [address] [place] [address] [email or web address] Historical LMR Provider 03/23/17 06/14/21 Hodan Brewster MD [address] [place] [address] Insurance Assigned Provider 10/08/18 12/17/18 Hodan Brewster MD [address] [place] [phone] Insurance Assigned Provider 09/13/19 06/13/22 Hodan Brewster MD [address] [place] [id number] Insurance Assigned Provider 09/11/23 documented as of this encounter Additional Source Comments The information contained in this document represents components of the legal health record. It is not the complete legal health record.[facility]
--- OUTSIDE RECORDS SUMMARY | 2024-10-19 12:16 | XMS_ITS | Encounter Summary ---
Author Organization [facility] Address [address] [place] [address] Phone Care Team Providers Care Volunteer Services Supervisor Name Role Phone Franchesca Alexandra BRASS WIND INSTRUMENTS TUBE BENDER Unavailable Alexia Galloway BRASS WIND INSTRUMENTS TUBE BENDER Unavailable [phone] Eddie Nina MD Unavailable Kellie Candelario MD Unavailable Hodan Brewster MD Unavailable Marlena Cunningham VIRTUAL RECRUITER Unavailable Susana Olguin MD Unavailable Margei Stahl DPM Unavailable Unavaila Dre Calderon MD Unavailable Kaushik Virgen MD Unavailable Zeeshan Ferrera MD Unavailable [phone] Kacey George MD Unavailable Tim White MD Unavailable Kaushik Virgen MD Primary Care Provider + Hodan Brewster MD Primary Care Provider Hodan Brewster MD Unavailable Hodan Brewster MD Unavailable Hodan Brewster MD Unavailable Encounter Details Date Type Department Care Team (Late st Contact Info) Description 06/17/2017 [facility] [address] [place] [address] [place] [address] Kaushik Virgen MD [address] [place] [address] 2nd Flr [place] BOOGIE [id number] [email or web address] Breast screening Social History Tobacco Use Types [...] Description 11/28/2024 2:00 PM EDT Office Visit [facility] [address] [place] [address] 3rd Floor, [address] [place] [address] Susana Stuart, CHUCK [address] [place] [address], [address] [place] [address] 01/31/2025 12:00 PM EDT Office Visit [facility] Orthopaedic Spine [address] [facility], 3rd Floor, [address] [place] [address] Reymundo Patricio MD [address] [place] [address] [email or web address] documented as of this encounter Results * [...] are scattered fibroglandular densities. ?? POS - [id number] Narrative 07/07/2017 11:48 AM EST Full-field digital [...] There are scattered fibroglandular densities. POS - [id number] Kaushik Virgen MD IMG MG EXAMS Final Re sult documented in this encounter Visit Diagnoses Diagnosis Breast screening Breast screening, unspecified documented in this encounter Care Teams Volunteer Services Supervisor Relationship Specialty Start Date End Date Kaushik Virgen MD [address] [place] [address] [email or web address] PCP - General Family Medicine 06/14/17 07/29/17 Hodan Brewster MD [address] [place] [address], 2nd [place] [address] [email or web address] PCP - General Internal Medicine 07/30/17 Franchesca Alexandra, RICHIE [address] [place] [address] Historical LMR Provider 03/23/17 Alexia Galloway NP [address] [place] [address] [email or web address] Historical LMR Provider 03/23/17 Eddie Nina MD [address] [place] [address] [email or web address] Historical LMR Provider 03/23/17 Kellie Candelario MD [address] [place] [address] Historical LMR Provider 03/23/17 Hodan Brewster MD [address] [place] [address], [address] [place] [address] [email or web address] Historical LMR Provider 03/23/17 Marlena Cunningham FNP [address] [place] [address] 204, [address] [place] [address] Historical LMR Provider 03/23/17 06/14/21 Susana Olguin MD [address] [place] [address] 204, [address] [place] [address] [email or web address] Historical LMR Provider 03/23/17 06/14/21 Margie Stahl DPM [address] [place] [address] Historical LMR Provider 03/23/17 Dre Weir MD [address] [facility] [place] [address] [email or web address] Historical LMR Provider 03/23/17 06/14/21 Kaushik Virgen MD [address] [place] [address] [email or web address] Historical LMR Provider 03/23/17 06/14/21 Zeeshan Ferrera MD [address] [facility], [address] [place] [address] [email or web address] Historical LMR Provider 03/23/17 06/14/21 Kacey George MD [address] [place] [address] [facility] Medicine, [place] [address] [email or web address] Historical LMR Provider 03/23/17 Tim hWite MD [address] [place] [address] [email or web address] Historical LMR Provider 03/23/17 06/14/21 Hodan Brewster MD [address] [place] [address] Insurance Assigned Provider 10/08/18 12/17/18 Hodan Brewster MD [address] [place] [address] Insurance Assigned Provider 09/13/19 06/13/22 Hodan Brewster MD [address] [place] [address] Insurance Assigned Provider 09/11/23 documented as of this encounter Additional Source Comments The information contained in this document represents components of the legal health record. It is not the complete legal health record.[facility]
--- OUTSIDE RECORDS SUMMARY | 2024-10-19 12:16 | XMS_ITS | Encounter Summary ---
Author Organization [facility] Address [address] [place] [address] Phone Care Team Providers Care Backshoe Person Name Role Phone rFanchesca Alexandra ANIMAL WARDEN Unavailable Alexia Galloway ANIMAL WARDEN Unavailable Eddie Nina MD Unavailable Kellie Candelario MD Unavailable [phone] Hodan Brewster MD Unavailable Marlena Cunningham POOLROOM TABLE ATTENDANT Unavailable Susana Olguin MD Unavailable Margie Stahl DPM Unavailable Unavaila ble Dre Novak MD Unavailable [phone] Kaushik Virgen MD Unavailable Zeeshan Ferrera MD Unavailable [phone] Kacey George MD Unavailable Tim White MD Unavailable Hodan Brewster MD Primary Care Provider Hodan Brewster MD Unavailable Hodan Brewster MD Unavailable Hodan Brewster MD Unavailable [phone] Encounter Details Date Type Department Care Team (Late st Contact Info) Description 05/27/2018 Ancillary Orders [facility] [address] [place] [address] [place] [address] Hodan Brewster MD [address] [facility], 2nd [place] [address] [email or web address] Social History Tobacco Use Types Packs/Day Years Used Date Smoking Tobacco: Former Cigarettes 1 2 1 06/07/1974 - 04/07/1977 Smokeless Tobacco: Never Alcohol Use Standard Drinks/Week Comments Yes 2 (1 standard drink = 0.6 oz pur e alcohol) Comments No Sex and Gender Information Value Date Recorded Sex Assigned at Female 08/13/2019 12:00 PM EDT Legal Sex Female 8:57 AM EST Gender Identity Female 08/13/2019 12:00 PM EDT Sexual Orientation Straight 01/06/2024 11 :14 AM EDT 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 No t on file documented as of this encounter Plan of Treatment Upcoming Encounters Date Type Department Care Team (Late st Contact Info) Description 11/28/2024 2:00 PM EDT Office Visit [facility] [address] [place] [address] 3rd Floor, [address] [place] [address] Susana Stuart, CHUCK [address] [facility], [address] [place] [address] 01/31/2025 12:00 PM EDT Office Visit [facility] Orthopaedic Spine [address] [facility], 3rd Floor, [address] [place] [address] Reymundo Patricio MD [address] [place] [address] [email or web address] documented as of this encounter Visit Diagnoses Not on filedocumented in this encounter Care Teams Backshoe Person Relationship Specialty Start Date End Date Hodan Brewster MD [address] [place] [address], 2nd [place] [address] PCP - General Internal Medicine 07/30/17 Franchesca Alexandra, ANIMAL WARDEN [address] [place] [address] Historical LMR Provider 03/23/17 Alexia Galloway NP [address] [place] [address] [email or web address] Historical LMR Provider 03/23/17 Eddie Nina MD [address] [place] [address] [email or web address] Historical LMR Provider 03/23/17 Kellie Candelario MD [address] [place] [address] Historical LMR Provider 03/23/17 Hodan Brewster MD [address] [place] [address], 2nd [place] [address] [email or web address] Historical LMR Provider 03/23/17 Marlena Cunningham FNP [address] [place] [address] [email or web address] Historical LMR Provider 03/23/17 06/14/21 Susana Olguin MD [address], [address] [place] [address] [email or web address] Historical LMR Provider 03/23/17 06/14/21 Margie Stahl DPM [address] [place] [address] Historical LMR Provider 03/23/17 2 Dre Novak MD [address] [facility], 2nd [place] [address] [email or web address] Historical LMR Provider 03/23/17 06/14/21 Kaushik Virgen MD [address] [place] [address] [email or web address] Historical LMR Provider 03/23/17 06/14/21 Zeeshan Ferrera MD [address] [facility], [address] [place] [address] [email or web address] Historical LMR Provider 03/23/17 06/14/21 Kacey George MD [address] [place] [address] Orthopedics & Sports Medicine, [place] [address] Historical LMR Provider 03/23/17 Tim White MD [address] [place] [address] [email or web address] Historical LMR Provider 03/23/17 06/14/21 Hodan Brewster MD [address] [place] [address] [email or web address] Insurance Assigned Provider 10/08/18 12/17/18 Hodan Brewster MD [address] [place] [address] Insurance Assigned Provider 09/13/19 06/13/22 Hodan Brewster MD [address] [place] [address] [email or web address] Insurance Assigned Provider 09/11/23 documented as of this encounter Additional Source Comments The information contained in this document represents components of the legal health record. It is not the complete legal health record.[facility]
--- OUTSIDE RECORDS SUMMARY | 2024-10-19 12:16 | XMS_ITS | Encounter Summary ---
Author Organization [facility] Address [address] [place] [address] Phone Care Team Providers Care Forest Law And Policy Professor Name Role Phone Franchesca Alexandra ROLLER SHOP SUPERVISOR Unavailable Alexia Galloway ROLLER SHOP SUPERVISOR Unavailable Eddie Nina MD Unavailable Kellie Candelario MD Unavailable [phone] Hodan Brewster MD Unavailable Marlena Cunningham MANAGER GAMING Unavailable Susana Olguin MD Unavailable Margie Stahl DPM Unavailable Unavaila ble Dre Novak MD Unavailable Kaushik Virgen MD Unavailable Zeeshan Ferrera MD Unavailable [phone] Kacey George MD Unavailable Tim White MD Unavailable Hodan Brewster MD Primary Care Provider [phone] Hodan Brewster MD Unavailable [phone] Hodan Brewster MD Unavailable [phone] Encounter Details Date Type Department Care Team (Late st Contact Info) Description 04/26/2020 Transcribe Orders [facility] Specimen Processing [address] [place] [address] Hodan Brewster MD [address] [place] [address], 2nd [place] [address] [email or web address] Social History Tobacco Use Types Packs/Day Years 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 Not on file documented as of this encounter Plan of Treatment Upcoming Encounters Date Type Department Care Team (Late st Contact Info) Description 11/28/2024 2:00 PM EDT Office Visit [facility] [address] [place] [address] 3rd Floor, [address] [place] [address] Susana Stuart, CHUCK [address] [facility], [address] [place] [address] 01/31/2025 12:00 PM EDT Office Visit [facility] [address] [facility], 3rd Floor, [address] [place] [address] Reymundo Patricio MD [address] [place] [address] [email or web address] documented as of this encounter Visit Diagnoses Not on filedocumented in this encounter Additional Health Concerns Assessment Noted Time PHQ-2 Depression Total Score: 0 11/21/19 20 8:33 AM EDT documented as of this encounter Care Teams Forest Law And Policy Professor Relationship Specialty Start Date End Date Hodan Brewster MD [address] [place] [address], 2nd [place] [address] PCP - General Internal Medicine 07/30/17 Franchesca Alexandra, RICHIE [address] [place] [address] Historical LMR Provider 03/23/17 Alexia Galloway NP [address] [place] [address] [email or web address] Historical LMR Provider 03/23/17 Eddie Nina MD [address] [place] [address] [email or web address] Historical LMR Provider 03/23/17 Kellie Candelario MD [address] [place] [address] Historical LMR Provider 03/23/17 Hodan Brewster MD [address] [place] [address] [email or web address] Historical LMR Provider 03/23/17 Marlena Cunningham FNP [address] [facility] [address], [address] [place] [address] [email or web address] Historical LMR Provider 03/23/17 06/14/21 Susana Olguin MD [address] [facility] [address], [address] [place] [address] [email or web address] Historical LMR Provider 03/23/17 06/14/21 Margie Stahl DPM [address] [place] [address] Historical LMR Provider 03/23/17 2 Dre Novak MD [address] [facility], [address] [place] [address] [email or web address] Historical LMR Provider 03/23/17 06/14/21 Kaushik Virgen MD [address] [place] [address] [email or web address] Historical LMR Provider 03/23/17 06/14/21 Zeeshan Ferrera MD [address] [facility], [address] [place] [address] [email or web address] Historical LMR Provider 03/23/17 06/14/21 Kacey George MD [address] [place] [address] Orth[facility] Sports Medicine, [place] [address] [email or web address] Historical LMR Provider 03/23/17 Tim White MD [address] [place] [address] .[email or web address] Historical LMR Provider 03/23/17 06/14/21 Hodan Brewster MD [address] [place] [address] [email or web address] Insurance Assigned Provider 09/13/19 06/13/22 Hodan Brewster MD [address] [place] [address], 2nd [place] [address] [email or web address] Insurance Assigned Provider 09/11/23 documented as of this encounter Additional Source Comments The information contained in this document represents components of the legal health record. It is not the complete legal health record.[facility]
--- OUTSIDE RECORDS SUMMARY | 2024-10-19 12:16 | XMS_ITS | Encounter Summary ---
Author Organization [facility] Address [address] [place] [address] Phone Care Team Providers Care Charge Master Analyst Name Role Phone Eddie Nina MD Unavailable Hodan Brewster MD Unavailable [phone] Kacey George MD Unavailable Hodan Brewster MD Primary Care Provider Hodan Brewster MD Unavailable [phone] Encounter Details Date Type Department Care Team (Late st Contact Info) Description 12/23/2023 Procedure Pass [facility] Endoscopy Admitting Dept Virtual Department [address] [place] [address] Social History Tobacco Use Types Packs/Day Years [...] with a working camera? 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 on file Not on file documented as of this encounter Plan of Treatment Upcoming Encounters Date Type Department Care Team (Late st Contact Info) Description 11/28/2024 2:00 PM EDT Office Visit [facility] [address] [place] [address] 3rd Floor, [address] [place] [address] Ssuana Stuart, CHUCK [address] [facility], [address] [address] 01/31/2025 12:00 PM EDT Office Visit [facility] Orth[facility]edic Spine [address] [facility], 3rd Floor, [address] [place] [address] Reymundo Patricio MD [address] [place] [address] [email or web address] documented as of this encounter Visit Diagnoses Not on filedocumented in this encounter Additional Health Concerns Assessment Noted Time PHQ-2 Depression Total Score: 1 12/04/19 22 4:12 PM EDT documented as of this encounter Care Teams Charge Master Analyst Relationship Specialty Start Date End Date Hodan Brewster MD [address] [place] [address] PCP - General Internal Medicine 07/30/17 Eddie Nina MD [email or web address] Historical LMR Provider 03/23/17 Hodan Brewster MD [address] [place] [address] Historical LMR Provider 03/23/17 Kacey George MD [address] [place] [address] Orth[facility]ics [facility] Sports Medicine, [place] [address] Historical LMR Provider 03/23/17 Hodan Brewster MD [address] [place] [address] Insurance Assigned Provider 09/11/23 documented as of this encounter Additional Source Comments The information contained in this document represents components of the legal health record. It is not the complete legal health record.[facility]
--- OUTSIDE RECORDS SUMMARY | 2024-10-19 12:16 | XMS_ITS | Encounter Summary ---
Author Organization [facility] Address [address] [place] [address] Phone Care Team Providers Care Corporate Travel Expert Name Role Phone Franchesca Alexandra X RAY EXAMINER OF AIRCRAFT Unavailable Alexia Galloway X RAY EXAMINER OF AIRCRAFT Unavailable Eddie Nina MD Unavailable Kellie Candelario MD Unavailable [phone] Hodan Brewster MD Unavailable [phone] Marlena Cunningham WAREHOUSE TEAM MEMBER Unavailable Susana Olguin MD Unavailable Margie Stahl DPM Unavailable Unavaila Dre Calderon MD Unavailable Kaushik Virgen MD Unavailable [phone] Zeeshan Ferrera MD Unavailable [phone] Kacey George MD Unavailable Tim White MD Unavailable Kaushik Virgen MD Primary Care Provider + Hodan Brewster MD Primary Care Provider Hodan Brewster MD Unavailable Hodan Brewster MD Unavailable Hodan Brewster MD Unavailable Encounter Details Date Type Department Care Team (Latest Contact Info) Description 06/24/2017 Transcribe Orders [facility] Laboratory [address] [place] [address] Eddie Nina MD [address] [place] [address] [email or web address] Mixed hyperlipidemia Social History Tobacco Use Types Packs/Day Years Used Date Smoking Tobacco: Former Cigarettes Q uit: 04/07/1977 Smokeless Tobacco: Never Comments Unknown Sex and [...] Description 11/28/2024 2:00 PM EDT Office Visit [facility] [address] [place] [address] 3rd Floor, [address] [place] [address] Susana Stuart, CHUCK [address] [facility], [address] [place] [address] 01/31/2025 12:00 PM EDT Office Visit [facility] Orthopaedic Spine [address] [facility], 3rd Floor, [address] [place] [address] Reymundo Patricio MD 55 [place] [address] [email or web address] documented as of this encounter Procedures Procedure Name Priority Date/Time Associated Diagnosis Comments COMPREHENSIVE METABOLIC PANEL Routine 06/24/2017 1:00 PM EST Mixed hyperlipidemia CBC AND DIFFERENTIAL Routine 06/24/2017 1:00 PM EST Mixed hyperlipidemia LIPID PANEL Routine 06/24/2017 1:00 PM EST Mixed hyperlipidemia documented in this encounter Results * (ABNORMAL) Lipid panel (06/24/2017 1:00 PM EST) HDL 79 mg/dL [facility] Comment: Interpretation: Risk Level ? Females Decreased ?>55mg/dL Average ?50-55 mg/dL Increased ?<50 mg/dL CHOLESTEROL 160 0 - 240 mg/dL [facility] TRIGLYCERIDES 49 30 - 160 mg/dL [facility] LDL 71 50 - 129 mg/dL [facility] Comment: LDL levels in terms of risk for coronary heart disease: <100 mg/dL: Optimal 100-129 mg/dL: Near or above optimal 130-159 mg/dL: Borderline high 160-189 mg/dL: High >190 mg/dL: Very High CARDIAC RISK RATIO 2.0(L) 3.3 - 4.4 C [facility] Blood 06/24/2017 1:00 PM EST 06/24/2017 1:04 PM EST us Eddie Nina MD LAB BLOOD ORDERABLES Samra osborne Result [address] [address] * (ABNORMAL) Comprehensive metabolic panel (06/24/2017 1:00 PM EST) SODIUM 130(L) 133 - 146 mmol/L [facility] POTASSIUM 5.3(H) 3.3 - 5.1 mmol/L [facility] CHLORIDE 93(L) 96 - 108 mmol/L [facility] CO2 27 21 - 35 mmol/L [facility] BUN 10 6 - 19 mg/dL [facility] CREATININE 0.50 0.5 - 1.5 mg/dL [facility] GLUCOSE 103(H) 70 - 99 mg/dL [facility] ALBUMIN 4.5 3.9 - 4.8 g/dL [facility] TOTAL PROTEIN 6.9 6.5 - 8.0 g/dL [facility] CALCIUM 9.9 8.4 - 10.3 mg/dL [facility] ALKALINE PHOSPHATASE 43 39 - 117 U/L [facility] TOTAL BILIRUBIN 0.8 0 - 1.2 mg/dL [facility] AST 19 0 - 37 U/L [facility] ALT 18 0 - 40 U/L [facility] GLOBULIN 2.4 1 - 4.8 g/dL [facility] EGFR >60 60 - 1000 mL/min/1.7 3m2 [facility] Comment:Abnormal if <60. If patient is -Hungarian, multiply the result by 1.21. ANION GAP 15 10 - 20 mmol/L [facility] Blood 06/24/2017 1:00 PM EST 06/24/2017 1:04 PM EST us Eddie Nina MD LAB BLOOD ORDERABLES Samra osborne Result Performing Organization Address City/State/[facility] Co de Phone Number [facility] [address] [place] [address] * (ABNORMAL) CBC and differential (06/24/2017 1:00 PM EST) WBC 4.63 3.40 - 11.20 K/uL [facility] RBC 3.75(L) 3.80 - 4.80 M/uL [facility] HGB 11.7(L) 12.0 - 15.0 g/dL [facility] HCT 34.7(L) 36.0 - 46.0 % [facility] PLT 316 130 - 400 K/uL [facility] MCV 92.5 79.0 - 98.0 fL [facility] MCH 31.2 27.0 - 34.8 pg [facility] MCHC 33.7 31.5 - 36.0 g/dL [facility] RDW 12.6 10.8 - 14.6 % [facility] MPV 8.8(L) 9.4 - 12.4 fl [facility] NRBC 0.00 /100 WBCs [facility] ABSOLUTE NRBC 0.00 K/uL [facility] DIFF METHOD Auto [facility] NEUTS 61.8 45.30 - 77.70 % [facility] LYMPHS 21.6 12.30 - 39.70 % [facility] MONOS 11.2 4.10 - 12.80 % [facility] EOS 4.1 0 - 7.2 % [facility] BASOS 0.9 0 - 2.80 % [facility] Granulocytes, immature (%) 0.4 0.0 - 0.9 % [facility] ABSOLUTE NEUTS 2.86 1.40 - 7.70 K/uL [facility] ABSOLUTE LYMPHS 1.00 0.60 - 3.20 K/uL [facility] ABSOLUTE MONOS 0.52 0.11 - 0.59 K/uL [facility] ABSOLUTE EOS 0.19 0.01 - 0.50 K/uL [facility] ABSOLUTE BASOS 0.04 0.00 - 0.08 K/uL [facility] Granulocytes, immature 0.02 0.00 - 0.05 K/uL [facility] Blood 06/24/2017 1:00 PM EST 06/24/2017 1:04 PM EST us Eddie Nina MD LAB BLOOD ORDERABLES Samra osborne Result Performing Organization Address City/State/[facility] Co de Phone Number [facility] [address] [place] [address] documented in this encounter Visit Diagnoses Diagnosis Mixed hyperlipidemia documented in this encounter Care Teams Corporate Travel Expert Relationship Specialty Start Date End Date Kaushik Virgen MD [address] [place] [address] [email or web address] PCP - General Family Medicine 06/14/17 07/29/17 Hodan Brewster MD [address] [place] [address], 2nd [place] [address] [email or web address] PCP - General Internal Medicine 07/30/17 Franchesca Alexandra NP [address] [place] [address] Historical LMR Provider 03/23/17 Alexia Galloway NP [address] [place] [address] [email or web address] Historical LMR Provider 03/23/17 Eddie Nina MD [address] [place] [address] [email or web address] Historical LMR Provider 03/23/17 Kellie Candelario MD [address] [place] [address] Historical LMR Provider 03/23/17 Hodan Brewster MD [address] [place] [address], 2nd [place] [address] [email or web address] Historical LMR Provider 03/23/17 Marlena Cunningham FNP [address] [facility] [place] [address] Historical LMR Provider 03/23/17 06/14/21 Susana Olguin MD [address] [facility] [place] [address] Historical LMR Provider 03/23/17 06/14/21 Margie Stahl DPM [address] [place] [address] Historical LMR Provider 03/23/17 2 Dre Novak MD [address] [place] [address], 2nd [place] [address] [email or web address] Historical LMR Provider 03/23/17 06/14/21 Kaushik Virgne MD [address] [place] [address] [email or web address] Historical LMR Provider 03/23/17 06/14/21 Zeeshan Ferrera MD [address] [place] [address], [address] [place] [address] [email or web address] Historical LMR Provider 03/23/17 06/14/21 Kacey George MD [address] [place] [address] Orthopedics [facility] Sports Medicine, [place] [address] [email or web address] Historical LMR Provider 03/23/17 Tim White MD [address] [place] [address] [email or web address] Historical LMR Provider 03/23/17 06/14/21 Hodan Brewster MD [address] [place] [address] Insurance Assigned Provider 10/08/18 12/17/18 Hodan Brewster MD [address] [place] [address] Insurance Assigned Provider 09/13/19 06/13/22 Hodan Brewster MD [address] [place] [address], 2nd Floor [place] [id number] [email or web address] Insurance Assigned Provider 09/11/23 documented as of this encounter Additional Source Comments The information contained in this document represents components of the legal health record. It is not the complete legal health record.[facility]
--- OUTSIDE RECORDS SUMMARY | 2024-10-19 12:16 | XMS_ITS | Encounter Summary ---
Author Organization [facility] Address [address] [place] [address] Phone Care Team Providers Care Manager Cafe Name Role Phone Franchesca Alexandra CO PILOT Unavailable Alexia Galloway CO PILOT Unavailable Eddie Nina MD Unavailable Kellie Candelario MD Unavailable [phone] Hodan Brewster MD Unavailable Marlena Cunningham WEIGHBRIDGE OPERATOR Unavailable Susana Olguin MD Unavailable Margie Stahl DPM Unavailable Unavaila ble Dre Novak MD Unavailable [phone] Kaushik Virgen MD Unavailable Zeeshan Ferrera MD Unavailable Kacey George MD Unavailable Tim White MD Unavailable Hodan Brewster MD Primary Care Provider Hodan Brewster MD Unavailable Hodan Brewster MD Unavailable [phone] Hodan Brewster MD Unavailable Encounter Details Date Type Department Care Team (Late st Contact Info) Description 08/04/2017 Procedure Pass [facility], Mri - [address] [address] Social History Tobacco Use Types Packs/Day Years [...] 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, 3rd Floor, [address] [place] [address] Reymundo Patricio MD [address] [place] [address] [email or web address] documented as of this encounter Visit Diagnoses Not on filedocumented in this encounter Care Teams Manager Cafe Relationship Specialty Start Date End Date Hodan [place] MD [address] [place] [address], [address] [place] [address] PCP - General Internal Medicine 07/30/17 Franchesca Alexandra, [place] PILOT [address] [place] [address] Historical LMR Provider 03/23/17 Alexia Galloway, RICHIE [address] [place] [address] [email or web address] Historical LMR Provider 03/23/17 Eddie Nina MD [address] [place] [address] [email or web address] Historical LMR Provider 03/23/17 Kellie Candelario MD [address] [place] [address] Historical LMR Provider 03/23/17 Hodan Brewster MD [address] [place] [address] Historical LMR Provider 03/23/17 Marlena Cunningham FNP [address] [place] [address] 204, [address] [place] [address] [email or web address] Historical LMR Provider 03/23/17 06/14/21 Susana Olguin MD [address] [place] [address] 204, [address] [place] [address] [email or web address] Historical LMR Provider 03/23/17 06/14/21 Margie Stahl DPM [address] [place] [address] Historical LMR Provider 03/23/17 2 Dre Novak MD [address] [place] [address], 2nd [place] [address] [email or web address] Historical LMR Provider 03/23/17 06/14/21 Kaushik Virgen MD [address] [place] [address] [email or web address] Historical LMR Provider 03/23/17 06/14/21 Zeeshan Ferrera MD [address] [facility], [address] [place] [address] [email or web address] Historical LMR Provider 03/23/17 06/14/21 Kacey George MD [address] [place] [address] Orthopedics & Sports Medicine, [place] [address] Historical LMR Provider 03/23/17 Tim White MD [address] [place] [address] [email or web address] Historical LMR Provider 03/23/17 06/14/21 Hodan Brewster MD [address] [place] [address] [email or web address] Insurance Assigned Provider 10/08/18 12/17/18 Hodan [place]ster MD [address] [place] [address] [email or web address] Insurance Assigned Provider 09/13/19 06/13/22 Hodan [place]ster MD [address] [place] [address] [email or web address] Insurance Assigned Provider 09/11/23 documented as of this encounter Additional Source Comments The information contained in this document represents components of the legal health record. It is not the complete legal health record.[facility]
--- OUTSIDE RECORDS SUMMARY | 2024-10-19 12:16 | XMS_ITS | Encounter Summary ---
Author Organization [facility] Address [address] [place] [address] Phone Care Team Providers Care Wreath And Garland Maker Hand Name Role Phone Eddie Nina MD Unavailable Hodan Brewster MD Unavailable [phone] Kacey George MD Unavailable Hodan Brewster MD Primary Care Provider [phone] Hodan [place]ster MD Unavailable [phone] Encounter Details Date Type Department Care Team (Late st Contact Info) Description 02/01/2024 Procedure Pass [facility] PERIOPERATIVE DEPT [address] [place] [id number] Social History Tobacco Use Types Packs/Day Years [...] ecorded Are you denied basic needs s [facility] as food, clothing, or medical care? No 02/01/2024 In the past 12 months have y ou been in a relationship with a person who hurts, threatens, or tries to control you? No 02/01/2024 Are you denied basic needs s [facility] as food, clothing, or medical care? No 02/01/2024 In the past 12 months have y ou been in a relationship with a person who hurts, threatens, or tries to control you? 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 on file Not on file Not on file documented as of this encounter Functional Status * Calculated C-SSRS Risk Score (Lifetime/Recent) Answer Date of Assessment Author No Risk Indicated 02/01/2024 6:00 PM EDT Eric Saldana RN * [place] Suicide Severity Rating Scale (Screener/Recent Self-Report) Question [...] Description 11/28/2024 2:00 PM EDT Office Visit [facility] [address] [place] [address] 3rd Floor, [address] [place] [address] Susana Stuart DNP [address] [place] [address], [address] [place] [address] [email or web address] 01/31/2025 12:00 PM EDT Office Visit [facility] Orthopaedic Spine [address] [facility], 3rd Floor, [address] [place] [address] Reymundo Patricio MD [address] [place] [address] [email or web address] documented as of this encounter Visit Diagnoses Not on filedocumented in this encounter Additional Health Concerns Assessment Noted Time PHQ-2 Depression Total Score: 2 12/31/19 24 4:14 PM EDT documented as of this encounter Care Teams Wreath And Garland Maker Hand Relationship Specialty Start Date End Date Hodan [place] MD [address] [place] [address], 2nd [place] [address] [email or web address] PCP - General Internal Medicine 07/30/17 Eddie Nina MD [email or web address] Historical LMR Provider 03/23/17 Hodan [place] MD [address] [place] [address] Historical LMR Provider 03/23/17 Kacey George MD [address] [place] [address] Orthopedics & Sports Medicine, [place] [address] Historical LMR Provider 03/23/17 Hodan [place]ster MD [address] [place] [address] Insurance Assigned Provider 09/11/23 documented as of this encounter Additional Source Comments The information contained in this document represents components of the legal health record. It is not the complete legal health record.[facility]
--- OUTSIDE RECORDS SUMMARY | 2024-10-19 12:16 | XMS_ITS | Encounter Summary ---
Author Organization [facility] Address [address] [place] [address] Phone Care Team Providers Care Dietary Worker Name Role Phone Eddie Nina MD Unavailable Hodan Brewster MD Unavailable [phone] Kacey George MD Unavailable Hodan [place] MD Primary Care Provider [phone] Hodan Brewster MD Unavailable [phone] Encounter Details Date Type Department Care Team (Late st Contact Info) Description 09/08/2023 Procedure Pass [facility] [address] [place] [address] Social History Tobacco Use Types Packs/Day Years [...] high school, GED, job training, learning the Turkish language, technical skills, or developing parenting skills)? 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 on file Not on file documented as of this encounter Plan of Treatment Upcoming Encounters Date Type Department Care Team (Late st Contact Info) Description 11/28/2024 2:00 PM EDT Office Visit [facility] [address] [facility] 3rd Floor, [address] [place] [address] Susana Stuart, CHUCK [address] [facility], [address] [place] [address] 01/31/2025 12:00 PM EDT Office Visit [facility] Orthopaedic Spine [address] [facility], 3rd Floor, [address] [place] [address] Reymundo Patricio MD [address] [place] [address] [email or web address] documented as of this encounter Visit Diagnoses Not on filedocumented in this encounter Additional Health Concerns Assessment Noted Time PHQ-2 Depression Total Score: 1 12/04/19 22 4:12 PM EDT documented as of this encounter Care Teams Dietary Worker Relationship Specialty Start Date End Date Hodan [place] MD [address] [place] [address] PCP - General Internal Medicine 07/30/17 Eddie Nina MD [email or web address] Historical LMR Provider 03/23/17 Hodan [place] MD [address] [place] [address] Historical LMR Provider 03/23/17 Kacey George MD [address] [place] [address] Orthopedics & Sports Medicine, [place] [address] Historical LMR Provider 03/23/17 Hodan [place]ster MD [address] [place] [address] Insurance Assigned Provider 09/11/23 documented as of this encounter Additional Source Comments The information contained in this document represents components of the legal health record. It is not the complete legal health record.[facility]
--- OUTSIDE RECORDS SUMMARY | 2024-10-19 12:16 | XMS_ITS | Encounter Summary ---
Author Organization [facility] Address [address] [place] [address] Phone Care Team Providers Care Mine Utility Operator Name Role Phone Eddie Nina MD Unavailable Hodan Berwster MD Unavailable [phone] Kacey George MD Unavailable Hodan Brewster MD Primary Care Provider Hodan [place]ster MD Unavailable [phone] Encounter Details Date Type Department Care Team (Late st Contact Info) Description 10/04/2022 Procedure Pass [facility], Ct Scan - [address] [address] Social History Tobacco Use Types Packs/Day Years [...] high school, GED, job training, learning the Hebrew language, technical skills, or developing parenting skills)? [...] basis, and looking for work? 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 Wish to be (Past 1 Month) No 10/04/2022 8:53 AM Divya Vanessa RN 2. Non-Specific Active Suici janice Thoughts (Past 1 Month) No 10/04/2022 8:53 AM OMIDT Madyson Shafer cia, RN 6. Suicidal Behavior (Lifetime) No 8:53 AM Divya Vanessa RN documented as of this encounter Plan of Treatment Upcoming Encounters Date Type Department Care Team (Late st Contact Info) Description 11/28/2024 2:00 PM EDT Office Visit [facility] [address] [facility] 3rd Floor, [address] [place] [address] Susana Stuart DNP [address] [facility], [address] [place] [address] 01/31/2025 12:00 PM EDT Office Visit [facility] [address] [facility], 3rd Floor, [address] [place] [address] Reymundo Patricio MD [address] [place] [address] [email or web address] documented as of this encounter Visit Diagnoses Not on filedocumented in this encounter Additional Health Concerns Assessment Noted Time PHQ-2 Depression Total Score: 1 12/04/19 22 4:12 PM EDT documented as of this encounter Care Teams Mine Utility Operator Relationship Specialty Start Date End Date Hodan [place] MD [address] [place] [address] PCP - General Internal Medicine 07/30/17 Eddie Nina MD [email or web address] Historical LMR Provider 03/23/17 Hodan [place] MD [address] [place] [address] [email or web address] Historical LMR Provider 03/23/17 Kacey George MD [address] [place] [address] Orthopedics & Sports Medicine, [facility] [place] [address] Historical LMR Provider 03/23/17 Hodan [place] MD [address] [place] [address], 2nd [place] [address] Insurance Assigned Provider 09/11/23 documented as of this encounter Additional Source Comments The information contained in this document represents components of the legal health record. It is not the complete legal health record.[facility]
--- OUTSIDE RECORDS SUMMARY | 2024-10-19 12:16 | XMS_ITS | Encounter Summary ---
Author Organization [facility] Address [address] [place] [address] Phone Care Team Providers Care Manager Sales And Marketing Name Role Phone Franchesca Alexandra TROLLEY CLEANER Unavailable Alexia Galloway TROLLEY CLEANER Unavailable Eddie Nina MD Unavailable Kellie Candelario MD Unavailable [phone] Hodan Brewster MD Unavailable Marlena Cunningham RESIDENTIAL LEASING MANAGER Unavailable Susana Olguin MD Unavailable Margie Stahl DPM Unavailable Unavaila ble Dre Novak MD Unavailable Kaushik Virgen MD Unavailable [phone] Zeeshan Ferrera MD Unavailable [phone] Kacey George MD Unavailable Tim White MD Unavailable Hodan Brewster MD Primary Care Provider [phone] Hodan Brewster MD Unavailable [phone] Hodan Brewster MD Unavailable Hodan Brewster MD Unavailable [phone] Encounter Details Date Type Department Care Team (Late st Contact Info) Description 05/27/2018 Ancillary Orders Virtual Department [address] [place] [address] Hodan Brewster MD [address], [address] [place] [address] [email or web address] Breast screening Social History Tobacco Use Types [...] 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 on 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 documented as of this encounter Plan of Treatment Upcoming Encounters Date Type Department Care Team (Late st Contact Info) Description 11/28/2024 2:00 PM EDT Office Visit [facility] [address] [place] [address] [address]rd Floor, [address] [place] [address] Susana Stuart, CHUCK [address] [facility], [facility] [address] [place] [address] 01/31/2025 12:00 PM EDT Office [place] [facility] [address], 3rd Floor, [address] [place] [address] Reymundo Patricio MD [address] [place] [address] [email or web address] documented as of this encounter Results * [...] and compared with multiple prior studies, most wesupjss32/31/2018, with utilization of computer-aided detection. The breasts [...] CDHMAMA Hodan Brewster MD IMG MG EXAMS Final Resul t documented in this encounter Visit Diagnoses Diagnosis Breast screening Breast screening, unspecified Breast screening Breast screening, unspecified documented in this encounter Care Teams Manager Sales And Marketing Relationship Specialty Start Date End Date Hodan Brewster MD [address] [place] [address], [address] [place] [address] [email or web address] PCP - General Internal Medicine 07/30/17 Franchesca Alexandra, TROLLEY CLEANER [address] [place] [address] Historical LMR Provider 03/23/17 Alexia Galloway NP [address] [place] [address] [email or web address] Historical LMR Provider 03/23/17 Eddie Nina MD [address] [place] [address] [email or web address] Historical LMR Provider 03/23/17 Kellie Cnadelario MD [address] [place] [address] Historical LMR Provider 03/23/17 Hodan Brewster MD [address] [place] [address], [address] [place] [address] [email or web address] Historical LMR Provider 03/23/17 Marlena Cunningham FNP [address] [place] [address] [email or web address] Historical LMR Provider 03/23/17 06/14/21 Susana Olguin MD [address] [place] [address] [email or web address] Historical LMR Provider 03/23/17 06/14/21 Margie Stahl DPM [address] [place] [address] Historical LMR Provider 03/23/17 2 Dre Novak MD [address] [facility], [address] [place] [address] [email or web address] Historical LMR Provider 03/23/17 06/14/21 Kaushik Virgen MD [address] [place] [address] [email or web address] Historical LMR Provider 03/23/17 06/14/21 Zeeshan Ferrera MD [address] [address], [address] [place] [address] [email or web address] Historical LMR Provider 03/23/17 06/14/21 Kacey George MD [address] [place] [address] Orthopedics [facility] Sports Medicine, [place] [address] Historical LMR Provider 03/23/17 Tim White MD [address] [place] [id number] [email or web address] Historical LMR Provider 03/23/17 06/14/21 Hodan Brewster MD [address] [place] [address] [email or web address] Insurance Assigned Provider 10/08/18 12/17/18 Hodan Brewster MD [address] [place] [address] [email or web address] Insurance Assigned Provider 09/13/19 06/13/22 Hodan Brewster MD [address] [place] [address] [email or web address] Insurance Assigned Provider 09/11/23 documented as of this encounter Additional Source Comments The information contained in this document represents components of the legal health record. It is not the complete legal health record.[facility]
--- OUTSIDE RECORDS SUMMARY | 2024-10-19 12:16 | XMS_ITS | Encounter Summary ---
Author Organization [facility] Address [address] [place] [address] Phone Care Team Providers Care Coordinator Of Rehabilitation Services Name Role Phone Eddie Nina MD Unavailable Hodan Brewster MD Unavailable [phone] Kacey George MD Unavailable [phone] Hodan Brewster MD Primary Care Provider Hodan Brewster MD Unavailable [phone] Encounter Details Date Type Department Care Team (Late st Contact Info) Description 10/08/2022 Procedure Pass [address] [place] [address] Social History Tobacco Use Types Packs/Day Years [...] high school, GED, job training, learning the [place] language, technical skills, or developing parenting skills)? 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 Not [...] Description 11/28/2024 2:00 PM EDT Office Visit [facility] [address] [place] [address] [address] Floor, [address] [place] [address] Susana Stuart DNP [address] [place] [address], [address] [place] [address] 01/31/2025 12:00 PM EDT Office Visit [facility] Orth[facility] Spine [address], [address], [address] [place] [address] Reymundo Patricio MD [address] [place] [address] [email or web address] documented as of this encounter Visit Diagnoses Not on filedocumented in this encounter Additional Health Concerns Assessment Noted Time PHQ-2 Depression Total Score: 1 12/04/19 22 4:12 PM EDT documented as of this encounter Care Teams Coordinator Of Rehabilitation Services Relationship Specialty Start Date End Date Hodan Brewster MD [address] [place] [address] PCP - General Internal Medicine 07/30/17 Eddie Nina MD [email or web address] Historical LMR Provider 03/23/17 Hodan Brewster MD [address] [place] [address] Historical LMR Provider 03/23/17 Kacey George MD [address] [place] [address] [facility], [place] [address] Historical LMR Provider 03/23/17 Hodan Brewster MD [address] [place] [address] [email or web address] Insurance Assigned Provider 09/11/23 documented as of this encounter Additional Source Comments The information contained in this document represents components of the legal health record. It is not the complete legal health record.[facility]
--- OUTSIDE RECORDS SUMMARY | 2024-10-19 12:16 | XMS_ITS | Clinical Summary ---
Author Organization [facility] Address [address] [facility] [address] [place] [address] Phone Care Team Providers Care Institute Scientist Name Role Phone Eddie Nina MD Unavailable Hodan Brewster MD Unavailable [phone] Kacey George MD Unavailable Hodan Brewster MD Primary Care Provider Hodan Brewster MD Unavailable [phone] Allergies Active Allergy Reactions Criticality Noted Date [...] Rash Low 01/29/2017 Tolerated ancef 01/31 Tiotropium [place] 08/26/2021 Medications famotidine (PEPCID) 40 MG tabletIndications: Gastroesophageal reflux [...] Take 1,000 Units by mouth daily. 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 90 capsule 07/18/19 25 Active labetaloL (TRANDATE) 200 MG tabletIndications: Essential hypertension Take 1 tablet (200 mg total) by mouth 2 (two) times a day. 180 tablet 2 07/18/19 25 025 Active valsartan (DIOVAN) 80 MG tablet Take 1 tablet (80 mg total) by mouth every morning. 90 tablet 3 07/26/19 25 Active ID-BD 5mm x 31G Mini Pen Dickens <[facility] 7024> ([id number])Indic ations:Osteoporosi s, unspecified osteoporosis type, unspecified pathological fracture presence Use as directed 100 each 3 09/14/19 25 Active abaloparatide (TYMLOS) 80 mcg (3,120 mcg/1.56 mL) subcutaneous pen INJECT 80MCG UNDER THE SKIN 1 TIME A DAY 1.56 mL 09/19/19 25 Active BD ULTRA-FINE MINI PEN NEEDLE 31 gauge x 3/16 Ndle USE DIRECTED 100 each 3 10/11/19 25 Active Active Problems Patient Care Coordination No te [...] send over these reports over to the flat lock machine operator. Would be beneficial for her to see [...] 9:28 PM EST): She is flying to [place] and would like diazepam for the flight. [...] Control/Sedation: - APAP IV ATC - Dilaudid MATERIALS HANDLER - Lidocaine patches #[id number] #[id number] - activity as tolerated - no HOB [...] Encounters Date Type Department Care Team Description 10/17/[address] [place] [address] Hodan Brewster MD Referral 10/13/2024 Orders Only [facility] Medicine [address] [place] [address] ProviderRupesh MD 10/10/[address] [place] [address] Hodan Brewster MD Medication Refill 09/18/2024 Telephone [facility] Spine [address] [facility], 3rd Floor, [address] [place] [address] Reymundo Patricio MD 09/15/2024 Refill [facility] [address] [facility], 3rd Floor, [address] [place] [address] Reymundo Patricio MD Medication Refill 09/13/2024 12:00 PM EDT Office Visit [facility] [address] [facility], 3rd Floor, [address] [place] [address] Reymundo Patricio MD Sagittal plane imbalance (Primary Dx) 09/13/2024 11:15 AM EDT - 09/13/2024 11:59 PM EDT Hospital Encounter [facility] Imaging - Xray, [place] [address] [facility] [address], 3rd [place] [address] Reymundo Patricio MD Discharge Disposition: Home or Self Care 09/13/2024 Orders Only [facility] Orthopa[facility] Spine [address] [facility], 3rd Floor, [address] [place] [address] Maggie Pickering, TABATHA Osteoporosis, unspecified osteoporosis type, unspecified pathological fracture presence 09/13/2024 Orders Only [facility] [address] [facility], 3rd Floor, [address] [place] [address] Lisa Murray MA Sagittal plane imbalance (Primary Dx) 09/12/2024 Orders Only [facility] Spine [address] [place], 3rd Floor, [address] [place] [address] Lisa Murray MA Sagittal plane imbalance (Primary Dx) 08/28/2024 Orders Only [facility] [address] [place] [address] Rupesh Calero MD 08/22/2024 Orders Only [facility] Medicine [address] [place] [address] Rupesh Calero MD 08/18/2024 Orders Only [facility] Medicine [address] [place] [address] Rupesh Calero MD 08/16/2024 Orders Only [facility] Medicine [address] [place] [address] Rupesh Calero MD 08/08/2024 Orders Only [facility] [address] [place] [address] Rupesh Calero MD 08/02/2024 Orders Only [facility] [address] [place] [address] Rupesh Calero MD 07/26/2024 Orders Only [facility] [address] [place] [address] 3rd Floor, [address] [place] [address] Susana Stuart DNP from Last 3 Months Immunizations Immunization Administration Dates Next Due COVID-19 (Pre-03/29) Moderna 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, 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[place] 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 on file Not on file Not on file Last Filed Vital Signs Vital Sign Reading Time Taken Comments Blood Pressure 126/54 07/18/2024 11:08 AM EST Pulse 77 07/18/2024 11:08 AM EST Temperature 36.3 ??C (97.4 ??F) 02/08/2024 1:41 PM ED T Respiratory Rate 16 02/08/2024 1:41 PM EDT Oxygen Saturation 99% 07/18/2024 11:08 AM EST Inhaled Oxygen Concentration 21% 12/23/2023 9:11 AM EDT Weight 72.6 kg (160 lb) 07/18/2024 11:08 AM EST Height 154 cm (5' 0.63 ) 07/18/2024 11:08 AM EST Body Mass Index 30.6 07/18/2024 11:08 AM EST Plan of Treatment Upcoming Encounters Date Type Department Care Team (Late st Contact Info) Description 11/28/2024 2:00 PM EDT Office Visit [facility] [address] [place] [address] 3rd Floor, [address] [place] [address] Susana Stuart DNP [address] [facility], [address] [place] [address] 01/31/2025 12:00 PM EDT Office Visit [facility] Orthopaedic Spine [address] [facility], 3rd Floor, [address] [place] [address] Reymundo Patricio MD [address] [place] [address] [email or web address] Health Maintenance Due Date Last Done Comments HEPATITIS C SCREENING 1969 COLOGUARD 1996 FOBT 1996 SIGMOIDOSCOPY 1996 VIRTUAL COLONOSCOPY 1996 FIT TEST 09/15/2024 09/16/2023 COVID-19 VACCINE ( season) 2024 04/10/2024, 05/22/2022, 12/19/2021, Additional history exists LIPID PANEL 12/26/2024 12/27/2023, 12/05, 12/01/2021, Additional [...] OSTEOPOROSIS SCREENING INITIAL (ONE-TIME) Completed 09/07/2023, 12/02/2018 SMOKING STATUS SCREENING (Once After 26 Yrs) Completed 04/26/2024 HEPATITIS A VACCINES Aged Out No long er eligible based on patient's age to complete this topic HIB VACCINES Aged Out No longer eligi ble based on patient's age to complete this topic MENINGOCOCCAL VACCINES (ACWY) Aged Out No longer eligible based on patient's age to complete this topic MENINGOCOCCAL VACCINES (B) Aged Out N o longer eligible based on patient's age to complete this topic Medical Devices Implanted Type Area Third Rigger Device Identifier Shelf Expiration Date Model / Serial / Lot Kit Graft 2.5x5.0cm Lg Bone Infuse Allograft Protein Collagen Absorbable Water Syringe Sponge - [id number] Implanted:Qty: 1 on 02/01/2024 by Reymundo Patricio MD at [facility] BONETISSUE N/A: Back [employer] 12/05/2024 [id number] / / [id number] Spine Tevin 500mm 6.0 5.0 Reline [place] - [id number] Implanted:Qty: 1 on 02/01/2024 by Reymundo Patricio MD at [facility] N/A: Back [employer] [id number] 00 / / Screw Spine 6mm Reline Locking - [id number] Implanted:Qty: 18 on 02/01/2024 by Reymundo Patricio MD at [facility] N/A: Back [employer] [id number] 00 / / Ifuse [place] Implant 9.5mm X 80mm Implanted:Qty: 1 on 02/01/2024 by Reymundo Patricio MD at [facility] Left: Sacrum / [id number] / Description:Sacrum Ifuse [place] Implant 9.5mm X 80mm Implanted:Qty: 1 on 02/01/2024 by Reymundo Patricio MD at [facility] Right: Sacrum / [id number] / Description:Sacrum Screw Spine 8.5x80mm Reline Mas Traction Poly - [id number] Implanted:Qty: 2 on 02/01/2024 by Reymundo Patricio MD at [facility] N/A: Back [employer] [id number] 80 / / Screw Spine 6.5x50mm Reline Mas Traction Poly - [id number] Implanted:Qty: 10 on 02/01/2024 by Reymundo Patricio MD at [facility] N/A: Back [employer] [id number] 50 / / Screw Spine 6.5x45mm Reline Mas Traction Poly - [id number] Implanted:Qty: 3 on 02/01/2024 by Reymundo Patricio MD at [facility] N/A: Back [employer] [id number] 45 / / Screw Spine 6.5x40mm Reline Mas Traction Poly - [id number] Implanted:Qty: 1 on 02/01/2024 by Reymundo Patricio MD at [facility] N/A: Back [employer] [id number] 40 / / Screw Spine 7.5x55mm Reline Mas Traction Poly - [id number] Implanted:Qty: 2 on 02/01/2024 by Reymundo Patricio MD at [facility] N/A: Back [employer] [id number] 55 / / Spine Tevin 6 To [id number] Reline O Titanium Tapered - [id number] Implanted:Qty: 1 on 02/01/2024 by Reymundo Patricio MD at [facility] N/A: Back [employer] [id number] 00 / / Procedures Procedure Name Priority Date/Time Associated Diagnosis Comments OUTSIDE LAB Routine 09/26/2024 6:29 PM EDT XR FULL BODY SURVEY ADULT Routine 09/13/2024 12:00 PM EDT Sagittal plane imbalance OUTSIDE LAB Routine 08/07/2024 5:13 PM EST OUTSIDE LAB Routine 08/07/2024 8:29 AM EST BI MAMMOGRAM SCREENING WITH TOMOSYNTHESIS [...] to Health Maintenance Results * Outside Lab (09/26/2024 6:29 PM EDT) Only the most recent of3 resultswithin the time period is included. us Historical Provider LAB BLOOD ORDERABLES Edit ed Result - Final * XR FULL BODY SURVEY ADULT (09/13/2024 12:00 PM EDT) Anatomical Region Laterality Modality Computed Radiogr aphy 09/13/2024 2:32 PM EDT Impressions 09/13/2024 2:35 PM EDT Instrumented thoracolumbar sacral fusion. Narrative 09/13/2024 2:35 PM EDT XR FULL BODY SURVEY ADULT Referring clinician's provided indication for this examination in [facility]: Pain COMPARISON: FINDINGS: Standing, simultaneously obtained orthogonal [...] clinician's provided indication for this examination in [facility]:Pain COMPARISON: FINDINGS: Standing, simultaneously obtained orthogonal views [...] sacral fusion. Reymundo Patricio MD IMG XR SKELETAL SURVEY Final Result * BI MAMMOGRAM SCREENING WITH TOMOSYNTHESIS WITH [...] breast. Hodan Brewster MD IMG MG EXAMS Final Resul t * (ABNORMAL) Basic metabolic panel (02/08/2024 3:15 AM EDT) SODIUM 129(L) 135 - 145 mmol/L [facility] POTASSIUM 4.0 3.4 - 5.0 mmol/L [facility] CHLORIDE 95(L) 98 - 108 mmol/L [facility] CO2 24 23 - 32 mmol/L [facility] BUN 10 8 - 25 mg/dL [facility] CREATININE 0.47(L) 0.60 - 1.50 mg/dL [facility] GLUCOSE 99 70 - 110 mg/dL [facility] CALCIUM 9.3 8.5 - 10.5 mg/dL [facility] EGFR 101 >59 mL/min/1. 73m2 [facility] Comment:Estimated glomerular filtration rate calculated using the CKD-EPI refit equation. ANION GAP 10 3 - 17 mmol/L [facility] Blood 02/08/2024 3:15 AM EDT 02/08/2024 3:27 AM EDT Robert Regan [facility] LAB BLOOD ORDERABLES Final Result [facility] [address] [place] [address] * (ABNORMAL) Lipid panel (12/27/2023 10:36 AM EDT) HDL 78 mg/dL [facility] Comment: ? Interpretation <40 mg/dL: Low HDL cholesterol (major risk factor for CHD) Greater than or equal to 60 mg/dL: High HDL cholesterol ( negative risk factor for CHD) HDL - cholesterol is affected by a number of factors, e.g. smoking, excerise, hormones, sex and age. CHOLESTEROL 176 0 - 240 mg/dL [facility] TRIGLYCERIDES 63 30 - 160 mg/dL [facility] LDL 85 50 - 129 mg/dL [facility] Comment: LDL levels in terms of risk for coronary heart disease: <100 mg/dL: Optimal 100-129 mg/dL: Near or above optimal 130-159 mg/dL: Borderline high 160-189 mg/dL: High >190 mg/dL: Very High CARDIAC RISK RATIO 2.3(L) 3.3 - 4.4 C [facility] Blood 12/27/2023 10:3 6 AM EDT 12/27/2023 10:41 AM EDT us Hodan Brewster MD LAB BLOOD ORDERABLES Final Result Performing Organization Address City/State/[facility] Co de Phone Number [address] [address] * ENDOSCOPY, COLON (12/23/2023 8:44 AM EDT) Narrative Transcriptions Eric Oliver MD - 12/23/2023 8:44 AM EDT [facility] Patient Name: Loree Heller Attending MD:: ERIC OLIVER MD, Procedure Date: 12/23/2023 8:44 AM Date of : 1950 Age: 73 Admit Type: Outpatient Gender: Female Room: [facility] Referring MD: Hodan Brewster MD Exam Type: [...] monitored continuously. The Olympus adult variable colonoscope [id number] #5 was introduced through the anus and [...] 8:44 AM Procedure Code(s): --- Professional --- 94302, Colonoscopy, flexible; with biopsy, single or multiple --- Technical --- 13739, Colonoscopy, flexible; with biopsy, single or multiple Diagnosis Code(s): --- Professional --- K52.9, Noninfective gastroenteritis and colitis, unspecified K57.30, Diverticulosis of large intestine without perforation or abscess without bleeding --- Technical --- K52.9, Noninfective gastroenteritis and colitis, unspecified K57.30, Diverticulosis of large intestine without perforation or abscess without bleeding CPT copyright 2021 [employer]. All rights reserved. The codes documented in this report are preliminary and upon distributor operator reviewmay be revised to meet current compliance requirements. Procedure Date: 12/23/2023 8:44:[address] [place] [address] [place] Hodan Brewster MD GI PROCEDURE ORDERABLES Fin al Result * Fecal immunochemical test x1 (FIT) (09/16/2023 8:30 AM EDT) Immuno Fecal Occult Negative Negative [facility] Stool (Stool) 09/16/2023 8:3 0 AM EDT 09/16/2023 11:32 AM EDT us Sandhya Farr NP BODY FLUIDS AND STOOLS KELSEY BRITTON Final Result [address] [address] * BD DXA SPINE AND HIP WITH [...] a total bone mineral density of 0.973 g/cw3vsqp a T- score of 0.3. This is [...] change. Hodan WATKINS BD BONE DENSITY DEXA Fi nal Result from Last 3 Months or Most Recently Relevant to Health Maintenance Insurance [facility] MEDICARE PART A & B [facility] MEDICARE PART A & [place] [address] [place] [address] MEDICARE PART A & [place] [place] [address] MEDICARE PART A & [place] [place] [address] MEDICARE PART A & B [facility] MEDICARE PART A & B [facility] MEDICARE PART A & B [facility] MEDICARE PART A & B [facility] MEDICARE PART A & B Advance Directives For more information, please contact: [phone] (9AM - 5PM [facility], Wednesday-Wednesday) * Full Code (Latest Code Status on File) Date Activated Date Inactivated Comments 02/01/2024 5:35 PM Question Answer Comments Code Status Confirmed With: Patient Care Teams Institute Scientist Relationship Specialty Start Date End Date Hodan Brewster MD [address] [place] [address], 2nd [place] [address] PCP - General Internal Medicine 07/30/17 Eddie Nina MD [email or web address] Historical LMR Provider 03/23/17 Hodan Brewster MD [address] [place] [address] Historical LMR Provider 03/23/17 Kacey George MD [address] [place] [address] Orthopedics & Sports Medicine, [place] [address] Historical LMR Provider 03/23/17 Hodan Brewster MD [address] [place] [address] Insurance Assigned Provider 09/11/23 Additional Source Comments The information contained in this document represents components of the legal health record. It is not the complete legal health record.[facility]
--- OUTSIDE RECORDS SUMMARY | 2024-10-19 12:16 | XMS_ITS | Encounter Summary ---
Author Organization [facility] Address [address] [place] [address] Phone Care Team Providers Care Dispatcher Automobile Rental Name Role Phone Eddie Nina MD Unavailable Hodan Brewster MD Unavailable [phone] Kacey George MD Unavailable Hodan Brewster MD Primary Care Provider [phone] Hodan Brewster MD Unavailable [phone] Encounter Details Date Type Department Care Team (Late st Contact Info) Description 01/28/2023 Procedure Pass [address] [address] Social History Tobacco Use Types Packs/Day Years [...] high school, GED, job training, learning the Bulgarian language, technical skills, or developing parenting skills)? 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 file Not on file documented as of this encounter Plan of Treatment Upcoming Encounters Date Type Department Care Team (Late st Contact Info) Description 11/28/2024 2:00 PM EDT Office Visit [facility] [address] [place] [address] 3rd Floor, [address] [place] [address] Susana Stuart, CHUCK 22 [facility], [address] [address] 01/31/2025 12:00 PM EDT Office Visit [facility] Orthopaedic Spine [address] [facility], 3rd Floor, [address] [place] [address] Reymundo Patricio MD [address] [place] [address] [email or web address] documented as of this encounter Visit Diagnoses Not on filedocumented in this encounter Additional Health Concerns Assessment Noted Time PHQ-2 Depression Total Score: 1 12/04/19 22 4:12 PM EDT documented as of this encounter Care Teams Dispatcher Automobile Rental Relationship Specialty Start Date End Date Hodan Brewster MD [address] [place] [address] PCP - General Internal Medicine 07/30/17 Eddie Nina MD [email or web address] Historical LMR Provider 03/23/17 Hodan Brewster MD [address] [place] [address] Historical LMR Provider 03/23/17 Kacey George MD [address] [place] [address] Orthopedics & Sports Medicine, [place] [address] Historical LMR Provider 03/23/17 Hodan Brewster MD [address] [place] [address] Insurance Assigned Provider 09/11/23 documented as of this encounter Additional Source Comments The information contained in this document represents components of the legal health record. It is not the complete legal health record.[facility]
--- OUTSIDE RECORDS SUMMARY | 2024-10-19 12:16 | XMS_ITS | Encounter Summary ---
Author Organization [facility] Address [address] [facility] [address] [place] [address] Phone Care Team Providers Care German Teacher Name Role Phone Eddie Nina MD Unavailable [phone] Hodan Brewster MD Unavailable [phone] Kacey George MD Unavailable [phone] Hodan Brewster MD Primary Care Provider [phone] Hodan Brewster MD Unavailable [phone] Reason for Referral * Physical Therapy (Within 2 weeks) - New Request Specialty Diagnoses / Procedures Referred By Rebekah tierney Referred To Contact Diagnoses Sagittal plane imbalance Reymundo Patricio MD Phone: tel: fax: mailto:[email or web address] Referral ID Status Reason Start Date Expiration Date V isits Requested Visits Authorized [id number] New Request 09/13/2024 09/13/2025 1 1 Encounter Details Date Type Department Care Team (Late st Contact Info) Description 09/13/2024 Orders Only [facility] Orthopaedic Spine [address] [facility], 3rd Floor, [address] [place] [address] Lisa Murray MA [address] [place] [address] Sagittal plane imbalance (Primary Dx) Social History 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, 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 file Not on file documented as of this encounter Plan of Treatment Upcoming Encounters Date Type Department Care Team (Late st Contact Info) Description 11/28/2024 2:00 PM EDT Office Visit [facility] [address] [place] [address] 3rd Floor, [address] [place] [address] Susana Stuart, CHUCK 22 [facility], [facility] [address] [place] [address] [email or web address] 01/31/2025 12:00 PM EDT Office Visit [facility] Orthopaedic Spine [address] [facility], 3rd Floor, [address] [place] [address] Reymundo Patricio MD [address] [place] [address] [email or web address] Scheduled Referrals Name Type Priority Associated Diagnoses [...] documented as of this encounter Care Teams German Teacher Relationship Specialty Start Date End Date Hodan Brewster MD [address] [place] [address] [email or web address] PCP - General Internal Medicine 07/30/17 Eddie Nina MD [email or web address] Historical LMR Provider 03/23/17 Hodan Brewster MD [address] [place] [address] Historical LMR Provider 03/23/17 Kacey George MD [address] [place] [address] Orthopedics & Sports Medicine, [place] [address] Historical LMR Provider 03/23/17 Hodan Brewster MD [address] [place] [address] Insurance Assigned Provider 09/11/23 documented as of this encounter Additional Source Comments The information contained in this document represents components of the legal health record. It is not the complete legal health record.[facility]
--- OUTSIDE RECORDS SUMMARY | 2024-10-19 12:16 | XMS_ITS | Clinical Summary ---
Author Organization [facility] Address [address] [place] [address] Care Team Providers Care Mop Handle Assembler Name Role Phone Hodan Brewster MD Primary Care Provider [phone] Allergies Active Allergy Reactions Criticality Noted Date [...] Pregabalin 12/27/2018 Feet and leg swelling Tiotropium [place] 08/26/2021 Medications Tymlos 80 mcg (3,120 mcg/1.56 [...] topic Insurance MEDICARE PART A & B [facility] Care Teams Mop Handle Assembler Relationship Specialty Start Date End Date Hodan Brewster MD [facility] [address] [place] [address] [address] [place] [address] PCP - General Internal Medicine 10/04/23
--- OUTSIDE RECORDS SUMMARY | 2024-10-19 12:16 | XMS_ITS | Clinical Summary ---
Author Organization [facility] it Address [address] [place] [address] Care Team Providers Care Dermatological Surgeon Name Role Phone Hodan Brewster MD [...] age to complete this topic Care Teams Dermatological Surgeon Relationship Specialty Start Date End Date Hodan Brewster MD [address], [place] [address] PCP - General Internal Medicine 03/17/19
--- OUTSIDE RECORDS SUMMARY | 2024-10-19 12:16 | XMS_ITS | Encounter Summary ---
Author Organization [facility] Address [address] [facility] [address] [place] [address] Phone Care Team Providers Care Liquor Rectifier Name Role Phone Eddie Nina MD Unavailable Hodan Brewster MD Unavailable [phone] Kacey George MD Unavailable Hodan Brewster MD Primary Care Provider Hodan Brewster MD Unavailable [phone] Encounter Details Date Type Department Care Team (Latest Contact Info) Description 07/16/2023 Transcribe Orders Virtual Department 30 [place] [address] Omer Crowell PA [address] [place] [address] Other specified postprocedural states (Primary Dx); Dorsalgia, [...] high school, GED, job training, learning the Belizean language, technical skills, or developing parenting skills)? 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 file Not on file documented as of this encounter Plan of Treatment Upcoming Encounters Date Type Department Care Team (Late st Contact Info) Description 11/28/2024 2:00 PM EDT Office Visit [facility] [address] [place] [address] 3rd Floor, [address] [place] [address] Susana Stuart DNP [address] [facility], [address] [place] [address] 01/31/2025 12:00 PM EDT Office Visit [facility] [address] [facility], 3rd Floor, [address] [place] [address] Reymundo Patricio MD [address] [place] [address] [email or web address] documented as of this encounter Visit Diagnoses Diagnosis Other specified postprocedural states- Primary Dorsalgia, unspecified documented in this encounter Additional Health Concerns Assessment Noted Time PHQ-2 Depression Total Score: 1 12/04/19 22 4:12 PM EDT documented as of this encounter Care Teams Liquor Rectifier Relationship Specialty Start Date End Date Hodan Brewster MD [address] [place] [address] PCP - General Internal Medicine 07/30/17 Eddie Nina MD [email or web address] Historical LMR Provider 03/23/17 Hodan Brewster MD [address] [place] [address] Historical LMR Provider 03/23/17 Kacey George MD [address] [place] [address] Orthopedics & Sports Medicine, [place] [address] Historical LMR Provider 03/23/17 Hodan Brewster MD [address] [place] [address], [place] [address] [email or web address] Insurance Assigned Provider 09/11/23 documented as of this encounter Additional Source Comments The information contained in this document represents components of the legal health record. It is not the complete legal health record.[facility]
--- OUTSIDE RECORDS SUMMARY | 2024-10-19 12:16 | XMS_ITS | Encounter Summary ---
Author Organization [facility] Address [address] [place] [address] Phone Care Team Providers Care Radiation Therapy Technologist Name Role Phone Eddie Nina MD Unavailable Hodan Brewster MD Unavailable [phone] Kacey George MD Unavailable [phone] Hodan Brewster MD Primary Care Provider [phone] Hodan Brewster MD Unavailable [phone] Reason for Referral * MRI/CAT Scan - Closed Specialty Diagnoses / Procedures Referred By Contac t Referred To Contact Radiology Diagnoses Dorsalgia, unspecified Other specified postprocedural states Procedures MRI Lumbar Spine Donato Wynn MD [address] [place] [address] [place] [address] Phone: tel: fax: Referral ID Status Reason Start Date Expiration Date Visits Re quested Visits Authorized [id number] Closed 01/28/2023 1 1 Encounter Details Date Type Department Care Team (Latest Contact Info) Description 01/28/2023 Transcribe Orders [facility] Department 30 [place] [address] Donato Wynn MD [address] [place] [address] [place] [address] Dorsalgia, unspecified (Primary Dx); Other specified postprocedural [...] GED, job training, learning the Citizen Of [place] language, technical skills, or developing parenting skills)? 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 Not on file Not on file documented as of this encounter Plan of Treatment Upcoming Encounters Date Type Department Care Team (Late st Contact Info) Description 11/28/2024 2:00 PM EDT Office Visit [facility] [address] [facility] 3rd Floor, [address] [place] [address] Susana Stuart, CHUCK [address] [facility], [address] [place] [address] 01/31/2025 12:00 PM EDT Office Visit [facility] Orth[facility] Spine [address] [facility], 3rd Floor, [address] [place] [address] Reymundo Patricio MD [address] [place] [address] [email or web address] documented as of this encounter [...] MRI LUMBAR SPINE (NEURO) WITH AND WITHOUT [id number] FINDINGS: ALIGNMENT: Straightening of the lumbar lordosis. [...] L3-4 and L4-5 hemilaminectomy, discectomy, and L3- K1ejmftcqha fusion. 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 without severe [...] with 70%height loss anteriorly and no retropulsion. us Donato Wynn MD IMG MR XSPECIALTY Final R esult documented in this encounter Visit Diagnoses Diagnosis Dorsalgia, unspecified- Primary Other specified postprocedural states Dorsalgia, unspecified Other specified postprocedural states documented in this encounter Additional Health Concerns Assessment Noted Time PHQ-2 Depression Total Score: 1 12/04/19 22 4:12 PM EDT documented as of this encounter Care Teams Radiation Therapy Technologist Relationship Specialty Start Date End Date Hodan Brewster MD [address] [place] [address] PCP - General Internal Medicine 07/30/17 Eddie Nina MD [email or web address] Historical LMR Provider 03/23/17 Hodan Brewster MD [address] [place] [address] Historical LMR Provider 03/23/17 Kacey George MD [address] [place] [address] Orthopedics & Sports Medicine, [facility] [place] [address] Historical LMR Provider 03/23/17 Hodan Brewster MD [address] [place] [address], 2nd [place] [address] [email or web address] Insurance Assigned Provider 09/11/23 documented as of this encounter Additional Source Comments The information contained in this document represents components of the legal health record. It is not the complete legal health record.[facility]
--- OUTSIDE RECORDS SUMMARY | 2024-10-19 12:17 | XMS_ITS | Encounter Summary ---
Author Organization [facility] Address [address] [facility] [address] [place] [address] Phone Care Team Providers Care Insurance And Benefits Clerk Name Role Phone Unavailable Primary Care Provider Unavailabl e Reason for Visit * MRI/CAT Scan - Closed Specialty Diagnoses / Procedures Referred By Rebekah tierney Referred To Contact Procedures MRI Spine (Neuro) Outside (No Interpretation) Michael Guerra MD [address] [place] [address] Phone: tel: fax: [email or web address] Referral ID Status Reason Start Date Expiration Date Visits Re quested Visits Authorized [id number] Closed 08/27/2016 08/27/2017 1 1 Encounter Details Date Type Department Care Team ([facility] st Contact Info) Description 07/12/2016 Hospital Encounter [facility] [address] [place] [address] Michael Guerra MD [address] [place], [place] [id number] [email or web address] Social History Tobacco Use Types Packs/Day Years 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, 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 on 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 on file documented as of this encounter Functional Status * Calculated C-SSRS Risk Score (Lifetime/Recent) Answer Date of Assessment Author No Risk Indicated 02/01/2024 6:00 PM EDT Eric Saldana RN * [place] Suicide Severity Rating Scale (Screener/Recent Self-Report) Question [...] Description 11/28/2024 2:00 PM EDT Office Visit [facility] [address] [place] [address] 3rd Floor, [address] [place] [address] Susana Stuart, CHUCK [address] [place] [address], [address] [place] [address] 01/31/2025 12:00 PM EDT Office Visit [facility] Orthopaedic Spine [address] [facility], 3rd Floor, [address] [place] [address] Reymundo Patricio MD 55 [place] [address] [email or web address] documented as of this encounter Procedures Procedure Name Priority Date/Time Associated Diagnosis Comments MRI SPINE NEUROLOGIC FOCUS OUTSIDE (NO INTERPRETATION) Routine 07/12/2016 12:00 AM EST documented in this encounter Results * MRI Spine (Neuro) Outside (No Interpretation) (07/12/2016 12:00 AM EST) Narrative [facility] IMG INTERFACES - 08/27/2016 3:09 PM EDT This study is for PACS storage only and not for interpretation. us Michael Guerra MD IMG OUTSIDE IMAGING W /OUT INTERPRETATION Final Result [facility] IMG INTERFACES documented in this encounter Visit Diagnoses Not on filedocumented in this encounter Additional Source Comments The information contained in this document represents components of the legal health record. It is not the complete legal health record.[facility]
--- OUTSIDE RECORDS SUMMARY | 2024-10-19 12:17 | XMS_ITS | Encounter Summary ---
Author Organization [facility] Address [address] [facility] [address] [place] [address] Phone Care Team Providers Care Arabic Professor Name Role Phone Hodan Brewster MD Primary Care Provider [phone] Franchesca Alexandra ACCOUNTS PAYABLE PAYROLL COORDINATOR Unavailable Alexia Galloway ACCOUNTS PAYABLE PAYROLL COORDINATOR Unavailable Eddie Nina MD Unavailable Kellie Candelario MD Unavailable Hodan Brewster MD Unavailable [phone] Marlena Cunningham ROLLED HAM LACER Unavailable [phone] Susana Olguin MD Unavailable Margie Stahl DPM Unavailable Unavaila ble Dre Novak MD Unavailable Kaushik Virgen MD Unavailable [phone] Zeeshan Ferrera MD Unavailable [phone] Kacey George MD Unavailable Tim White MD Unavailable [phone] Kaushik Virgen MD Primary Care Provider + Hodan Brewster MD Primary Care Provider [phone] Hodan Brewster MD Unavailable [phone] Hodan Brewster MD Unavailable [phone] Hodan Brewster MD Unavailable Encounter Details Date Type Department Care Team (Late st Contact Info) Description 08/27/2016 Procedure Pass [facility] [address] [place] [address] Social History Tobacco Use Types Packs/Day Years Used Date Smoking Tobacco: Former Cigarettes 1 2 1 06/07/1974 - 04/07/1977 Smokeless Tobacco: Never Alcohol Use Standard Drinks/Week Comments Yes 12 (1 standard drink = 0.6 oz pure alcohol) Usually a glass of wine with dinner ..often 2 on the weekend Comments No Sex and Gender Information Value Date Recorded Sex Assigned at Female 08/13/2019 12:00 PM EDT Legal Sex Female 8:57 AM EST Gender Identity Female 08/13/2019 12:00 PM EDT Sexual Orientation Straight 01/06/2024 11 :14 AM EDT 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, 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 file Not on file documented as of this encounter Plan of Treatment Upcoming Encounters Date Type Department Care Team (Late st Contact Info) Description 11/28/2024 2:00 PM EDT Office Visit [facility] [address] [place] [address] 3rd Floor, [address] [place] [address] Susana Stuart, CHUCK [address] [place] [address] [address] [place] [address] 01/31/2025 12:00 PM EDT Office Visit [facility] [address] [facility], 3rd Floor, [address] [place] [address] Reymundo Patricio MD 55 [place] [address] [email or web address] documented as of this encounter Visit Diagnoses Not on filedocumented in this encounter Care Teams Arabic Professor Relationship Specialty Start Date End Date Hodan Brewster MD [address] [place] [address], [address] [place] [address] [email or web address] PCP - General 08/14/16 06/13/17 Kaushik Virgen MD [address] [place] [address] [email or web address] PCP - General Family Medicine 06/14/17 07/29/17 Hodan Brewster MD [address] [place] [address] [email or web address] PCP - General Internal Medicine 07/30/17 Franchesca Alexandra NP [address] [place] [address] Historical LMR Provider 03/23/17 Alexia Galloway NP [address] [place] [address] [email or web address] Historical LMR Provider 03/23/17 Eddie Nina MD [address] [place] [address] [email or web address] Historical LMR Provider 03/23/17 Kellie Candelario MD [address] [place] [address] Historical LMR Provider 03/23/17 Hodan Brewster MD [address] [place] [address] Historical LMR Provider 03/23/17 Marisa Marlena RosalesOXANA [address] [facility], [address] [place] [address] Historical LMR Provider 03/23/17 06/14/21 Susana Olguin MD [address] [facility] [place]. [address], [address] [place] [address] Historical LMR Provider 03/23/17 06/14/21 Margie Stahl DPM [address] [place] [address] Historical LMR Provider 03/23/17 2 Dre Novak MD [address] [place] [address], 2nd [place] [address] Historical LMR Provider 03/23/17 06/14/21 Kaushik Virgen MD [address] [place] [address] [email or web address] Historical LMR Provider 03/23/17 06/14/21 Zeeshan Ferrera MD [address] [place] [address], [address] [place] [address] Historical LMR Provider 03/23/17 06/14/21 Kacey George MD [address] [place] [address] Orthopedics & Sports Medicine, [place] [address] Historical LMR Provider 03/23/17 Tim White MD [address] [place] [address] [email or web address] Historical LMR Provider 03/23/17 06/14/21 Hodan Brewster MD [address] [place] [address] Insurance Assigned Provider 10/08/18 12/17/18 Hodan Brewster MD [address] [place] [address] Insurance Assigned Provider 09/13/19 06/13/22 Hodan Brewster MD [address] [place] [address] Insurance Assigned Provider 09/11/23 documented as of this encounter Additional Source Comments The information contained in this document represents components of the legal health record. It is not the complete legal health record.[facility]
--- OUTSIDE RECORDS SUMMARY | 2024-10-19 12:17 | XMS_ITS | Encounter Summary ---
Author Organization [facility] Address [address] [address] [place] [address] Phone Care Team Providers Care Honey Grader And Blender Name Role Phone Unavailable Primary Care Provider Unavailabl e Encounter Details Date Type Department Care Team ([facility] st Contact Info) Description 05/04/2016 12:15 AM EST Hospital Encounter [facility] 55 [place] [address] Michael Guerra MD [address] [place] [address] Social History Tobacco Use Types Packs/Day Years 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, 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 on file Not on file documented as of this encounter Functional Status * Calculated C-SSRS Risk Score (Lifetime/Recent) Answer Date of Assessment Author No Risk Indicated 02/01/2024 6:00 PM EDT Eric Saldana RN * [place] Suicide Severity Rating Scale (Screener/Recent Self-Report) Question [...] Description 11/28/2024 2:00 PM EDT Office Visit [facility] [address] [place] [address] 3rd Floor, [address] [place] [address] Susana Stuart DNP [address] [facility], [address] [place] [address] [email or web address] 01/31/2025 12:00 PM EDT Office Visit [facility] Orthopaedic Spine 55 [facility], 3rd Floor, [address] [place] [address] Reymundo Patricio MD 55 [place] [address] [email or web address] documented as of this encounter Procedures Procedure Name Priority Date/Time Associated Diagnosis Comments XR SPINE OUTSIDE (NO INTERPRETATION) Routine 05/04/2016 12:15 AM EST documented in this encounter Results * XR SPINE OUTSIDE(NO INTERPRETATION) (05/04/2016 12:15 AM EST) Narrative [facility] IMG INTERFACES - 08/27/2016 3:09 PM EDT This study is for PACS storage only and not for interpretation. us Michael Guerra MD IMG OUTSIDE IMAGING W /OUT INTERPRETATION Final Result [facility] IMG INTERFACES documented in this encounter Visit Diagnoses Not on filedocumented in this encounter Additional Source Comments The information contained in this document represents components of the legal health record. It is not the complete legal health record.[facility]
--- OUTSIDE RECORDS SUMMARY | 2024-10-19 12:17 | XMS_ITS | Encounter Summary ---
Author Organization [facility] Address [address] [facility] [address] [place] [address] Phone Care Team Providers Care Director Dance Name Role Phone Hodan Brewster MD Primary Care Provider [phone] Franchesca Alexandra NETWORK SYSTEMS INTEGRATOR Unavailable Alexia Galloway NETWORK SYSTEMS INTEGRATOR Unavailable Eddie Nina MD Unavailable Kellie Candelario MD Unavailable Hodan Brewster MD Unavailable [phone] Marlena Cunningham NREMT Unavailable [phone] Susana Olguin MD Unavailable Margie Stahl DPM Unavailable Unavaila ble Dre Novak MD Unavailable [phone] Kaushik Virgen MD Unavailable [phone] Zeeshan Ferrera MD Unavailable [phone] Kacey George MD Unavailable Tim White MD Unavailable [phone] Kaushik Virgen MD Primary Care Provider + Hodan Brewster MD Primary Care Provider [phone] Hodan Brewster MD Unavailable Hodan Brewster MD Unavailable Hodan Brewster MD Unavailable [phone] Encounter Details Date Type Department Care Team (Late st Contact Info) Description 08/27/2016 Procedure Pass [facility] 55 [place] [address] Social History Tobacco Use Types Packs/Day Years 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, 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 file documented as of this encounter Plan of Treatment Upcoming Encounters Date Type Department Care Team (Late st Contact Info) Description 11/28/2024 2:00 PM EDT Office Visit [facility] [address] [place] [address] 3rd Floor, [address] [place] [address] Susana Stuart, CHUCK [address] [place] [address] [address] [place] [address] 01/31/2025 12:00 PM EDT Office Visit [facility] Orthopaedic Spine 55 [facility], 3rd Floor, [address] [place] [address] Reymundo Patricio MD [address] [place] [address] [email or web address] documented as of this encounter Visit Diagnoses Not on filedocumented in this encounter Care Teams Director Dance Relationship Specialty Start Date End Date Hodan Brewster MD [address] [place] [address], [address] [place] [address] [email or web address] PCP - General 08/14/16 06/13/17 Kaushik Virgen MD [address] [place] [address] [email or web address] PCP - General Family Medicine 06/14/17 07/29/17 Hodan Brewster MD [address] [place] [address] [email or web address] PCP - General Internal Medicine 07/30/17 Franchesca Alexandra NP [address] [place] [address] Historical LMR Provider 03/23/17 Alexia Galloway NP [address] [place] [place] [address] [email or web address] Historical LMR Provider 03/23/17 Eddie Nina MD [address] [place] [place] [address] [email or web address] Historical LMR Provider 03/23/17 Kellie Candelario MD [address] [place] [address] Historical LMR Provider 03/23/17 Hodan Brewster MD [address] [place] [address] Historical LMR Provider 03/23/17 Marisa Marlena RosalesOXANA [address] [facility]. [address], [address] [place] [address] Historical LMR Provider 03/23/17 06/14/21 Susana Olguin MD [address] [facility] [place]. [address], [address] [place] [address] Historical LMR Provider 03/23/17 06/14/21 Margie Stahl DPM [address] [place] [address] Historical LMR Provider 03/23/17 2 Dre Novak MD [address] [place] [address], 2nd [place] [address] Historical LMR Provider 03/23/17 06/14/21 Kaushik Virgen MD [address] [place] [address] [email or web address] Historical LMR Provider 03/23/17 06/14/21 Zeeshan Ferrera MD [address] [place] [address], [address] [place] [address] Historical LMR Provider 03/23/17 06/14/21 Kacey George MD [address] [place] [address] Orthopedics & Sports Medicine, [place] [address] Historical LMR Provider 03/23/17 Tim White MD [address] [place] [address] [email or web address] Historical LMR Provider 03/23/17 06/14/21 Hodan Brewster MD [address] [place] [address] Insurance Assigned Provider 10/08/18 12/17/18 Hodan Brewster MD [address] [place] [address] Insurance Assigned Provider 09/13/19 06/13/22 Hodan Brewster MD [address] [place] [address] Insurance Assigned Provider 09/11/23 documented as of this encounter Additional Source Comments The information contained in this document represents components of the legal health record. It is not the complete legal health record.[facility]
--- OUTSIDE RECORDS SUMMARY | 2024-10-19 12:17 | XMS_ITS | Encounter Summary ---
Author Organization [facility] Address [address] [facility] [address] [place] [address] Phone Care Team Providers Care Cardiac Nurse Name Role Phone Eddie Nina MD Unavailable [phone] Hodan Brewster MD Unavailable [phone] Kacey George MD Unavailable [phone] Hodan Brewster MD Primary Care Provider [phone] Hodan Brewster MD Unavailable [phone] Reason for Referral * Consultation (Within 2 weeks) - New Request Specialty Diagnoses / Procedures Referred By Rebekah tierney Referred To Contact Diagnoses Encounter for hearing evaluation Hodan Brewster MD [address] [facility], 2nd [place] [address] Phone: tel: fax: [email or web address] Unknown, Unknown, Referral ID Status Reason Start Date Expiration Date V isits Requested Visits Authorized [id number] New Request 10/17/2024 10/17/2025 1 1 Scheduling Instructions : [facility] Reason for Visit * Reason Onset Date Comments Referral 10/17/2024 Encounter Details Date Type Department Care Team (Late st Contact Info) Description 10/17/2024 Telephone [facility] [address] [place] [address] [address] [place] [address] Hodan Brewster MD [address] [facility] [place] [facility], 2nd Floor [place] [address] [email or web address] Referral Social History Tobacco Use Types Packs/Day Years [...] on file documented as of this encounter Progress Notes * Morenita Mix RN - 10/17/2024 12:13 PM EDT [facility] informed. * Hodan Brewster MD - 10/17/2024 12:00 PM EDTAddended by: HODAN BREWSTER M.D. on: 10/17/2024 12:00 PM Modules accepted: Orders * Hodan Brewster MD - 10/17/2024 12:00 PM EDT Signed. * Morenita Mix RN - 10/17/2024 9:50 AM EDTAddended by: MORENITA MIX on: 10/17/2024 09:50 AM Modules accepted: Orders * Morenita Mix RN - 10/17/2024 9:47 AM EDT Referral to [facility] in chart from 08/03/23. New referral pended. To Dr. Brewster. * Elif Vail - 10/17/2024 8:44 AM EDT Ayad from [facility] called and Lvm requesting for patient to have an updated referral regarding appointments - Ayad claims there was one from the past - it just needs to be updated - Icouldn't find it - please advise @[phone] documented in this encounter Plan of Treatment Upcoming Encounters Date Type Department Care Team (Late st Contact Info) Description 11/28/2024 2:00 PM EDT Office Visit [facility] [address] [place] [address] 3rd Floor, [address] [place] [address] Susana Sutart DNP [address] [place] [address] [address] [place] [address] 01/31/2025 12:00 PM EDT Office Visit [facility] [place] [place] Orthopaedic Spine [address] [facility], 3rd Floor, [address] [place] [address] Reymundo Patricio MD [address] [place] [address] [email or web address] Scheduled Referrals Name Type Priority Associated Diagnoses Orde r Schedule External Referral to Audiology ([facility]) Outpatient Referral Routine Encounter for hearing evaluation Ordered: 10/17/2024 documented as of this encounter Visit Diagnoses Diagnosis Encounter for hearing evaluation- Primary documented in this encounter Additional Health Concerns Assessment Noted Time PHQ-2 Depression Total Score: 2 12/31/19 4:14 PM EDT documented as of this encounter Care Teams Cardiac Nurse Relationship Specialty Start Date End Date Hodan Brewster MD [address] [place] [address] [email or web address] PCP - General Internal Medicine 07/30/17 Eddie Nina MD [email or web address] Historical LMR Provider 03/23/17 Hodan Brewster MD [address] [place] [address] Historical LMR Provider 03/23/17 Kacey George MD [address] [place] [address] Orthopedics & Sports Medicine, [place] [address] Historical LMR Provider 03/23/17 Hodan Brewster MD [address] [place] [address] Insurance Assigned Provider 09/11/23 documented as of this encounter Additional Source Comments The information contained in this document represents components of the legal health record. It is not the complete legal health record.[facility]
--- OUTSIDE RECORDS SUMMARY | 2024-10-19 12:17 | XMS_ITS | Clinical Summary ---
Author Organization [facility] Address [address] [place] [address] Care Team Providers Care Produce Associate Name Role Phone Hodan Brewster MD Primary Care Provider [phone] Allergies Active Allergy Reactions Criticality Noted Date [...] Adults 18 yrs or above (or HM Modifier)([facility]) 1969 Hepatitis C Virus Infection in Adolescents and Adults: Screening (or Modifier) ([facility]) 1969 LAQUITA Screening: Once using ST OP-BANG Questionnaire for Adults with Conditions or high BMI([facility]) 1969 SDOH Screening Reminder: Angelita borrero for all adults ([facility]) 1969 Tobacco Smoking Cessation: i n Adults excluding Women: Behavioral and Pharmacotherapy Interventions ([facility]) 1969 Colorectal Cancer Screening 45 -75 Yrs (or HM Modifier) 1996 Colorectal Cancer: FLEXIBLE SIGMOIDOSCOPY Screening every 5 yrs 1996 Colorectal Cancer: Fecal Immunochemical Test (FIT) Annually [facility] 1996 Colorectal Cancer: High-sens itivity gFOBT Screening Annually [facility] 1996 Colorectal Cancer: Stool Col oguard Screening every 3 yrs 1996 Colorectal Cancer:CT Colonog nia Screening every 5 yrs 1996 Lipid Screening: Every 5 yrs for Women aged 45+ (or HM Modifier) ([facility]) 1997 Breast Cancer: Screening Angelita ually age 50-74 yrs (or HM Modifier)([facility]) 2001 Osteoporosis Screening to Pr event Fractures: Women aged 65 years+ ([facility]) 2016 Pneumococcal Vaccination Scr eening: Patients 50+ yrs of age ([facility]) (2 of 2 - PCV) 06/23/2020 06/23/2019 COVID-19 Vaccine Screening: Initial Series and Booster Status ([facility]) ( - 2023- season) 2024 02/25/2021, 08/28/2020, 07/31/2020 Flu Vaccination: Ages 65+: Y early High Dose Recommended (or Modifier)([facility]) 01/05/2025 03/27/2022, 03/29/2018, 03/19/2017, Additional history exists RSV Vaccines (1 - 1-dose 75+ series) 2026 DTaP/Tdap/Td Vaccines ([facility]) (3 - Td or Tdap) 05/09/2030 05/09/2020, 04/21/2011 Zoster/Shingles Vaccine Seri es Screening: Adults aged 18+ yrs (or HM Modifiers)([facility]) Completed 06/23/2019, 03/14/2019 Medical Devices Not on file Insurance [facility] MED[facility] Care Teams Produce Associate Relationship Specialty Start Date End Date Hodan Brewster MD [facility] [address] [place] [address] [address] [place] [id number] PCP - Fan Engine Engineer 03/29/18
--- OUTSIDE RECORDS SUMMARY | 2024-10-19 12:17 | XMS_ITS | Encounter Summary ---
Author Organization [facility] Address [address] [place] [address] Phone Care Team Providers Care Senior Materials Planner Name Role Phone Eddie Nina MD Unavailable Hodan Brewster MD Unavailable [phone] Kacey George MD Unavailable [phone] Hodan Brewster MD Primary Care Provider Hodan Brewster MD Unavailable [phone] Hodan Brewster MD Unavailable [phone] Encounter Details Date Type Department Care Team (Late st Contact Info) Description 12/03/2021 Procedure Pass [facility] - [address] [place] [address] Social History Tobacco Use Types Packs/Day Years [...] high school, GED, job training, learning the Irish language, technical skills, or developing parenting skills)? 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[place] Not on file Not on file Not on file documented as of this encounter Plan of Treatment Upcoming Encounters Date Type Department Care Team (Late st Contact Info) Description 11/28/2024 2:00 PM EDT Office Visit [facility] [address] Floor, [address] [place] [address] Susana Stuart, CHUCK [address] [facility], [address] [place] [address] 01/31/2025 12:00 PM EDT Office Visit [facility] [place] Orthopa[facility] Spine [address] [facility], 3rd Floor, [address] [place] [address] Reymundo Patricio MD [address] [place] [address] [email or web address] documented as of this encounter Visit Diagnoses Not on filedocumented in this encounter Additional Health Concerns Assessment Noted Time PHQ-2 Depression Total Score: 1 12/04/19 22 4:12 PM EDT documented as of this encounter Care Teams Senior Materials Planner Relationship Specialty Start Date End Date Hodan Brewster MD [address] [place] [address] PCP - General Internal Medicine 07/30/17 Eddie Nina MD [email or web address] Historical LMR Provider 03/23/17 Hodan Brewster MD [address] [place] [address] Historical LMR Provider 03/23/17 Kacey George MD [address] [place] [address] Orth[facility] Medicine, [place] [address] Historical LMR Provider 03/23/17 Hodan Brewster MD [address] [place] [address] Insurance Assigned Provider 09/13/19 06/13/22 Hodan Brewster MD [address] [place] [address] [email or web address] Insurance Assigned Provider 09/11/23 documented as of this encounter Additional Source Comments The information contained in this document represents components of the legal health record. It is not the complete legal health record.[facility]
--- OUTSIDE RECORDS SUMMARY | 2024-10-19 12:17 | XMS_ITS | Encounter Summary ---
Author Organization [facility] Address [address] [place] [address] Phone Care Team Providers Care Ehs Manager Name Role Phone Eddie Nina MD Unavailable Hodan Brewster MD Unavailable Kacey George MD Unavailable Hodan Brewster MD Primary Care Provider Hodan Brewster MD Unavailable [phone] Encounter Details Date Type Department Care Team (Late st Contact Info) Description 10/13/2024 Orders Only [facility] [address] [place] [address] Provider, MD Rupesh [address] [place] [address] Social History Tobacco Use Types Packs/Day [...] 02/01/2024 Are you denied basic needs [facility] as food, clothing, or medical care? 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, [address] [place] [address] [email or web address] 01/31/2025 12:00 PM EDT Office Visit [facility] [place] Orthopaedic Spine [address] [facility], 3rd Floor, [address] [place] [address] Reymundo Patricio MD [address] [place] [address] [email or web address] documented as of this encounter Procedures Procedure Name Priority Date/Time Associated Diagnosis Comments OUTSIDE LAB Routine 09/26/2024 6:29 PM EDT documented in this encounter Results * Outside Lab (09/26/2024 6:29 PM EDT) Historical Provider LAB BLOOD ORDERABLES Edit ed Result - Final documented in this encounter Visit Diagnoses Not on filedocumented in this encounter Additional Health Concerns Assessment Noted Time PHQ-2 Depression Total Score: 2 12/31/19 24 4:14 PM EDT documented as of this encounter Care Teams Ehs Manager Relationship Specialty Start Date End Date Hodan Brewster MD [address] [place] [address], 2nd [place] [address] [email or web address] PCP - General Internal Medicine 07/30/17 Eddie Nina MD [email or web address] Historical LMR Provider 10/17/17 Hodan Brewster MD [address] [place] [address] Historical LMR Provider 03/23/17 Kacey George MD [address] [place] [address] Orth[facility], [place] [address] Historical LMR Provider 03/23/17 Hodan Brewster MD [address] [place] [address] Insurance Assigned Provider 09/11/23 documented as of this encounter Additional Source Comments The information contained in this document represents components of the legal health record. It is not the complete legal health record.[facility]
--- OUTSIDE RECORDS SUMMARY | 2024-10-19 12:17 | XMS_ITS | Encounter Summary ---
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 Not on file documented as of this encounter Plan of Treatment Upcoming Encounters Date Type Department Care Team (Late st Contact Info) Description 11/28/2024 2:00 PM EDT Office Visit [facility] [address] [place] [address] 3rd Floor, [address] [place] [address] Susana Stuart, CHUCK [address] [facility], [address] [place] [address] 01/31/2025 12:00 PM EDT Office Visit [facility] [place] Orthopaedic Spine [address] [facility], 3rd Floor, [address] [place] [address] Reymundo Patricio MD [address] [place] [address] [email or web address] documented as of this encounter Visit Diagnoses Not on filedocumented in this encounter Additional Health Concerns Assessment Noted Time PHQ-2 Depression Total Score: 2 12/31/19 24 4:14 PM EDT documented as of this encounter Care Teams Machinist Helper Relationship Specialty Start Date End Date Hodan Brewster MD [address] [place] [address] PCP - General Internal Medicine 07/30/17 Eddie Nina MD [email or web address] Historical LMR Provider 03/23/17 Hodan Brewster MD [address] [place] [address] Historical LMR Provider 03/23/17 Kacey George MD [address] [place] [address] Orthopedics & Sports Medicine, [facility] [place] [address] Historical LMR Provider 03/23/17 Hodan Brewster MD [address] [place] [address] Insurance Assigned Provider 09/11/23 documented as of this encounter Additional Source Comments The information contained in this document represents components of the legal health record. It is not the complete legal health record.[facility]
--- OUTSIDE RECORDS SUMMARY | 2024-10-19 12:17 | XMS_ITS | Encounter Summary ---
Author Organization [facility] Address [address] [facility] [address] [place] [address] Phone Care Team Providers Care Wire Stitcher Name Role Phone Unavailable Primary Care Provider Unavailabl e Reason for Visit * MRI/CAT Scan - Closed Specialty Diagnoses / Procedures Referred By Rebekah tierney Referred To Contact Procedures MRI Spine (Neuro) Outside (No Interpretation) Michael Guerra MD [address] [place] [address] Phone: tel: fax: mailto:[email or web address] Referral ID Status Reason Start Date Expiration Date Visits Re quested Visits Authorized [id number] Closed 08/27/2016 08/27/2017 1 1 Encounter Details Date Type Department Care Team ([facility] st Contact Info) Description 07/12/2016 12:15 AM EST Hospital Encounter [facility] [address] [place] [address] Michael Guerra MD [address] [place] [address] [email or web address] Social History Tobacco Use Types Packs/Day Years 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, 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 on file Not on file documented as of this encounter Functional Status * Calculated C-SSRS Risk Score (Lifetime/Recent) Answer Date of Assessment Author No Risk Indicated 02/01/2024 6:00 PM EDT Eric Saldana RN * [place] Suicide Severity Rating Scale (Screener/Recent Self-Report) Question [...] Description 11/28/2024 2:00 PM EDT Office Visit [facility] [address] [place] [address] 3rd Floor, [address] [place] [address] Susana Stuart DNP [address] [place] [address] [address] [place] [address] 01/31/2025 12:00 PM EDT Office [place] [facility] [place] [address] [facility], 3rd Floor, [address] [place] [address] Reymundo Patricio MD [address] [place] [address] [email or web address] documented as of this encounter Procedures Procedure Name Priority Date/Time Associated Diagnosis Comments MRI SPINE NEUROLOGIC FOCUS OUTSIDE (NO INTERPRETATION) Routine 07/12/2016 12:15 AM EST documented in this encounter Results * MRI Spine (Neuro) Outside (No Interpretation) (07/12/2016 12:15 AM EST) Narrative [facility] INTERFACES - 08/27/2016 3:10 PM EDT This study is for PACS storage only and not for interpretation. us Michael Guerra MD IMG OUTSIDE IMAGING W /OUT INTERPRETATION [facility] documented in this encounter Visit Diagnoses Not on filedocumented in this encounter Additional Source Comments The information contained in this document represents components of the legal health record. It is not the complete legal health record.[facility]
--- OUTSIDE RECORDS SUMMARY | 2024-10-19 12:17 | XMS_ITS | Encounter Summary ---
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 on 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 Not on file documented as of this encounter Functional Status * Calculated C-SSRS Risk Score (Lifetime/Recent) Answer Date of Assessment Author No Risk Indicated 02/01/2024 6:00 PM EDT Eric Saldana RN * [place] Suicide Severity Rating Scale (Screener/Recent Self-Report) Question [...] Description 11/28/2024 2:00 PM EDT Office Visit [facility] [address] [facility] 3rd Floor, [address] [place] [address] Susana Stuart, CHUCK [address] [facility], [address] [place] [address] [email or web address] 01/31/2025 12:00 PM EDT Office [place] [facility] [place] [address] [facility], 3rd Floor, [address] [place] [address] Reymundo Patricio MD [address] [place] [address] [email or web address] documented as of this encounter Procedures Procedure Name Priority Date/Time Associated Diagnosis Comments XR SPINE OUTSIDE (NO INTERPRETATION) Routine 05/04/2016 12:00 AM EST documented in this encounter Results * XR SPINE OUTSIDE(NO INTERPRETATION) (05/04/2016 12:00 AM EST) Narrative [facility] INTER[facility]AC[facility] - 08/27/2016 3:08 PM EDT This study is for PACS storage only and not for interpretation. us Michael Guerra MD IMG OUTSIDE IMAGING W /OUT INTERPRETATION Final Result [facility]G INTERFAC[facility] documented in this encounter Visit Diagnoses Not on filedocumented in this encounter Additional Source Comments The information contained in this document represents components of the legal health record. It is not the complete legal health record.[facility]
== END 2024-10-19 11:34 | disposition home or self-care (01) ==
LOC: HO.HPS 11:04
PROVIDERS: PCP Internal Medicine; Visit Provider Hospitalist
DX: J45.40 Moderate persistent asthma, uncomplicated (principal); R06.09 Other forms of dyspnea; M54.9 Dorsalgia, unspecified; Z98.890 Other specified postprocedural states; R91.8 Other nonspecific abnormal finding of lung field; J84.9 Interstitial pulmonary disease, unspecified; D80.1 Nonfamilial hypogammaglobulinemia; D64.89 Other specified anemias; R01.1 Cardiac murmur, unspecified
CPT/HCPCS: 99214; G2211

== ENCOUNTER → 2024-10-19 11:03 | Outpatient (BNVA) | payer MEDICARE, BC, SELFPAY | PROVIDERS: PCP Internal Medicine; Visit Provider Hospitalist | DX: J84.9 Interstitial pulmonary disease, unspecified (principal); J45.40 Moderate persistent asthma, uncomplicated; D80.1 Nonfamilial hypogammaglobulinemia; R06.09 Other forms of dyspnea; M54.9 Dorsalgia, unspecified; R91.8 Other nonspecific abnormal finding of lung field; D64.89 Other specified anemias; R01.1 Cardiac murmur, unspecified; Z98.890 Other specified postprocedural states | CPT/HCPCS: 99212 ==

== ENCOUNTER 2025-02-26 11:25 | Outpatient (AMB) | payer MEDICARE, BC, SELFPAY ==
--- OUTSIDE RECORDS SUMMARY | 2016-05-04 01:00 | XMS_ITS | Encounter Summary ---
Author Organization [facility] General [facility] Address [address] [place] [address] Phone Care Team Providers Care Transportation Analyst Name Role Phone Unavailable Primary Care Provider Unavailabl e Encounter Details Date Type Department Care Team ([facility] st Contact Info) Description 05/04/2016 Hospital Encounter [facility] General Imaging [address] [place] [address] Michael Guerra MD [address] [place] [phone] Social History Tobacco Use Types Packs/Day Years Used Date Smoking Tobacco: Former Cigarettes 1 2 1 06/07/1974 - 04/07/1977 Smokeless Tobacco: Never Alcohol Use Standard Drinks/Week Comments Yes 12 (1 standard drink = 0.6 oz pure alcohol) Usually a glass of wine with dinner ..often 2 on the weekend Child or Family Care Answer Date Record ed Do you have problems with on e of the following making it difficult for you to work, study, or receive health care? No 12/03/2021 Education Answer Date Recorded Are you interested in more education? Not on meron e 12/07/2023 Are you concerned about learning? Not on file 12/07/2023 No 12/07/2023 No 12/07/2023 Food Answer Date Recorded Within the past 6 months we worried whether our food would run out before we got money to buy more. Never True 12/03/2021 Within the past 6 months the food we bought just didn't last and we didn't have enough money to get more. Never True Residential Stability Answer Date Recor ded What is your housing situation today? I have krysta lubin 12/03/2021 How many times have you moved in the past 12 mon ths? One time 12/03/2021 Paying for Meds Answer Date Recorded Do you have trouble paying for medicines? No 12/03/2021 Paying Utility Bills Answer Date Record ed Do you have trouble paying your heating or elect ricity bill? No 12/03/2021 Transportation Answer Date Recorded Has the lack of transportati on kept you from medical appointments or from getting medications? No 12/03/2021 Unemployment Answer Date Recorded Are you currently unemployed or working on a part-time or temporary basis, and looking for work? No 12/03/2021 Digital Access Answer Date Recorded No 10/29/2022 No 10/29/2022 Reliable internet access at home? Not on file 10/29/2022 Device with a working camera? Not on file Intimate Partner Violence Answer Date R ecorded Are you denied basic needs s uch as food, clothing, or medical care? No 01/09/2025 In the past 12 months have y ou been in a relationship with a person who hurts, threatens, or tries to control you? No 01/09/2025 Are you denied basic needs s uch as food, clothing, or medical care? No 01/09/2025 In the past 12 months have y ou been in a relationship with a person who hurts, threatens, or tries to control you? 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 Wish to be (Past 1 Month) No 024 6:00 PM EDT Eric Saldana RN 2. Non-Specific Active Suici janice Thoughts (Past 1 Month) No 02/01/2024 6:00 PM EDT Eric Saldana RN 6. Suicidal Behavior (Lifetime) No 6:00 PM EDT Eric Saldana RN documented as of this encounter Plan of Treatment Upcoming Encounters Date Type Department Care Team (Late st Contact Info) Description 11/28/2024 Procedure Pass [facility] [address] [place] [address] 02/26/2025 2:06 PM EDT Hospital Encounter Non-Invasive Cardiology [address] [place] [address] Hodan Brewster MD [address] [place] [address], 2nd [place] [address] Arrived 03/02/2025 8:30 AM EDT Office Visit [facility] [address] 3rd [facility], [address] [place] [address] Susana Stuart DNP [address] [place] [address], [address] [address] 06/13/2025 10:15 AM EST Appointment Echo Lab [address] [place] [address] Susana Stuart DNP [address] [place] [address], [address] [address] 06/27/2025 10:00 AM EST Office Visit [facility] [address] 3rd Floor, [address] [place] [address] Susana Stuart DNP [address] [place] [address], [address] [address] 08/01/2025 11:30 AM EST Office Visit [facility] [address] [facility], 3rd Floor, [address] [place] [address] Reymundo Patricio MD [address] [place] [address] [email or web address] 01/28/2026 11:30 AM EDT Office Visit [facility] [address] [place] [address] [place] [address] Hodan Brewster MD [address] [place] [address], 2nd [place] [address] [email or web address] documented as of this encounter Procedures Procedure Name Priority Date/Time Associated Diagnosis Comments XR SPINE OUTSIDE (NO INTERPRETATION) Routine 05/04/2016 12:00 AM EST documented in this encounter Results * XR SPINE OUTSIDE(NO INTERPRETATION) (05/04/2016 12:00 AM EST) Narrative [facility] INTER[facility]AC[facility] - 08/27/2016 3:08 PM EDT This study is for PACS storage only and not for interpretation. us Michael Guerra MD IMG OUTSIDE IMAGING W /OUT INTERPRETATION Final Result [facility] documented in this encounter Visit Diagnoses Not on filedocumented in this encounter Additional Source Comments The information contained in this document represents components of the legal health record. It is not the complete legal health record.[facility]
--- OUTSIDE RECORDS SUMMARY | 2016-05-04 01:15 | XMS_ITS | Encounter Summary ---
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 on file documented as of this encounter Functional Status * Calculated C-SSRS Risk Score (Lifetime/Recent) Answer Date of Assessment Author No Risk Indicated 02/01/2024 6:00 PM EDT Eric Saldana RN * [place] Suicide Severity Rating Scale (Screener/Recent Self-Report) Question [...] Info) Description 11/28/2024 Procedure Pass Echo Lab [address] [place] [address] 02/26/2025 2:06 PM EDT Hospital Encounter Non-Invasive Cardiology [address] [place] [address] Hodan Brewster MD [address] [place] [address], 2nd [place] [address] Arrived 03/02/2025 8:30 AM EDT Office Visit [facility] [address] 3rd [facility], [address] [place] [address] Susana Stuart DNP [address] [place] [address] 06/13/2025 10:15 AM EST Appointment Echo Lab [address] [place] [address] Susaan Stuart DNP [address] [place] [address], [address] [address] 06/27/2025 10:00 AM EST Office Visit [facility] [address] 3rd [facility], [address] [place] [address] Susana Stuart DNP [address] [place] [address], [address] [address] 08/01/2025 11:30 AM EST Office Visit [facility] [address] [facility], 3rd Floor, [address] [place] [address] Reymundo Patricio MD [address] [place] [address] [email or web address] 01/28/2026 11:30 AM EDT Office Visit [facility] [address] [place] [address] [place] [address] Hodan Brewster MD [address] [place] [address], 2nd [place] [address] [email or web address] documented as of this encounter Procedures Procedure Name Priority Date/Time Associated Diagnosis Comments XR SPINE OUTSIDE (NO INTERPRETATION) Routine 05/04/2016 12:15 AM EST documented in this encounter Results * XR SPINE OUTSIDE(NO INTERPRETATION) (05/04/2016 12:15 AM EST) Narrative [facility] INTERFACES - 08/27/2016 3:09 PM EDT This study is for PACS storage only and not for interpretation. us Michael Guerra MD IMG OUTSIDE IMAGING W /OUT INTERPRETATION Final Result [facility] INTERFACES documented in this encounter Visit Diagnoses Not on filedocumented in this encounter Additional Source Comments The information contained in this document represents components of the legal health record. It is not the complete legal health record.[facility]
--- OUTSIDE RECORDS SUMMARY | 2016-07-12 01:00 | XMS_ITS | Encounter Summary ---
Author Organization [facility] Address [address] [facility] [address] [place] [address] Phone Care Team Providers Care Manager Clinical Informatics Name Role Phone Unavailable Primary Care Provider Unavailabl e Reason for Visit * MRI/CAT Scan - Closed Specialty Diagnoses / Procedures Referred By Rebekah tierney Referred To Contact Procedures MRI Spine (Neuro) Outside (No Interpretation) Michael Guerra MD [address] [place] [address] Phone: tel: fax: mailto:[email or web address] Referral ID Status Reason Start Date Expiration Date Visits Re quested Visits Authorized [id number] Closed 08/27/2016 08/27/2017 1 1 Encounter Details Date Type Department Care Team ([facility] st Contact Info) Description 07/12/2016 Hospital Encounter [facility] [address] [place] [id number] Michael Guerra MD [address] [place], [place] [phone] [email or web address] Social History Tobacco Use Types Packs/Day Years [...] your housing situation today? I have krysta amee 12/03/2021 How many times have you moved in the past 12 wed ths? 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 on file documented as of this encounter Functional Status * Calculated C-SSRS Risk Score (Lifetime/Recent) Answer Date of Assessment Author No Risk Indicated 02/01/2024 6:00 PM EDT Eric Saldana RN * [place] Suicide Severity Rating Scale (Screener/Recent Self-Report) Question [...] Info) Description 11/28/2024 Procedure Pass Echo Lab [address] [place] [address] 02/26/2025 2:06 PM EDT Hospital Encounter Non-Invasive Cardiology [address] [place] [address] Hodan Brewster MD [address] [place] [address], 2nd [place] [address] Arrived 03/02/2025 8:30 AM EDT Office Visit [facility] [address] [place] [address] 3rd Floor, [address] [place] [address] Susana Stuart DNP [address] [place] [address], [address] [address] 06/13/2025 10:15 AM EST Appointment Echo Lab [address] [place] [address] Susana Stuart DNP [address] [facility], [address] [place] [address] 06/27/2025 10:00 AM EST Office Visit [facility] [address] 3rd Floor, [address] [place] [address] Susana Stuart DNP [address] [facility], [address] [place] [address] 08/01/2025 11:30 AM EST Office Visit [facility] Orthopa[facility] Spine [address] [facility], 3rd Floor, [address] [place] [address] Reymundo Patricio MD 55 [place] [address] [email or web address] 01/28/2026 11:30 AM EDT Office Visit [facility] [address] [place] [address] [place] [address] Hodan Brewster MD [address] [place] [address], 2nd [place] [address] [email or web address] documented as of this encounter Procedures Procedure Name Priority Date/Time Associated Diagnosis Comments MRI SPINE NEUROLOGIC FOCUS OUTSIDE (NO INTERPRETATION) Routine 07/12/2016 12:00 AM EST documented in this encounter Results * MRI Spine (Neuro) Outside (No Interpretation) (07/12/2016 12:00 AM EST) Narrative [facility] IMG INTERFACES - 08/27/2016 3:09 PM EDT This study is for PACS storage only and not for interpretation. us Michael Guerra MD IMG OUTSIDE IMAGING W /OUT INTERPRETATION Final Result [facility] IMG INTERFACES documented in this encounter Visit Diagnoses Not on filedocumented in this encounter Additional Source Comments The information contained in this document represents components of the legal health record. It is not the complete legal health record.[facility]
--- OUTSIDE RECORDS SUMMARY | 2016-07-12 01:15 | XMS_ITS | Encounter Summary ---
Author Organization [facility] Address [address] [facility] [address] [place] [address] Phone Care Team Providers Care Guillotine Trimmer Name Role Phone Unavailable Primary Care Provider Unavailabl e Reason for Visit * MRI/CAT Scan - Closed Specialty Diagnoses / Procedures Referred By Rebekah tierney Referred To Contact Procedures MRI Spine (Neuro) Outside (No Interpretation) Michael Guerra MD [address] [place] [address] Phone: tel: fax: mailto:[email or web address] Referral ID Status Reason Start Date Expiration Date Visits Re quested Visits Authorized [id number] Closed 08/27/2016 08/27/2017 1 1 Encounter Details Date Type Department Care Team ([facility] st Contact Info) Description 07/12/2016 12:15 AM EST Hospital Encounter [facility] General Imaging [address] [place] [address] Michael Guerra MD [address] [place] [phone] [email or web address] Social History Tobacco Use Types Packs/Day Years [...] your housing situation today? 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 on file documented as of this encounter Functional Status * Calculated C-SSRS Risk Score (Lifetime/Recent) Answer Date of Assessment Author No Risk Indicated 02/01/2024 6:00 PM EDT Eric Saldana RN * [place] Suicide Severity Rating Scale (Screener/Recent Self-Report) Question [...] Info) Description 11/28/2024 Procedure Pass [facility] Lab [address] [place] [address] 02/26/2025 2:06 PM EDT Hospital Encounter Non-Invasive Cardiology [address] [place] [address] Hodan Brewster MD [address] [place] [address], 2nd [place] [address] Arrived 03/02/2025 8:30 AM EDT Office Visit [facility] [address] [place] [address] 3rd Floor, [address] [place] [address] Susana Stuart DNP [address] [place] [address], [address] [address] 06/13/2025 10:15 AM EST Appointment Echo Lab [address] [place] [address] Susana Stuart DNP [address] [facility], [address] [place] [address] [email or web address] 06/27/2025 10:00 AM EST Office Visit [facility] [address] 3rd Floor, [address] [place] [address] Susana Stuart DNP [address] [facility], [address] [place] [address] 08/01/2025 11:30 AM EST Office Visit [facility] Orthopaedic Spine [address] [facility], 3rd Floor, [address] [place] [address] Reymundo Patricio MD [address] [place] [address] [email or web address] 01/28/2026 11:30 AM EDT Office Visit [facility] [address] [place] [address] [place] [address] Hodan Brewster MD [address] [place] [address], 2nd [place] [address] [email or web address] documented as of this encounter Procedures Procedure Name Priority Date/Time Associated Diagnosis Comments MRI SPINE NEUROLOGIC FOCUS OUTSIDE (NO INTERPRETATION) Routine 07/12/2016 12:15 AM EST documented in this encounter Results * MRI Spine (Neuro) Outside (No Interpretation) (07/12/2016 12:15 AM EST) Narrative [facility] IMG INTERFACES - 08/27/2016 3:10 PM EDT This study is for PACS storage only and not for interpretation. us Michael Guerra MD IMG OUTSIDE IMAGING W /OUT INTERPRETATION Final Result [facility] IMG INTERFACES documented in this encounter Visit Diagnoses Not on filedocumented in this encounter Additional Source Comments The information contained in this document represents components of the legal health record. It is not the complete legal health record.[facility]
[2025-02-26 11:27] VITALS: BP 120/50; PULSE 86; O2SAT 99; BMI 31.6
--- NOTE | 2025-02-26 11:27 | A.OFFVIS_ITS ---
Vital Signs 02/26/25 11:27 Height 5 ft 3 in Weight 178 lb 9.191 oz BMI 31.6 BP 120/50 L Blood Pressure Location Lt brachial Position Sitting Pulse 86 Pulse Source Pulse Oximeter Pulse Oximetry (%) 99 Oxygen Delivery Method Room Air Intake Visit Reasons: Asthma Yarn Mercerizer Operator Required: No Accompanied by: Self / Same As Patient Allergies amlodipine Allergy (Severe, Verified 02/26/25 11:30) Swelling codeine Allergy (Severe, Verified 02/26/25 11:30) Abdominal Pain hydralazine Allergy (Severe, Verified 02/26/25 11:30) Swelling hydrocodone (From Vicodin) Allergy (Severe, Verified 02/26/25 11:30) Abdominal Pain lisinopril Allergy (Severe, Verified 02/26/25 11:30) Hives midazolam Allergy (Severe, Verified 02/26/25 11:30) Hives morphine Allergy (Severe, Verified 02/26/25 11:30) Abdominal Pain HPI Comments Details: The patient is a 74 year woman with a known history of asthma followed closely by Pulmonary in the [facility]. 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 Currently she is recovering after being diagnosed with pneumonia. She was developing worsening shortness of breath and she was evaluated at an urgent care. They she had a chest x-ray she was diagnosed with pneumonia she was told to follow-up elsewhere. She was given a course of doxycycline. I do not believe she was given prednisone. Her breathing has been improving although her voice is still hoarse. She continues Dulera for her maintenance inhaler and she is also taking Pulmicort. For maintenance she does use Xopenex. The patient does not have a nebulizer. She has been fully vaccinated specially for pneumonia. The patient understands that they increase inhaled cortical steroids can increase the risk of infection. Therefore be reasonable to try a simplify her respiratory maintenance regimen. I do believe that she will respond well to Breztri. Will go ahead and send to the pharmacy that be replacing both maintenance inhalers. In addition to the she is scheduled to [place] [facility] mid [place]. She is wondering if she is going to be strong enough to have surgery. Right now her respiratory exam is reassuring. I do have a copy of her old x-ray on going to have him get a repeat x-ray sometime next week. She is also going to undergo blood work. Will be able to assess to see if there is any persistent findings. The patient is no better or if she is developing worsening disease she may have to consider postponing her surgery. 01/14/2024 the patient is here for pulmonary follow-up visit. Overall the patient has been doing well from a respiratory status. She still having significant back pain. Denies any cough or shortness of breath or chest pain. She did complete a course of antibiotics and had a repeat chest x-ray 12/20/2023. I did personally reviewed the x-ray and compared to her previous x-ray demonstrating interval improvement of the right-sided pneumonia. Still though she has not residual changes there. Therefore, after give another course of antibiotics which is taking right now Augmentin and I did request a CT scan of the chest to better address the areas specially since she is going to need back surgery. I did review the CT scan with the patient. The appears that the CT scan demonstrates some chronic changes including some nodular densities some calcified lymph nodes and some areas of inflammation and scarring. This area appears to be chronic. She has been seen previously by Pulmonary in the past in her states. She was told about some areas of scarring. As far as exposures he was exposed to both silica and also asbestos working a lot for about 3 years. 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 At this point it appears that the airspace disease that pneumonia that she had been treated for and is currently being treated for seems to be improving. Therefore based on the fact that she is feeling well from respiratory status and the infection is improved I do believe that she is able to proceed with elective and semi elective surgeries including her back surgery. I also did review the blood work with the patient. She seems to have a low IgG of 500. Will go ahead and repeat the IgG subclasses and also request titers for her pneumococcal vaccine to make sure she is having a good response to vaccines. If she is not then we can consider further diagnostic and therapeutic interventions. At this moment though she is able to proceed with surgery. The patient does have minimal risk for perioperative pulmonary complications which includes atelectasis pneumonia and hypoxia. 03/24/2024 the patient is here for a pulmonary follow-up visit. She is status post her back surgery. She did have an extensive surgery in [place]. She is still recovering. Her breathing is overall better. She is responding to the current respiratory therapy. She did undergo blood work and we are reviewing them. She does have worsening hypogammaglobulinemia. the levels are more concerning. Indeed it could be related to the fact that she recently had major surgery. Although her levels were low even before surgery. In addition to that she was found to be anemic. She did require blood after her surgery. Will go ahead and request additional blood work at this time in 3 months after she does have further recovery of her significant surgery. The patient did have a CT scan of the chest which we personally reviewed demonstrating multiple pulmonary nodules, largest nodule measuring 6 mm in size. She will benefit from getting a CT scan in 6 months to make sure there stability of the nodules. 06/30/2024 the patient is here for a pulmonary follow-up visit. Overall the patient has been doing well. She is tolerating inhalers well. Has not had to use her rescue inhaler which is reassuring. She did have blood work back in March which we personally reviewed. Here hemoglobin decreased down to 9.6. The patient also has had worsening IgG levels. Will go ahead and request a dditional blood work. If her hemoglobin continues to be low in the IgG continues to be low hematology consultation will be warranted. In the meantime she also had a CT scan of the chest that we personally reviewed. Still was then parenchymal pulmonary densities in the upper lung zones with calcifications in lymphadenopathy. Again, she was exposed to endemic fungal areas therefore need to consider fungal conditions resulting in those changes. 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 At least is reassuring that is not progressive. Exam the patient does have a murmur. 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 She will follow-up with mastic floor layer and primary care. 10/19/2024 the patient is here for pulmonary follow-up visit. Overall she is doing well. The patient did get her IgG infusion since she is tolerating them well. Her throughout came back better. Although still low normal. Will check it again in the next 3-4 months to see if her levels are improving. In the meantime she is following closely with Hematology. She has yet to see the mastic floor layer for the murmur. I did give her a copy of the echocardiogram so they can speak about it. From a respiratory status the patient seems to be doing okay. Will continue with current therapy and will follow-up in 4-6 months. 02/26/2025 the patient is here for pulmonary follow-up visit. She complains of increasing dyspnea on exertion. She does not feel like the Breztri is working well. In the meantime she is having issues with palpitations. She has been to the ER twice. We did look at it EKGs demonstrating some EKG changes but otherwise normal sinus mechanism. Have ectopy on the EKG. She is going to follow-up with cardiology have an Holter monitor. In the meantime we talked about any inhalers. The Breztri may be increasing the heart rate so therefore we can switch over to Trelegy to minimize on any cardiac adverse effects. The patient also has been on labetalol. She understands that the beta monserrat can also increased chest tightness. The patient has also follow Rheumatology regarding her anemia and also her hypogammaglobulinemia. Currently levels are okay although low normal. She will talk to Hematology about increasing the dose. The patient also has a murmur and some lower extremity edema. She is not any diuretics right now. She was found to be significantly hyponatremic. Then she will follow-up with her primary care doctor about that. Echocardiogram demonstrated hypertrophy of the left ventricle which could result in diastolic dysfunction and therefore lower extremity edema. She may benefit from a diuretic. Although may decrease her sodium further. Therefore at this time will go ahead and change her inhaler to Trelegy and also plan for repeat CAT scan to follow-up with the mediastinal and pulmonary changes. [facility] Medical History Murmur Anemia Hypogammaglobulinemia ILD (interstitial lung disease) Pulmonary nodules Abnormal chest x-ray Dyspnea Pneumonia Cough Hyponatremia GERD (gastroesophageal reflux disease) Back pain Asthma Elevated cholesterol HTN (hypertension) Surgical History Hx of colonoscopy Hx laparoscopic cholecystectomy Previous back surgery Hx of bilateral cataract extraction Hx of hammer toe correction History of bunionectomy of both great toes Social History Household Members: Spouse Housing: [facility] Are you a primary customer care assistant to a significant other at home: No Do you presently have visiting nurse or other home services: Yes Comment: COUNTS CORRECT Patient Tobacco Use Status: Former Tobacco user Tobacco use type: Cigarette service: No Current occupational status: retired Review of Systems Const Denies chills, Denies fatigue, Denies fever(s), Denies weight gain and Denies weight loss ENT Denies dizziness Card Denies chest pain, Denies leg edema, Denies lightheadedness, Denies palpitations, Denies dyspnea on exertion, Denies orthopnea and Denies other Resp Denies cough, Denies dyspnea on exertion and Denies wheezing GI Denies hematochezia and Denies change in stool character Musc Reports abnormal gait, Denies muscle weakness, Denies numbness, Denies radiating pain into limb and Denies tingling Skin/Breast Denies rash Neuro Reports abnormal gait, Denies dizziness, Denies numbness and Denies tingling Endo Denies fatigue and Denies palpitations Aller/Immun Denies wheezing Physical Exam Vital Signs: Last Vital Signs Pulse 86 02/26/25 11:27 BP 120/50 L 02/26/25 11:27 Pulse Ox 99 02/26/25 11:27 Oxygen Delivery Method Room Air 02/26/25 11:27 BMI result Body Mass Index 31.6 Const General: comfortable HEENT Head: Yes normocephalic Neck Neck: Yes supple Chest Chest palpation & inspection: normal inspection of the chest Resp Effort & Inspection: normal respiratory effort Auscultation: no rales, no rhonchi, no wheezes and diminished lung sounds Cardio Heart sounds: S1 normal heart sound present, S2 normal heart sound present and Murmur heart sound present systolic II/ GI Palpation (GI): Soft to palpation Skin General skin exam: no rashes or lesions noted Extrem General: Yes no clubbing, cyanosis or edema Assessment & Plan Assessment & Plan (1) Asthma: Code(s): J45.909 - Unspecified asthma, uncomplicated Category: Medical Qualifiers: Asthma complication type: uncomplicated Asthma persistence: persistent Asthma severity: moderate Qualified Code(s): J45.40 - Moderate persistent asthma, uncomplicated (2) Dyspnea: Code(s): R06.00 - Dyspnea, unspecified Category: Medical Qualifiers: Dyspnea type: dyspnea on exertion Qualified Code(s): R06.09 - Other forms of dyspnea (3) Back pain with history of spinal surgery: Code(s): M54.9 - Dorsalgia, unspecified; Z98.890 - Other specified postprocedural states Category: Medical (4) Pulmonary nodules: Code(s): R91.8 - Other nonspecific abnormal finding of lung field Category: Medical (5) ILD (interstitial lung disease): Comment: May have a component of sarcoid versus pneumoconiosis. Has had exposure to silicosis, but in a lab. Still has some egg shell calcifiactions. Code(s): J84.9 - Interstitial pulmonary disease, unspecified Category: Medical (6) Hypogammaglobulinemia: Code(s): D80.1 - Nonfamilial hypogammaglobulinemia Category: Medical (7) Anemia: Code(s): D64.9 - Anemia, unspecified Category: Medical Qualifiers: Anemia type: other cause Other causes of anemia: other cause, not classified Qualified Code(s): D64.89 - Other specified anemias (8) Murmur: Code(s): R01.1 - Cardiac murmur, unspecified Category: Medical Plan continue IVIG therapy Hematology f/u stop Breztri BID due to increase HR/palpitations start Trelegy HELEN as needed (xopenex) will need to repeat CT chest 06/2025 f/u with cardiology: holter diuresis as tolerated F/U 4 months Orders: Orders 2 CT chest wo IV con 06/11/25 J84.9 - Interstitial pulmonary disease, unspecified Medications: New qmcesmzvwaf-ablpigxal-rpcgkbuv 200-62.5-25 mcg (Trelegy Ellipta) 1 inh inhalation DAILY 60 ea 12RF 30 days Changed From levalbuterol tartrate 45 mcg/actuation (Xopenex HFA) 2 puffs inhalation Q4-6H PRN Shortness Of Breath Or Wheezing To levalbuterol tartrate 45 mcg/actuation (Xopenex HFA) 2 puffs inhalation Q4-6H PRN 15 grams 10RF Shortness Of Breath Or Wheezing 30 days From zafirlukast must be taken on empty stomach, at least 1 hr before or 2 hrs after a meal/food 20 mg PO BID To zafirlukast must be taken on empty stomach, at least 1 hr before or 2 hrs after a meal/food 20 mg PO BID 180 tabs 3RF 90 days Discontinued tmkpxcyeeg-zdwdrjrf-uqipfvgcdw 160-9-4.8 mcg/actuation (Breztri Aerosphere) Discontinued Reason: Doctor's Order 2 inhalations PO BID 10.7 grams 6RF Coding Level of Care Code Est Pt Level 4 (03771) Complex EM visit Add On G2211 Diagnoses Moderate persistent asthma without complication J45.40 Asthma complication type: uncomplicated Asthma persistence: persistent Asthma severity: moderate Dyspnea on exertion R06.09 Dyspnea type: dyspnea on exertion Back pain with history of spinal surgery M54.9; Z98.890 Pulmonary nodules R91.8 ILD (interstitial lung disease) J84.9 Hypogammaglobulinemia D80.1 Anemia due to other cause, not classified D64.89 Anemia type: other cause Other causes of anemia: other cause, not classified Murmur R01.1 Time Spent (min) 20
--- OUTSIDE RECORDS SUMMARY | 2025-02-26 14:05 | XMS_ITS | Encounter Summary ---
Author Organization [facility] Address [address] [place] [address] Phone Care Team Providers Care Munitions Worker Name Role Phone Eddie Nina MD Unavailable Hodan Brewster MD Unavailable [phone] Kacey George MD Unavailable Hodan Brewster MD Primary Care Provider Hodan Brewster MD Unavailable [phone] Encounter Details Date Type Department Care Team (Late st Contact Info) Description 09/08/2023 Procedure Pass [facility] [address] [place] [address] Social History Tobacco Use Types Packs/Day Years [...] high school, GED, job training, learning the [place] language, technical skills, or developing parenting skills)? 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 on file Not on file Not on file documented as of this encounter Plan of Treatment Upcoming Encounters Date Type Department Care Team (Late st Contact Info) Description 11/28/2024 Procedure Pass [facility] [place] [address] [place] [address] 02/26/2025 2:30 PM EDT Appointment Non-Invasive Cardiology [address] [place] [address] Hodan Brewster MD [address] [facility], 2nd [place] [address] 03/02/2025 8:30 AM EDT Office Visit [facility] [address] Floor, [address] [place] [address] Susana Stuart DNP [address] [facility], [address] [address] 06/13/2025 10:15 AM EST Appointment Echo Lab [address] [place] [address] Susana Stuart DNP [address] [place] [address], [address] [place] [address] 06/27/2025 10:00 AM EST Office Visit [facility] [address]rd [facility], [address] [place] [address] Susana Stuart DNP [address] [place] [address], [address] [place] [address] 08/01/2025 11:30 AM EST Office Visit [facility] Orthopaedic Spine [address] [facility], 3rd Floor, [address] [place] [address] Reymundo Patricio MD [address] [place] [address] [email or web address] 01/28/2026 11:30 AM EDT Office Visit [facility] [address] [place] [address] [place] [address] Hodan Brewster MD [address] [place] [address], [address] [place] [address] documented as of this encounter Visit Diagnoses Not on filedocumented in this encounter Additional Health Concerns Assessment Noted Time PHQ-2 Depression Total Score: 1 12/04/19 22 4:12 PM EDT documented as of this encounter Care Teams Munitions Worker Relationship Specialty Start Date End Date Hodan Brewster MD [address] [place] [id number] PCP - General Internal Medicine 07/30/17 Eddie Nina MD [email or web address] Historical LMR Provider 03/23/17 Hodan Brewster MD [address] [place] [address] Historical LMR Provider 03/23/17 Kacey George MD [address] [place] [address] Orthopedics & Sports Medicine, [place] [address] Historical LMR Provider 03/23/17 Hodan Brewster MD [address] [place] [address] Insurance Assigned Provider 09/11/23 documented as of this encounter Additional Source Comments The information contained in this document represents components of the legal health record. It is not the complete legal health record.[facility]
--- OUTSIDE RECORDS SUMMARY | 2025-02-26 14:05 | XMS_ITS ---
Author Name [facility] Unknown History of Medication Use Medication Directions Dispensed Refills Start Date End Date Stat us valsartan (DIOVAN) 80 mg tablet 10/20/2023 active mometasone-formoterol (Dulera) 200-5 mcg/actuation inhaler USE 2 INHALATIONS ORALLY TWICE DAILY 02/02/2023 active famotidine (PEPCID) 40 mg tablet Take 1 tablet by mouth in the morning and 1 tablet before bedtime. 12/27/2020 active atorvastatin (LIPITOR) 20 mg tablet Take 20 mg by mouth in the morning. 03/24/2017 active acetaminophen (TYLENOL) 500 mg tablet Take 1,000 mg by mouth 2 (two) times a week. 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 pain 01/29/2017 [facility] active LISINOPRIL RASH Other reaction(s): Hives/Urticaria 04/20/2016 [facility] active PENICILLINS RASH Other reaction(s): Hives/Urticaria 09/24/2005 [facility] active AMLODIPINE SWELLING Other reaction(s): Peripheral edema, ,Other reaction(s): swelling legs and feet [facility] CODEINE RASH Other reaction(s): severe abd. pain,Other reaction(s): Gastritis,Severe abd pain [facility] DEXTROMETHORPHAN POLISTIREX Other reaction(s): severe abd. pain [facility] HYDROCODONE Other reaction(s): severe abd. pain,severe,Othe r reaction(s): Gastritis [facility] MIDAZOLAM HIVES Other reaction(s): Hives/Urticaria [facility] OXYCODONE Other reaction(s): Gastritis,Severe abd pain [facility] Problems Problem Status Onset Date Problem Type Date of Resolution Source Ataxia active EncounterDiagnosisAct [facility] Hyperreflexia active EncounterDiagnosisAct [facility] Chronic midline low back pain without sciatica active EncounterDiagnosisAct [facility] Compression fracture of body of thoracic vertebra (HCC) active EncounterDiagnosisAct [facility] Fusion of lumbar spine active EncounterDiagnosisAct [facility] Lumbar stenosis with neurogenic claudication active EncounterDiagnosisAct [facility] Encounters Encounter Type Encounter Reason Primary Diagnosis Location Date Ambulatory [facility] 11/08/2023 Ambulatory [facility] 11/08/2023 Ambulatory [facility] 11/08/2023 Ambulatory [facility] 11/08/2023 Ambulatory [facility] 11/08/2023 Ambulatory [facility] 11/08/2023 Ambulatory Ataxia, unspecified Ataxia, unspecified [email or web address] Care Team Organization Name Specialty Phone Email Start Date End Da te [facility] KERA IGNACIOGO Primary Care 2023
--- OUTSIDE RECORDS SUMMARY | 2025-02-26 14:05 | XMS_ITS | Encounter Summary ---
Author Organization [facility] Address [address] [place] [address] Phone Care Team Providers Care Municipal Engineer Name Role Phone Eddie Nina MD Unavailable Hodan Brewster MD Unavailable Kacey George MD Unavailable Hodan Brewster MD Primary Care Provider Hodan Brewster MD Unavailable [phone] Encounter Details Date Type Department Care Team (Late st Contact Info) Description 12/23/2023 Procedure Pass [facility] Endoscopy Admitting Dept Virtual Department [address] [place] [address] Social History Tobacco Use Types Packs/Day Years 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, 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 Not on file Not on file documented as of this encounter Plan of Treatment Upcoming Encounters Date Type Department Care Team (Late st Contact Info) Description 11/28/2024 Procedure Pass [facility] [place] [address] [place] [address] 02/26/2025 2:30 PM EDT Appointment Non-Invasive Cardiology [address] [place] [address] Hodan Brewster MD [address] [place] [address], 2nd [place] [address] 03/02/2025 8:30 AM EDT Office Visit [facility] [address] 3rd Floor, [address] [place] [address] Susana Stuart DNP [address] [place] [address], [address] [address] 06/13/2025 10:15 AM EST Appointment Echo Lab [address] [place] [address] Susana Stuart DNP [address] [place] [address], [address] [address] 06/27/2025 10:00 AM EST Office Visit [facility] [address] 3rd [facility], [address] [place] [address] Susnaa Stuart DNP [address] [place] [address], [address] [address] 08/01/2025 11:30 AM EST Office Visit [facility] 55 [facility], 3rd Floor, [address] [place] [address] Reymundo Patricio MD [address] [place] [address] [email or web address] 01/28/2026 11:30 AM EDT Office Visit [facility] [address] [place] [address] [place] [address] Hodan Brewster MD [address] [place] [address], 2nd [place] [address] documented as of this encounter Visit Diagnoses Not on filedocumented in this encounter Additional Health Concerns Assessment Noted Time PHQ-2 Depression Total Score: 1 12/04/19 22 4:12 PM EDT documented as of this encounter Care Teams Municipal Engineer Relationship Specialty Start Date End Date Hodan Brewster MD [address] [place] [address] PCP - General Internal Medicine 07/30/17 Eddie Nina MD [email or web address] Historical LMR Provider 03/23/17 Hodan Brewster MD [address] [place] [address] Historical LMR Provider 03/23/17 Kacey George MD [address] [place] [address] [facility] Medicine, [place] [address] Historical LMR Provider 03/23/17 Hodan Brewster MD [address] [place] [address] Insurance Assigned Provider 09/11/23 documented as of this encounter Additional Source Comments The information contained in this document represents components of the legal health record. It is not the complete legal health record.[facility]
--- OUTSIDE RECORDS SUMMARY | 2025-02-26 14:05 | XMS_ITS | Encounter Summary ---
Author Organization [facility] Address [address] [place] [address] Phone Care Team Providers Care Ethnographic Materials Conservator Name Role Phone Eddie Nina MD Unavailable [phone] Hodan Brewster MD Unavailable Kacey George MD Unavailable Hodan Brewster MD Primary Care Provider Hodan Brewster MD Unavailable [phone] Encounter Details Date Type Department Care Team (Late st Contact Info) Description 02/01/2024 Procedure Pass [facility] PERIOPERATIVE DEPT [address] [place] [id number] Social History Tobacco Use Types Packs/Day Years [...] your housing situation today? I have krysta lubni 12/03/2021 How many times have you moved [...] ecorded Are you denied basic needs s [facility] as food, clothing, or medical care? No 02/01/2024 In the past 12 months have y ou been in a relationship with a person who hurts, threatens, or tries to control you? No 02/01/2024 Are you denied basic needs s [facility] as food, clothing, or medical care? [...] 6:00 PM EDT Eric Saldana RN * [place] Suicide Severity Rating Scale (Screener/Recent Self-Report) Question [...] Info) Description 11/28/2024 Procedure Pass Echo Lab [address] [place] [address] 02/26/2025 2:30 PM EDT Appointment Non-Invasive Cardiology [address] [place] [address] Hodan Brewster MD [address] [place] [address], 2nd [place] [address] 03/02/2025 8:30 AM EDT Office Visit [facility] [address] 3rd [facility], [address] [place] [address] Susana Stuart DNP [address] [place] [address], [address] [address] 06/13/2025 10:15 AM EST Appointment Echo Lab [address] [place] [address] Susana Stuart DNP [address] [place] [address], [address] [address] 06/27/2025 10:00 AM EST Office Visit [facility] [address] 3rd [facility], [address] [place] [address] Susana Stuart, DNP 22 [facility], [address] [place] [address] 08/01/2025 11:30 AM EST Office Visit [facility] Orthopaedic Spine 55 [facility], 3rd Floor, [address] [place] [address] Reymundo Ptaricio MD 55 [place] [address] [email or web address] 01/28/2026 11:30 AM EDT Office Visit [facility] [address] [place] [address] [place] [address] Hodan Brewster MD [address] [place] [address] documented as of this encounter Visit Diagnoses Not on filedocumented in this encounter Additional Health Concerns Assessment Noted Time PHQ-2 Depression Total Score: 2 12/31/19 24 4:14 PM EDT documented as of this encounter Care Teams Ethnographic Materials Conservator Relationship Specialty Start Date End Date Hodan Brewster MD [address] [place] [address] [email or web address] PCP - General Internal Medicine 07/30/17 Eddie Nina MD [email or web address] Historical LMR Provider 03/23/17 Hodan Brewster MD [address] [place] [address] Historical LMR Provider 03/23/17 Kacey George MD [address] [place] [address] [facility] Medicine, [place] [address] Historical LMR Provider 03/23/17 Hodan Brewster MD [address] [place] [address], 2nd [place] [address] Insurance Assigned Provider 09/11/23 documented as of this encounter Additional Source Comments The information contained in this document represents components of the legal health record. It is not the complete legal health record.[facility]
--- OUTSIDE RECORDS SUMMARY | 2025-02-26 14:06 | XMS_ITS | Encounter Summary ---
Author Organization [facility] Address [address] [place] [address] Phone Care Team Providers Care Central Office Installer Name Role Phone Franchesca Alexandra GORE STITCHER Unavailable Alexia Galloway GORE STITCHER Unavailable [phone] Eddie Nina MD Unavailable Kellie Candelario MD Unavailable [phone] Hodan Brewster MD Unavailable Marlena Cunningham PULPWOOD DEALER Unavailable Susana Olguin MD Unavailable Margie Stahl DPM Unavailable Unavaila ble Dre Novak MD Unavailable [phone] Kaushik Virgen MD Unavailable Zeeshan Ferrera MD Unavailable [phone] Kacey George MD Unavailable Tim White MD Unavailable Hodan Brewster MD Primary Care Provider Hodan Brewster MD Unavailable Hodan Brewster MD Unavailable Hodan Brewster MD Unavailable [phone] Encounter Details Date Type Department Care Team (Late st Contact Info) Description 08/04/2017 Procedure Pass [facility] [address] [place] [address] Social History Tobacco Use Types Packs/Day Years [...] 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 [...] Info) Description 11/28/2024 Procedure Pass Echo Lab [address] [place] [address] 02/26/2025 2:30 PM EDT Appointment Non-Invasive Cardiology 30 [place] [address] Hodan Brewster MD [address] [place] [address], 2nd [place] [address] 03/02/2025 8:30 AM EDT Office Visit [facility] [address] [place] [address] 3rd Floor, [address] [place] [address] Susana Stuart, CHUCK [address] [facility], [address] [place] [address] 06/13/2025 10:15 AM EST Appointment Echo Lab [address] [place] [address] Susana Stuart DNP [address] [facility], [address] [place] [address] 06/27/2025 10:00 AM EST Office Visit [facility] [address] 3rd Floor, [address] [place] [address] Susana Stuart DNP [address] [facility], [address] [place] [address] 08/01/2025 11:30 AM EST Office Visit [facility] 55 [facility], 3rd Floor, [address] [place] [address] Reymundo Patricio MD 55 [place] [address] [email or web address] 01/28/2026 11:30 AM EDT Office Visit [facility] [address] [place] [address] [place] [address] Hodan Brewster MD [address] [place] [address], [address] [place] [address] documented as of this encounter Visit Diagnoses Not on filedocumented in this encounter Care Teams Central Office Installer Relationship Specialty Start Date End Date Hodan Brewster MD [address] [place] [address], 2nd [place] [address] PCP - General Internal Medicine 07/30/17 Franchesca Alexandra, RICHIE [address] [place] [address] Historical LMR Provider 03/23/17 Alexia Galloway, RICHIE [address] [place] [address] [email or web address] Historical LMR Provider 03/23/17 Eddie Nina MD [address] [place] [address] [email or web address] Historical LMR Provider 03/23/17 Kellie Candelario MD [address] [place] [address] Historical LMR Provider 03/23/17 Hodan Brewster MD [address] [place] [address], 2nd [place] [address] [email or web address] Historical LMR Provider 03/23/17 Marlena Cunningham FNP [address] [facility], [address] [place] [address] [email or web address] Historical LMR Provider 03/23/17 06/14/21 Susana Olguin MD [address] [facility], [facility]. [address], [address] [place] [address] Historical LMR Provider 03/23/17 06/14/21 Margie Stahl DPM [address] [place] [address] Historical LMR Provider 03/23/17 2 Dre Novak MD [address] [place] [address], [address] [place] [address] [email or web address] Historical LMR Provider 03/23/17 06/14/21 Kaushik Virgen MD [address] [place] [address] [email or web address] Historical LMR Provider 03/23/17 06/14/21 Zeeshan Ferrera MD [address] [place] [address], [address] [place] [address] [email or web address] Historical LMR Provider 03/23/17 06/14/21 Kacey George MD [address] [place] [address] [facility] Medicine, [place] [address] [email or web address] Historical LMR Provider 03/23/17 Tim White MD [address] [place] [address] [email or web address] Historical LMR Provider 03/23/17 06/14/21 Hodan Brewster MD [address] [place] [address] [email or web address] Insurance Assigned Provider 10/08/18 12/17/18 Hodan Brewster MD [address] [place] [address] [email or web address] Insurance Assigned Provider 09/13/19 06/13/22 Hodan Brewster MD [address] [place] [address], 2[address] [place] [address] [email or web address] Insurance Assigned Provider 09/11/23 documented as of this encounter Additional Source Comments The information contained in this document represents components of the legal health record. It is not the complete legal health record.[facility]
--- OUTSIDE RECORDS SUMMARY | 2025-02-26 14:06 | XMS_ITS | Encounter Summary ---
Author Organization [facility] Address [address] [place] [address] Phone Care Team Providers Care Area Forester Name Role Phone Franchesca Alexandra AGRICULTURE MANAGER Unavailable Alexia Galloway AGRICULTURE MANAGER Unavailable [phone] Eddie Nina MD Unavailable Kellie Candelario MD Unavailable [phone] Hodan Brewster MD Unavailable Marlena Cunningham HELP DESK MANAGER Unavailable Susana Olguin MD Unavailable Margie Stahl DPM Unavailable Unavaila ble Dre Novak MD Unavailable [phone] Kaushik Virgen MD Unavailable [phone] Zeeshan Ferrera MD Unavailable [phone] Kacey George MD Unavailable Tim White MD Unavailable Hodan Brewster MD Primary Care Provider Hodan Brewster MD Unavailable Hodan Brewster MD Unavailable [phone] Encounter Details Date Type Department Care Team (Late st Contact Info) Description 04/26/2020 Transcribe Orders [facility] Specimen Processing 30 [place] [address] Hodan Brewster MD [address] [place] [address], 2nd [place] [address] Social History Tobacco Use Types Packs/Day Years 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, 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 on file Not on file documented as of this encounter Plan of Treatment Upcoming Encounters Date Type Department Care Team (Late Contact Info) Description 11/28/2024 Procedure Pass Echo Lab [address] [place] [address] 02/26/2025 2:30 PM EDT Appointment Non-Invasive Cardiology 30 [place] [address] Hodan Brewster MD [address] [place] [address], [address] [place] [address] 03/02/2025 8:30 AM EDT Office Visit [facility] [address] [place] [address] 3rd Floor, [address] [place] [address] Susana Stuart, CHUCK [address] [place] [address], [address] [place] [address] 06/13/2025 10:15 AM EST Appointment Echo Lab [address] [place] [address] Susana Stuart DNP 22 [facility], [address] [place] [address] 06/27/2025 10:00 AM EST Office Visit [facility] [address] [facility] 3rd Floor, [address] [place] [address] Susana Stuart DNP 22 [facility], [address] [place] [address] 08/01/2025 11:30 AM EST Office Visit [facility] Orthopaedic Spine 55 [facility], 3rd Floor, [address] [place] [address] Reymundo Patricio MD 55 [place] [address] [email or web address] 01/28/2026 11:30 AM EDT Office Visit [facility] [address] [place] [address] [place] [address] Hodan Brewster MD [address] [place] [address] documented as of this encounter Visit Diagnoses Not on filedocumented in this encounter Additional Health Concerns Assessment Noted Time PHQ-2 Depression Total Score: 0 11/21/19 20 8:33 AM EDT documented as of this encounter Care Teams Area Forester Relationship Specialty Start Date End Date Hodan Brewster MD [address] [place] [address] PCP - General Internal Medicine 07/30/17 Franchesca Alexandra NP [address] [place] [address] Historical LMR Provider 03/23/17 Alexia Galloway NP [address] [place] [address] [email or web address] Historical LMR Provider 03/23/17 Eddie Nina MD [address] [place] [address] [email or web address] Historical LMR Provider 03/23/17 Kellie Candelario MD [address] [place] [address] Historical LMR Provider 03/23/17 Hodan Brewster MD [address] [place] [address], 2nd [place] [address] [email or web address] Historical LMR Provider 03/23/17 Marlena Cunningham FNP [address] [facility], [address] [place] [address] Historical LMR Provider 03/23/17 06/14/21 Susana Olguin MD 38 [facility], [address] [place] [address] Historical LMR Provider 03/23/17 06/14/21 Margie Stahl DPM [address] [place] [address] Historical LMR Provider 03/23/17 Dre Weir MD [address] [place] [address], [address] [place] [address] [email or web address] Historical LMR Provider 03/23/17 06/14/21 Kaushik Virgen MD [address] [place] [address] [email or web address] Historical LMR Provider 03/23/17 06/14/21 Zeeshan Ferrera MD [address] [place] [address], [address] [place] [address] [email or web address] Historical LMR Provider 03/23/17 06/14/21 Kacey George MD [address] [place] [address] Orthopedics [facility] Sports Medicine, [place] [address] Historical LMR Provider 03/23/17 Tim White MD [address] [place] [address] [email or web address] Historical LMR Provider 03/23/17 06/14/21 Hodan Brewster MD [address] [place] [address] Insurance Assigned Provider 09/13/19 06/13/22 Hodan Brewster MD [address] [place] [address] Insurance Assigned Provider 09/11/23 documented as of this encounter Additional Source Comments The information contained in this document represents components of the legal health record. It is not the complete legal health record.[facility]
--- OUTSIDE RECORDS SUMMARY | 2025-02-26 14:06 | XMS_ITS | Clinical Summary ---
Author Organization [facility] Address [address] [facility] [address] [place] [address] Phone Care Team Providers Care Routing Equipment Tender Name Role Phone Eddie Nina MD Unavailable Hoadn Brewster MD Unavailable Kacey George MD Unavailable Hodan Berwster MD Primary Care Provider Hodan Brewster MD Unavailable Allergies Active Allergy [...] Rash Low 01/29/2017 Tolerated ancef 01/31 Tiotropium [place] 08/26/2021 Medications famotidine (PEPCID) 40 MG tabletIndications: [...] Take 1,000 Units by mouth daily. Active multivitamin-stope miner als-lutein (CENTRUM SILVER) Tab Take 1 [...] daily 90 tablet 3 01/21/20 24 Active gabapentin (NEURONTIN) 300 MG capsule Take 2 capsules (600 mg total) by mouth 3 (three) times a day. 540 capsule 3 04/19/20 24 Active zafirlukast (ACCOLATE) 20 MG tabletIndications: Asthma TAKE 1 TABLET TWICE A DAY 180 tablet 3 05/09/20 24 Active labetaloL (TRANDATE) 200 MG tabletIndications: Essential hypertension Take 1 tablet (200 mg total) by mouth 2 (two) times a day. 180 tablet 2 07/18/19 25 025 Active ID-BD 5mm x 31G Mini Pen [place] <[facility] 7024> ([id number])Indic ations:Osteoporosi s, unspecified osteoporosis type, unspecified pathological fracture presence Use as directed 100 each 3 04/09/20 25 Active abaloparatide (TYMLOS) 80 mcg (3,120 mcg/1.56 mL) subcutaneous pen INJECT 80MCG UNDER THE SKIN 1 TIME A DAY 1.56 mL 11 09/19/19 25 Active BD ULTRA-FINE MINI PEN NEEDLE 31 gauge x /16 Ndle USE DIRECTED 100 each 3 10/11/19 25 Active valsartan (DIOVAN) 80 MG tablet Take 1 tablet (80 mg total) by mouth every morning. 90 tablet 3 11/29/19 25 Active terazosin (HYTRIN) 2 MG capsule Take 1 capsule (2 mg total) by mouth nightly at bedtime. 90 capsule 3 12/27/19 25 Active Active Problems Patient Care Coordination [...] directly home Problem Noted Date Diagnosed Date Centrilobular emphysema 01/16/2025 Assessment & Plan (01/19/2025 9:00 AM EDT): Doing well with Ilana. Murmur 07/18/2024 Assessment & Plan (11/28/2024 2:41 PM EDT): She was found to have a heart murmur which was thought to be related to her anemia. She did see a accounts payable specialist at [facility] who did end up doing his own echocardiogram which showed a severe left ventricle hypertrophy. On review of that echocardiogram along with our echocardiogram and those measurements were compared. The findings are stable and actually the measurements from [place] are actually better than our echocardiogram that we had assessed here. There is nothing further to do except to have good blood pressure control and to have her lose weight. She has had a difficult time with losing weight and continues to put weight on despite eating healthy and trying to be active. We are going to trial her on Wegovy to see if this with weight loss. She will need a prior authorization for this. She was also given a card to help with savings if needed. We will repeat an echocardiogram again in 6 months. Assessment & Plan (07/18/2024 12:05 PM EST): [...] send over these reports over to the accounts payable specialist. Would be beneficial for her to see [...] and help schedule an appointment with cardiology. Age-related cataract of both eyes 12/10/2022 Assessment & Plan (12/10/2022 10:09 AM EDT): We discussed that complications from cataract surgery are rare. Will proceed as planned. Back pain 08/01/2017 Assessment & Plan (05/04/2023 8:59 PM EST): Will restart gabapentin to help with pain control. Difficulty in walking, not elsewhere classified 08/01/2017 Fasting hyperglycemia 08/01/2017 GERD (gastroesophageal reflux disease) 8 Acquired hallux valgus 08/01/2017 Hyponatremia 08/01/2017 Acquired deformity of foot 08/01/2017 Other hammer toe(s) (acquired), unspecified foot 08/01/2017 Lumbar radiculopathy 08/01/2017 Spinal stenosis of lumbar region with radiculopa thy 08/01/2017 Assessment & Plan (01/19/2025 9:00 AM EDT): She has follow up with her surgeon soon. Assessment & Plan (02/02/2024 11:08 AM EDT): NEURO: # Pain Control/Sedation: - APAP IV ATC - Dilaudid PLEXIGLAS FORMER - Lidocaine patches #[id number] #[id number] - activity as tolerated - no HOB [...] home. Mixed hyperlipidemia 06/23/2017 Assessment & Plan (01/19/2025 9:00 AM EDT): Continue atorvastatin. Assessment & Plan (11/28/2024 2:41 PM EDT): Continue atorvastatin 20 mg daily. Assessment & Plan (04/20/2024 1:20 PM EST): Continue atorvastatin 20 mg daily. Assessment & Plan (01/09/2024 5:10 PM EDT): Continue atorvastatin. Assessment & Plan (09/08/2023 3:25 PM EDT): Continue atorvastatin 20 mg daily. Assessment & Plan (12/10/2022 10:05 AM EDT): Lipid panel ordered. Assessment & Plan (12/03/2021 11:03 PM EDT): It is well controlled on atorvastatin. Essential hypertension 06/16/2017 Assessment & Plan (01/19/2025 9:00 AM EDT): Well controlled. Assessment & Plan (11/28/2024 2:39 PM EDT): Blood pressure is a little elevated today 142/66 for the most part her blood pressures have been well-controlled. She has put on some weight though which may be contributing to her increase in blood pressure. She is on valsartan 80 mg daily, terazosin 2 mg daily, labetalol 200 mg twice daily which she will continue without change. Assessment & Plan (07/18/2024 12:04 PM EST): [...] and carvedilol. Sacroiliitis, not elsewhere classified 7 Resolved Problems Problem Noted Date Diagnosed Date Resolved Date Shortness of breath 09/08/2023 01/17/20 25 Assessment & Plan (11/28/2024 2:40 PM EDT): Continues to have shortness of breath and is being followed by pulmonary.She reports new inhalers are helping her with her shortness of breath. Assessment & Plan (04/20/2024 1:19 PM EST): [...] medication changes as necessary. Situational anxiety 05/04/2023 01/17/20 Assessment & Plan (05/04/2023 9:28 PM EST): She is flying to [place] and would like diazepam for the flight. Rx sent. Cellulitis of toe 08/01/2017 01/16/2025 Cough 08/01/2017 01/16/2025 Closed fracture of one or mo re phalanges of hand 08/01/2017 01/16/2025 Encounters Date Type Department Care Team Description 02/19/2025 11:00 AM EDT Office Visit [address] [place] [address] Hodan Brewster MD Cardiac arrhythmia, unspecified cardiac arrhythmia type (Primary Dx) 02/19/2025 Procedure Pass Non-Invasive Cardiology [address] [place] [address] 01/31/2025 12:00 PM EDT Office Visit [facility] [address], 3rd Floor, [address] [place] [address] Reymundo Patricio MD Sagittal plane imbalance (Primary Dx) 01/31/2025 10:30 AM EDT - 01/31/2025 11:59 PM EDT Hospital Encounter [facility] Imaging - Xray, [place] [address], 3rd [place] [address] Reymundo Patricio MD Discharge Disposition: Home or Self Care 01/26/2025 Orders Only [facility] [address], 3rd Floor, [address] [place] [address] Lisa Murray [place] Sagittal plane imbalance (Primary Dx) 01/16/2025 2:30 PM EDT Office Visit [address] [place] [address] Hodan Brewster MD Medicare annual wellness visit, subsequent (Primary Dx); Centrilobular emphysema; Essential hypertension; Mixed hyperlipidemia; Spinal stenosis of lumbar region with radiculopathy 01/10/2025 8:16 AM EDT - 01/10/2025 11:59 PM EDT Hospital Encounter [facility] [address] [place] [address] Hodan Brewster MD Discharge Disposition: Home or Self Care 11/28/2024 2:00 PM EDT Office Visit [facility] [address], [address] [place] [address] Susana Stuart DNP Dyspnea, unspecified type (Primary Dx); Essential hypertension; Murmur; Shortness of breath; Mixed hyperlipidemia from Last 3 Months Immunizations Immunization Administration Dates Next Due COVID-19 (Pre-03/29) Moderna Vaccine, mRNA, PF 02/25/2021,08/28/2020,07/31/2020 INFLUENZA, SPLIT VIRUS, TRIV ALENT W/ PRESERVATIVE IM 05/11/2012 Influenza High-Dose Quadriva lent Preservative Free IM 03/08/2023,03/27/2022 Influenza High-Dose Trivalen t Preservative Free IM 02/19/2025,04/10/2024,01/26/2020,03/14,03/29/2018 Influenza Quadrivalent Adjuv anted Preservative Free IM 02/25/2021 Influenza Quadrivalent Prese rvative Free IM 03/19/2017,03/20/2014 Influenza Quadrivalent w/ Pr eservative IM 03/19/2017 Influenza, Unspecified Formulation 02/27,03/19/2017,03/02/2011,02/21,04/04/2008,04/13/2007,05/04/2006 Pneumococcal conjugate PCV13 09/03/2016 Pneumococcal polysaccharide PPSV23 06/23/2019 RSV Vaccine (bivalent) 03/31/2023 Td (adult) 5 Lf Tetanus Toxo id, 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, 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[employer] Not on file Not on file Not on file Last Filed Vital Signs Vital Sign Reading Time Taken Comments Blood Pressure 110/78 02/19/2025 11:13 AM EDT Pulse 82 02/19/2025 11:13 AM EDT Temperature 36.2 C (97.2 F) 02/19/2025 11:13 AM EDT Respiratory Rate 16 02/08/2024 1:41 PM EDT Oxygen Saturation 98% 02/19/2025 11:13 AM EDT Inhaled Oxygen Concentration 21% 12/23/2023 9 :11 AM EDT Weight 84.5 kg (186 lb 4.8 oz) 02/19/2025 11:13 AM EDT Height 159 cm (5' 2.6 ) 01/16/2025 2:32 PM EDT Body Mass Index 33.43 01/16/2025 2:32 PM EDT Plan of Treatment Upcoming Encounters Date Type Department Care Team (Late st Contact Info) Description 11/28/2024 Procedure Pass [facility] [address] [place] [address] 02/26/2025 2:30 PM EDT Appointment Non-Invasive Cardiology [address] [place] [address] Hodan Brewster MD [address] [place] [address], 2nd [place] [address] 03/02/2025 8:30 AM EDT Office Visit [facility] [address] [place] [address] [facility], [address] [place] [address] Susana Stuart DNP [address] [place] [address], [address] [address] 06/13/2025 10:15 AM EST Appointment Echo Lab [address] [place] [address] Susana Stuart DNP [address] [place] [address], [address] [address] 06/27/2025 10:00 AM EST Office Visit [address] [place] [address], [address] [place] [address] Susana Stuart DNP [address] [place] [address] 08/01/2025 11:30 AM EST Office Visit [facility] [address], 3rd Floor, [address] [place] [address] Reymundo Patricio MD [address] [place] [address] [email or web address] 01/28/2026 11:30 AM EDT Office Visit [facility] [address] [place] [address] [place] [address] Hodan Brewster MD [address] [place] [address], 2nd [place] [address] Health Maintenance Due Date Last Done Comments HEPATITIS C SCREENING 1969 COLOGUARD 1996 FOBT 1996 SIGMOIDOSCOPY 1996 VIRTUAL COLONOSCOPY 1996 FIT TEST 09/15/2024 09/16/2023 COVID-19 VACCINE ( season) 2025 04/10/2024, 05/22/2022, 12/19/2021, Additional history exists POTASSIUM LEVEL 02/07/2025 02/08/2024, 07/2023, 02/07/2024, Additional history exists BLOOD PRESSURE 08/19/2025 02/19/2025 CREATININE LEVEL 09/26/2025 09/26/2024, 08/2023, 02/07/2024, Additional history exists DEPRESSION SCREENING 01/09/2026 01/09/2025 LIPID PANEL 01/10/2026 01/10/2025, 12/06, 12/21/2022, Additional history exists MAMMOGRAM 04/26/2026 04/26/2024, 01/05, 01/20/2022, Additional history exists COLONOSCOPY 12/22/2026 12/23/2023, 03/07, 12/17/2016 COLORECTAL CANCER SCREENING 12/22/2026 Adult Td,Tdap Booster 05/09/2030 05/09/2020, 011 PNEUMOCOCCAL VACCINES (50+ years) Completed 06/23/2019, 09/03/2016 ZOSTER VACCINES Completed 06/23/2019, 01/2019, 05/11/2012 RSV VACCINE Completed 03/31/2023 OSTEOPOROSIS SCREENING INITIAL (ONE-TIME) Completed 09/07/2023, 12/02/2018 INFLUENZA VACCINE Completed 02/19/2025, , 03/08/2023, Additional history exists SMOKING STATUS SCREENING (Once After 26 Yrs) Completed 02/19/2025 HEPATITIS A VACCINES Aged Out No long [...] this topic Medical Devices Implanted Type Area Smoke Chaser Device Identifier Shelf Expiration Date Model / Serial / Lot Kit Graft 2.5x5.0cm Lg Bone Infuse Allograft Protein Collagen Absorbable Water Syringe Sponge - [id number] Implanted:Qty: 1 on 02/01/2024 by Reymundo Patricio MD at [facility] BONETISSUE N/A: Back [employer] 12/05/2024 [id number] / / [id number] Spine Tevin 500mm 6.0 5.0 Reline [place] - [id number] Implanted:Qty: 1 on 02/01/2024 by Reymundo Patricio MD at [facility] N/A: Back [employer] [id number] / / Screw Spine 6mm Reline Locking - [id number] Implanted:Qty: 18 on 02/01/2024 by Reymundo Patricio MD at [facility] N/A: Back [employer] [id number] / / Ifuse Bedrock Curry Implant 9.5mm X 80mm Implanted:Qty: 1 on 02/01/2024 by Reymundo Patricio MD at [facility] Left: Sacrum / [id number] / Description:Sacrum Ifuse Bedrock Curry Implant 9.5mm X 80mm Implanted:Qty: 1 on 02/01/2024 by Reymundo Patricio MD at [facility] Right: Sacrum / [id number] / Description:Sacrum Screw Spine 8.5x80mm Reline Mas Traction Poly - [id number] Implanted:Qty: 2 on 02/01/2024 by Reymundo Patricio MD at [facility] N/A: Back [employer] [id number] 80 / / Screw Spine 6.5x50mm Reline Mas Traction Poly - [id number] Implanted:Qty: 10 on 02/01/2024 by Reymundo Patricio MD at [facility] N/A: Back [employer] [id number] / / Screw Spine 6.5x45mm Reline Mas Traction Poly - [id number] Implanted:Qty: 3 on 02/01/2024 by Reymundo Patricio MD at [facility] N/A: Back [employer] [id number] / / Screw Spine 6.5x40mm Reline Mas Traction Poly - [id number] Implanted:Qty: 1 on 02/01/2024 by Reymundo Patricio MD at [facility] N/A: Back [employer] [id number] / / Screw Spine 7.5x55mm Reline Mas Traction Poly - [id number] Implanted:Qty: 2 on 02/01/2024 by Reymundo Patricio MD at [facility] N/A: Back [employer] [id number] / / Spine Tevin 6 To [id number] Reline O Titanium Tapered - [id number] Implanted:Qty: 1 on 02/01/2024 by Reymundo Patricio MD at [facility] N/A: Back [employer] [id number] / / Procedures Procedure Name Priority Date/Time Associated Diagnosis Comments XR FULL BODY SURVEY ADULT Routine 01/31/2025 10:43 AM EDT Sagittal plane imbalance TSH WITH REFLEX Routine 01/10/2025 8:33 AM EDT Essential hypertension LIPID PANEL Routine 01/10/2025 8:33 AM EDT Mixed hyperlipidemia HEMOGLOBIN A1C Routine 01/10/2025 8:33 AM EDT Fasting hyperglycemia OUTSIDE SERUM CREATININE LEVEL Routine 09/26/2024 BI MAMMOGRAM SCREENING WITH TOMOSYNTHESIS WITH CAD (BILATERAL) Routine 04/26/2024 10:55 AM EST Breast cancer screening by mammogram BASIC METABOLIC PANEL Routine 02/08/2024 3:15 AM EDT ENDOSCOPY, COLON 12/23/2023 8:44 AM EDT HC BLOOD OCCULT FECAL HGB DETER IA QUAL FECES 1-3 Routine 09/16/2023 8:30 AM EDT Anemia, unspecified type BD DXA SPINE AND HIP WITH FOREARM Routine 09/07/2023 11:17 AM EDT Estrogen deficiency from Last 3 Months or Most Recently Relevant to Health Maintenance Results * XR FULL BODY SURVEY ADULT (01/31/2025 10:43 AM EDT) Anatomical Region Laterality Modality Computed Radiogr aphy 01/31/2025 11:2 9 AM EDT Impressions 01/31/2025 11:30 AM EDT EOS study as detailed. Narrative 01/31/2025 11:30 AM EDT XR FULL BODY SURVEY ADULT Referring clinician's provided indication for this examination in [facility]: Pain COMPARISON: XR FULL BODY SURVEY ADULT FINDINGS: Standing, simultaneously obtained orthogonal views of [...] Degenerative changes involve the hips. Procedure Note Mor Herring MD - 01/31/2025 XR FULL BODY SURVEY ADULT Referring clinician's provided indication for this examination in [facility]:Pain COMPARISON: XR FULL BODY SURVEY ADULT FINDINGS: Standing, simultaneously obtained orthogonal views of [...] bowelgas. Degenerative changes involve the hips. IMPRESSION: EOS study as detailed. us Reymundo Patricio MD IMG XR SKELETAL SURVEY Final Result * TSH with reflex (01/10/2025 8:33 AM EDT) TSH 2.09 0.27 - 4.20 uIU/mL [facility] Blood 01/10/2025 8:33 AM EDT 01/10/2025 9:00 AM EDT Hodan Brewster MD LAB BLOOD ORDERABLES Final Result [address] [address] * Hemoglobin A1c (01/10/2025 8:33 AM EDT) HEMOGLOBIN A1C 5.3 4.3 - 5.8 % [facility] Blood 01/10/2025 8:33 AM EDT 01/10/2025 8:59 AM EDT Hodan Brewster MD LAB BLOOD ORDERABLES Final Result Performing Organization Address City[facility] Co de Phone Number [address] [address] * (ABNORMAL) Lipid panel (01/10/2025 8:33 AM EDT) HDL 70 mg/dL [facility] Comment: Interpretation <40 mg/dL: Low HDL cholesterol (major risk factor for CHD) Greater than or equal to 60 mg/dL: High HDL cholesterol ( negative risk factor for CHD) HDL - cholesterol is affected by a number of factors, e.g. smoking, excerise, hormones, sex and age. CHOLESTEROL 179 0 - 240 mg/dL [facility] TRIGLYCERIDES 71 30 - 160 mg/dL [facility] LDL 95 50 - 129 mg/dL [facility] Comment: LDL levels in terms of risk for coronary heart disease: <100 mg/dL: Optimal 100-129 mg/dL: Near or above optimal 130-159 mg/dL: Borderline high 160-189 mg/dL: High >190 mg/dL: Very High CARDIAC RISK RATIO 2.6(L) 3.3 - 4.4 C [facility] Blood 01/10/2025 8:33 AM EDT 01/10/2025 8:59 AM EDT Hodan Brewster MD LAB BLOOD ORDERABLES Final Result [facility] [address] [place] [address] * (ABNORMAL) Outside Serum Creatinine Level (09/26/2024) Creatinine, serum - External 0.68(A) 0.8 - 1.3 mg/dL Rupesh Calero MD LAB BLOOD ORDERABLES Sam[facility] l Result * BI MAMMOGRAM SCREENING WITH TOMOSYNTHESIS [...] findings are identified mammographically in either breast. us Hodan Brewster MD IMG MG EXAMS Final Resul t * (ABNORMAL) Basic metabolic panel (02/08/2024 3:15 AM EDT) SODIUM 129(L) 135 - 145 mmol/L [facility] POTASSIUM 4.0 3.4 - 5.0 mmol/L [facility] CHLORIDE 95(L) 98 - 108 mmol/L [facility] CO2 24 23 - 32 mmol/L [facility] BUN 10 8 - 25 mg/dL [facility] CREATININE 0.47(L) 0.60 - 1.50 mg/dL [facility] GLUCOSE 99 70 - 110 mg/dL [facility] CALCIUM 9.3 8.5 - 10.5 mg/dL [facility] EGFR 101 >59 mL/min/1. 73m2 [facility] Comment:Estimated glomerular filtration rate calculated using the CKD-EPI refit equation. ANION GAP 10 3 - 17 mmol/L [facility] Blood 02/08/2024 3:15 AM EDT 02/08/2024 3:27 AM EDT Robert Regan [facility] LAB BLOOD ORDERABLES Final Result [facility] [address] [place] [address] * ENDOSCOPY, COLON (12/23/2023 8:44 AM EDT) Narrative Transcriptions Eric Oliver MD - 12/23/2023 8:44 AM EDT [facility] Patient Name: Loree Heller Attending MD:: ERIC OLIVER MD, Procedure Date: 12/23/2023 8:44 AM Date of : 1950 Age: 73 Admit Type: Outpatient Gender: Female Room: [facility] Referring MD: Hodan Brewster MD Exam Type: [...] monitored continuously. The Olympus adult variable colonoscope [id number] #5 was introduced through the anus and [...] 8:44 AM Procedure Code(s): --- Professional --- 42215, Colonoscopy, flexible; with biopsy, single or multiple --- Technical --- 69796, Colonoscopy, flexible; with biopsy, single or multiple Diagnosis Code(s): --- Professional --- K52.9, Noninfective gastroenteritis and colitis, unspecified K57.30, Diverticulosis of large intestine without perforation or abscess without bleeding --- Technical --- K52.9, Noninfective gastroenteritis and colitis, unspecified K57.30, Diverticulosis of large intestine without perforation or abscess without bleeding CPT copyright 2021 [employer]. All rights reserved. The codes documented in this report are preliminary and upon life skills teacher reviewmay be revised to meet current compliance requirements. Procedure Date: 12/23/2023 8:44:[address] [place] [id number] [place] Hodan Brewster MD GI PROCEDURE ORDERABLES Fin al Result * Fecal immunochemical test x1 (FIT) (09/16/2023 8:30 AM EDT) Immuno Fecal Occult Negative Negative [facility] Stool (Stool) 09/16/2023 8:3 0 AM EDT 09/16/2023 11:32 AM EDT Sandhya Farr CNP BODY FLUIDS AND STOOLS ORD ERABLES Final Result [facility] [address] [place] [address] * BD DXA SPINE AND HIP WITH [...] 3.1. This is in the normal range. This is a statistically significant bone mineral density change of 11.2% compared with 12/02/2018. The right hip (total) has a total bone mineral density of 0.973 g/cm2 with a T-score of 0.3. This is in the normal range. Statistically significant bone mineral density change of -6.2% compared with 11/24/2018. The right hip (neck) has a total bone mineral density of 0.824 g/cm2 with a T- score of -0.2. The left forearm has a total bone mineral density of 0.42 g/cm2 for a T-score of -1.6. Z score 0.7. This is [...] a total bone mineral density of 0.973 g/cv6zwkb a T- score of 0.3. This is [...] Most Recently Relevant to Health Maintenance Insurance [facility] MEDICARE PART A & B [facility] MEDICARE PART A & B [facility] MEDICARE PART A & B MEDICARE PART A & B MEDICARE PART A & [place] [address] MEDICARE PART A & [place] [address] [place] [address] MEDICARE PART A & B MEDICARE PART A & B [facility] FEDERAL MEDICARE PART A & B Advance Directives For more information, please contact: [phone] (9AM - 5PM [facility], Wednesday-Wednesday) * Full Code (Latest Code Status on File) Date Activated Date Inactivated Comments 02/01/2024 5:35 PM Question Answer Comments Code Status Confirmed With: Patient Care Teams Routing Equipment Tender Relationship Specialty Start Date End Date Hodan Brewster MD [address] [place] [id number] PCP - General Internal Medicine 07/30/17 Eddie Nina MD [email or web address] Historical LMR Provider 03/23/17 Hodan Brewster MD [address] [place] [address] [email or web address] Historical LMR Provider 03/23/17 Kacey George MD [address] [place] [address] Orthopedics & Sports Medicine, [place] [address] Historical LMR Provider 03/23/17 Hodan Brewster MD [address] [place] [address], 2nd [place] [address] [email or web address] Insurance Assigned Provider 09/11/23 Additional Source Comments The information contained in this document represents components of the legal health record. It is not the complete legal health record.[facility]
--- OUTSIDE RECORDS SUMMARY | 2025-02-26 14:06 | XMS_ITS | Clinical Summary ---
Author Organization [facility] it Address [address] [place] [address] Care Team Providers Care Analysis Specialist Name Role Phone Hodan Brewster MD Primary [...] 2001 Zoster Vaccines (1 of 2) 2001 Depression Screening 06/07/2024 COVID-19 Vaccine (1 - 2023-2 5 season) 2025 Influenza Vaccine (#1) 2025 RSV Immunization Adult Patie nts (1 [...] age to complete this topic Care Teams Analysis Specialist Relationship Specialty Start Date End Date Hodan Brewster MD [address] [address] PCP - General Internal Medicine 03/17/19
--- OUTSIDE RECORDS SUMMARY | 2025-02-26 14:06 | XMS_ITS | Encounter Summary ---
Author Organization [facility] Address [address] [facility] [address] [place] [address] Phone Care Team Providers Care Highway Truck Driver Name Role Phone Eddie Nina MD Unavailable Hodan Brewster MD Unavailable [phone] Kacey George MD Unavailable Hodan Brewster MD Primary Care Provider Hodan Brewster MD Unavailable [phone] Encounter Details Date Type Department Care Team (Latest Contact Info) Description 07/16/2023 Transcribe Orders Virtual Department 30 [place] [address] Omer Crowell PA [address] [place] [address] Other specified postprocedural states (Primary Dx); Dorsalgia, [...] high school, GED, job training, learning the Hungarian language, technical skills, or developing parenting skills)? 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 Not on file Not on file documented as of this encounter Plan of Treatment Upcoming Encounters Date Type Department Care Team (Late st Contact Info) Description 11/28/2024 Procedure Pass Echo Lab [facility] [address] [place] [address] 02/26/2025 2:30 PM EDT Appointment Non-Invasive Cardiology [address] [place] [address] Hodan Brewster MD [address] [place] [address], 2nd [place] [address] 03/02/2025 8:30 AM EDT Office Visit [facility] [address] [place] [address] 3rd Floor, [address] [place] [address] Susana Stuart DNP [address] [place] [address], [address] [place] [address] 06/13/2025 10:15 AM EST Appointment Echo Lab [address] [place] [address] Susana Stuart DNP [address] [place] [address], [address] [address] 06/27/2025 10:00 AM EST Office Visit [address] 3rd [facility], [address] [place] [address] Susana Stuart DNP [address] [place] [address], [address] [address] 08/01/2025 11:30 AM EST Office Visit [facility] Sp[facility] [address] [facility], 3rd Floor, [address] [place] [address] Reymundo Patricio MD [address] [place] [address] [email or web address] 01/28/2026 11:30 AM EDT Office Visit [facility] [address] [place] [address] [place] [address] Hodan Brewster MD [address] [place] [address], 2nd [place] [address] documented as of this encounter Visit Diagnoses Diagnosis Other specified postprocedural states- Primary Dorsalgia, unspecified documented in this encounter Additional Health Concerns Assessment Noted Time PHQ-2 Depression Total Score: 1 12/04/19 22 4:12 PM EDT documented as of this encounter Care Teams Highway Truck Driver Relationship Specialty Start Date End Date Hodan Brewster MD [address] [place] [address] PCP - General Internal Medicine 07/30/17 Eddie Nina MD [email or web address] Historical LMR Provider 03/23/17 Hodan Brewster MD [address] [place] [address] Historical LMR Provider 03/23/17 Kacey George MD [address] [place] [address] Orth[facility] Medicine, [place] [address] Historical LMR Provider 03/23/17 Hodan Brewster MD [address] [place] [address] Insurance Assigned Provider 09/11/23 documented as of this encounter Additional Source Comments The information contained in this document represents components of the legal health record. It is not the complete legal health record.[facility]
--- OUTSIDE RECORDS SUMMARY | 2025-02-26 14:06 | XMS_ITS | Clinical Summary ---
Author Organization [facility] Address [address] [place] [address] Care Team Providers Care Rubber Stamps And Dies Supervisor Name Role Phone Hodan Brewster MD Primary Care Provider [phone] Allergies Active Allergy Reactions Criticality Noted Date [...] Pregabalin 12/27/2018 Feet and leg swelling Tiotropium Sulphur 08/26/2021 Medications Tymlos 80 mcg (3,120 mcg/1.56 [...] Additional history exists COVID-19 Vaccine ( season) 2025 03/12/2023, 02/25/2021, 08/28/2020, Additional history exists Influenza Vaccine (#1) 2025 , 02/27/2021, 02/25/2021, Additional history exists Bone [...] topic Insurance MEDICARE PART A & B [facility] Care Teams Rubber Stamps And Dies Supervisor Relationship Specialty Start Date End Date Hodan Brewster MD [facility] [address] [place] [address] 2ND [place] [address] PCP - General Internal Medicine 10/04/23
--- OUTSIDE RECORDS SUMMARY | 2025-02-26 14:06 | XMS_ITS | Encounter Summary ---
Author Organization [facility] Address [address] [facility] [address] [place] [address] Phone Care Team Providers Care Combination Worker Name Role Phone Franchesca Alexandra MANAGER [place] Unavailable Alexia Galloway MANAGER [place] Unavailable Eddie Nina MD Unavailable Kellie Candelario MD Unavailable Hodan Brewster MD Unavailable Marlena Cunningham PUBLIC HEALTH ADVISOR Unavailable Susana Olguin MD Unavailable Margie Stahl DPM Unavailable Unavaila Dre Calderon MD Unavailable Kaushik Virgen MD Unavailable Zeeshan Ferrera MD Unavailable [phone] Kacey George MD Unavailable Tim White MD Unavailable Kaushik Virgen MD Primary Care Provider + Hodna Brewster MD Primary Care Provider Hodan Brewster MD Unavailable Hodan Brewster MD Unavailable Hodan Brewster MD Unavailable Encounter Details Date Type Department Care Team (Latest Contact Info) Description 06/24/2017 Transcribe Orders [facility] 30 [place] [address] Eddie Nina MD 22 [place] [address] [email or web address] Mixed hyperlipidemia Social History Tobacco Use Types [...] Info) Description 11/28/2024 Procedure Pass Echo Lab [address] [place] [address] 02/26/2025 2:30 PM EDT Appointment Non-Invasive Cardiology 30 [place] [address] Hodan Brewster MD [address] [place] [address], 2nd [place] [address] 03/02/2025 8:30 AM EDT Office Visit [facility] [address] [place] [address] 3rd Floor, [address] [place] [address] Susana Stuart DNP [address] [place] [address], [address] [address] 06/13/2025 10:15 AM EST Appointment Echo Lab [address] [place] [address] Susana Stuart DNP [address] [facility], [address] [place] [address] [email or web address] 06/27/2025 10:00 AM EST Office Visit [facility] [address] 3rd Floor, [address] [place] [address] Susana Stuart DNP [address] [facility], [address] [place] [address] 08/01/2025 11:30 AM EST Office Visit [facility] Orthopaedic Spine [address] [facility], 3rd Floor, [address] [place] [address] Reymundo Patricio MD 55 [place] [address] [email or web address] 01/28/2026 11:30 AM EDT Office Visit [facility] [address] [place] [address] [place] [address] Hodan Brewster MD [address] [place] [address], 2nd [place] [address] [email or web address] documented as of this encounter Procedures Procedure Name Priority Date/Time Associated Diagnosis Comments COMPREHENSIVE METABOLIC PANEL Routine 06/24/2017 1:00 PM EST Mixed hyperlipidemia CBC AND DIFFERENTIAL Routine 06/24/2017 1:00 PM EST Mixed hyperlipidemia LIPID PANEL Routine 06/24/2017 1:00 PM EST Mixed hyperlipidemia documented in this encounter Results * (ABNORMAL) Lipid panel (06/24/2017 1:00 PM EST) HDL 79 mg/dL [facility] Comment: Interpretation: Risk Level Females Decreased >55mg/dL Average 50-55 mg/dL Increased <50 mg/dL CHOLESTEROL 160 0 - 240 mg/dL [facility] TRIGLYCERIDES 49 30 - 160 mg/dL [facility] LDL 71 50 - 129 mg/dL [facility] Comment: LDL levels in terms of risk for coronary heart disease: <100 mg/dL: Optimal 100-129 mg/dL: Near or above optimal 130-159 mg/dL: Borderline high 160-189 mg/dL: High >190 mg/dL: Very High CARDIAC RISK RATIO 2.0(L) 3.3 - 4.4 C [facility] Blood 06/24/2017 1:00 PM EST 06/24/2017 1:04 PM EST us Eddie Nina MD LAB BLOOD ORDERABLES Samra osborne Result [facility] [address] [place] [address] * (ABNORMAL) Comprehensive metabolic panel (06/24/2017 1:00 PM EST) SODIUM 130(L) 133 - 146 mmol/L [facility] POTASSIUM 5.3(H) 3.3 - 5.1 mmol/L [facility] CHLORIDE 93(L) 96 - 108 mmol/L [facility] CO2 27 21 - 35 mmol/L [facility] BUN 10 6 - 19 mg/dL [facility] CREATININE 0.50 0.5 - 1.5 mg/dL [facility] GLUCOSE 103(H) 70 - 99 mg/dL [facility] ALBUMIN 4.5 3.9 - 4.8 g/dL [facility] TOTAL PROTEIN 6.9 6.5 - 8.0 g/dL [facility] CALCIUM 9.9 8.4 - 10.3 mg/dL [facility] ALKALINE PHOSPHATASE 43 39 - 117 U/L [facility] TOTAL BILIRUBIN 0.8 0 - 1.2 mg/dL [facility] AST 19 0 - 37 U/L [facility] ALT 18 0 - 40 U/L [facility] GLOBULIN 2.4 1 - 4.8 g/dL [facility] EGFR >60 60 - 1000 mL/min/1.7 3m2 [facility] Comment:Abnormal if <60. If patient is -[place] Citizen, multiply the result by 1.21. ANION GAP 15 10 - 20 mmol/L [facility] Blood 06/24/2017 1:00 PM EST 06/24/2017 1:04 PM EST us Eddie Nina MD LAB BLOOD ORDERABLES Samra osborne Result [address] [address] * (ABNORMAL) CBC and differential (06/24/2017 1:00 PM EST) WBC 4.63 3.40 - 11.20 K/uL [facility] RBC 3.75(L) 3.80 - 4.80 M/uL [facility] HGB 11.7(L) 12.0 - 15.0 g/dL [facility] HCT 34.7(L) 36.0 - 46.0 % [facility] PLT 316 130 - 400 K/uL [facility] MCV 92.5 79.0 - 98.0 fL [facility] MCH 31.2 27.0 - 34.8 pg [facility] MCHC 33.7 31.5 - 36.0 g/dL [facility] RDW 12.6 10.8 - 14.6 % [facility] MPV 8.8(L) 9.4 - 12.4 fl [facility] NRBC 0.00 /100 WBCs [facility] ABSOLUTE NRBC 0.00 K/uL [facility] DIFF METHOD Auto [facility] NEUTS 61.8 45.30 - 77.70 % [facility] LYMPHS 21.6 12.30 - 39.70 % [facility] MONOS 11.2 4.10 - 12.80 % [facility] EOS 4.1 0 - 7.2 % [facility] BASOS 0.9 0 - 2.80 % [facility] Granulocytes, immature (%) 0.4 0.0 - 0.9 % [facility] ABSOLUTE NEUTS 2.86 1.40 - 7.70 K/uL [facility] ABSOLUTE LYMPHS 1.00 0.60 - 3.20 K/uL [facility] ABSOLUTE MONOS 0.52 0.11 - 0.59 K/uL [facility] ABSOLUTE EOS 0.19 0.01 - 0.50 K/uL [facility] ABSOLUTE BASOS 0.04 0.00 - 0.08 K/uL [facility] Granulocytes, immature 0.02 0.00 - 0.05 K/uL [facility] Blood 06/24/2017 1:00 PM EST 06/24/2017 1:04 PM EST us Eddie Nina MD LAB BLOOD ORDERABLES Samra osborne Result [address] [address] documented in this encounter Visit Diagnoses Diagnosis Mixed hyperlipidemia documented in this encounter Care Teams Combination Worker Relationship Specialty Start Date End Date Kaushik Virgen MD [address] [place] [address] [email or web address] PCP - General Family Medicine 06/14/17 07/29/17 Hodan Brewster MD [address] [place] [address], 2nd [place] [address] [email or web address] PCP - General Internal Medicine 07/30/17 Franchesca Alexandra NP [address] [place] [address] Historical LMR Provider 03/23/17 Alexia Galloway NP [address] [place] [address] [email or web address] Historical LMR Provider 03/23/17 Eddie Nina MD [address] [place] [address] [email or web address] Historical LMR Provider 03/23/17 Kellie Candelario MD [address] [place] [address] Historical LMR Provider 03/23/17 Hodan Brewster MD [address] [place] [address] [email or web address] Historical LMR Provider 03/23/17 Marlena Cunningham FNP [address] [facility] [place] [address] [email or web address] Historical LMR Provider 03/23/17 06/14/21 Susana Olguin MD [address] [facility], [address] [place] [address] Historical LMR Provider 03/23/17 06/14/21 Margie Stahl DPM [address] [place] [address] Historical LMR Provider 03/23/17 2 Dre Novak MD [address] [place] [address], 2nd [place] [address] Historical LMR Provider 03/23/17 06/14/21 Kaushik Virgen MD [address] [place] [address] [email or web address] Historical LMR Provider 03/23/17 06/14/21 Zeesahn Ferrera MD [address] [place] [address], [address] [place] [address] Historical LMR Provider 03/23/17 06/14/21 Kacey George MD [address] [place] [address] [facility]ics [facility] Medicine, [place] [address] Historical LMR Provider 03/23/17 Tim White MD [address] [place] [address] [email or web address] Historical LMR Provider 03/23/17 06/14/21 Hodan Brewster MD [address] [place] [address] Insurance Assigned Provider 10/08/18 12/17/18 Hodan Brewster MD [address] [place] [address] Insurance Assigned Provider 09/13/19 06/13/22 Hodan Brewster MD [address] [place] [address] Insurance Assigned Provider 09/11/23 documented as of this encounter Additional Source Comments The information contained in this document represents components of the legal health record. It is not the complete legal health record.[facility]
--- OUTSIDE RECORDS SUMMARY | 2025-02-26 14:06 | XMS_ITS | Encounter Summary ---
Author Organization [facility] Address [address] [facility] [address] [place] [address] Phone Care Team Providers Care Typing Secretary Name Role Phone Franchesca Alexandra RELIGION TEACHER Unavailable Alexia Galloway RELIGION TEACHER Unavailable Eddie Nina MD Unavailable Kellie Candelario MD Unavailable [phone] Hodan Brewster MD Unavailable Marlena Cunningham NET PROGRAMMER ANALYST Unavailable Susana Olguin MD Unavailable Margie Stahl DPM Unavailable Unavaila ble Dre Novak MD Unavailable Kaushik Virgen MD Unavailable Zeeshan Ferrera MD Unavailable [phone] Kacey George MD Unavailable Tim White MD Unavailable Hodan Brewster MD Primary Care Provider Hodan Brewster MD Unavailable [phone] Hodan Brewster MD Unavailable Hodan Brewster MD Unavailable Encounter Details Date Type Department Care Team (Late Contact Info) Description 05/27/2018 Ancillary Orders Virtual Department 30 [place] [address] Hodan Brewster MD [address] [place] [address], 2nd [place] [address] Breast screening Social History Tobacco Use Types [...] 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, [address] [place] [address] Susana Stuart, CHUCK [facility], [address] [address] 06/13/2025 10:15 AM EST Appointment Echo Lab [address] [place] [address] Susana Stuart DNP [address] [facility], [address] [place] [address] [email or web address] 06/27/2025 10:00 AM EST Office Visit [facility] [address] 3rd Floor, [address] [place] [address] Susana Stuart DNP [address] [facility], [address] [place] [address] 08/01/2025 11:30 AM EST Office Visit [facility] [place]opaedic Spine [address] [facility], 3rd Floor, [address] [place] [address] Reymundo Patricio MD 55 [place] [address] [email or web address] 01/28/2026 11:30 AM EDT Office Visit [facility] [address] [place] [address] [place] [address] Hodan Brewster MD [address] [place] [address], 2nd [place] [address] [email or web address] documented as of this encounter Results * BI MAMMOGRAM SCREENING WITH TOMOSYNTHESIS WITH CAD (BILATERAL) (07/28/2018 1:18 PM EST) Anatomical Region Laterality Modality Breast Left, Breast Right, Breast Bilateral Bila teral Mammography 07/28/2018 2:56 PM EST Impressions 07/28/2018 2:58 PM EST No mammographic evidence of malignancy. BI-RADS CATEGORY: 2 - Benign finding. DENSITY: There are scattered fibroglandular densities. POS - [facility] Narrative 07/28/2018 2:58 PM [...] and compared with multiple prior studies, most pgncirit70/31/2018, with utilization of computer-aided detection. The breasts [...] densities. POS - [facility] Hodan Brewster MD IM MG EXAMS Final Resul t documented in this encounter Visit Diagnoses Diagnosis Breast screening Breast screening, unspecified Breast screening Breast screening, unspecified documented in this encounter Care Teams Typing Secretary Relationship Specialty Start Date End Date Hodan Brewster MD [address] [place] [address], 2nd [place] [address] [email or web address] PCP - General Internal Medicine 07/30/17 Franchesca Alexandra NP [address] [place] [address] Historical LMR Provider 03/23/17 Alexia Galloway NP [address] [place] [address] [email or web address] Historical LMR Provider 03/23/17 Eddie Nina MD [address] [place] [address] [email or web address] Historical LMR Provider 03/23/17 Kellie Candelario MD [address] [place] [address] Historical LMR Provider 03/23/17 Hodan Brewster MD [address] [place] [address] Historical LMR Provider 03/23/17 Marlena Cunningham FNP [address] [facility], [address] [place] [address] Historical LMR Provider 03/23/17 06/14/21 Susana Olguin MD [address] [facility], [address] [place] [address] Historical LMR Provider 03/23/17 06/14/21 Margie Stahl DPM [address] [place] [address] Historical LMR Provider 03/23/17 Dre Weir MD [address] [place] [address] [email or web address] Historical LMR Provider 03/23/17 06/14/21 Kaushik Virgen MD [address] [place] [address] [email or web address] Historical LMR Provider 03/23/17 06/14/21 Zeeshan Ferrera MD [address] [place] [address], [address] [place] [address] [email or web address] Historical LMR Provider 03/23/17 06/14/21 Kacey George MD [address] [place] [address] [facility], [place] [address] [email or web address] Historical LMR Provider 03/23/17 Tim White MD [address] [place] [address] [email or web address] Historical LMR Provider 03/23/17 06/14/21 Hodan Brewster MD [address] [place] [address] [email or web address] Insurance Assigned Provider 10/08/18 12/17/18 Hodan Brewster MD [address] [place] [address] [email or web address] Insurance Assigned Provider 09/13/19 06/13/22 Hodan Brewster MD [address] [place] [address], 2nd [place] [address] [email or web address] Insurance Assigned Provider 09/11/23 documented as of this encounter Additional Source Comments The information contained in this document represents components of the legal health record. It is not the complete legal health record.[facility]
--- OUTSIDE RECORDS SUMMARY | 2025-02-26 14:06 | XMS_ITS | Encounter Summary ---
Author Organization [facility] Address [address] [facility] [address] [place] [address] Phone Care Team Providers Care Soil Technologist Name Role Phone Franchesca Alexandra DRAFTER COMMERCIAL Unavailable Alexia Galloway DRAFTER COMMERCIAL Unavailable Eddie Nina MD Unavailable Kellie Candelario MD Unavailable [phone] Hodan Brewster MD Unavailable [phone] Marlena Cunningham BLOCKER POLISHING Unavailable Susana Olguin MD Unavailable Margie Stahl DPM Unavailable Unavaila ble Dre Novak MD Unavailable Kaushik Virgen MD Unavailable Zeeshan Ferrera MD Unavailable [phone] Kacey George MD Unavailable Tim White MD Unavailable Hodan Brewster MD Primary Care Provider [phone] Hodan Brewster MD Unavailable [phone] Hodan Brewster MD Unavailable Hodan Brewster MD Unavailable Encounter Details Date Type Department Care Team (Late st Contact Info) Description 05/27/2018 Ancillary Orders [facility] [address] [place] [address] [place] [address] Hodan Brewster MD [address] [place] [address], 2nd [place] [address] Social History Tobacco Use Types Packs/Day Years [...] 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 on file documented as of this encounter Plan of Treatment Upcoming Encounters Date Type Department Care Team (Late st Contact Info) Description 11/28/2024 Procedure Pass Echo Lab [address] [place] [address] 02/26/2025 2:30 PM EDT Appointment Non-Invasive Cardiology [address] [place] [address] Hodan Brewster MD [address] [place] [address], 2nd [place] [address] 03/02/2025 8:30 AM EDT Office Visit [facility] [address] 3rd Floor, [address] [place] [address] Susana Stuart, [facility] 22 [facility], [address] [address] 06/13/2025 10:15 AM EST Appointment Echo Lab [address] [place] [address] Susana Stuart DNP 22 [facility], [address] [place] [address] 06/27/2025 10:00 AM EST Office Visit [facility] [address] [place] [address] Dr 3rd Floor, [address] [place] [address] Susana Stuart DNP 22 [facility], [address] [place] [address] 08/01/2025 11:30 AM EST Office Visit [facility] [address] [facility], 3rd Floor, [address] [place] [address] Reymundo Patricio MD 55 [place] [address] [email or web address] 01/28/2026 11:30 AM EDT Office Visit [facility] [address] [place] [address] [place] [address] Hodan Brewster MD [address] [place] [address], 2nd [place] [address] documented as of this encounter Visit Diagnoses Not on filedocumented in this encounter Care Teams Soil Technologist Relationship Specialty Start Date End Date Hodan Brewster MD [address] [place] [address], 2[address] [place] [address] PCP - General Internal Medicine 07/30/17 Franchesca Alexandra NP [address] [place] [address] Historical LMR Provider 10/17/17 1/8/ 22 Alexia Galloway, RICHIE [address] [place] [address] [email or web address] Historical LMR Provider 03/23/17 Eddie Nina MD [address] [place] [address] [email or web address] Historical LMR Provider 03/23/17 Kellie Candelario MD [address] [place] [address] Historical LMR Provider 03/23/17 Hodan Brewster MD [address] [place] [address] Historical LMR Provider 03/23/17 Marlena Cunningham FNP 38 [facility] 204, [address] [place] [address] Historical LMR Provider 03/23/17 06/14/21 Susana Olguin MD 38 [facility]. 204, [address] [place] [address] Historical LMR Provider 03/23/17 06/14/21 Margie Stahl DPM [address] [place] [address] Historical LMR Provider 03/23/17 Dre Weir MD [address] [place] [address] [email or web address] Historical LMR Provider 03/23/17 06/14/21 Kuashik Virgen MD [address] [place] [address] [email or web address] Historical LMR Provider 03/23/17 06/14/21 Zeeshan Ferrera MD [address] [place] [address], [facility] [address] [place] [address] [email or web address] Historical LMR Provider 03/23/17 06/14/21 Kacey George MD [address] [place] [address] Orthopedics & Sports Medicine, [place] [address] [email or web address] Historical LMR Provider 03/23/17 Tim White MD [address] [place] [address] [email or web address] Historical LMR Provider 03/23/17 06/14/21 Hodan Brewster MD [address] [place] [address] Insurance Assigned Provider 10/08/18 12/17/18 Hodan Brewster MD [address] [place] [address] Insurance Assigned Provider 09/13/19 06/13/22 Hodan Brewster MD [address] [place] [address], 2nd [place] [address] [email or web address] Insurance Assigned Provider 09/11/23 documented as of this encounter Additional Source Comments The information contained in this document represents components of the legal health record. It is not the complete legal health record.[facility]
--- OUTSIDE RECORDS SUMMARY | 2025-02-26 14:06 | XMS_ITS | Encounter Summary ---
Author Organization [facility] Address [address] [facility] [address] [place] [address] Phone Care Team Providers Care Sleeve Setter Safety Stitch Name Role Phone Hodan Brewster MD Primary Care Provider [phone] Franchesca Alexandra CREW TRAINER Unavailable Alexia Galloway CREW TRAINER Unavailable [phone] Eddie Nina MD Unavailable [phone] Kellie Candelario MD Unavailable [phone] Hodan Brewster MD Unavailable [phone] Marlena Cunningham SCALE AND SKIP CAR OPERATOR Unavailable [phone] Susana Olguin MD Unavailable [phone] Margie Stahl DPM Unavailable Unavaila ble Dre Novak MD Unavailable [phone] Kaushik Virgen MD Unavailable [phone] Zeeshan Ferrera MD Unavailable [phone] Kacey George MD Unavailable [phone] Tim White MD Unavailable [phone] Kaushik Virgen MD Primary Care Provider + Hodan Brewster MD Primary Care Provider [phone] Hodan Brewster MD Unavailable Hodan Brewster MD Unavailable [phone] Hodan Brewster MD Unavailable [phone] Encounter Details Date Type Department Care Team (Late Contact Info) Description 04/09/2017 Ancillary Orders [facility] [address] [place] [address] System, Provider Not In, [place] [address] Social History Tobacco Use Types Packs/Day Years [...] Info) Description 11/28/2024 Procedure Pass Echo Lab [address] [place] [address] 02/26/2025 2:30 PM EDT Appointment Non-Invasive Cardiology [address] [place] [address] Hodan Brewster MD [address] [place] [address], 2nd [place] [address] 03/02/2025 8:30 AM EDT Office Visit [facility] [address] [place] [address] 3rd Floor, [address] [place] [address] Susana Stuart DNP [address] [place] [address], [address] [address] 06/13/2025 10:15 AM EST Appointment Echo Lab [address] [place] [address] Susana Stuart DNP [address] [place] [address], [address] [address] 06/27/2025 10:00 AM EST Office Visit [facility] [address] 3rd Floor, [address] [place] [address] Susana Stuart DNP 22 [facility], [address] [place] [address] 08/01/2025 11:30 AM EST Office Visit [facility] [place] Orthopaedic Spine 55 [facility], 3rd Floor, [address] [place] [address] Reymundo Patricio MD [address] [place] [address] [email or web address] 01/28/2026 11:30 AM EDT Office Visit [facility] [address] [place] [address] [place] [address] Hodan Brewster MD [address] [place] [address], 2nd [place] [address] documented as of this encounter Results * XR SPINE OUTSIDE(NO INTERPRETATION) (09/08/2016 12:00 AM EDT) Narrative SYSTEMGENERATED, DOCUMENTATION - 04/09/2017 10:17 AM EDT This study is for PACS storage only and not for interpretation. us Provider Not In System PhD IMG OUTSIDE IMAGING W /OUT INTERPRETATION Final Result documented in this encounter Visit Diagnoses Not on filedocumented in this encounter Care Teams Sleeve Setter Safety Stitch Relationship Specialty Start Date End Date Hodan Brewster MD [address] [place] [address], 2nd [place] [address] PCP - General 3/10/17 1/7/18 Kaushik Virgen MD [address] [place] [address] [email or web address] PCP - General Family Medicine 06/14/17 07/29/17 Hodan Brewster MD [address] [place] [address] [email or web address] PCP - General Internal Medicine 07/30/17 Franchesca Alexandra, RICHIE [address] [place] [address] Historical LMR Provider 03/23/17 Alexia Galloway NP [address] [place] [address] [email or web address] Historical LMR Provider 03/23/17 Eddie Nina MD [address] [place] [address] [email or web address] Historical LMR Provider 03/23/17 Kellie Candelario MD [address] [place] [address] Historical LMR Provider 03/23/17 Hodan Brewstre MD [address] [place] [address] [email or web address] Historical LMR Provider 03/23/17 Marlena Cunningham FNP [address] [place] [address] 204, [address] [place] [address] Historical LMR Provider 03/23/17 06/14/21 Susana Olguin MD 38 [facility]. 204, [address] [place] [address] Historical LMR Provider 03/23/17 06/14/21 Margie Stahl DPM 575 [place] [address] Historical LMR Provider 03/23/17 2 Dre Novak MD 22 [facility], 2nd [place] [address] Historical LMR Provider 03/23/17 06/14/21 Kaushik Virgen MD [address] [place] [address] [email or web address] Historical LMR Provider 03/23/17 06/14/21 Zeeshan Ferrera MD 22 [facility], [address] [place] [address] Historical LMR Provider 03/23/17 06/14/21 Kacey George MD [address] [place] [address] Orthoped[facility] Sports Medicine, [place] [address] Historical LMR Provider 03/23/17 Tim White MD [address] [place] [address] [email or web address] Historical LMR Provider 03/23/17 06/14/21 Hodan Brewster MD [address] [place] [address] Insurance Assigned Provider 10/08/18 12/17/18 Hodan Brewster MD [address] [place] [address] Insurance Assigned Provider 09/13/19 06/13/22 Hodan Brewster MD [address] [place] [address] Insurance Assigned Provider 09/11/23 documented as of this encounter Additional Source Comments The information contained in this document represents components of the legal health record. It is not the complete legal health record.[facility]
--- OUTSIDE RECORDS SUMMARY | 2025-02-26 14:06 | XMS_ITS | Encounter Summary ---
Author Organization [facility] Address [address] [facility] [address] [place] [address] Phone Care Team Providers Care Solar Sales Estimator Name Role Phone Franchesca Alexandra MANAGER EMPLOYEE RELATIONS Unavailable Alexia Galloway MANAGER EMPLOYEE RELATIONS Unavailable [phone] Eddie Nina MD Unavailable Kellie Candelario MD Unavailable [phone] Hodan Brewster MD Unavailable Marlena Cunningham WEBLOGIC ADMINISTRATOR Unavailable Susana Olguin MD Unavailable Margie Stahl DPM Unavailable Unavaila Dre Calderon MD Unavailable Kaushik Virgen MD Unavailable Zeeshan Ferrera MD Unavailable [phone] Kacey George MD Unavailable Tim White MD Unavailable Kaushik Virgen MD Primary Care Provider + Hodan Brewster MD Primary Care Provider Hodan Brewster MD Unavailable Hodan Brewster MD Unavailable [phone] Hodan Brewster MD Unavailable Encounter Details Date Type Department Care Team (Late st Contact Info) Description 06/17/2017 Ancillary Orders [facility] [address] [place] [address] Dr Boog[place] ALENA [address] Kaushik Virgen MD [address] [place] [address] 2nd Flr ALENA BOOGIE [address] [email or web address] Breast screening Social History Tobacco Use Types [...] Info) Description 11/28/2024 Procedure Pass Echo Lab [address] [place] [address] 02/26/2025 2:30 PM EDT Appointment Non-Invasive Cardiology [address] [place] [address] Hodan Brewster MD [address] [place] [address], 2nd [place] [address] 03/02/2025 8:30 AM EDT Office Visit [facility] [address] [place] [address] 3rd Floor, [address] [place] [address] Susana Stuart DNP [address] [place] [address], [address] [address] 06/13/2025 10:15 AM EST Appointment Echo Lab [address] [place] [address] Susana Stuart DNP 22 [facility], [address] [place] [address] [email or web address] 06/27/2025 10:00 AM EST Office Visit [facility] [address] 3rd Floor, [address] [place] [address] Susana Stuart DNP 22 [facility], [address] [place] [address] 08/01/2025 11:30 AM EST Office Visit [facility] 55 [facility], 3rd Floor, [address] [place] [address] Reymundo Patricio MD [address] [place] [address] [email or web address] 01/28/2026 11:30 AM EDT Office Visit [facility] [address] [place] [address] [place] [address] Hodan Brewster MD [address] [place] [address], 2nd [place] [address] [email or web address] documented as of this encounter Results * BI MAMMOGRAM SCREENING WITH TOMOSYNTHESIS WITH CAD (BILATERAL) (07/07/2017 11:05 AM EST) Anatomical Region Laterality Modality Breast Left, Breast Right, Breast Bilateral Bila teral Mammography 07/07/2017 11:4 6 AM EST Impressions 07/07/2017 11:48 AM EST Stable appearance relative to prior imaging. No findings suggestive of malignancy are seen. BI-RADS CATEGORY: 2 - Benign finding. DENSITY: There are scattered fibroglandular densities. POS - [id number] Narrative 07/07/2017 11:48 AM EST Full-field digital mammography is obtained with computer-aided detection. Comparison with prior imaging from 07/03/2016 is made with older imaging dating back as far as 05/12/2011 also reviewed. There is scattered fibroglandular density evident in the breasts. In addition to 2-D C view imaging, tomosynthesis images are obtained in two projections of each breast. Scattered bilateral breast calcifications are unchanged.. No dominant soft tissue mass of concern, suspicious [...] There are scattered fibroglandular densities. POS - [id number] Kaushik Virgen MD IMG MG EXAMS Final Re sult documented in this encounter Visit Diagnoses Diagnosis Breast screening Breast screening, unspecified documented in this encounter Care Teams Solar Sales Estimator Relationship Specialty Start Date End Date Kaushik Virgen MD [address] [place] [address] PCP - General Family Medicine 06/14/17 07/29/17 Hodan Brewster MD [address] [place] [address], 2nd [place] [address] PCP - General Internal Medicine 07/30/17 Franchesca Alexandra, MANAGER EMPLOYEE RELATIONS 1 [place] [address] Historical LMR Provider 03/23/17 Alexia Galloway, RICHIE [address] [place] [address] [email or web address] Historical LMR Provider 03/23/17 Eddie Nina MD [address] [place] [address] [email or web address] Historical LMR Provider 03/23/17 Kellie Candelario MD [address] [place] [address] Historical LMR Provider 03/23/17 Hodan Brewster MD [address] [place] [address], 2nd [place] [address] [email or web address] Historical LMR Provider 03/23/17 Marlena Cunningham FNP 38 [facility] 204, [address] [place] [address] [email or web address] Historical LMR Provider 03/23/17 06/14/21 Susana Olguin MD 38 [facility] 204, [address] [place] [address] [email or web address] Historical LMR Provider 03/23/17 06/14/21 Margie Stahl DPM [address] [place] [address] Historical LMR Provider 03/23/17 2 Dre Novak MD [address] [place] [address] [email or web address] Historical LMR Provider 03/23/17 06/14/21 Kaushik Virgen MD [address] [place] [address] [email or web address] Historical LMR Provider 03/23/17 06/14/21 Zeeshan Ferrera MD [address] [place] [address], [address] [place] [address] Historical LMR Provider 03/23/17 06/14/21 Kacey George MD [address] [place] [address] Orthopedics [facility] Sports Medicine, [place] [address] Historical LMR Provider 03/23/17 Tim White MD [address] [place] [address] [email or web address] Historical LMR Provider 03/23/17 06/14/21 Hodan Brewster MD [address] [place] [address] [email or web address] Insurance Assigned Provider 10/08/18 12/17/18 Hodan Brewster MD [address] [place] [address] Insurance Assigned Provider 09/13/19 06/13/22 Hodan Brewster MD [address] [place] [address], 2nd [place] [address] Insurance Assigned Provider 09/11/23 documented as of this encounter Additional Source Comments The information contained in this document represents components of the legal health record. It is not the complete legal health record.[facility]
--- OUTSIDE RECORDS SUMMARY | 2025-02-26 14:07 | XMS_ITS | Encounter Summary ---
Author Organization [facility] Address [address] [place] [address] Phone Care Team Providers Care Tool Maker Bench Name Role Phone Eddie Nina MD Unavailable Hodan Brewster MD Unavailable [phone] Kacey George MD Unavailable [phone] Hodan Brewster MD Primary Care Provider [phone] Hodan Brewster MD Unavailable [phone] Hodan Brewster MD Unavailable [phone] Encounter Details Date Type Department Care Team (Late st Contact Info) Description 12/03/2021 Procedure Pass [facility] - [address] [place] [address] Social History Tobacco Use Types Packs/Day Years [...] high school, GED, job training, learning the British language, technical skills, or developing parenting skills)? 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 on file Not on file Not on file documented as of this encounter Plan of Treatment Upcoming Encounters Date Type Department Care Team (Late st Contact Info) Description 11/28/2024 Procedure Pass Echo Lab [address] [place] [address] 02/26/2025 2:06 PM EDT Hospital Encounter Non-Invasive Cardiology [address] [place] [address] Hodan Brewster MD 170 [facility], 2nd [place] [address] Arrived 03/02/2025 8:30 AM EDT Office Visit [facility] [address]rd Floor, [address] [place] [address] Susana Stuart DNP 22 [facility], [address] [address] 06/13/2025 10:15 AM EST Appointment Echo Lab [address] [place] [address] Susana Stuart DNP 22 [facility], [address] [place] [address] 06/27/2025 10:00 AM EST Office Visit [address] 3rd Floor, [address] [place] [address] Susana Stuart DNP [address] [place] [address], [address] [place] [address] 08/01/2025 11:30 AM EST Office Visit [facility] 55 [facility], 3rd Floor, [address] [place] [address] Reymundo Patricio MD [address] [place] [address] [email or web address] 01/28/2026 11:30 AM EDT Office Visit [facility] [address] [place] [address] [place] [address] Hodan Brewster MD [address] [place] [address], 2nd [place] [address] documented as of this encounter Visit Diagnoses Not on filedocumented in this encounter Additional Health Concerns Assessment Noted Time PHQ-2 Depression Total Score: 1 12/04/19 22 4:12 PM EDT documented as of this encounter Care Teams Tool Maker Bench Relationship Specialty Start Date End Date Hodan Brewster MD [address] [place] [address] PCP - General Internal Medicine 07/30/17 Eddie Nina MD [email or web address] Historical LMR Provider 03/23/17 Hodan Brewster MD [address] [place] [address] Historical LMR Provider 03/23/17 Kacey George MD [address] [place] [address] [facility], [place] [address] Historical LMR Provider 03/23/17 Hodan Brewster MD [address] [place] [address] Insurance Assigned Provider 09/13/19 06/13/22 Hodan Brewster MD [address] [place] [address] Insurance Assigned Provider 09/11/23 documented as of this encounter Additional Source Comments The information contained in this document represents components of the legal health record. It is not the complete legal health record.[facility]
--- OUTSIDE RECORDS SUMMARY | 2025-02-26 14:07 | XMS_ITS | Encounter Summary ---
Author Organization [facility] Address [address] [facility] [address] [place] [address] Phone Care Team Providers Care Technical Testing Engineer Name Role Phone Eddie Nina MD Unavailable Hodan Brewster MD Unavailable [phone] Kacey George MD Unavailable [phone] Hodan Brewster MD Primary Care Provider Hodan Brewster MD Unavailable [phone] Reason for Referral * MRI/CAT Scan - Closed Specialty Diagnoses / Procedures Referred By Contac t Referred To Contact Radiology Diagnoses Dorsalgia, unspecified Other specified postprocedural states Procedures MRI Lumbar Spine Donato Wynn MD [address] [place] [address] [place] [address] Phone: tel: fax: Referral ID Status Reason Start Date Expiration Date Visits Re quested Visits Authorized [id number] Closed 01/28/2023 1 1 Encounter Details Date Type Department Care Team (Latest Contact Info) Description 01/28/2023 Transcribe Orders [facility] Department [address] [place] [address] Donato Wynn MD [address] [place] [address] [place] [address] Dorsalgia, unspecified (Primary Dx); Other specified postprocedural [...] high school, GED, job training, learning the Moldovan language, technical skills, or developing parenting skills)? 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, [address] [place] [address] Susana Stuart DNP [address] [place] [address], [address] [address] 06/13/2025 10:15 AM EST Appointment Echo Lab [address] [place] [address] Susana Stuart DNP [address] [place] [address], [address] [address] 06/27/2025 10:00 AM EST Office Visit [facility] Leon Vallecito 3rd Floor, [address] [place] [address] Susana Stuart DNP [address] [place] [address], [address] [address] 08/01/2025 11:30 AM EST Office Visit [facility] [address] [facility], 3rd Floor, [address] [place] [address] Reymundo Patricio MD 55 [place] [address] [email or web address] 01/28/2026 11:30 AM EDT Office Visit [facility] [address] [place] [address] [place] [address] Hodan Brewster MD [address] [place] [address], 2nd [place] [address] [email or web address] documented as of this encounter Results * [...] posterior paraspinal muscle atrophy. FINDINGS BY LEVEL: 11-T12: Facet arthropathy and [...] MRI LUMBAR SPINE (NEURO) WITH AND WITHOUT [id number] FINDINGS: ALIGNMENT: Straightening of the lumbar lordosis. [...] L3-4 and L4-5 hemilaminectomy, discectomy, and L3- N7resmecgrj fusion. 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 without severe [...] retropulsion. Donato Wynn MD IMG MR XSPECIALTY Final R esult documented in this encounter Visit Diagnoses Diagnosis Dorsalgia, unspecified- Primary Other specified postprocedural states Dorsalgia, unspecified Other specified postprocedural states documented in this encounter Additional Health Concerns Assessment Noted Time PHQ-2 Depression Total Score: 1 12/04/19 4:12 PM EDT documented as of this encounter Care Teams Technical Testing Engineer Relationship Specialty Start Date End Date Hodan Brewster MD [address] [place] [address] [email or web address] PCP - General Internal Medicine 07/30/17 Eddie Nina MD [email or web address] Historical LMR Provider 03/23/17 Hodan Brewster MD [address] [place] [address] Historical LMR Provider 03/23/17 Kacey George MD [address] [place] [address] [facility], [place] [address] Historical LMR Provider 03/23/17 Hodan Brewster MD [address] [place] [address] Insurance Assigned Provider 09/11/23 documented as of this encounter Additional Source Comments The information contained in this document represents components of the legal health record. It is not the complete legal health record.[facility]
--- OUTSIDE RECORDS SUMMARY | 2025-02-26 14:07 | XMS_ITS | Encounter Summary ---
Author Organization [facility] Address [address] [facility] [address] [place] [address] Phone Care Team Providers Care Clinical Veterinarian Name Role Phone Hodan Brewster MD Primary Care Provider [phone] Franchesca Alexandra [employer] Unavailable Alexia Galloway [employer] Unavailable [phone] Eddie Nina MD Unavailable [phone] Kellie Candelario MD Unavailable [phone] Hodan Brewster MD Unavailable [phone] Marlena Cunningham DATA SOLUTIONS ARCHITECT Unavailable [phone] Susana Olguin MD Unavailable [phone] Margie Stahl DPM Unavailable Unavaila ble Dre Novak MD Unavailable [phone] Kaushik Virgen MD Unavailable [phone] Zeeshan Ferrera MD Unavailable [phone] Kacey George MD Unavailable [phone] Tim White MD Unavailable [phone] Kaushik Virgen MD Primary Care Provider + Hodan Brewster MD Primary Care Provider [phone] Hodan Brewster MD Unavailable [phone] Hodan Brewster MD Unavailable Hodan Brewster MD Unavailable [phone] Encounter Details Date Type Department Care Team (Late st Contact Info) Description 08/27/2016 Procedure Pass [facility] [address] [place] [address] Social History Tobacco Use Types Packs/Day Years 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 on file Not on file documented as of this encounter Plan of Treatment Upcoming Encounters Date Type Department Care Team (Late st Contact Info) Description 11/28/2024 Procedure Pass [facility] [address] [address] 02/26/2025 2:06 PM EDT Hospital Encounter Non-Invasive Cardiology 30 [place] [address] Hodan Brewster MD [address] [place] [address], 2nd [place] [address] Arrived 03/02/2025 8:30 AM EDT Office Visit [facility] [address] [place] [address] 3rd Floor, [address] [place] [address] Susana Stuart, CHUCK 22 [facility], [address] [address] 06/13/2025 10:15 AM EST Appointment Echo Lab [address] [place] [address] Susana Stuart DNP [address] [facility], [address] [place] [address] 06/27/2025 10:00 AM EST Office Visit [facility] [address] [place] [address] Dr 3rd Floor, [address] [place] [address] Susana Stuart DNP 22 [facility], [address] [place] [address] 08/01/2025 11:30 AM EST Office Visit [facility] Orthopaedic Spine [address] [facility], 3rd Floor, [address] [place] [address] Reymundo Patricio MD 55 [place] [address] [email or web address] 01/28/2026 11:30 AM EDT Office Visit [facility] [address] [place] [address] [place] [id number] Hodan Brewster MD [address] [place] [address], [address] [place] [address] documented as of this encounter Visit Diagnoses Not on filedocumented in this encounter Care Teams Clinical Veterinarian Relationship Specialty Start Date End Date Hodan Brewster MD [address] [place] [address], 2nd [place] [address] PCP - General 08/14/16 06/13/17 Kaushik Virgen MD [address] [place] [address] [email or web address] PCP - General Family Medicine 06/14/17 07/29/17 Hodan Brewster MD [address] [place] [address] [email or web address] PCP - General Internal Medicine 07/30/17 Franchesca Alexandra, [employer] [address] [place] [address] Historical LMR Provider 03/23/17 Alexia Galloway, RICHIE [address] [place] [address] [email or web address] Historical LMR Provider 03/23/17 Eddie Nina MD [address] [place] [address] [email or web address] Historical LMR Provider 03/23/17 Kellie Candelario MD [address] [place] [address] Historical LMR Provider 03/23/17 Hodan Brewster MD [address] [place] [address] [email or web address] Historical LMR Provider 03/23/17 Marlena Cunningham FNP [address] [place] [address] 204, [address] [place] [address] [email or web address] Historical LMR Provider 03/23/17 06/14/21 Susana Olguin MD [address] [place] [address] 204, [address] [place] [address] [email or web address] Historical LMR Provider 03/23/17 06/14/21 Margie Stahl DPM [address] [place] [address] Historical LMR Provider 03/23/17 Dre Weir MD 22 [facility], 2nd [place] [address] [email or web address] Historical LMR Provider 03/23/17 06/14/21 Kaushik Virgen MD [address] [place] [address] [email or web address] Historical LMR Provider 03/23/17 06/14/21 Zeeshan Ferrera MD 22 [facility], [address] [place] [address] [email or web address] Historical LMR Provider 03/23/17 06/14/21 Kacey George MD [address] [place] [address] [facility], [place] [address] Historical LMR Provider 03/23/17 Tim White MD [address] [place] [address] [email or web address] Historical LMR Provider 03/23/17 06/14/21 Hodan Brewster MD [address] [place] [address] [email or web address] Insurance Assigned Provider 10/08/18 12/17/18 Hodan Brewster MD [address] [place] [address] [email or web address] Insurance Assigned Provider 09/13/19 06/13/22 Hodan Brewster MD [address] [place] [address] [email or web address] Insurance Assigned Provider 09/11/23 documented as of this encounter Additional Source Comments The information contained in this document represents components of the legal health record. It is not the complete legal health record.[facility]
--- OUTSIDE RECORDS SUMMARY | 2025-02-26 14:07 | XMS_ITS | Clinical Summary ---
Author Organization [facility] Address [address] [place] [address] Care Team Providers Care Consumer Sales Representative Name Role Phone Hodan Brewster MD Primary Care Provider [phone] Allergies Active Allergy Reactions Criticality Noted Date [...] 62.5 mcg/actuation dsdv 1 puff Active Immunizations Immunization Administration Dates Next Due Fluarix Quadrivalent Prefilled [...] 68 06/05/2017 10:22 AM EST Temperature 36.5 C (97.7 F) 06/05/2017 10:22 AM EST Respiratory Rate 16 06/05/2017 10:22 AM EST [...] Adults 18 yrs or above (or HM Modifier)([facility]) 1969 Hepatitis C Virus Infection in Adolescents and Adults: Screening (or Modifier) ([facility]) 1969 LAQUITA Screening: Once using [facility] Questionnaire for Adults with Conditions or high BMI([facility]) 1969 SDOH Screening Reminder: Angelita adair for all adults ([facility]) 1969 Tobacco Smoking Cessation: i n Adults excluding Women: Behavioral and Pharmacotherapy Interventions ([facility]) 1969 Colorectal Cancer Screening 45 -75 Yrs (or HM Modifier) 1996 Colorectal Cancer: FLEXIBLE SIGMOIDOSCOPY Screening every 5 yrs 1996 Colorectal Cancer: Fecal Immunochemical Test (FIT) Annually [facility] 1996 Colorectal Cancer: High-sens itivity gFOBT Screening Annually [facility] 1996 Colorectal Cancer: Stool Col oguard Screening every 3 yrs 1996 Colorectal Cancer:CT Colonog nia Screening every 5 yrs 1996 Breast Cancer: Screening Angelita ually age 50-74 yrs (or HM Modifier)([facility]) 2001 Osteoporosis Screening to Pr event Fractures: Women aged 65 years+ ([facility] ) 2016 Pneumococcal Vaccination Scr eening: Patients 50+ yrs of age ([facility] ) (2 of 2 - PCV) 06/23/2020 06/23/2019 Flu Vaccination: Ages 65+: Y early High Dose Recommended (or Modifier)([facility] ) 01/05/2025 03/27/2022, 03/29/2018, 03/19/2017, Additional history exists COVID-19 Vaccine Screening: Initial Series and Booster Status ([facility]) (2024- season) 2025 02/25/2021, 08/28/2020, 07/31/2020 RSV Vaccines (1 - 1-dose 75+ series) 2026 DTaP/Tdap/Td Vaccines ([facility]) (3 - Td or Tdap) 05/09/2030 05/09/2020, 04/21/2011 Zoster/Shingles Vaccine Seri es Screening: Adults aged 18+ yrs (or HM Modifiers)([facility]) Completed 06/23/2019, 03/14/2019 Medical Devices Not on file Insurance [facility] MEDICARE Care Teams Consumer Sales Representative Relationship Specialty Start Date End Date Hodan Brewster MD [facility] [address] [place] [address] [address] [place] [phone] PCP - Information Management Officer 03/29/18
--- OUTSIDE RECORDS SUMMARY | 2025-02-26 14:07 | XMS_ITS | Encounter Summary ---
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, 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 on file Not on file documented as of this encounter Plan of Treatment Upcoming Encounters Date Type Department Care Team (Late st Contact Info) Description 11/28/2024 Procedure Pass Echo Lab [address] [place] [address] 02/26/2025 2:06 PM EDT Hospital Encounter Non-Invasive Cardiology [address] [place] [address] Hodan Brewster MD [address] [place] [address], 2nd [place] [address] Arrived 03/02/2025 8:30 AM EDT Office Visit [facility] [address] 3rd [facility], [address] [place] [address] Susana Stuart DNP [address] [place] [address] 06/13/2025 10:15 AM EST Appointment Echo Lab [address] [place] [address] Susana Stuart DNP [address] [place] [address], [address] [address] 06/27/2025 10:00 AM EST Office Visit [address] 3rd [facility], [address] [place] [address] Susana Stuart DNP [address] [place] [address] 08/01/2025 11:30 AM EST Office Visit [facility] 55 [facility], 3rd Floor, [address] [place] [address] Reymundo Patricio MD 55 [place] [address] [email or web address] 01/28/2026 11:30 AM EDT Office Visit [facility] [address] [place] [address] [place] [address] Hodan Brewster MD [address] [place] [address] documented as of this encounter Visit Diagnoses Not on filedocumented in this encounter Additional Health Concerns Assessment Noted Time PHQ-2 Depression Total Score: 0 01/10/20 25 3:23 PM EDT documented as of this encounter Care Teams Transport Operations Inspector Relationship Specialty Start Date End Date Hodan Brewster MD [address] [place] [address] PCP - General Internal Medicine 07/30/17 Eddie Nina MD [email or web address] Historical LMR Provider 03/23/17 Hodan Brewster MD [address] [place] [address] Historical LMR Provider 03/23/17 Kacey George MD [address] [place] [address] [facility], [place] [address] Historical LMR Provider 03/23/17 Hodan Brewster MD [address] [place] [address] Insurance Assigned Provider 09/11/23 documented as of this encounter Additional Source Comments The information contained in this document represents components of the legal health record. It is not the complete legal health record.[facility]
--- OUTSIDE RECORDS SUMMARY | 2025-02-26 14:07 | XMS_ITS | Encounter Summary ---
Author Organization [facility] Address [address] [place] [address] Phone Care Team Providers Care Compensation Associate Name Role Phone Eddie Nina MD Unavailable Hodan Brewster MD Unavailable [phone] Kacey George MD Unavailable [phone] Hodan Brewster MD Primary Care Provider Hodan Brewster MD Unavailable [phone] Encounter Details Date Type Department Care Team (Late st Contact Info) Description 10/08/2022 Procedure Pass [address] [place] [address] Social History Tobacco Use Types Packs/Day Years [...] high school, GED, job training, learning the Portuguese language, technical skills, or developing parenting skills)? 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 Not [...] Info) Description 11/28/2024 Procedure Pass [facility] [place] [address] [place] [address] 02/26/2025 2:30 PM EDT Appointment Non-Invasive Cardiology [address] [place] [address] Hodan Brewster MD [address] [place] [address], 2nd [place] [address] 03/02/2025 8:30 AM EDT Office Visit [facility] [address] [place] [address] 3rd Floor, [address] [place] [address] Susana Stuart DNP [address] [place] [address], [address] [place] [address] 06/13/2025 10:15 AM EST Appointment Echo Lab [address] [place] [address] Susana Stuart DNP [address] [place] [address], [address] [address] 06/27/2025 10:00 AM EST Office Visit [address] 3rd [facility], [address] [place] [address] Susana Stuart DNP [address] [place] [address], [address] [address] 08/01/2025 11:30 AM EST Office Visit [facility] Orthopaedic Spine [address] [facility], 3rd Floor, [address] [place] [address] Reymundo Patricio MD [address] [place] [address] [email or web address] 01/28/2026 11:30 AM EDT Office Visit [facility] [address] [place] [address] [place] [address] Hodan Brewster MD [address] [place] [address], 2nd [place] [address] documented as of this encounter Visit Diagnoses Not on filedocumented in this encounter Additional Health Concerns Assessment Noted Time PHQ-2 Depression Total Score: 1 12/04/19 22 4:12 PM EDT documented as of this encounter Care Teams Compensation Associate Relationship Specialty Start Date End Date Hodan Brewster MD [address] [place] [address] PCP - General Internal Medicine 07/30/17 Eddie Nina MD [email or web address] Historical LMR Provider 03/23/17 Hodan Brewster MD [address] [place] [address] Historical LMR Provider 03/23/17 Kacey George MD [address] [place] [address] [facility], [place] [address] Historical LMR Provider 03/23/17 Hodan Brewster MD [address] [place] [address] Insurance Assigned Provider 09/11/23 documented as of this encounter Additional Source Comments The information contained in this document represents components of the legal health record. It is not the complete legal health record.[facility]
--- OUTSIDE RECORDS SUMMARY | 2025-02-26 14:07 | XMS_ITS | Encounter Summary ---
Author Organization [facility] Address [address] [place] [address] Phone Care Team Providers Care Recreational Vehicle Resort Manager Name Role Phone Hodan Brewster MD Primary Care Provider [phone] Franchesca Alexandra DRAPERY ESTIMATOR Unavailable Alexia Galloway DRAPERY ESTIMATOR Unavailable [phone] Eddie Nina MD Unavailable [phone] Kellie Candelario MD Unavailable [phone] Hodan Brewster MD Unavailable [phone] Marlena Cunningham RESIDENTIAL ELECTRICIAN Unavailable [phone] Susana Olguin MD Unavailable [phone] Margie Stahl DPM Unavailable Unavaila ble Dre Novak MD Unavailable [phone] Kaushik Virgen MD Unavailable [phone] Zeeshan Ferrera MD Unavailable [phone] Kacey George MD Unavailable [phone] Tim White MD Unavailable [phone] Kaushik Virgen MD Primary Care Provider + Hodan Brewster MD Primary Care Provider [phone] Hodan Brewster MD Unavailable Hodan Brewster MD Unavailable [phone] Hodan Brewster MD Unavailable Encounter Details Date Type Department Care Team (Late st Contact Info) Description 08/27/2016 Procedure Pass [facility] [address] [place] [address] Social History Tobacco Use Types Packs/Day Years 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, 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 Not on file Not on file documented as of this encounter Plan of Treatment Upcoming Encounters Date Type Department Care Team (Late st Contact Info) Description 11/28/2024 Procedure Pass [facility] [address] [address] 02/26/2025 2:06 PM EDT Hospital Encounter Non-Invasive Cardiology [address] [place] [address] Hodan Brewster MD [address] [place] [address], 2nd [place] [address] Arrived 03/02/2025 8:30 AM EDT Office Visit [facility] [address] [place] [address] 3rd Floor, [address] [place] [address] Susana Stuart, CHUCK [facility], [address] [address] 06/13/2025 10:15 AM EST Appointment Echo Lab [address] [place] [address] Susana Stuart DNP [address] [facility], [address] [place] [address] 06/27/2025 10:00 AM EST Office Visit [facility] [address] [place] [address] Dr 3rd Floor, [address] [place] [address] Susana Stuart DNP [address] [facility], [address] [place] [address] 08/01/2025 11:30 AM EST Office Visit [facility] [address] [facility], 3rd Floor, [address] [place] [address] Reymundo Patricio MD 55 [place] [address] [email or web address] 01/28/2026 11:30 AM EDT Office Visit [facility] [address] [place] [address] [place] [address] Hodan Brewster MD [address] [place] [address], [address] [place] [address] documented as of this encounter Visit Diagnoses Not on filedocumented in this encounter Care Teams Recreational Vehicle Resort Manager Relationship Specialty Start Date End Date Hodan Brewster MD [address] [place] [address], 2nd [place] [address] PCP - General 08/14/16 06/13/17 Kaushik Virgen MD [address] [place] [address] [email or web address] PCP - General Family Medicine 06/14/17 07/29/17 Hodan Brewster MD [address] [place] [address] [email or web address] PCP - General Internal Medicine 07/30/17 Franchesca Alexandra, DRAPERY ESTIMATOR [address] [place] [address] Historical LMR Provider 03/23/17 Alexia Galloway, RICHIE [address] [place] [address] [email or web address] Historical LMR Provider 03/23/17 Eddie Nina MD [address] [place] [address] [email or web address] Historical LMR Provider 03/23/17 Kellie Candelario MD [address] [place] [address] Historical LMR Provider 03/23/17 Hodan Brewster MD [address] [place] [address] [email or web address] Historical LMR Provider 03/23/17 Marlena Cunningham FNP [address] [place] [address] 204, [address] [place] [address] [email or web address] Historical LMR Provider 03/23/17 06/14/21 Susana Olguin MD [address] [place] [address], [address] [place] [address] [email or web address] Historical LMR Provider 03/23/17 06/14/21 Margie Stahl DPM [address] [place] [address] Historical LMR Provider 03/23/17 Dre Weir MD [address] [facility], 2nd [place] [address] [email or web address] Historical LMR Provider 03/23/17 06/14/21 Kaushik Virgen MD [address] [place] [address] [email or web address] Historical LMR Provider 03/23/17 06/14/21 Zeeshan Ferrera MD [address] [facility], [address] [place] [address] [email or web address] Historical LMR Provider 03/23/17 06/14/21 Kacey George MD [address] [place] [address] [facility], [place] [address] Historical LMR Provider 03/23/17 Tim White MD [address] [place] [address] [email or web address] Historical LMR Provider 03/23/17 06/14/21 Hodan Brewster MD [address] [place] [address] [email or web address] Insurance Assigned Provider 10/08/18 12/17/18 Hodan Brewster MD [address] [place] [address] [email or web address] Insurance Assigned Provider 09/13/19 06/13/22 Hodan Brewster MD [address] [place] [address] [email or web address] Insurance Assigned Provider 09/11/23 documented as of this encounter Additional Source Comments The information contained in this document represents components of the legal health record. It is not the complete legal health record.[facility]
--- OUTSIDE RECORDS SUMMARY | 2025-02-26 14:07 | XMS_ITS | Encounter Summary ---
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 on 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 Not on file documented as of this encounter Plan of Treatment Upcoming Encounters Date Type Department Care Team (Late st Contact Info) Description 11/28/2024 Procedure Pass [facility] [address] [place] [address] 02/26/2025 2:06 PM EDT Hospital Encounter Non-Invasive Cardiology [address] [place] [address] Hodan Brewster MD [address], 2nd [place] [address] Arrived 03/02/2025 8:30 AM EDT Office Visit [facility] [address] [place] [address] 3rd Floor, [address] [place] [address] Susana Stuart DNP [address] [place] [address], [address] [address] 06/13/2025 10:15 AM EST Appointment Echo Lab [address] [place] [address] Susana Stuart DNP [address] [place] [address], [address] [place] [address] 06/27/2025 10:00 AM EST Office Visit [facility] [address] 3rd [facility], [address] [place] [address] Susana Stuart DNP [address] [place] [address], [address] [address] 08/01/2025 11:30 AM EST Office Visit [facility] [place] [place] Orthopaedic Spine 55 [facility], 3rd Floor, [address] [place] [address] Reymundo Patricio MD 55 [place] [address] [email or web address] 01/28/2026 11:30 AM EDT Office Visit [facility] [address] [place] [address] [place] [address] Hodan Brewster MD [address] [place] [address], 2nd [place] [address] documented as of this encounter Visit Diagnoses Not on filedocumented in this encounter Additional Health Concerns Assessment Noted Time PHQ-2 Depression Total Score: 2 12/31/19 24 4:14 PM EDT documented as of this encounter Care Teams Bell Tier Relationship Specialty Start Date End Date Hodan Brewster MD [address] [place] [address] [email or web address] PCP - General Internal Medicine 07/30/17 Eddie Nina MD [email or web address] Historical LMR Provider 03/23/17 Hodan Brewster MD [address] [place] [address] Historical LMR Provider 03/23/17 Kacey George MD [address] [place] [address] [facility], [place] [address] Historical LMR Provider 03/23/17 Hodan Brewster MD [address] [place] [address] Insurance Assigned Provider 09/11/23 documented as of this encounter Additional Source Comments The information contained in this document represents components of the legal health record. It is not the complete legal health record.[facility]
--- OUTSIDE RECORDS SUMMARY | 2025-02-26 14:07 | XMS_ITS | Encounter Summary ---
Author Organization [facility] Address [address] [place] [address] Phone Care Team Providers Care Service Delivery Management Consultant Name Role Phone Eddie Nina MD Unavailable Hodan Brewster MD Unavailable [phone] Kacey George MD Unavailable Hodan Brewster MD Primary Care Provider [phone] Hodan Brewster MD Unavailable [phone] Encounter Details Date Type Department Care Team (Late st Contact Info) Description 10/04/2022 Procedure Pass [facility] - [address] [address] Social History Tobacco Use Types Packs/Day Years [...] high school, GED, job training, learning the Filipino language, technical skills, or developing parenting skills)? 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 on file documented as of this encounter Functional Status * Calculated C-SSRS Risk Score (Lifetime/Recent) Answer Date of Assessment Author No Risk Indicated 10/04/2022 8:53 AM Divya Vanessa RN * [place] Suicide Severity Rating Scale (Screener/Recent Self-Report) Question [...] Info) Description 11/28/2024 Procedure Pass [facility] [address] [place] [address] 02/26/2025 2:30 PM EDT Appointment Non-Invasive Cardiology [address] [place] [address] Hodan Brewster MD [address] [place] [address], 2nd [place] [address] 03/02/2025 8:30 AM EDT Office Visit [facility] [address] 3rd [facility], [address] [place] [address] Susana Stuart DNP [address] [place] [address] 06/13/2025 10:15 AM EST Appointment Echo Lab [address] [place] [address] Susana Stuart DNP [address] [place] [address], [address] [address] 06/27/2025 10:00 AM EST Office Visit [address] [facility], [address] [place] [address] Susana Stuart DNP [address] [place] [address], [address] [address] 08/01/2025 11:30 AM EST Office Visit [facility] [address] [facility], 3rd Floor, [address] [place] [address] Reymundo Patricio MD 55 [place] [address] [email or web address] 01/28/2026 11:30 AM EDT Office Visit [facility] [address] [place] [address] [place] [address] Hodan Brewster MD [address] [place] [address] [email or web address] documented as of this encounter Visit Diagnoses Not on filedocumented in this encounter Additional Health Concerns Assessment Noted Time PHQ-2 Depression Total Score: 1 12/04/19 22 4:12 PM EDT documented as of this encounter Care Teams Service Delivery Management Consultant Relationship Specialty Start Date End Date Hodan Brewster MD [address] [place] [address] [email or web address] PCP - General Internal Medicine 07/30/17 Eddie Nina MD [email or web address] Historical LMR Provider 03/23/17 Hodan Brewster MD [address] [place] [address] Historical LMR Provider 03/23/17 Kacey George MD [address] [place] [address] [facility], [place] [address] [email or web address] Historical LMR Provider 03/23/17 Hodan Brewster MD [address] [place] [address] [email or web address] Insurance Assigned Provider 09/11/23 documented as of this encounter Additional Source Comments The information contained in this document represents components of the legal health record. It is not the complete legal health record.[facility]
--- OUTSIDE RECORDS SUMMARY | 2025-02-26 14:07 | XMS_ITS | Encounter Summary ---
Author Organization [facility] Address [address] [place] [address] Phone Care Team Providers Care Grocery Clerk Checking Name Role Phone Eddie Nina MD Unavailable [phone] Hodan Brewster MD Unavailable [phone] Kacey George MD Unavailable Hodan Brewster MD Primary Care Provider Hodan Brewster MD Unavailable [phone] Encounter Details Date Type Department Care Team (Late st Contact Info) Description 01/28/2023 Procedure Pass [address] [address] Social History Tobacco Use Types Packs/Day Years [...] high school, GED, job training, learning the [place] language, technical skills, or developing parenting 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, 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 Not on file documented as of this encounter Plan of Treatment Upcoming Encounters Date Type Department Care Team (Late st Contact Info) Description 11/28/2024 Procedure Pass [facility] [place] [address] [place] [address] 02/26/2025 2:30 PM EDT Appointment Non-Invasive Cardiology [address] [place] [address] Hodan Brewster MD [address] [place] [address], 2nd [place] [address] 03/02/2025 8:30 AM EDT Office Visit [facility] [address] 3rd Floor, [address] [place] [address] Susana Stuart DNP [address] [place] [address], [address] [address] 06/13/2025 10:15 AM EST Appointment Echo [facility] [address] [place] [address] Susana Stuart DNP [address] [place] [address], [address] [address] 06/27/2025 10:00 AM EST Office Visit [facility] [address] 3rd [facility], [address] [place] [address] Susana Stuart DNP [address] [place] [address], [address] [address] 08/01/2025 11:30 AM EST Office Visit [facility] Orthopaedic Spine [address] [facility], 3rd Floor, [address] [place] [address] Reymundo Patricio MD [address] [place] [address] [email or web address] 01/28/2026 11:30 AM EDT Office Visit [facility] [address] [place] [address] [place] [address] Hodan Brewster MD [address] [place] [address], 2nd [place] [address] documented as of this encounter Visit Diagnoses Not on filedocumented in this encounter Additional Health Concerns Assessment Noted Time PHQ-2 Depression Total Score: 1 12/04/19 22 4:12 PM EDT documented as of this encounter Care Teams Grocery Clerk Checking Relationship Specialty Start Date End Date Hodan Brewster MD [address] [place] [address] PCP - General Internal Medicine 07/30/17 Eddie Nina MD [email or web address] Historical LMR Provider 03/23/17 Hodan Brewster MD [address] [place] [address] Historical LMR Provider 03/23/17 Kacey George MD [address] [place] [address] [facility], [place] [address] Historical LMR Provider 03/23/17 Hodan Brewster MD [address] [place] [address] Insurance Assigned Provider 09/11/23 documented as of this encounter Additional Source Comments The information contained in this document represents components of the legal health record. It is not the complete legal health record.[facility]
== END 2025-02-26 11:58 | disposition home or self-care (01) ==
LOC: HO.HPS 11:25
PROVIDERS: PCP Internal Medicine; Visit Provider Hospitalist
DX: J45.40 Moderate persistent asthma, uncomplicated (principal); R06.09 Other forms of dyspnea; M54.9 Dorsalgia, unspecified; Z98.890 Other specified postprocedural states; R91.8 Other nonspecific abnormal finding of lung field; J84.9 Interstitial pulmonary disease, unspecified; D80.1 Nonfamilial hypogammaglobulinemia; D64.89 Other specified anemias; R01.1 Cardiac murmur, unspecified
CPT/HCPCS: 99214; G2211

== ENCOUNTER → 2025-02-26 11:25 | Outpatient (BNVA) | payer MEDICARE, BC, SELFPAY | PROVIDERS: PCP Internal Medicine; Visit Provider Hospitalist | DX: J45.40 Moderate persistent asthma, uncomplicated (principal); R06.09 Other forms of dyspnea; R01.1 Cardiac murmur, unspecified; R91.8 Other nonspecific abnormal finding of lung field; D80.1 Nonfamilial hypogammaglobulinemia; J84.9 Interstitial pulmonary disease, unspecified; M54.9 Dorsalgia, unspecified; D64.89 Other specified anemias; Z98.890 Other specified postprocedural states | CPT/HCPCS: 99212 ==